=== PATIENT | female | born 1975 | race Two or more races ===

== ENCOUNTER 2024-12-04 19:08 | Emergency (ER) | payer MEDICARE, OTHER ==
[~2024-12-04] VITALS: Ht 165.1 cm; Wt 73.0 kg
[2024-12-04 19:30] VITALS: BP 140/93; PULSE 89; RESP 18; O2SAT 95
== END 2024-12-04 22:42 | disposition left against medical advice (07) ==
LOC: ER 19:08
DX: S51.852A Open bite of left forearm, initial encounter (principal); Z53.21 Procedure and treatment not carried out due to patient leaving prior to being seen by health care provider; Y08.89XA Assault by other specified means, initial encounter; Y93.89 Activity, other specified; Y92.89 Other specified places as the place of occurrence of the external cause; Y99.8 Other external cause status

== ENCOUNTER 2025-05-31 10:57 | Inpatient (IN) | payer MEDICARE, OTHER ==
[~2025-05-31] VITALS: Ht 162.6 cm; Wt 71.3 kg
[2025-05-31] VITALS (34 sets, daily range): BP systolic 81–118; BP diastolic 42–72; PULSE 105–140; RESP 18–32; TEMP 95.7–100; O2SAT 97–100
--- NOTE | 2025-05-31 11:14 | ED.PDOC ---
Altered Mental Status HPI Comments 50 year old female with a Hx of Asthma and DM was BIBA for the c/c of Hyperglycemia. Per EMS Pt was found Altered by roommates this am. Per EMS pts HR was 110, noted her Blood sugar was "high". No other associated symptoms, modifiers, recent injuries or sick contacts present at this time. Chief Complaint: Hyperglycemia Time Seen by MD: 11:11 Reviewed Notes: Nurses Notes, Desizing Machine Offbearer Notes, Medications, Allergies Allergies: Coded Allergies: Penicillins (Verified Allergy, Unknown, 12/04/24) Home Meds Reported Medications Lamotrigine (Lamotrigine) 25 Mg Tab, 2 TAB PO DAILY 05/31/25 Olanzapine (OLANZAPINE ODT) 10 Mg Tab, 1 TAB PO 05/31/25 Duloxetine HCl (Duloxetine HCl) 60 Mg Cap, 1 CAP PO DAILY 05/31/25 Omeprazole (Omeprazole Dr) 20 Mg Cap, 1 CAP PO DAILY 05/31/25 Hydrochlorothiazide (Hydrochlorothiazide) 12.5 Mg Tab, 1 TAB PO DAILY 05/31/25 Losartan Potassium (Losartan Potassium) 25 Mg Tab, 1 TAB PO DAILY 05/31/25 Glimepiride (Glimepiride) 2 Mg Tab, 1 TAB PO DAILY 05/31/25 Information Source: Emergency Med Personnel Mode of Arrival: EMS Severity: Unresponsive Timing: Hours Duration: Since onset, Hours Prehospital treatment: Treatment Quality: Decreased Alertness, Confusion Recent: None History of: Diabetes, Hypoglycemia, On Insulin Associated Signs and Symptoms: None Past Medical History PAST MEDICAL HISTORY: Asthma, DM Family History Family History: Unknown Social History Smoker: Non-Smoker Alcohol: Denies ETOH Use Drugs: Denies Drug Use Lives In: Home Constitutional: denies: chills, diaphoresis, fatigue, fever, malaise, sweats, weakness, others EENTM: denies: blurred vision, double vision, ear bleeding, ear discharge, ear drainage, ear pain, ear ringing, eye pain, eye redness, hearing loss, mouth pain, mouth swelling, nasal discharge, nose bleeding, nose congestion, nose pain, photophobia, tearing, throat pain, throat swelling, voice changes, others Respiratory: denies: cough, hemoptysis, orthopnea, SOB at rest, shortness of breath, SOB with excertion, stridor, wheezing, others Cardiovascular: denies: chest pain, dizzy spells, diaphoresis, Dyspnea on exertion, edema, irregular heart beat, left arm pain, lightheadedness, palpi tations, PND, syncope, others Gastrointestinal: denies: abdomen distended, abdominal pain, blood streaked bowels, constipated, diarrhea, dysphagia, difficulty swallowing, hematemesis, melena, nausea, poor appetite, poor fluid intake, rectal bleeding, rectal pain, vomiting, others Genitourinary: denies: abnormal vagina bleeding, burning, dyspareunia, dysuria, flank pain, frequency, hematuria, incontinence, pain, , vagina discharge, urgency, others Neurological: denies: dizziness, fainting, headache, left sided numbness, left sided weakness, numbness, paresthesia, pre-existing deficit, right sided numbness, right sided weakness, seizure, speech problems, tingling, tremors, weakness, others Musculoskeletal: denies: back pain, gout, joint pain, joint swelling, muscle pain, muscle stiffness, neck pain, others Integumetry: denies: bruises, change in color, change in hair/nails, dryness, laceration, lesions, lumps, rash, wounds, others Allergic/Immunocompromised: denies: Difficulty Healing, Frequent Infections, Hives, Itching, others Hematologic/Lymphatic: denies: anemia, blood clots, easy bleeding, easy bru ising, swollen glands, others Endocrine: denies: excessive hunger, excessive sweating, excessive thirst, e xcessive urination, flushing, intolerance to cold, intolerance to heat, unexplained weight gain, unexplained weight loss, others Psychiatric: denies: anxiety, bipolar disorder, depression, hopeless, panic disorder, schizophrenia, sleepless, suicidal, others Unable to Obtain due to: Altered Mental Status All Other Systems: Reviewed and Negative Physical Exam General Appearance: Moderate Distress, Normal HEENT: Normal ENT Inspection, Pharynx Normal, TMs Normal Neck: Full Range of Motion, Non-Tender, Normal, Normal Inspection Respiratory: Chest Non-Tender, Lungs Clear, No Accessory Muscle Use, No R espiratory Distress, Normal Breath Sounds Cardiovascular: No Edema, No JVD, No Murmur, No Gallop, Normal Peripheral Pulses, Tachycardia Breast Exam: Deferred Gastrointestinal: No Organomegaly, Non Tender, No Pulsatile Mass, Normal Bowel Sounds, Soft Genitalia: Deferred Pelvic: Deferred Rectal: Deferred Extremities: No calf tenderness, Normal capillary refill, Non-tender, No pedal edema Musculoskeletal : Apperance: Normal Neurologic: Disoriented, No Motor Deficits, Normal Affect, Normal Mood, No Sensory Deficits Cerebellar Function: Normal Reflexes: Normal, NOT DONE Skin: Dry, Normal Color, Warm Peripheral Pulses: 3+ Radial (R), 3+ Radial (L) Lymphatic: No Adenopathy Was a procedure done? Was a procedure done?: Yes Sedation Sedation?: No Central Line Recorder of insertion practice: Observer Occupation of account support rep: Attending Physician Indication: Inability to obtain IV Room prepared for procedure: Yes Linotype Worker performed hand hygien: Yes Maximal sterile barrier precau: Mask/Eye shield, Sterile gown, Cap, Sterlie gloves, Large sterlie drape Skin Preparation: Chlorhexidine gluconate Skin preparation completely dr: Yes Insertion site: Right, Internal jugular Central line catheter type: Dwy-[id number]-[id number] dialysis Number of lumens: 2 Central line exchanged over a: Yes Antiseptic ointment applied to: Yes Post Assessment: Chest X-Ray, No Pneumothorax Informed consent obtained: Yes Risks/benefits/alt described: Yes Intubation Indication: Altered Mental Status Prep: Preoxygenation Pretreated with: Lidocaine Medicated with: Nothing Intubation Approach: Orotracheal Intubation size: cm (8) Informed consent obtained: No Risks/benefits/alt described: No Differential Diagnosis (ALOC) Differential Diagnosis: Dehydration, Hypoglycemia, DKA, Meningitis, Sepsis, Seizure, Closed Head Injury, CVA, Mass Lesion, Drug Overdose, ETOH Intoxication X-Ray, Labs, Meds, VS Vital Signs Date Time Temp Pulse Resp B/P (MAP) Pulse Ox O2 Delivery O2 Flow Rate FiO2 05/31/25 14:15 103 16 87/41 (56) 98 05/31/25 14:01 105 16 82/38 (53) 97 30 05/31/25 14:00 82/38 05/31/25 14:00 105 16 82/38 (53) 97 05/31/25 13:45 98 16 88/50 (63) 97 05/31/25 13:30 101 16 85/46 (59) 96 05/31/25 13:25 82/48 05/31/25 13:25 102 15 82/48 (59) 96 05/31/25 12:22 109/62 7/4/25 12:21 109/62 05/31/25 12:15 105 16 109/62 (78) 100 30 05/31/25 12:08 108 109/62 (78) 05/31/25 11:24 111 32 98 Room Air* 0 21 05/31/25 11:23 97.9 111 32 108/60 (76) 98 97.9 05/31/25 11:07 96.7 112 24 109/56 (73) 100 96.7 Lab Test 05/31/25 13:45 05/31/25 13:30 05/31/25 12:55 05/31/25 11:50 Range/Units White Blood Count 40.5 *H 4.4-10.8 10^3/uL Red Blood Count 4.78 4.0-5.20 10^6/uL Hemoglobin 13.7 12.2-16.2 g/dL Hematocrit 44.6 36.0-46.0 % Mean Corpuscular Volume 93.3 80.0-100.0 fL Mean Corpuscular Hemoglobin 28.7 28.0-32.0 pg Mean Corpuscular Hemoglobin Concent 30.7 L 32.0-36.0 g/dL Red Cell Distribution Width 15.4 H 11.8-14.3 % Platelet Count 308 140-450 10^3/uL Mean Platelet Volume 9.0 6.9-10.8 fL Neutrophils (%) (Auto) 37.0-80.0 % Lymphocytes (%) (Auto) 10.0-50.0 % Monocytes (%) (Auto) 0.0-12.0 % Basophils (%) (Auto) 0.0-2.0 % Neutrophils # (Auto) 1.6-8.6 10 ^3/uL Lymphocytes # (Auto) 0.4-5.4 10 ^3/uL Monocytes # (Auto) 0-1.3 10 ^3/uL Differential Total Cells Counted 100.0 100 Neutrophils % (Manual) 67 37.0-80.0 Band Neutrophils % (Manual) 5 Lymphocytes % (Manual) 20 10.0-50.0 Monocytes % (Manual) 8 0-12 Eosinophils % (Manual) 0 0-7 Basophils % (Manual) 0 0.0-2.0 Metamyelocytes % (manual) 0 Myelocytes % (Manual) 0 Promyelocytes % (Manual) 0 Blast Cells % (Manual) 0 Reactive Lymphocytes 0 Platelet Estimate [place] Large Platelets Few Polychromasia Slight Anisocytosis (manual) Slight Microcytosis Slight Macrocytosis Slight Serum Osmolality 383 H 278-298 mOsm/kg Plasma/Serum Blood Alcohol < 3.0 <10 mg/dL Blood Gas Specimen Type Arterial Arterial Blood Gas Sample Site Right radial Right radial Blood Gas Patient Temperature 37.0 37.0 Arterial Blood Date Drawn [id number] Arterial Blood pH 6.777 *L 6.943 *L 7.350-7.450 Arterial Blood Partial Pressure CO2 35.9 < 14.1 *L 32.0-45.0 mmHg Arterial Blood Partial Pressure O2 123.5 H 103.2 83.0-108.0 mmHg Arterial Blood HCO3 5.2 L 21.0-28.0 mmol/L Arterial Blood Oxygen Saturation 96.5 95.7 94.0-98.0 % Arterial Blood Base Excess -29.9 L -2.0-3.0 mmol/L Arterial Blood Oxyhemoglobin 94.9 94.1 94.0-98.0 % Arterial Blood Carboxyhemoglobin 1.0 1.0 0.5-1.5 % Arterial Blood Methemoglobin 0.7 0.7 0.0-1.5 % Kadeem Test Modified Yes Blood Gas Total Hemoglobin 15.30 14.70 12.0-16.0 g/dL Blood Gas Set Respiration Rate 16.0 Blood Gas Modality Vent - ac Room air FiO2 % 30.0 21.0 Blood Gas Tidal Volume 450.0 Blood Gas PEEP or CPAP 5.0 Blood Gas Critical Value Read Back Yes Yes Blood Gas Notified Whom shannan Shepherd md, p md Blood Gas Notified Time [id number] Blood Gas Notified By Jacquard Twine Polisher Operator navin calderon Jacquard Twine Polisher Operator navin calderon Urine Color Colorless Yellow Urine Clarity Clear Clear Urine pH 5.0 5.0-9.0 Urine Specific Thompson 1.018 1.001-1.035 Urine Protein Trace H Negative Urine Ketones 4+ H Negative Urine Blood 1+ H Negative /uL Urine Nitrite Negative Negative Urine Bilirubin Negative Negative Urine Urobilinogen Normal Negative mg/dL Urine Leukocyte Esterase Negative Negative /uL Urine RBC 10 0 - 4 /hpf Urine Microscopic WBC 1 0-5 /HPF Urine Squamous Epithelial Cells Few <5 /hpf Urine Bacteria Few H None Seen /hpf Urine Mucus Few None Seen Urine Glucose 4+ H Normal mg/dL Urine Opiates Screen Neg NEGATIVE Urine Fentanyl Screen Neg NEGATIVE Urine Barbiturates Screen Neg NEGATIVE Urine Phencyclidine Screen Neg NEGATIVE Urine Amphetamines Screen Neg NEGATIVE Urine Benzodiazepines Screen Neg NEGATIVE Urine Cocaine Screen Neg NEGATIVE Urine Cannabinoids Screen Neg NEGATIVE Test 05/31/25 11:32 Range/Units Sodium Level 131 L 136-145 mmol/L Potassium Level 5.0 3.5-5.1 mmol/L Chloride Level 88 L 98-107 mmol/L Carbon Dioxide Level < 10 *L 20-31 mmol/L Anion Gap 33.83098 H 5-15 Blood Urea Nitrogen 35 H 9-23 mg/dL Creatinine 2.50 H 0.550-1.02 mg/dL Glomerular Filtration Rate Calc 23 >90 mL/min BUN/Creatinine Ratio 14.0 10.0-20.0 Serum Glucose 978 *H 74-106 mg/dL Calcium Level 9.0 8.7-10.4 mg/dL Phosphorus Level 12.7 H 2.4-5.1 mg/dL Magnesium Level 2.8 H 1.6-2.6 mg/dL Beta-Hydroxybutyric Acid > 4.500 H < 0.4 mmol/L Current Medications Medications (Trade) Dose Ordered Sig/Laura Route Start Time Stop Time Status Last Admin Sodium Chloride 1,000 ml @ 500 mls/hr Q2H IV 05/31/25 11:15 05/31/25 15:14 DC 05/31/25 14:04 Insulin Human (Reg)/Sodium Chloride 100 ml @ 0.5 mls/hr Q24H IV 05/31/25 11:15 05/31/25 11:36 Diagnostic Test (Pha) (Accu-Chek Comfort Curve T) 1 strip Q90MIN 05/31/25 12:00 05/31/25 16:52 Insulin Glargine (Lantus) 15 units ONCE ONCE SC 05/31/25 11:15 05/31/25 11:16 DC 05/31/25 11:20 Sodium Bicarbonate 100 ml ONCE ONCE IV 05/31/25 12:00 05/31/25 12:01 DC 05/31/25 13:39 Etomidate 20 mg ONCE ONCE IV 05/31/25 12:15 05/31/25 12:16 DC 05/31/25 12:21 Rocuronium [place] 100 mg ONCE ONCE IV 05/31/25 12:15 05/31/25 12:16 DC 05/31/25 12:22 Midazolam HCl 50 ml @ 1 mls/hr Q24H IV 05/31/25 12:15 05/31/25 12:21 Sodium Bicarbonate 100 ml ONCE ONCE IV 05/31/25 13:45 05/31/25 13:46 DC 05/31/25 14:20 Patient disoriented. Heart rate increased. Saturation pristine. Blood sugar high. Possible DKA. Establish intravenous access. Was given fluids. She is moving her extremities. Using accessory muscles. Explained to the patient. Continue monitoring. PATIENT: RICHARD NEWMAN ACCT: [id number] UNIT: [id number] : 1975 LOC: ER ROOM / BED: / AGE / SEX: 50 / F ADM STATUS: REG ER SERVICE 1214 ORDERING PHYSICIAN: JEREMY SHEPHERD MD PROCEDURE(s): CXR1 - CHEST XRAY 1 VIEW REASON: s/p intubation ORDER NUMBER(s): [id number], ACCESSION NUMBER(s): [id number] EXAM: XY CHEST XRAY 1 VIEW HISTORY: s/p intubation COMPARISON: None TECHNIQUE: Portable AP view of the chest was performed. FINDINGS: Endotracheal tube is identified with its tip about 4.5 cm above the roxann. OG tube is identified with its tip at least 9 cm distal to the GE junction. Right IJ central line is identified with its tip in the mid to lower SVC. There is mild retrocardiac left lower lobe infiltrate. No other infiltrates, pneumothorax, or pulmonary edema. There is mild central peribronchial thicke jluis. The heart is not enlarged. IMPRESSION: 1. Mechanical ventilation with tubes and lines as above. 2. Mild Reactive airways disease. 3. Mild left lower lobe retrocardiac infiltrate may be due to scarring, atelectasis, or mild pneumonia. Time of 1ST Reevaluation: 11:41 Reevaluation 1ST: Unchanged Patient Education/Counseling: Diagnosis, Treatment, Need For Follow Up Family Education/Counseling: No Family Present SEPSIS Sepsis Screen Physician Orders Insulin Drip Protocol (7/4/25 ) Sodium Chloride 0.9% (05/31/25 17:15) Insulin Drip 100 Unit/100ml (Myxredlin 1 (05/31/25 11:15) Dextrose 50% Syringe (05/31/25 11:15) Glucose Blood (Accu-Chek Comfort Curve T (05/31/25 12:00) Abg W/ Co-Ox (05/31/25 11:10) Basic Metabolic Panel (05/31/25 23:10) Basic Metabolic Panel (06/01/25 05:10) Neurological Assessment (05/31/25 11:10) Vs/Hemodynamics .PER UNIT PROTOCOL (05/31/25 11:10) Insulin Lantus (Glargine) (Lantus) (06/01/25 10:00) Midazolam Drip 50 Mg/50ml (Versed Drip 5 (05/31/25 12:15) Rass Sedation Scale Q1HR (05/31/25 12:01) Chest Xray 1 View (05/31/25 12:14) Vent Ip Init (05/31/25 12:19) Respiratory Culture W/ Gs (05/31/25 12:19) Abg W/ Co-Ox (05/31/25 13:15) D5w 5% (Dextrose 5%) W/Sodium Bicarb 50m (05/31/25 14:30) Vital Signs Date Time Temp Pulse Resp B/P (MAP) Pulse Ox O2 Delivery O2 Flow Rate FiO2 05/31/25 14:15 103 16 87/41 (56) 98 05/31/25 14:01 105 16 82/38 (53) 97 30 05/31/25 14:00 82/38 05/31/25 14:00 105 16 82/38 (53) 97 05/31/25 13:45 98 16 88/50 (63) 97 05/31/25 13:30 101 16 85/46 (59) 96 05/31/25 13:25 82/48 05/31/25 13:25 102 15 82/48 (59) 96 05/31/25 12:22 109/62 05/31/25 12:21 109/62 05/31/25 12:15 105 16 109/62 (78) 100 30 05/31/25 12:08 108 109/62 (78) 05/31/25 11:24 111 32 98 Room Air* 0 21 05/31/25 11:23 97.9 111 32 108/60 (76) 98 97.9 05/31/25 11:07 96.7 112 24 109/56 (73) 100 96.7 Laboratory Tests Test 05/31/25 13:45 White Blood Count 40.5 10^3/uL (4.4-10.8) *H Medications Medications Dose Ordered Sig/Laura Route Start Time Stop Time Status Last Admin Dose Admin Diagnostic Test (Pha) 1 strip Q90MIN 05/31/25 12:00 05/31/25 16:52 Etomidate 20 mg ONCE ONCE IV 05/31/25 12:15 05/31/25 12:16 DC 05/31/25 12:21 Insulin Glargine 15 units ONCE ONCE SC 05/31/25 11:15 05/31/25 11:16 DC 05/31/25 11:20 Insulin Human (Reg)/Sodium Chloride 100 ml @ 0.5 mls/hr Q24H IV 05/31/25 11:15 05/31/25 11:36 Midazolam HCl 50 ml @ 1 mls/hr Q24H IV 05/31/25 12:15 05/31/25 12:21 Rocuronium [place] 100 mg ONCE ONCE IV 05/31/25 12:15 05/31/25 12:16 DC 05/31/25 12:22 Sodium Bicarbonate 100 ml ONCE ONCE IV 05/31/25 12:00 05/31/25 12:01 DC 05/31/25 13:39 Sodium Bicarbonate 100 ml ONCE ONCE IV 05/31/25 13:45 05/31/25 13:46 DC 05/31/25 14:20 Sodium Chloride 1,000 ml @ 500 mls/hr Q2H IV 05/31/25 11:15 05/31/25 15:14 DC 05/31/25 14:04 Departure 1 Departure Time of Disposition: 11:39 Impression: Primary Impression: DKA (diabetic ketoacidosis) Qualified Codes: E13.10 - Other specified diabetes mellitus with ketoacidosis without coma Disposition: ADMITTED INPATIENT Admit to: Med Surg Condition: Guarded Critical Care Note Critical Care Time?: Yes (90 min-critical care time only) Critical care comment: Continue monitoring Stability Stability form required: No Heart Score Heart Score: Heart Score Response (Comments) Value History Slightly Suspicious 0 EKG Normal 0 Age 45-64 1 Risk Factors >3 or Hx ASHD 2 Troponin Normal limit 0 Total 3 I personally scribed for JEREMY SHEPHERD MD ([email or web address]) on 05/31/25 at 11:14. Electronically submitted by Rubio Camargo ([email or web address]). I personally scribed for JEREMY SHEPHERD MD ([email or web address]) on 05/31/25 at 13:20. Electronically submitted by Rubio Camargo ([email or web address]). I personally scribed for JEREMY SHEPHERD MD ([email or web address]) on 05/31/25 at 13:22. Electronically submitted by Rubio Camargo ([email or web address]). JEREMY SHEPHERD MD May 31, 2025 11:14
[2025-05-31] MEDS ORDERED: DEXTROSE (50%) 50ML SYRG IV PRN (11:15)
[2025-05-31] MEDS: INSULIN LANTUS (GLARGINE) 1 /0.01ml (100units/ml) SC ONE (11:20)
[2025-05-31] MEDS: SODIUM CHLORIDE 0.9% 1,000 ML IV SCH ×2 (11:31→15:15)
[2025-05-31] MEDS: INSULIN DRIP 100 UNIT/100ML 100 ML IV SCH ×3 (11:36→21:30)
[2025-05-31 11:57] LABS: Potassium 5.0 mmol/L (3.5-5.1)
[2025-05-31 11:58] LABS: Anion Gap 33.00001 (5-15); Calcium 9.0 mg/dL (8.7-10.4)
[2025-05-31] MEDS: ACCU-CHEK COMFORT CURVE STRIP VI SCH (12:02)
[2025-05-31] MEDS: ROCURONIUM 10MG/ML 10ML VIAL IV ONE ×2 (12:05→12:22)
[2025-05-31 12:11] LABS: Blood Urea Nitrogen 35 mg/dL (9-23); Magnesium 2.8 mg/dL (1.6-2.6)
[2025-05-31 12:15] LABS: BUN/Creatinine Ratio 14.0 (10.0-20.0); Carbon Dioxide < 10 mmol/L (20-31); Chloride 88 mmol/L (98-107); Glucose 978 mg/dL (74-106); Sodium 131 mmol/L (136-145)
[2025-05-31] MEDS: ETOMIDATE (2MG/ML) 20ML VIAL IV ONE ×2 (12:21→14:02)
[2025-05-31] MEDS: MIDAZOLAM DRIP 50 mg/50mL 50 ML IV SCH (12:21)
--- NOTE | 2025-05-31 13:10 | DVH ---
EXAM: XY CHEST XRAY 1 VIEW HISTORY: s/p intubation COMPARISON: None TECHNIQUE: Portable AP view of the chest was performed. FINDINGS: Endotracheal tube is identified with its tip about 4.5 cm above the roxann. OG tube is identified wit h its tip at least 9 cm distal to the GE junction. Right IJ central line is identified with its tip in the mid to lower SVC. There is mild retrocardiac left lower lobe infiltrate. No other infiltrates , pneumothorax, or pulmonary edema. There is mild central peribronchial thickening. The heart is not enlarged. IMPRESSION: 1. Mechanical ventilation with tubes and lines as above. 2. Mild Reactive airways disease. 3. Mild left lower lobe retrocardiac infiltrate may be due to scarring, atelectasis, or mild pneumoni a.
[2025-05-31 13:27] LABS: Urine Protein, UAD TRACE (Negative)
[2025-05-31] MEDS: SODIUM CHLORIDE 0.9% 3,000 ML IV ONE (13:30)
[2025-05-31] MEDS: SODIUM BICARB 8.4% 50Meq/50ml SYR Vial IV ONE ×3 (13:39→18:22)
[2025-05-31 13:48] LABS: Base Excess -29.9 mmol/L (-2.0-3.0)
[2025-05-31 14:05] LABS: Hemoglobin 13.7 g/dL (12.2-16.2)
[2025-05-31 14:06] LABS: Hematocrit 44.6 % (36.0-46.0); Mean Corpuscular Hemoglobin 28.7 pg (28.0-32.0); Mean Corpuscular Volume 93.3 fL (80.0-100.0)
[2025-05-31] MEDS ORDERED: DULO1CAP6 PO (14:26)
[2025-05-31] MEDS ORDERED: LAMO25TA27 PO (14:26)
[2025-05-31] MEDS ORDERED: GLIM2TAB94 PO (14:26)
[2025-05-31] MEDS ORDERED: LOS25T PO (14:26)
[2025-05-31] MEDS ORDERED: OLAN10TA40 PO (14:26)
[2025-05-31] MEDS ORDERED: OMEP1CAP70 PO (14:26)
[2025-05-31] MEDS ORDERED: HYDR12.55 PO (14:26)
[2025-05-31] MEDS ORDERED: NITROGLYCERIN 0.4 MG SL TAB SL PRN (14:30)
[2025-05-31] MEDS ORDERED: MORPHINE SULFATE INJ 2 MG/ml SYRG IV PRN (14:30)
[2025-05-31] MEDS ORDERED: ONDANSETRON HCL 4 MG/2 ML VIAL IV PRN (14:30)
[2025-05-31] MEDS: SODIUM CHLORIDE 0.9% 1,000 ML IV ONE (14:50)
[2025-05-31] MEDS: NOREPINEPHRINE 8 MG/250ML KIT 250 ML IV SCH (14:50)
[2025-05-31] MEDS: VANCOMYCIN 1.25GM/250ML 250 ML IV ONE (14:57)
--- NOTE | 2025-05-31 14:58 | DVHHP2 ---
History of Present Illness Reason for Visit: Hyperglycemia History of Present Illness Chanell Riddle is a 50-year-old female with past medical history of diabetes, who came to the hospital for hyperglycemia. The patient was brought in by EMS, there is no family or friends bedside and the patient is intubated and sedated. Obtained history form chart. According to EMS, they were called by roommates who found the patient altered in her room this morning. When EMS did an Accu check it read as "hi" twice. When the patient arrived to the ER she could barely say her name and she was intubated shortly after arrival. She was found to be in DKA and in metabolic acidosis. Unable to obtain any other medical history at this time Endocrine: Diabetes Review of Systems Review of Systems Unable to obtain Allergies: Coded Allergies: Penicillins (Verified Allergy, Unknown, 12/04/24) Medications Current Medications Medications Dose Ordered Sig/Laura Route Start Time Stop Time Status Last Admin Dose Admin Sodium Chloride 1,000 ml @ 500 mls/hr Q2H IV 05/31/25 11:15 05/31/25 15:14 05/31/25 14:04 500 MLS/HR Sodium Chloride 1,000 ml @ 250 mls/hr Q4H IV 05/31/25 15:15 05/31/25 17:14 Sodium Chloride 1,000 ml @ 150 mls/hr Q6H40M IV 05/31/25 17:15 Insulin Human (Reg)/Sodium Chloride 100 ml @ 0.5 mls/hr Q24H IV 05/31/25 11:15 05/31/25 11:36 0.5 MLS/HR Dextrose 50 ml UD PRN IV 05/31/25 11:15 Diagnostic Test (Pha) 1 strip Q90MIN 05/31/25 12:00 05/31/25 13:57 1 STRIP Insulin Glargine 15 units DAILY SC 06/01/25 10:00 Midazolam HCl 50 ml @ 1 mls/hr Q24H IV 05/31/25 12:15 05/31/25 12:21 1 MLS/HR Sodium Bicarbonate 150 ml/Dextrose 1,150 ml @ 100 mls/hr [id number] IV 05/31/25 14:30 Ondansetron HCl 4 mg Q4HP PRN IV 05/31/25 14:30 Enoxaparin Sodium 40 mg DAILY SC 06/01/25 10:00 UNV Acetaminophen 650 mg Q6HP PRN PO 05/31/25 14:30 Nitroglycerin 0.4 mg Q5MINP PRN SL 05/31/25 14:30 Morphine Sulfate 2 mg Q30M PRN IV 05/31/25 14:30 Ceftriaxone Sodium 50 ml @ 100 mls/hr DAILY@09 IV 06/01/25 09:00 UNV Exam Vital Signs Vital Signs Date Time Temp Pulse Resp B/P (MAP) Pulse Ox O2 Delivery O2 Flow Rate FiO2 05/31/25 12:22 109/62 05/31/25 12:15 105 16 100 30 05/31/25 11:24 Room Air* 0 05/31/25 11:23 97.9 97.9 General Appearance: Other (sedated) HEENT: Atraumatic, PERRLA, Other (Mucous membr dry) Respiratory: Clear to auscultation, Normal air movement, Other (intubated) Cardiovascular: Normal S1, Normal S2, Other (ST) Abdominal: Normal bowel sounds, Soft, No tenderness Extremities: No clubbing, No cyanosis, No edema, Normal pulses Skin: No rashes, No breakdown, No significant lesion Neuro: Other (sedated) Labs/Xrays Labs Test 05/31/25 13:45 05/31/25 13:30 05/31/25 12:55 05/31/25 11:32 Range/Units White Blood Count 40.5 *H 4.4-10.8 10^3/uL Red Blood Count 4.78 4.0-5.20 10^6/uL Hemoglobin 13.7 12.2-16.2 g/dL Hematocrit 44.6 36.0-46.0 % Mean Corpuscular Volume 93.3 80.0-100.0 fL Mean Corpuscular Hemoglobin 28.7 28.0-32.0 pg Mean Corpuscular Hemoglobin Concent 30.7 L 32.0-36.0 g/dL Red Cell Distribution Width 15.4 H 11.8-14.3 % Platelet Count 308 140-450 10^3/uL Mean Platelet Volume 9.0 6.9-10.8 fL Neutrophils (%) (Auto) 37.0-80.0 % Lymphocytes (%) (Auto) 10.0-50.0 % Monocytes (%) (Auto) 0.0-12.0 % Basophils (%) (Auto) 0.0-2.0 % Neutrophils # (Auto) 1.6-8.6 10 ^3/uL Lymphocytes # (Auto) 0.4-5.4 10 ^3/uL Monocytes # (Auto) 0-1.3 10 ^3/uL Serum Osmolality 383 H 278-298 mOsm/kg Blood Gas Specimen Type Arterial Blood Gas Sample Site Right radial Blood Gas Patient Temperature 37.0 Arterial Blood Date Drawn [id number] Arterial Blood pH 6.777 *L 7.350-7.450 Arterial Blood Partial Pressure CO2 35.9 32.0-45.0 mmHg Arterial Blood Partial Pressure O2 123.5 H 83.0-108.0 mmHg Arterial Blood HCO3 5.2 L 21.0-28.0 mmol/L Arterial Blood Oxygen Saturation 96.5 94.0-98.0 % Arterial Blood Base Excess -29.9 L -2.0-3.0 mmol/L Arterial Blood Oxyhemoglobin 94.9 94.0-98.0 % Arterial Blood Carboxyhemoglobin 1.0 0.5-1.5 % Arterial Blood Methemoglobin 0.7 0.0-1.5 % Kadeem Test Modified Blood Gas Total Hemoglobin 15.30 12.0-16.0 g/dL Blood Gas Set Respiration Rate 16.0 Blood Gas Modality Vent - ac FiO2 % 30.0 Blood Gas Tidal Volume 450.0 Blood Gas PEEP or CPAP 5.0 Blood Gas Critical Value Read Back Yes Blood Gas Notified Whom shannan Soria md Blood Gas Notified Time [id number] Blood Gas Notified By Research Epidemiologist navin calderon Urine Color Colorless Yellow Urine Clarity Clear Clear Urine pH 5.0 5.0-9.0 Urine Specific [place] 1.018 1.001-1.035 Urine Protein Trace H Negative Urine Ketones 4+ H Negative Urine Blood 1+ H Negative /uL Urine Nitrite Negative Negative Urine Bilirubin Negative Negative Urine Urobilinogen Normal Negative mg/dL Urine Leukocyte Esterase Negative Negative /uL Urine RBC 10 0 - 4 /hpf Urine Microscopic WBC 1 0-5 /HPF Urine Squamous Epithelial Cells Few <5 /hpf Urine Bacteria Few H None Seen /hpf Urine Mucus Few None Seen Urine Glucose 4+ H Normal mg/dL Sodium Level 131 L 136-145 mmol/L Potassium Level 5.0 3.5-5.1 mmol/L Chloride Level 88 L 98-107 mmol/L Carbon Dioxide Level < 10 *L 20-31 mmol/L Anion Gap 33.42195 H 5-15 Blood Urea Nitrogen 35 H 9-23 mg/dL Creatinine 2.50 H 0.550-1.02 mg/dL Glomerular Filtration Rate Calc 23 >90 mL/min BUN/Creatinine Ratio 14.0 10.0-20.0 Serum Glucose 978 *H 74-106 mg/dL Calcium Level 9.0 8.7-10.4 mg/dL Phosphorus Level 12.7 H 2.4-5.1 mg/dL Magnesium Level 2.8 H 1.6-2.6 mg/dL Beta-Hydroxybutyric Acid > 4.500 H < 0.4 mmol/L EXAM: XY CHEST X-RAY 1 VIEW FINDINGS: Endotracheal tube is identified with its tip about 4.5 cm above the roxann. OG tube is identified with its tip at least 9 cm distal to the GE junction. Right IJ central line is identified with its tip in the mid to lower SVC. There is mild retrocardiac left lower lobe infiltrate. No other infiltrates, pneumothorax, or pulmonary edema. There is mild central peribronchial thickening. The heart is not enlarged. IMPRESSION: 1. Mechanical ventilation with tubes and lines as above. 2. Mild Reactive airways disease. 3. Mild left lower lobe retrocardiac infiltrate may be due to scarring, atelectasis, or mild pneumonia. Assessment/Plan Assessment/Plan Assessment: DKA (diabetic ketoacidosis), Uncontrolled diabetes, Severe metabolic acidosis, UTI, Plan: Admit to ICU, IV antibiotics, IV hydration, IV indulin drip, IV vasopressors as needed, BMP Q 6 hours, Manage/Monitor electrolytes closely, Blood culture, Urine culture, Plan discussed with: Patient My Orders Orders - SHARMAINE NAVARRETE [employer] Procedure Category Date Status Time D5w 5% (Dextrose 5%) PHA 05/31/25 In Process W/Sodium Bicarb 50m 14:30 Admit ADMIT 05/31/25 Transmitted 14:22 Code Status CODE 05/31/25 Transmitted 14:22 Ondansetron Hcl PHA 05/31/25 In Process (Zofran) 14:30 Enoxaparin Sodium PHA 06/01/25 Logged (Lovenox) 10:00 Complete Blood Count LAB 7/5/25 Verified 04:00 Comprehensive LAB 06/01/25 Verified Metabolic Panel 04:00 Npo (Nothing By DIET 05/31/25 Transmitted Mouth) Diet Dinner Condition: Unstable [facility] 05/31/25 In Process 14:22 Acetaminophen Tablet [facility] 05/31/25 In Process (Tylenol Tablet) 14:30 Nitroglycerin PHA 05/31/25 In Process Sublingual (Ntrostat 14:30 Morphine Sulfate PHA 05/31/25 In Process Injection 14:30 Stat Ekg For Chest [facility] 05/31/25 In Process Pain 14:22 Notify Md Of Changes [facility] 05/31/25 In Process From Base 14:22 Gill Box Tender For [facility] 05/31/25 In Process 24 Hours 14:22 Emergency Dysrhythmia [facility] 05/31/25 In Process Protocol 14:22 Rhythm Strips Once [facility] 05/31/25 In Process Every Shift 14:22 Oxygen By Nasal RT 05/31/25 Transmitted Cannula 14:22 Ceftriaxone 1gm/50ml PHA 06/01/25 Logged D5w (Rocephin) 09:00 Ceftriaxone 1gm/50ml PHA 05/31/25 Logged D5w (Rocephin) 14:30 Vancomycin PHA 05/31/25 In Process 1.25gm/250ml 14:30 Basic Metabolic Panel LAB 05/31/25 Logged 16:00 Date of Service: May 31, 2025 Billing Provider: SHARMAINE NAVARRETE Common Visit Codes: [id number] INP/OBS CARE (HIGH) SHARMAINE NAVARRETE May 31, 2025 14:58
[2025-05-31] MEDS: cefTRIAXone 1GM/50ML D5W 50 ML IV ONE (15:32)
[2025-05-31 15:41] LABS: Amphetamine Screen, Urine Neg (NEGATIVE); Barbiturate Scree,Urine Neg (NEGATIVE); Benzodiazephine Screen, Urine Neg (NEGATIVE); Cannabinoid Screen, Urine Neg (NEGATIVE); Cocaine Screen, Urine Neg (NEGATIVE); Opiate Scree,Urine Neg (NEGATIVE); Phencyclidine Screen, Urine Neg (NEGATIVE)
[2025-05-31 15:53] LABS: Base Excess -21.5 mmol/L (-2.0-3.0)
[2025-05-31] MEDS: SODIUM BICARB 50mEq/50ml Vial 150 ML in D5W 5% 1,000 ML IV SCH (16:02)
[2025-05-31 16:27] LABS: Total Cells Counted 100.0 (100)
[2025-05-31 16:28] LABS: Anisocytosis Slight; Macrocytosis Slight; Polychromasia Slight
[2025-05-31 16:44] LABS: Chloride 102 mmol/L (98-107); Sodium 145 mmol/L (136-145)
[2025-05-31 16:46] LABS: Anion Gap 33.00001 (5-15)
[2025-05-31 16:47] LABS: Calcium 7.7 mg/dL (8.7-10.4); Potassium 3.2 mmol/L (3.5-5.1)
[2025-05-31 16:50] LABS: Carbon Dioxide < 10 mmol/L (20-31)
[2025-05-31 16:51] LABS: BUN/Creatinine Ratio 26.3 (10.0-20.0)
[2025-05-31 16:52] LABS: Blood Urea Nitrogen 50 mg/dL (9-23)
[2025-05-31 16:54] LABS: Glucose 668 mg/dL (74-106)
[2025-05-31] MEDS ORDERED: SODIUM CHLORIDE 0.9% 1,000 ML IV SCH (17:15)
[2025-05-31] MEDS: POTASSIUM CHL 20MEQ/100ML 100 ML IV SCH (18:22)
[2025-05-31] MEDS: fentaNYL Drip 2500mCg/250mlNS 250 ML IV SCH (21:27)
[2025-05-31] MEDS: PANTOPRAZOLE 40 MG/10 ML VIAL INJ IV SCH (21:27)
[2025-05-31 23:27] LABS: Anion Gap 22 (5-15); Carbon Dioxide 21 mmol/L (20-31)
[2025-05-31 23:28] LABS: Calcium 8.3 mg/dL (8.7-10.4); Chloride 110 mmol/L (98-107); Potassium 2.8 mmol/L (3.5-5.1); Sodium 153 mmol/L (136-145)
[2025-05-31 23:33] LABS: BUN/Creatinine Ratio 22.8 (10.0-20.0)
[2025-05-31 23:39] LABS: Blood Urea Nitrogen 36 mg/dL (9-23); Glucose 386 mg/dL (74-106)
[2025-06-01] VITALS (106 sets, daily range): BP systolic 97–150; BP diastolic 65–94; PULSE 118–144; RESP 15–22; TEMP 98.6–100.8; O2SAT 97–100
[2025-06-01] MEDS: ACETAMINOPHEN 325 MG TAB PO PRN (01:13)
[2025-06-01] MEDS: POTASSIUM CHL 20MEQ/100ML 100 ML IV SCH ×2 (01:21→13:59)
[2025-06-01] MEDS: INSULIN DRIP 100 UNIT/100ML 100 ML IV SCH ×3 (01:25→15:30)
[2025-06-01] MEDS: SODIUM BICARB 8.4% 50Meq/50ml SYR INJ ONE (02:24)
[2025-06-01 04:22] LABS: Alanine Aminotransferase 15 U/L (7-40); Albumin 3.7 g/dL (3.2-4.8); Alkaline Phosphatase 81 U/L (46-116); Anion Gap 15 (5-15); BUN/Creatinine Ratio 21.5 (10.0-20.0); Carbon Dioxide 26 mmol/L (20-31)
[2025-06-01 04:32] LABS: Bilirubin, Total 0.2 mg/dL (0.2-1.0); Blood Urea Nitrogen 29 mg/dL (9-23); Calcium 7.9 mg/dL (8.7-10.4); Chloride 112 mmol/L (98-107); Glucose 273 mg/dL (74-106); Potassium 3.0 mmol/L (3.5-5.1); Sodium 153 mmol/L (136-145); Total Protein 5.6 g/dL (5.7-8.2)
[2025-06-01 05:10] LABS: Hematocrit 44.9 % (36.0-46.0); Hemoglobin 15.2 g/dL (12.2-16.2); Mean Corpuscular Hemoglobin 28.6 pg (28.0-32.0); Mean Corpuscular Volume 84.4 fL (80.0-100.0)
[2025-06-01 05:47] LABS: Base Excess 5.2 mmol/L (-2.0-3.0)
[2025-06-01 06:41] LABS: Smudge Cells 2 /100 WBC; Total Cells Counted 100.0 (100)
[2025-06-01] MEDS: cefTRIAXone 1GM/50ML D5W 50 ML IV SCH (09:01)
[2025-06-01] MEDS: ENOXAPARIN SOD 30 MG/0.3 ML SYRINGE SC SCH (09:03)
[2025-06-01] MEDS: INSULIN LANTUS (GLARGINE) 1 /0.01ml (100units/ml) SC SCH (09:47)
--- NOTE | 2025-06-01 11:37 | DVHPN2 ---
Assessment/Plan Assessment/Plan ICU note 79 M with DM HTN admitted for COPD and HF exacerbation, intubated and placed on mechanical vent, started on pressors, empiric abx and diuretics. now off pressors and extubated. seen today, gap closed x1. tachy, will add iv hydration. vent adjusted. gas in 2 hours. physical exam intubated, sedated on mechanical vent PERRLA dry mucous membranes no JVD mechanical breath sounds s1 s2 tachy abdomen soft no le edema labs ekg imaging reviewed assessment and plan acute metabolic encephalopathy acute hypoxic RF req mechanical vent DKA severe HAGMA MABLE likely hemodynamic mediated IDDM possible aspiration PNA gp vs gn c/w mech vent, decrease TV to 400 follow culture transition to subq insulin now that gap is closed basal and ISS iv hydration bolus SAT SBT tomorrow tube feeds tomorrow follow cr diet NPO dvt ppx lovenox gi ppx lovenox full code condition critical prognosis poor 60 minutes critical care time rendered Plan discussed with: Other My Orders Orders - KATY ELKINS MD Procedure Category Date Status Time Pantoprazole PHA 06/02/25 Logged (Protonix) 10:00 Strict I & O LONNIE 06/01/25 In Process 11:27 Cpap/Sed Vacation Med ORDERS 06/01/25 Transmitted Weaning 11:27 Basic Metabolic Panel LAB 06/01/25 Logged 11:27 Complete Blood Count LAB 06/02/25 Verified 04:00 Comprehensive LAB 06/02/25 Verified Metabolic Panel 04:00 Magnesium LAB 06/02/25 Verified 04:00 Phosphorus LAB 06/02/25 Verified 04:00 Sodium Chloride 0.9% PHA 06/01/25 Logged 11:45 Abg W/ Co-Ox RT 06/01/25 Transmitted 13:00 Ventilator Orders RT 06/01/25 Transmitted 11:36 Date of Service: Jun 01, 2025 Billing Provider: KATY ELKINS MD Common Visit Codes: [id number] CARE 30-74 MIN KATY ELKINS MD Jun 01, 2025 11:37
[2025-06-01] MEDS ORDERED: INSULIN DRIP 100 UNIT/100ML 100 ML IV SCH (12:15)
[2025-06-01 12:46] LABS: Alanine Aminotransferase 14 U/L (7-40); Albumin 3.8 g/dL (3.2-4.8); Alkaline Phosphatase 79 U/L (46-116); Anion Gap 11 (5-15); BUN/Creatinine Ratio 21.6 (10.0-20.0); Calcium 8.9 mg/dL (8.7-10.4); Carbon Dioxide 31 mmol/L (20-31)
[2025-06-01 12:55] LABS: Bilirubin, Total 0.3 mg/dL (0.2-1.0); Blood Urea Nitrogen 25 mg/dL (9-23); Chloride 115 mmol/L (98-107); Glucose 112 mg/dL (74-106); Potassium 3.3 mmol/L (3.5-5.1); Sodium 157 mmol/L (136-145); Total Protein 5.5 g/dL (5.7-8.2)
[2025-06-01] MEDS: SODIUM CHLORIDE 0.9% 1,000 ML IV ONE (13:17)
[2025-06-01 13:23] LABS: Base Excess 4.6 mmol/L (-2.0-3.0)
[2025-06-01] MEDS: INSULIN LANTUS (GLARGINE) 1 /0.01ml (100units/ml) SC ONE (13:42)
[2025-06-01 20:28] LABS: Alanine Aminotransferase 12 U/L (7-40); Albumin 3.5 g/dL (3.2-4.8); Alkaline Phosphatase 73 U/L (46-116); Anion Gap 9 (5-15); BUN/Creatinine Ratio 19.1 (10.0-20.0); Blood Urea Nitrogen 21 mg/dL (9-23); Calcium 8.3 mg/dL (8.7-10.4); Carbon Dioxide 29 mmol/L (20-31); Chloride 119 mmol/L (98-107); Glucose 158 mg/dL (74-106); Potassium 3.9 mmol/L (3.5-5.1); Sodium 157 mmol/L (136-145); Total Protein 5.2 g/dL (5.7-8.2)
[2025-06-01 20:29] LABS: Bilirubin, Total 0.3 mg/dL (0.2-1.0)
--- NOTE | 2025-06-01 22:41 | DVHPN2 ---
Progress Note - Dictate Date Seen: Jun 01, 2025 Medical Necessity Reason Pt with a Central, PICC or Fol: Yes The following are medically ne: Sotelo Catheter Reason for sotelo catheter: Strict I&O Subjective Patient seen and examined at bedside. Sedated, intubated on mechanical ventilator. Overnight events reviewed. vital signs Vital Sign Date Time Temp Pulse Resp B/P (MAP) Pulse Ox O2 Delivery O2 Flow Rate FiO2 06/01/25 22:21 132 16 118/77 (91) 99 30 06/01/25 18:45 99.3 210.7 06/01/25 18:00 Mechanical Ventilator+ 05/31/25 11:24 0 Total Intake and Output 05/31/25 05/31/25 06/01/25 15:00 23:00 07:00 Intake Total 1500 ml 3040.50 ml 1366.25 ml Output Total 1400 ml 1800 ml Balance 1500 ml 1640.50 ml -433.75 ml medications Current Medications Medications Dose Ordered Sig/Laura Route Start Time Stop Time Status Last Admin Dose Admin Dextrose 50 ml UD PRN IV 05/31/25 11:15 Diagnostic Test (Pha) 1 strip Q90MIN 05/31/25 12:00 06/01/25 22:26 1 STRIP Insulin Glargine 15 units DAILY SC 06/01/25 10:00 Hold 06/01/25 09:47 15 UNITS Midazolam HCl 50 ml @ 1 mls/hr Q24H IV 05/31/25 12:15 06/01/25 20:15 7 MLS/HR Acetaminophen 650 mg Q6HP PRN PO 05/31/25 14:30 06/01/25 01:13 650 MG Ceftriaxone Sodium 50 ml @ 100 mls/hr DAILY@09 IV 06/01/25 09:00 06/01/25 09:01 100 MLS/HR Norepinephrine Bitartrate 250 ml @ 3.75 mls/hr Q24H IV 05/31/25 14:30 05/31/25 14:50 3.75 MLS/HR Fentanyl Citrate 250 ml @ 2.5 mls/hr Q24H IV 05/31/25 21:15 06/01/25 15:32 12.5 MLS/HR Pantoprazole Sodium 40 mg DAILY IV 06/02/25 10:00 Insulin Human (Reg)/Sodium Chloride 100 ml @ 0.5 mls/hr Q24H IV 06/01/25 15:15 06/01/25 15:30 0.5 MLS/HR Enoxaparin Sodium 40 mg DAILY SC 06/02/25 10:00 objective Gen.: Patient lying in bed in medical ICU. Sedated, intubated on mechanical ventilator. Head: Normocephalic, atraumatic. Eyes: PERRLA. Ears: Normal external anatomy. Throat: Endotracheal tube and orogastric tube in place. Neck: Supple, trachea midline. Chest: Transmitted breath sounds bilaterally. Decreased air entry bilaterally. No wheezing. Bibasilar crackles. Cardiovascular: Positive S1, positive S2. Regular rate and rhythm. Abdomen: Positive bowel sounds in all 4 quadrants. Soft, nontender, nondistended. : Sotelo in place. Normal external genitalia. Rectal: Deferred. Skin: Warm, dry. Intact. Extremities: 2+ radial pulses bilaterally. No lower extremity edema. Neuro: Sedated. laboratory and microbiology Laboratory Tests 06/01/25 19:56 06/01/25 02:42 Test 06/01/25 19:56 Range/Units Serum Glucose 158 H 74-106 mg/dL Assessment/Plan Impression: Acute hypoxic respiratory failure On mechanical ventilator Diabetic ketoacidosis Metabolic acidosis Acute metabolic encephalopathy Plan: s/p intubation on mechanical ventilator. ABG reviewed, notable for alkalemia. On AC mode; RR 16, VT 400, PEEP 5, FiO2 30% Titrate FIO2 to keep O2 saturation above 90%. VAP bundle. Daily ABG and CXR while intubated Sedate for ventilator synchrony - on Versed Fentanyl drip for analgesia. Continue antibiotics. Insulin drip, glycemic monitoring. Pressors as necessary for hemodynamic support. Titrate to keep MAP greater than 65 mmHg. Currently off Levophed since 5 AM. Monitor renal function Monitor electrolytes. Supplement as necessary. Monitor ins and outs. Potassium supplementation GI prophylaxis. DVT prophylaxis. Prognosis: Poor given patient's multiple co-morbidities. Condition: Critical Rest of plan per hospitalist and other consultants. A total of 35 minutes of critical care time was spent reviewing the patient record, examining the patient, making a diagnostic and therapeutic plan, discussing this plan with the medical personnel, following up on diagnostic studies and following the patient for clinical stability excluding any and all procedures. At least 50% of this time was spent in direct, [id number] contact. Thank you Dr. Hurt for allowing me to participate in this patient's care. Further recommendations will depend on the patient's clinical course. Please do not hesitate to contact me if you have any questions or concerns. This medical document was created using an electronic medical record system with [employer] system. Although these documentations are being carefully reviewed, there may still be some phonetic and typographical changes. The errors are purely typographical, due to imperfection on the software program, and do not reflect any compromise in the patient's medical care Dietary Evaluation Review Comments: 1) TF Vital AF 1.2Cal @ 60ml/hr. start @ 20ml/hr, increase 10ml/hr Q4H until goal is reached. TF at goal volume provides 100% energy & protein needs - 1728 kcal, 108 gm protein, 1168 ml free water 2. Water flush 140ml Q6H if allowed 3. TPN if NPO> 7 days Expected Outcomes/Goals: To meet >75% estimated needs Fu 3-5 days Plan discussed with: Other (ROSEMARY Fairchild) Critical Care Time(min): 35 NURA PIPER MD Jun 01, 2025 22:41
[2025-06-02] VITALS (108 sets, daily range): BP systolic 84–161; BP diastolic 53–95; PULSE 100–142; RESP 14–49; TEMP 99.3–100; O2SAT 92–100
[2025-06-02 03:36] LABS: Hematocrit 40.6 % (36.0-46.0); Hemoglobin 14.0 g/dL (12.2-16.2); Mean Corpuscular Hemoglobin 28.6 pg (28.0-32.0); Mean Corpuscular Volume 83.4 fL (80.0-100.0); Nucleated Red Blood Cells % 0.1 %
[2025-06-02 03:41] LABS: Alanine Aminotransferase 15 U/L (7-40); Alkaline Phosphatase 74 U/L (46-116); Anion Gap 9 (5-15); BUN/Creatinine Ratio 22.0 (10.0-20.0); Blood Urea Nitrogen 18 mg/dL (9-23); Carbon Dioxide 30 mmol/L (20-31); Magnesium 2.3 mg/dL (1.6-2.6)
[2025-06-02 03:42] LABS: Albumin 3.4 g/dL (3.2-4.8)
[2025-06-02 03:43] LABS: Bilirubin, Total 0.3 mg/dL (0.2-1.0)
[2025-06-02 03:46] LABS: Calcium 7.9 mg/dL (8.7-10.4); Chloride 118 mmol/L (98-107); Glucose 123 mg/dL (74-106); Potassium 3.5 mmol/L (3.5-5.1); Sodium 157 mmol/L (136-145); Total Protein 5.3 g/dL (5.7-8.2)
[2025-06-02] MEDS: INSULIN DRIP 100 UNIT/100ML 100 ML IV SCH ×2 (05:00→11:01)
[2025-06-02 06:04] LABS: Base Excess 3.7 mmol/L (-2.0-3.0)
[2025-06-02] MEDS: DEXMEDETOMIDINE HCL IN D5W 100 ML IV SCH (08:49)
[2025-06-02] MEDS ORDERED: ACCU-CHEK COMFORT CURVE STRIP VI SCH (10:00)
[2025-06-02] MEDS ORDERED: DEXTROSE (50%) 50ML SYRG IV PRN (10:00)
--- NOTE | 2025-06-02 10:05 | DVHPN2 ---
Assessment/Plan Assessment/Plan ICU note 50 F with IDDM admitted for DKA, found to be in respiratory failure and was intubated and palced on mechanical ventilation. seen today, gap closed x2. hypovolemic hypernatremia, starting d5w, switch insulin drip from DKA to regular protocol. physical exam intubated, sedated on mechanical vent PERRLA dry mucous membranes no JVD mechanical breath sounds s1 s2 tachy abdomen soft no le edema labs ekg imaging reviewed assessment and plan acute metabolic encephalopathy acute hypoxic RF req mechanical vent DKA severe HAGMA MABLE likely hemodynamic mediated IDDM possible aspiration PNA gp vs gn c/w mech vent, decrease TV to 400 follow culture transition to subq insulin now that gap is closed basal and ISS iv hydration bolus SAT SBT tomorrow tube feeds tomorrow follow cr start glucerna tf, FWF diet TF dvt ppx lovenox gi ppx lovenox full code condition critical prognosis poor 60 minutes critical care time rendered Plan discussed with: Other My Orders Orders - KATY ELKINS MD Procedure Category Date Status Time Pantoprazole PHA 06/02/25 In Process (Protonix) 10:00 Strict I & O LONNIE 06/01/25 In Process 11:27 Cpap/Sed Vacation Med ORDERS 06/01/25 Transmitted Weaning 11:27 Abg W/ Co-Ox RT 06/01/25 Logged 13:00 Ventilator Orders RT 06/01/25 Transmitted 11:36 Apply Z-Guard LONNIE 06/01/25 In Process 14:05 Abg W/ Co-Ox RT 06/02/25 Logged 06:00 Dexmedetomidine Hcl PHA 06/02/25 In Process In D5w (Precedex) 08:15 Ventilator Orders RT 06/02/25 Transmitted 10:00 Potassium Phosphate PHA 06/02/25 Verified 10:00 D5 W Potassium 40meq PHA 06/02/25 Verified 10:00 Insulin Algorithm # 1 PHA 06/02/25 Verified 10:00 Glucose Blood PHA 06/02/25 Verified (Accu-Chek Comfort 10:00 Date of Service: Jun 02, 2025 Billing Provider: KATY ELKINS MD Common Visit Codes: [id number] CARE 30-74 MIN KATY ELKINS MD Jun 02, 2025 10:05
[2025-06-02] MEDS: ENOXAPARIN SOD 40 MG/0.4 ML SYRINGE SC SCH (10:37)
[2025-06-02] MEDS: PANTOPRAZOLE 40 MG/10 ML VIAL INJ IV SCH (10:37)
[2025-06-02] MEDS: ACCU-CHEK COMFORT CURVE STRIP VI SCH ×2 (10:48→14:26)
--- NOTE | 2025-06-02 10:51 | DVH ---
XY CHEST PORTABLE, HISTORY: DAILY COMPARISON: XY CHEST XRAY 1 VIEW on DOS: 05/31/25 XY CHEST XRAY 1 VIEW on DOS: 05/31/25 TECHNICAL DATA: 1 view of the chest was obtained. FINDINGS: Lines and tubes: Stable lines and tubes. Cardiomediastinal silhouette: normal Pulmonary vasculature: normal Lung expansion: low Lung airspace: normal Lung interstitium: normal Pleura: normal Pneumothorax: no Bones: Unremarkable Other: no IMPRESSION: Similar lung aeration with stables lines and tubes.
[2025-06-02 12:13] LABS: Hematocrit 39.3 % (36.0-46.0); Hemoglobin 13.5 g/dL (12.2-16.2); Mean Corpuscular Hemoglobin 29.1 pg (28.0-32.0); Mean Corpuscular Volume 84.6 fL (80.0-100.0); Nucleated Red Blood Cells % 0.0 %
[2025-06-02 12:19] LABS: Base Excess 3.0 mmol/L (-2.0-3.0)
[2025-06-02 12:23] LABS: Anion Gap 10 (5-15); Carbon Dioxide 30 mmol/L (20-31)
[2025-06-02 12:24] LABS: Calcium 8.8 mg/dL (8.7-10.4)
[2025-06-02 12:29] LABS: BUN/Creatinine Ratio 16.9 (10.0-20.0); Blood Urea Nitrogen 15 mg/dL (9-23)
[2025-06-02 13:04] LABS: Chloride 119 mmol/L (98-107); Glucose 131 mg/dL (74-106); Potassium 3.4 mmol/L (3.5-5.1); Sodium 159 mmol/L (136-145)
[2025-06-02] MEDS: POTASSIUM PHOSPHATE 44 MEQ in D5W 5% 250 ML IV ONE (13:06)
[2025-06-02] MEDS: POTASSIUM CHLORIDE 40 MEQ in D5W 5% 1,000 ML IV SCH (13:07)
[2025-06-02] MEDS: INSULIN LANTUS (GLARGINE) 1 /0.01ml (100units/ml) SC ONE (14:52)
[2025-06-02] MEDS: INSULIN LISPRO (HUMAN) 100 UNITS/ML ML SC SCH (14:53)
--- NOTE | 2025-06-02 15:00 | MEDREC ---
[facility] ASP Intervention Section I [facility] ASP Intervention: Review courses of therapy (MRSA SCREEN POSITIVE CONSIDER ADDING MUPIROCIN 2% OINTMENT 1 APPLICATION IN EACH NOSTRIL BID FOR 5 DAYS ) MARTA NEGRETE PHARMACIST Jun 02, 2025 15:00
[2025-06-02] MEDS: MUPIROCIN 2% OINT 15gm or 22gm FOR MRSA NARES EACHNOSTRI SCH (21:39)
[2025-06-02] MEDS: POTASSIUM CHL 20MEQ/100ML 100 ML IV ONE (23:55)
--- NOTE | 2025-06-02 23:58 | DVHPN2 ---
Progress Note - Dictate Date Seen: Jun 02, 2025 Medical Necessity Reason Pt with a Central, PICC or Fol: Yes The following are medically ne: Sotelo Catheter Reason for sotelo catheter: Strict I&O Subjective Patient seen and examined at bedside. Sedated, intubated on mechanical ventilator. Overnight events reviewed. vital signs Vital Sign Date Time Temp Pulse Resp B/P (MAP) Pulse Ox O2 Delivery O2 Flow Rate FiO2 06/02/25 23:15 99.7 117 19 124/81 (95) 99 211.5 06/02/25 22:44 30 06/02/25 22:00 Mechanical Ventilator+ 05/31/25 11:24 0 Total Intake and Output 06/01/25 06/01/25 06/02/25 15:00 23:00 07:00 Intake Total 1316.0 ml 324.0 ml 86.5 ml Output Total 425 ml 425 ml Balance 1316.0 ml -101.0 ml -338.5 ml medications Current Medications Medications Dose Ordered Sig/Laura Route Start Time Stop Time Status Last Admin Dose Admin Dextrose 50 ml UD PRN IV 05/31/25 11:15 Cancel Midazolam HCl 50 ml @ 1 mls/hr Q24H IV 05/31/25 12:15 06/02/25 19:50 4 MLS/HR Acetaminophen 650 mg Q6HP PRN PO 05/31/25 14:30 06/01/25 01:13 650 MG Ceftriaxone Sodium 50 ml @ 100 mls/hr DAILY@09 IV 06/01/25 09:00 06/02/25 10:36 100 MLS/HR Norepinephrine Bitartrate 250 ml @ 3.75 mls/hr Q24H IV 05/31/25 14:30 05/31/25 14:50 3.75 MLS/HR Fentanyl Citrate 250 ml @ 2.5 mls/hr Q24H IV 05/31/25 21:15 06/02/25 19:49 20 MLS/HR Pantoprazole Sodium 40 mg DAILY IV 06/02/25 10:00 06/02/25 10:37 40 MG Enoxaparin Sodium 40 mg DAILY SC 06/02/25 10:00 06/02/25 10:37 40 MG Potassium Chloride 40 meq/ Dextrose 1,020 ml @ 100 mls/hr [id number] IV 06/02/25 10:00 06/02/25 13:07 100 MLS/HR Dextrose 50 ml PRN PRN IV 06/02/25 10:00 Diagnostic Test (Pha) 1 strip Q4HR 06/02/25 14:00 06/02/25 21:40 1 STRIP Insulin Human Lispro Q4HR SC 06/02/25 14:00 06/02/25 21:40 3 UNITS Insulin Glargine 15 units DAILY@1000 SC 06/03/25 10:00 Mupirocin 1 applic BID EACHNOSTRI 06/02/25 22:00 06/07/25 21:59 06/02/25 21:39 1 APPLIC objective Gen.: Patient lying in bed in medical ICU. Sedated, intubated on mechanical ventilator. Head: Normocephalic, atraumatic. Eyes: PERRLA. Ears: Normal external anatomy. Throat: Endotracheal tube and orogastric tube in place. Neck: Supple, trachea midline. Chest: Transmitted breath sounds bilaterally. Decreased air entry bilaterally. No wheezing. Bibasilar crackles. Cardiovascular: Positive S1, positive S2. Regular rate and rhythm. Abdomen: Positive bowel sounds in all 4 quadrants. Soft, nontender, nondistended. : Sotelo in place. Normal external genitalia. Rectal: Deferred. Skin: Warm, dry. Intact. Extremities: 2+ radial pulses bilaterally. No lower extremity edema. Neuro: Sedated. laboratory and microbiology Laboratory Tests 06/02/25 12:00 Test 06/02/25 12:00 Range/Units Serum Glucose 131 H 74-106 mg/dL Assessment/Plan Impression: Acute hypoxic respiratory failure On mechanical ventilator Diabetic ketoacidosis Metabolic acidosis Acute metabolic encephalopathy Events: Remains on vent support On AC mode; RR 18, VT 400, PEEP 5, FiO2 30% ABG reviewed, notable for alkalemia. CXR shows no acute abnormalities. Sedated on Versed Fentanyl drip for analgesia On Precedex drip. Remains off Levophed since yesterday (06/01/25). Monitor hemodynamics. Continue antibiotics. IV fluids at 100 ml/hr. Off insulin drip. Monitor renal function Monitor electrolytes. Supplement as necessary. Monitor ins and outs. Potassium supplementation Protonix for GI ppx Labs and imaging reviewed. Rest of plan as noted below. Plan: s/p intubation on mechanical ventilator. On AC mode; RR 18, VT 400, PEEP 5, FiO2 30% Titrate FIO2 to keep O2 saturation above 90%. VAP bundle. Daily ABG and CXR while intubated Sedate for ventilator synchrony Continue antibiotics. Glycemic monitoring. Pressors as necessary for hemodynamic support. Titrate to keep MAP greater than 65 mmHg. Monitor renal function Monitor electrolytes. Supplement as necessary. Monitor ins and outs. Potassium supplementation GI prophylaxis. DVT prophylaxis. Prognosis: Poor given patient's multiple co-morbidities. Condition: Critical Rest of plan per hospitalist and other consultants. A total of 35 minutes of critical care time was spent reviewing the patient record, examining the patient, making a diagnostic and therapeutic plan, discussing this plan with the medical personnel, following up on diagnostic studies and following the patient for clinical stability excluding any and all procedures. At least 50% of this time was spent in direct, [id number] contact. Thank you Dr. Hurt for allowing me to participate in this patient's care. Further recommendations will depend on the patient's clinical course. Please do not hesitate to contact me if you have any questions or concerns. This medical document was created using an electronic medical record system with [employer] dictation system. Although these documentations are being carefully reviewed, there may still be some phonetic and typographical changes. The errors are purely typographical, due to imperfection on the software program, and do not reflect any compromise in the patient's medical care Dietary Evaluation Review Comments: 1) TF Vital AF 1.2Cal @ 60ml/hr. start @ 20ml/hr, increase 10ml/hr Q4H until goal is reached. TF at goal volume provides 100% energy & protein needs - 1728 kcal, 108 gm protein, 1168 ml free water 2. Water flush 140ml Q6H if allowed 3. TPN if NPO> 7 days Expected Outcomes/Goals: To meet >75% estimated needs Fu 3-5 days Plan discussed with: Other (ROSEMARY Fairchild) Critical Care Time(min): 35 NURA PIPER MD Jun 02, 2025 23:58
[2025-06-03] VITALS (107 sets, daily range): BP systolic 86–160; BP diastolic 55–115; PULSE 81–128; RESP 11–41; TEMP 97.7–100.6; O2SAT 96–100
[2025-06-03 04:12] LABS: Hematocrit 35.0 % (36.0-46.0); Hemoglobin 11.7 g/dL (12.2-16.2); Mean Corpuscular Hemoglobin 28.6 pg (28.0-32.0); Mean Corpuscular Volume 85.2 fL (80.0-100.0); Nucleated Red Blood Cells % 0.0 %
--- NOTE | 2025-06-03 04:59 | DVH ---
CHEST RADIOGRAPH Indication: intubated Technique: Single frontal view of the chest was obtained COMPARISON: XY CHEST PORTABLE on DOS: 06/02/25, XY CHEST XRAY 1 VIEW on DOS: 05/31/25 FINDINGS: Lines and Tubes: Endotracheal tube, enteric catheter and right central venous catheter in satisfactor y position Lungs: Congestion Pleura: Small bilateral pleural effusion No pneumothorax. Cardiomediastinal contours: Unremarkable Bones: Unremarkable IMPRESSION: Lines and tubes in satisfactory position. No significant interval change.
[2025-06-03 05:10] LABS: Alanine Aminotransferase 15 U/L (7-40); Alkaline Phosphatase 72 U/L (46-116); Anion Gap 8 (5-15); BUN/Creatinine Ratio 15.9 (10.0-20.0); Bilirubin, Total 0.4 mg/dL (0.2-1.0); Blood Urea Nitrogen 11 mg/dL (9-23); Carbon Dioxide 30 mmol/L (20-31); Magnesium 2.3 mg/dL (1.6-2.6); Potassium 3.7 mmol/L (3.5-5.1)
[2025-06-03 05:18] LABS: Albumin 3.2 g/dL (3.2-4.8); Calcium 8.4 mg/dL (8.7-10.4); Chloride 116 mmol/L (98-107); Glucose 193 mg/dL (74-106); Sodium 154 mmol/L (136-145); Total Protein 4.9 g/dL (5.7-8.2)
[2025-06-03 06:39] LABS: Base Excess 2.8 mmol/L (-2.0-3.0)
[2025-06-03] MEDS: INSULIN LANTUS (GLARGINE) 1 /0.01ml (100units/ml) SC SCH (10:02)
--- NOTE | 2025-06-03 16:01 | DVHPN2 ---
Assessment/Plan Assessment/Plan ICU note 50 F with IDDM admitted for DKA, found to be in respiratory failure and was intubated and palced on mechanical ventilation. seen today, on cPap gets aggitated. will c/w daily sedation vacation and plan for extubation tomorrow physical exam intubated, sedated on mechanical vent PERRLA dry mucous membranes no JVD mechanical breath sounds s1 s2 tachy abdomen soft no le edema labs ekg imaging reviewed assessment and plan acute metabolic encephalopathy acute hypoxic RF req mechanical vent DKA severe HAGMA MABLE likely hemodynamic mediated IDDM possible aspiration PNA gp vs gn c/w mech vent, decrease TV to 400 follow culture transition to subq insulin now that gap is closed basal and ISS iv hydration bolus SAT SBT tomorrow tube feeds tomorrow follow cr start glucerna tf, FWF diet TF dvt ppx lovenox gi ppx lovenox full code condition critical prognosis poor 40 minutes critical care time rendered Plan discussed with: Other My Orders Orders - KATY ELKINS MD Procedure Category Date Status Time Cpap Trial For Am ORDERS 06/03/25 Transmitted 07:10 Cpap/Sed Vacation Med ORDERS 06/03/25 Transmitted Weaning 07:10 Date of Service: Jun 03, 2025 Billing Provider: KATY ELKINS MD Common Visit Codes: [id number] CARE 30-74 MIN KATY ELKINS MD Jun 03, 2025 16:01
--- NOTE | 2025-06-03 23:38 | DVHPN2 ---
Progress Note - Dictate Date Seen: Jun 03, 2025 Medical Necessity Reason Pt with a Central, PICC or Fol: Yes The following are medically ne: Sotelo Catheter Reason for sotelo catheter: Strict I&O Subjective Patient seen and examined at bedside. Intubated on mechanical ventilator. Overnight events reviewed. vital signs Vital Sign Date Time Temp Pulse Resp B/P (MAP) Pulse Ox O2 Delivery O2 Flow Rate FiO2 06/03/25 22:30 97.9 84 18 92/61 (71) 99 208.2 06/03/25 22:20 30 06/03/25 22:00 Mechanical Ventilator+ Total Intake and Output 06/02/25 06/02/25 06/03/25 15:00 23:00 07:00 Intake Total 457.1 ml 1113.2 ml 174.825 ml Output Total 525 ml 700 ml Balance 457.1 ml 588.2 ml -525.175 ml medications Current Medications Medications Dose Ordered Sig/Laura Route Start Time Stop Time Status Last Admin Dose Admin Dextrose 50 ml UD PRN IV 05/31/25 11:15 Cancel Midazolam HCl 50 ml @ 1 mls/hr Q24H IV 05/31/25 12:15 06/02/25 19:50 4 MLS/HR Acetaminophen 650 mg Q6HP PRN PO 05/31/25 14:30 06/01/25 01:13 650 MG Ceftriaxone Sodium 50 ml @ 100 mls/hr DAILY@09 IV 06/01/25 09:00 06/03/25 09:03 100 MLS/HR Norepinephrine Bitartrate 250 ml @ 3.75 mls/hr Q24H IV 05/31/25 14:30 05/31/25 14:50 3.75 MLS/HR Fentanyl Citrate 250 ml @ 2.5 mls/hr Q24H IV 05/31/25 21:15 06/03/25 22:14 7.5 MLS/HR Pantoprazole Sodium 40 mg DAILY IV 06/02/25 10:00 06/03/25 10:01 40 MG Enoxaparin Sodium 40 mg DAILY SC 06/02/25 10:00 06/03/25 10:01 40 MG Potassium Chloride 40 meq/ Dextrose 1,020 ml @ 100 mls/hr [id number] IV 06/02/25 10:00 06/03/25 17:47 100 MLS/HR Dextrose 50 ml PRN PRN IV 06/02/25 10:00 Diagnostic Test (Pha) 1 strip Q4HR 06/02/25 14:00 06/03/25 22:09 1 STRIP Insulin Human Lispro Q4HR SC 06/02/25 14:00 06/03/25 22:13 3 UNITS Insulin Glargine 15 units DAILY@1000 SC 06/03/25 10:00 06/03/25 10:02 15 UNITS Mupirocin 1 applic BID EACHNOSTRI 06/02/25 22:00 06/07/25 21:59 06/03/25 22:09 1 APPLIC objective Gen.: Patient lying in bed in medical ICU. Intubated on mechanical ventilator. Head: Normocephalic, atraumatic. Eyes: PERRLA. Ears: Normal external anatomy. Throat: Endotracheal tube and orogastric tube in place. Neck: Supple, trachea midline. Chest: Transmitted breath sounds bilaterally. Decreased air entry bilaterally. No wheezing. Bibasilar crackles. Cardiovascular: Positive S1, positive S2. Regular rate and rhythm. Abdomen: Positive bowel sounds in all 4 quadrants. Soft, nontender, nondistended. : Sotelo in place. Normal external genitalia. Rectal: Deferred. Skin: Warm, dry. Intact. Extremities: 2+ radial pulses bilaterally. No lower extremity edema. Neuro: Off sedation laboratory and microbiology Laboratory Tests 06/03/25 03:50 Test 06/03/25 03:50 Range/Units Serum Glucose 193 H 74-106 mg/dL Assessment/Plan Impression: Acute hypoxic respiratory failure On mechanical ventilator Diabetic ketoacidosis Metabolic acidosis Acute metabolic encephalopathy Events: Remains on vent support On AC mode; RR 18, VT 400, PEEP 5, FiO2 30% ABG reviewed, compensated CXR shows small bilateral pleural effusions. Off sedation Fentanyl drip for analgesia On Precedex drip. Remains off Levophed since 06/01/25. Hemodynamically stable. Continue antibiotics. IV fluids at 100 ml/hr. Accu-Cheks, ISS Monitor renal function Monitor electrolytes. Supplement as necessary. Monitor ins and outs. Potassium supplementation Protonix for GI ppx Patient tolerated CPAP trial. Awaiting for mentation to improve for extubation. Labs and imaging reviewed. Rest of plan as noted below. Plan: s/p intubation on mechanical ventilator. On AC mode; RR 18, VT 400, PEEP 5, FiO2 30% Titrate FIO2 to keep O2 saturation above 90%. VAP bundle. Daily ABG and CXR while intubated Off sedation Continue antibiotics. Accu-Cheks, ISS Pressors as necessary for hemodynamic support. Titrate to keep MAP greater than 65 mmHg. Monitor renal function Monitor electrolytes. Supplement as necessary. Monitor ins and outs. Potassium supplementation GI prophylaxis. DVT prophylaxis. Prognosis: Poor given patient's multiple co-morbidities. Condition: Critical Rest of plan per hospitalist and other consultants. A total of 35 minutes of critical care time was spent reviewing the patient record, examining the patient, making a diagnostic and therapeutic plan, discussing this plan with the medical personnel, following up on diagnostic studies and following the patient for clinical stability excluding any and all procedures. At least 50% of this time was spent in direct, [id number] contact. Thank you Dr. Hurt for allowing me to participate in this patient's care. Further recommendations will depend on the patient's clinical course. Please do not hesitate to contact me if you have any questions or concerns. This medical document was created using an electronic medical record system with [email or web address] dictation system. Although these documentations are being carefully reviewed, there may still be some phonetic and typographical changes. The errors are purely typographical, due to imperfection on the software program, and do not reflect any compromise in the patient's medical care Dietary Evaluation Review Comments: 1) TF Vital AF 1.2Cal @ 60ml/hr. start @ 20ml/hr, increase 10ml/hr Q4H until goal is reached. TF at goal volume provides 100% energy & protein needs - 1728 kcal, 108 gm protein, 1168 ml free water 2. Water flush 140ml Q6H if allowed 3. TPN if NPO> 7 days Expected Outcomes/Goals: To meet >75% estimated needs Fu 3-5 days Plan discussed with: Other (ROSEMARY Lockwood) Critical Care Time(min): 35 NURA PIPER MD Jun 03, 2025 23:38
[2025-06-04] VITALS (102 sets, daily range): BP systolic 83–178; BP diastolic 52–106; PULSE 80–139; RESP 11–30; TEMP 97.2–100.5; O2SAT 93–100
[2025-06-04 03:32] LABS: Hematocrit 35.8 % (36.0-46.0); Hemoglobin 11.6 g/dL (12.2-16.2); Mean Corpuscular Hemoglobin 28.4 pg (28.0-32.0); Mean Corpuscular Volume 87.5 fL (80.0-100.0); Nucleated Red Blood Cells % 0.0 %
[2025-06-04 03:46] LABS: Potassium 3.7 mmol/L (3.5-5.1)
[2025-06-04 03:47] LABS: Anion Gap 11 (5-15); Carbon Dioxide 25 mmol/L (20-31)
[2025-06-04 03:52] LABS: BUN/Creatinine Ratio 11.7 (10.0-20.0)
[2025-06-04 04:15] LABS: Blood Urea Nitrogen 7 mg/dL (9-23); Calcium 8.6 mg/dL (8.7-10.4); Chloride 111 mmol/L (98-107); Glucose 289 mg/dL (74-106); Sodium 147 mmol/L (136-145)
[2025-06-04 07:25] LABS: Base Excess 0.8 mmol/L (-2.0-3.0)
[2025-06-04] MEDS: clonazePAM 0.5 MG TAB PO ONE (12:08)
--- NOTE | 2025-06-04 15:56 | DVHPN2 ---
Assessment/Plan Assessment/Plan ICU note 50 F with IDDM admitted for DKA, found to be in respiratory failure and was intubated and palced on mechanical ventilation. seen today, extubate today. physical exam intubated, sedated on mechanical vent PERRLA dry mucous membranes no JVD mechanical breath sounds s1 s2 tachy abdomen soft no le edema labs ekg imaging reviewed assessment and plan acute metabolic encephalopathy acute hypoxic RF req mechanical vent DKA severe HAGMA MABLE likely hemodynamic mediated IDDM possible aspiration PNA gp vs gn c/w mech vent, decrease TV to 400 follow culture transition to subq insulin now that gap is closed basal and ISS iv hydration bolus SAT SBT tomorrow tube feeds tomorrow follow cr start glucerna tf, FWF diet TF dvt ppx lovenox gi ppx lovenox full code condition critical prognosis poor 55 minutes critical care time rendered Plan discussed with: Patient My Orders Orders - KATY ELKINS MD Procedure Category Date Status Time Extubate [facility] 06/04/25 In Process 14:56 Date of Service: Jun 04, 2025 Billing Provider: KATY ELKINS MD Common Visit Codes: [id number] CARE 30-74 MIN KATY ELKINS MD Jun 04, 2025 15:56
[2025-06-04] MEDS: BUDESONIDE (INHALATION) 0.5 MG/2 ML NEB NEB SCH (20:00)
[2025-06-04] MEDS: BUDESONIDE (INHALATION) 0.5 MG/2 ML NEB ONE (20:16)
--- NOTE | 2025-06-04 23:23 | DVHPN2 ---
Progress Note - Dictate Date Seen: Jun 04, 2025 Medical Necessity Reason Pt with a Central, PICC or Fol: Yes The following are medically ne: Sotelo Catheter Reason for sotelo catheter: Strict I&O Subjective Patient seen and examined at bedside. S/p extubation, on supplemental oxygen Overnight events reviewed vital signs Vital Sign Date Time Temp Pulse Resp B/P (MAP) Pulse Ox O2 Delivery O2 Flow Rate FiO2 06/04/25 23:00 105 20 99/55 (70) 97 06/04/25 22:00 Room Air* 0 21 Cool Aerosol 21 06/04/25 20:00 98.8 98.8 Total Intake and Output 06/03/25 06/03/25 06/04/25 15:00 23:00 07:00 Intake Total 533.13 ml 926.875 ml 932.955 ml Output Total 800 ml 750 ml Balance 533.13 ml 126.875 ml 182.955 ml medications Current Medications Medications Dose Ordered Sig/Laura Route Start Time Stop Time Status Last Admin Dose Admin Dextrose 50 ml UD PRN IV 05/31/25 11:15 Cancel Acetaminophen 650 mg Q6HP PRN PO 05/31/25 14:30 06/04/25 12:08 650 MG Ceftriaxone Sodium 50 ml @ 100 mls/hr DAILY@09 IV 06/01/25 09:00 06/04/25 09:36 100 MLS/HR Pantoprazole Sodium 40 mg DAILY IV 06/02/25 10:00 06/04/25 09:35 40 MG Enoxaparin Sodium 40 mg DAILY SC 06/02/25 10:00 06/03/25 10:01 40 MG Potassium Chloride 40 meq/ Dextrose 1,020 ml @ 100 mls/hr [id number] IV 06/02/25 10:00 06/04/25 13:39 100 MLS/HR Dextrose 50 ml PRN PRN IV 06/02/25 10:00 Diagnostic Test (Pha) 1 strip Q4HR 06/02/25 14:00 06/04/25 22:00 1 STRIP Insulin Human Lispro Q4HR SC 06/02/25 14:00 06/04/25 22:33 3 UNITS Insulin Glargine 15 units DAILY@1000 SC 06/03/25 10:00 06/04/25 09:52 15 UNITS Mupirocin 1 applic BID EACHNOSTRI 06/02/25 22:00 06/07/25 21:59 06/04/25 22:32 1 APPLIC Budesonide 0.5 mg BID [facility] 06/04/25 20:00 Albuterol 2.5 mg Q6HWA [facility] 06/05/25 06:00 Ipratropium [place] 0.5 mg Q6HWA [facility] 06/05/25 06:00 objective Gen.: Patient lying in bed in no apparent distress. On supplemental oxygen. Head: Normocephalic, atraumatic. Eyes: EOMI/PERRLA. Ears: Normal hearing. Normal anatomy. Neck/trachea: Trachea midline, supple. Nose: Normal external anatomy. Mouth: Moist mucous membranes. Chest: Decreased air entry bilaterally. Bilateral wheezing. No rhonchi. Cardiovascular: Positive S1, positive S2. Regular rate and rhythm. Abdomen: Positive bowel sounds in all 4 quadrants. Soft, non-tender, non- distended. : Deferred. Rectal: Deferred. Skin: Warm, dry. Intact. Extremities: 2+ radial pulses bilaterally. No lower extremity edema. Neuro: Awake, alert, oriented x3. No gross motor or sensory deficits. Cranial nerves II through XII intact. Gait not assessed. laboratory and microbiology Laboratory Tests 06/04/25 03:09 Test 06/04/25 03:09 Range/Units Serum Glucose 289 H 74-106 mg/dL Assessment/Plan Impression: Acute hypoxic respiratory failure On mechanical ventilator, s/p extubation. Diabetic ketoacidosis Metabolic acidosis Acute metabolic encephalopathy Events: Patient tolerated CPAP today and was extubated uneventfully Placed on aerosol Coolmist On Precedex 0.2 mcg. Taper off as tolerated. Bilateral wheezing noted this evening Start DuoNeb q.6 hours PRN SOB/wheezing. Start Pulmicort 0.5 mg nebulized q.12 hours Continue antibiotics. Incentive spirometry Remains off Levophed since 06/01/25. Hemodynamically stable. Accu-Cheks, ISS Monitor renal function Monitor electrolytes. Supplement as necessary. Monitor ins and outs. Potassium supplementation Protonix for GI ppx CXR on 06/03/25 showed small bilateral pleural effusions. No pneumothorax. Labs and imaging reviewed. Rest of plan as noted below. Plan: S/p extubation On supplemental oxygen Titrate to keep O2 sats above 90%. Remains on Precedex drip 0.2 mcg. Taper off as tolerated. Continue antibiotics. Accu-Cheks, ISS Pressors as necessary for hemodynamic support. Titrate to keep MAP greater than 65 mmHg. Monitor renal function Monitor electrolytes. Supplement as necessary. Monitor ins and outs. Potassium supplementation GI prophylaxis. DVT prophylaxis. Prognosis: Poor given patient's multiple co-morbidities. Condition: Critical Rest of plan per hospitalist and other consultants. A total of 35 minutes of critical care time was spent reviewing the patient record, examining the patient, making a diagnostic and therapeutic plan, discussing this plan with the medical personnel, following up on diagnostic studies and following the patient for clinical stability excluding any and all procedures. At least 50% of this time was spent in direct, [id number] contact. Thank you Dr. Hurt for allowing me to participate in this patient's care. Further recommendations will depend on the patient's clinical course. Please do not hesitate to contact me if you have any questions or concerns. This medical document was created using an electronic medical record system with [employer] dictation system. Although these documentations are being carefully reviewed, there may still be some phonetic and typographical changes. The errors are purely typographical, due to imperfection on the software program, and do not reflect any compromise in the patient's medical care Dietary Evaluation Review Comments: 1) TF Vital AF 1.2Cal @ 60ml/hr. start @ 20ml/hr, increase 10ml/hr Q4H until goal is reached. TF at goal volume provides 100% energy & protein needs - 1728 kcal, 108 gm protein, 1168 ml free water 2. Water flush 140ml Q6H if allowed 3. TPN if NPO> 7 days Expected Outcomes/Goals: To meet >75% estimated needs Fu 3-5 days Plan discussed with: Other (ROSEMARY Merritt) Critical Care Time(min): 35 NURA IPPER MD Jun 04, 2025 23:23
[2025-06-05] VITALS (101 sets, daily range): BP systolic 96–150; BP diastolic 49–92; PULSE 94–127; RESP 13–34; TEMP 98–99.2; O2SAT 94–100
[2025-06-05] MEDS: ALBUTEROL SULF 2.5 MG/0.5ML(0.5%) NEB SOLN NEB SCH (06:19)
[2025-06-05] MEDS: IPRATROPIUM BROM 0.5 MG/2.5ML INH SOL NEB SCH (06:19)
[2025-06-05 07:01] LABS: Hematocrit 37.3 % (36.0-46.0); Hemoglobin 12.2 g/dL (12.2-16.2); Mean Corpuscular Hemoglobin 28.5 pg (28.0-32.0); Mean Corpuscular Volume 87.2 fL (80.0-100.0); Nucleated Red Blood Cells % 0.2 %
[2025-06-05 07:10] LABS: Chloride 105 mmol/L (98-107); Potassium 3.9 mmol/L (3.5-5.1); Sodium 142 mmol/L (136-145)
[2025-06-05 07:11] LABS: Anion Gap 17 (5-15)
[2025-06-05 07:12] LABS: Calcium 9.5 mg/dL (8.7-10.4)
[2025-06-05 07:18] LABS: BUN/Creatinine Ratio 8.3 (10.0-20.0); Blood Urea Nitrogen < 5 mg/dL (9-23); Carbon Dioxide 20 mmol/L (20-31); Glucose 261 mg/dL (74-106)
--- NOTE | 2025-06-05 09:05 | DVHPN2 ---
Assessment/Plan Assessment/Plan ICU note 50 F with IDDM admitted for DKA, found to be in respiratory failure and was intubated and palced on mechanical ventilation. seen today, gap slighly open likely starvation ketosis as pt NPO, weak cough, pending swallow eval. physical exam aox3 PERRLA dry mucous membranes no JVD clear breath sounds s1 s2 tachy abdomen soft no le edema labs ekg imaging reviewed assessment and plan acute metabolic encephalopathy acute hypoxic RF req mechanical vent DKA severe HAGMA MABLE likely hemodynamic mediated IDDM possible aspiration PNA gp vs gn c/w mech vent, decrease TV to 400 follow culture on basal insulin and q4 ISS iv hydration bolus npo until pass swallow d5ns diet TF dvt ppx lovenox gi ppx lovenox full code condition critical prognosis poor 35 minutes critical care time rendered Plan discussed with: Patient My Orders Orders - KATY ELKINS MD Procedure Category Date Status Time Extubate [facility] 06/04/25 In Process 14:56 * Swallow Request ST 06/04/25 Transmitted 19:57 Swallow Eval Follow Up LONNIE 06/04/25 In Process 19:57 Insulin Lantus PHA 06/05/25 Logged (Glargine) (Lantus) 10:00 Basic Metabolic Panel LAB 06/06/25 Verified 04:00 Complete Blood Count LAB 06/06/25 Verified 04:00 Transfer Orders XFER 06/05/25 Transmitted 08:56 Electrocardigram EKG 06/05/25 Logged 08:56 Basic Metabolic Panel LAB 06/05/25 Logged 12:00 Lactic Acid W/ Reflex LAB 06/05/25 Logged Order 12:00 Abg W/ Co-Ox RT 06/05/25 Verified 09:01 Date of Service: Jun 05, 2025 Billing Provider: KATY ELKINS MD Common Visit Codes: [id number] CARE 30-74 MIN KATY ELKINS MD Jun 05, 2025 09:05
[2025-06-05 10:03] LABS: Base Excess -7.1 mmol/L (-2.0-3.0)
[2025-06-05] MEDS: INSULIN LANTUS (GLARGINE) 1 /0.01ml (100units/ml) SC SCH (10:10)
[2025-06-05 13:52] LABS: Chloride 106 mmol/L (98-107); Potassium 3.7 mmol/L (3.5-5.1); Sodium 143 mmol/L (136-145)
[2025-06-05 13:53] LABS: Anion Gap 20 (5-15); Calcium 9.0 mg/dL (8.7-10.4)
[2025-06-05 13:54] LABS: Carbon Dioxide 17 mmol/L (20-31)
[2025-06-05 13:59] LABS: BUN/Creatinine Ratio 7.2 (10.0-20.0); Blood Urea Nitrogen < 5 mg/dL (9-23); Glucose 291 mg/dL (74-106)
[2025-06-05] MEDS: ACCU-CHEK COMFORT CURVE STRIP VI SCH (20:00)
[2025-06-05] MEDS: INSULIN LISPRO (HUMAN) 100 UNITS/ML ML SC SCH (20:00)
--- NOTE | 2025-06-05 21:01 | DVHPN2 ---
Progress Note - Dictate Date Seen: Jun 05, 2025 Medical Necessity Reason Pt with a Central, PICC or Fol: Yes The following are medically ne: Sotelo Catheter Reason for sotelo catheter: Strict I&O Subjective Patient seen and examined at bedside. Currently breathing on room air. Overnight events reviewed vital signs Vital Sign Date Time Temp Pulse Resp B/P (MAP) Pulse Ox O2 Delivery O2 Flow Rate FiO2 06/05/25 20:45 115 26 129/71 (90) 96 06/05/25 20:00 98.4 98.4 06/05/25 19:11 Room Air* 0 21 Total Intake and Output 06/04/25 06/04/25 06/05/25 15:00 23:00 07:00 Intake Total 946.66 ml 622.765 ml 805.265 ml Output Total 1550 ml 2625 ml Balance 946.66 ml -927.235 ml -1819.735 ml medications Current Medications Medications Dose Ordered Sig/Laura Route Start Time Stop Time Status Last Admin Dose Admin Dextrose 50 ml UD PRN IV 05/31/25 11:15 Cancel Acetaminophen 650 mg Q6HP PRN PO 05/31/25 14:30 06/04/25 12:08 650 MG Ceftriaxone Sodium 50 ml @ 100 mls/hr DAILY@09 IV 06/01/25 09:00 06/05/25 09:59 100 MLS/HR Pantoprazole Sodium 40 mg DAILY IV 06/02/25 10:00 06/05/25 10:01 40 MG Enoxaparin Sodium 40 mg DAILY SC 06/02/25 10:00 06/05/25 10:03 40 MG Potassium Chloride 40 meq/ Dextrose 1,020 ml @ 100 mls/hr [id number] IV 06/02/25 10:00 06/05/25 17:57 100 MLS/HR Dextrose 50 ml PRN PRN IV 06/02/25 10:00 Mupirocin 1 applic BID EACHNOSTRI 06/02/25 22:00 06/07/25 21:59 06/05/25 10:01 1 APPLIC Budesonide 0.5 mg BID NEB 06/04/25 20:00 06/05/25 19:11 0.5 MG Albuterol 2.5 mg Q6HWA NEB 06/05/25 06:00 06/05/25 19:10 2.5 MG Ipratropium [place] 0.5 mg Q6HWA NEB 06/05/25 06:00 06/05/25 19:10 0.5 MG Insulin Glargine 20 units DAILY@1000 SC 06/05/25 10:00 06/05/25 10:10 20 UNITS Insulin Human Lispro IQ4HR SC 06/05/25 20:00 Diagnostic Test (Pha) 1 strip IQ4HR 06/05/25 20:00 objective Gen.: Patient lying in bed in no apparent distress. On room air. Head: Normocephalic, atraumatic. Eyes: EOMI/PERRLA. Ears: Normal hearing. Normal anatomy. Neck/trachea: Trachea midline, supple. Nose: Normal external anatomy. Mouth: Moist mucous membranes. Chest: Decreased air entry bilaterally. Bilateral wheezing. No rhonchi. Cardiovascular: Positive S1, positive S2. Regular rate and rhythm. Abdomen: Positive bowel sounds in all 4 quadrants. Soft, non-tender, non- distended. : Deferred. Rectal: Deferred. Skin: Warm, dry. Intact. Extremities: 2+ radial pulses bilaterally. No lower extremity edema. Neuro: Awake, alert, oriented x3. No gross motor or sensory deficits. Cranial nerves II through XII intact. Gait not assessed. laboratory and microbiology Laboratory Tests 06/05/25 13:20 06/05/25 05:50 Test 06/05/25 13:20 Range/Units Serum Glucose 291 H 74-106 mg/dL Assessment/Plan Impression: Acute hypoxic respiratory failure Diabetic ketoacidosis Metabolic acidosis Acute metabolic encephalopathy Events: Currently breathing on room air. No distress Supplemental oxygen PRN. Off Precedex. Wheezing, improving DuoNeb q.6 hours PRN SOB/wheezing. Pulmicort 0.5 mg nebulized q.12 hours Continue antibiotics. Incentive spirometry Remains off Levophed since 06/01/25. Hemodynamically stable. Accu-Cheks, ISS Lantus dose was increased for better blood sugar control Pt passed swallow eval. On puree diet. IV fluids at 100 ml/hr. Monitor renal function Monitor electrolytes. Supplement as necessary. Monitor ins and outs. Potassium supplementation Anion gap persists. Protonix for GI ppx CXR on 06/03/25 showed small bilateral pleural effusions. No pneumothorax. Labs and imaging reviewed. Rest of plan as noted below. Plan: S/p extubation on 06/04/25 Supplemental oxygen PRN Titrate to keep O2 sats above 92%. Continue antibiotics. Accu-Cheks, ISS Monitor renal function Monitor electrolytes. Supplement as necessary. Monitor ins and outs. Potassium supplementation GI prophylaxis. DVT prophylaxis. Prognosis: Poor given patient's multiple co-morbidities. Rest of plan per hospitalist and other consultants. Thank you Dr. Hurt for allowing me to participate in this patient's care. Further recommendations will depend on the patient's clinical course. Please do not hesitate to contact me if you have any questions or concerns. This medical document was created using an electronic medical record system with [employer] dictation system. Although these documentations are being carefully reviewed, there may still be some phonetic and typographical changes. The errors are purely typographical, due to imperfection on the software program, and do not reflect any compromise in the patient's medical care Dietary Evaluation Review Comments: 1) TF Vital AF 1.2Cal @ 60ml/hr. start @ 20ml/hr, increase 10ml/hr Q4H until goal is reached. TF at goal volume provides 100% energy & protein needs - 1728 kcal, 108 gm protein, 1168 ml free water 2. Water flush 140ml Q6H if allowed 3. TPN if NPO> 7 days Expected Outcomes/Goals: To meet >75% estimated needs Fu 3-5 days Plan discussed with: Patient, Other (ROSEMARY Mcknight) NURA PIPER MD Jun 05, 2025 21:01
[2025-06-06] VITALS (104 sets, daily range): BP systolic 102–171; BP diastolic 59–99; PULSE 91–127; RESP 11–31; TEMP 98–98.8; O2SAT 95–100
[2025-06-06 04:15] LABS: Anion Gap 20 (5-15); Chloride 107 mmol/L (98-107); Potassium 4.1 mmol/L (3.5-5.1); Sodium 139 mmol/L (136-145)
[2025-06-06 04:16] LABS: Carbon Dioxide 12 mmol/L (20-31)
[2025-06-06 04:30] LABS: BUN/Creatinine Ratio 6.3 (10.0-20.0); Blood Urea Nitrogen < 5 mg/dL (9-23); Calcium 10.5 mg/dL (8.7-10.4); Glucose 204 mg/dL (74-106)
[2025-06-06 08:33] LABS: Hematocrit 40.1 % (36.0-46.0); Hemoglobin 13.1 g/dL (12.2-16.2); Mean Corpuscular Hemoglobin 28.3 pg (28.0-32.0); Mean Corpuscular Volume 86.3 fL (80.0-100.0)
[2025-06-06 11:04] LABS: Anisocytosis Slight; Total Cells Counted 100.0 (100)
[2025-06-06] MEDS ORDERED: DEXTROSE (50%) 50ML SYRG IV PRN (11:15)
--- NOTE | 2025-06-06 11:36 | DVHPN2 ---
Subjective Patient reports being cold. Denies any fevers, body aches. Reviewed: Care Plan, H&P, Labs, Medications Changes from previous H/P or p: No Changes General: Per HPI Objective Vitals Vital Signs Date Time Temp Pulse Resp B/P (MAP) Pulse Ox O2 Delivery O2 Flow Rate FiO2 06/06/25 06:54 109 16 100 06/06/25 06:45 137/83 (101) 06/06/25 06:44 Room Air* 0 21 06/06/25 04:00 98.6 98.6 Intake/Output Intake and Output 06/06/25 06:59 Intake Total 3070 ml Output Total 3850 ml Balance -780 ml Intake Oral 620 ml IV Total 2450 ml Output Urine Total 3850 ml Stool Total 0 ml General Appearance: Alert, Oriented X3, Cooperative, No acute distress HEENT: Atraumatic, PERRLA Cardiovascular: Normal S1, Normal S2 Musculoskeletal: Normal sensory function, Normal motor function Skin: Dry, Intact Psych/Mental Status: Mental status NL, Mood NL Medications Current Medications Medications Dose Ordered Sig/Laura Route Start Time Stop Time Status Last Admin Dose Admin Dextrose 50 ml UD PRN IV 05/31/25 11:15 Cancel Acetaminophen 650 mg Q6HP PRN PO 05/31/25 14:30 06/04/25 12:08 650 MG Ceftriaxone Sodium 50 ml @ 100 mls/hr DAILY@09 IV 06/01/25 09:00 06/06/25 09:43 100 MLS/HR Pantoprazole Sodium 40 mg DAILY IV 06/02/25 10:00 06/06/25 09:43 40 MG Enoxaparin Sodium 40 mg DAILY SC 06/02/25 10:00 06/06/25 09:47 40 MG Potassium Chloride 40 meq/ Dextrose 1,020 ml @ 100 mls/hr [id number] IV 06/02/25 10:00 06/06/25 04:51 100 MLS/HR Dextrose 50 ml PRN PRN IV 06/02/25 10:00 Cancel Mupirocin 1 applic BID EACHNOSTRI 06/02/25 22:00 06/07/25 21:59 06/06/25 09:46 1 APPLIC Budesonide 0.5 mg BID NEB 06/04/25 20:00 06/06/25 06:44 0.5 MG Albuterol 2.5 mg Q6HWA [facility] 06/05/25 06:00 06/06/25 06:43 2.5 MG Ipratropium [place] 0.5 mg Q6HWA [facility] 06/05/25 06:00 06/06/25 06:44 0.5 MG Insulin Glargine 20 units DAILY@1000 SC 06/05/25 10:00 06/06/25 09:57 20 UNITS Insulin Human (Reg)/Sodium Chloride 100 ml @ 0.5 mls/hr Q24H IV 06/06/25 11:15 Dextrose 50 ml UD PRN IV 06/06/25 11:15 Diagnostic Test (Pha) 1 strip Q90MIN 06/06/25 12:00 Laboratory Results Laboratory Tests 06/06/25 02:45 06/06/25 07:59 Chemistry Test 06/05/25 13:20 06/06/25 02:45 Calcium Level 9.0 mg/dL (8.7-10.4) 10.5 mg/dL (8.7-10.4) H Urinalysis Test 05/31/25 12:55 Urine Color Colorless (Yellow) Urine Clarity Clear (Clear) Urine pH 5.0 (5.0-9.0) Urine Specific [place] 1.018 (1.001-1.035) Urine Protein Trace (Negative) H Urine Ketones 4+ (Negative) H Urine Blood 1+ /uL (Negative) H Urine Nitrite Negative (Negative) Urine Bilirubin Negative (Negative) Urine Urobilinogen Normal mg/dL (Negative) Urine Leukocyte Esterase Negative /uL (Negative) Urine RBC 10 /hpf (0 - 4) Urine Microscopic WBC 1 /HPF (0-5) Urine Squamous Epithelial Cells Few /hpf (<5) Urine Bacteria Few /hpf (None Seen) H Urine Mucus Few (None Seen) Urine Glucose 4+ mg/dL (Normal) H Microbiology Microbiology Date/Time Source Procedure Growth Status 05/31/25 17:00 Nose MRSA Screen - Final Methicillin Resistant S.aureus Complete 05/31/25 14:57 Blood Blood Culture - Final NO GROWTH AFTER 5 DAYS OF INCUBATION. Complete 05/31/25 12:55 Voided Urine Urine Culture - Final Complete 05/31/25 12:15 Sputum Gram Stain - Final Complete 05/31/25 12:15 Sputum Respiratory Culture - Final Complete Labs and/or images reviewed: Labs reviewed by me, Image(s) reviewed by me Assessment/Plan Assessment/Plan Impression: -acute hypoxic respiratory failure with mechanical ventilation, now extubated -diabetic ketoacidosis -underlying diabetes mellitus -metabolic encephalopathy -acute kidney injury, vasomotor nephropathy -community-acquired pneumonia with beta-hemolytic strep Plan: -patient continues to be tachycardic. Blood sugars continue to be uncontrolled, greater than 200. Anion gap now 20. Plans to repeat serum ketones, serum osmolality. -restart insulin drip -continue Lantus, stop sliding scale -O2 supplementation to keep saturation greater than 92% -continue IV Rocephin -Continue IV fluids with potassium replacement -serial BMP -eight of bed as tolerated -repeat labs in a.m. Critical care time spent with patient discussing and formulating plan of care: 40 minutes. This does not include time spent performing procedures. This medical document was created using an electronic medical record system with [employer] dictation system. Although this document has been carefully reviewed, there may still be some phonetic and typographical errors. These areas are purely typographical due to imperfections of the software programs, and do not reflect any compromise in the patient's medical care. Plan discussed with: Patient, Other (RN) My Orders Orders - SHAKEEL STONER NP Procedure Category Date Status Time Acetone LAB 06/06/25 Logged 11:14 Basic Metabolic Panel LAB 06/07/25 Verified 04:00 Complete Blood Count LAB 06/07/25 Verified 04:00 Insulin Drip Protocol LONNIE 06/06/25 In Process Insulin Drip 100 PHA 06/06/25 In Process Unit/100ml (Myxredlin 11:15 Dextrose 50% Syringe PHA 06/06/25 In Process 11:15 Glucose Blood PHA 06/06/25 In Process (Accu-Chek Comfort 12:00 Osmolality, Serum LAB 06/06/25 Logged 11:14 Basic Metabolic Panel LAB 06/06/25 Logged 11:14 Basic Metabolic Panel LAB 06/06/25 Logged 17:14 Basic Metabolic Panel LAB 06/06/25 Logged 23:14 Basic Metabolic Panel LAB 06/07/25 Verified 05:14 Date of Service: Jun 06, 2025 Billing Provider: SHAKEEL STONER NP Common Visit Codes: [id number] CARE 30-74 MIN SHAKEEL STONER NP Jun 06, 2025 11:35
[2025-06-06] MEDS: ACCU-CHEK COMFORT CURVE STRIP VI SCH (12:00)
[2025-06-06] MEDS: INSULIN DRIP 100 UNIT/100ML 100 ML IV SCH (12:19)
[2025-06-06 12:22] LABS: Chloride 106 mmol/L (98-107); Potassium 3.7 mmol/L (3.5-5.1); Sodium 139 mmol/L (136-145)
[2025-06-06 12:23] LABS: Anion Gap 16 (5-15); Calcium 9.7 mg/dL (8.7-10.4)
[2025-06-06 12:29] LABS: BUN/Creatinine Ratio 6.5 (10.0-20.0); Blood Urea Nitrogen < 5 mg/dL (9-23); Carbon Dioxide 17 mmol/L (20-31); Glucose 278 mg/dL (74-106)
[2025-06-06 19:12] LABS: Potassium 3.8 mmol/L (3.5-5.1); Sodium 140 mmol/L (136-145)
[2025-06-06 19:13] LABS: Anion Gap 14 (5-15)
[2025-06-06 19:14] LABS: Calcium 9.2 mg/dL (8.7-10.4)
[2025-06-06 19:32] LABS: BUN/Creatinine Ratio 8.1 (10.0-20.0); Blood Urea Nitrogen < 5 mg/dL (9-23); Carbon Dioxide 18 mmol/L (20-31); Chloride 108 mmol/L (98-107); Glucose 211 mg/dL (74-106)
--- NOTE | 2025-06-06 23:19 | DVHPN2 ---
Progress Note - Dictate Date Seen: Jun 06, 2025 Medical Necessity Reason Pt with a Central, PICC or Fol: Yes The following are medically ne: Sotelo Catheter Reason for sotelo catheter: Strict I&O Subjective Patient seen and examined at bedside. Breathing on room air. Overnight events reviewed vital signs Vital Sign Date Time Temp Pulse Resp B/P (MAP) Pulse Ox O2 Delivery O2 Flow Rate FiO2 06/06/25 21:49 Room Air* 0 21 21 06/06/25 21:15 106 19 115/68 (84) 96 06/06/25 20:00 98.0 98.0 Total Intake and Output 06/05/25 06/05/25 06/06/25 15:00 23:00 07:00 Intake Total 850 ml 1140 ml 1080 ml Output Total 2050 ml 1800 ml Balance 850 ml -910 ml -720 ml medications Current Medications Medications Dose Ordered Sig/Laura Route Start Time Stop Time Status Last Admin Dose Admin Dextrose 50 ml UD PRN IV 05/31/25 11:15 Cancel Acetaminophen 650 mg Q6HP PRN PO 05/31/25 14:30 06/04/25 12:08 650 MG Ceftriaxone Sodium 50 ml @ 100 mls/hr DAILY@09 IV 06/01/25 09:00 06/06/25 09:43 100 MLS/HR Pantoprazole Sodium 40 mg DAILY IV 06/02/25 10:00 06/06/25 09:43 40 MG Enoxaparin Sodium 40 mg DAILY SC 06/02/25 10:00 06/06/25 09:47 40 MG Potassium Chloride 40 meq/ Dextrose 1,020 ml @ 100 mls/hr [id number] IV 06/02/25 10:00 06/06/25 20:43 100 MLS/HR Dextrose 50 ml PRN PRN IV 06/02/25 10:00 Cancel Mupirocin 1 applic BID EACHNOSTRI 06/02/25 22:00 06/07/25 21:59 06/06/25 22:23 1 APPLIC Budesonide 0.5 mg BID NEB 06/04/25 20:00 06/06/25 17:38 0.5 MG Albuterol 2.5 mg Q6HWA NE[facility] 06/05/25 06:00 06/06/25 17:38 2.5 MG Ipratropium [place] 0.5 mg Q6HWA NEB 06/05/25 06:00 06/06/25 17:38 0.5 MG Insulin Glargine 20 units DAILY@1000 SC 06/05/25 10:00 06/06/25 09:57 20 UNITS Insulin Human (Reg)/Sodium Chloride 100 ml @ 0.5 mls/hr Q24H IV 06/06/25 11:15 06/06/25 20:42 0.5 MLS/HR Dextrose 50 ml UD PRN IV 06/06/25 11:15 Diagnostic Test (Pha) 1 strip Q90MIN 06/06/25 12:00 06/06/25 22:23 1 STRIP objective Gen.: Patient lying in bed in no apparent distress. On room air. Head: Normocephalic, atraumatic. Eyes: EOMI/PERRLA. Ears: Normal hearing. Normal anatomy. Neck/trachea: Trachea midline, supple. Nose: Normal external anatomy. Mouth: Moist mucous membranes. Chest: Decreased air entry bilaterally. Bilateral wheezing. No rhonchi. Cardiovascular: Positive S1, positive S2. Regular rate and rhythm. Abdomen: Positive bowel sounds in all 4 quadrants. Soft, non-tender, non- distended. : Deferred. Rectal: Deferred. Skin: Warm, dry. Intact. Extremities: 2+ radial pulses bilaterally. No lower extremity edema. Neuro: Awake, alert, oriented x3. No gross motor or sensory deficits. Cranial nerves II through XII intact. Gait not assessed. laboratory and microbiology Laboratory Tests 06/06/25 18:47 06/06/25 07:59 Test 06/06/25 18:47 Range/Units Serum Glucose 211 H 74-106 mg/dL Assessment/Plan Impression: Acute hypoxic respiratory failure Diabetic ketoacidosis Metabolic acidosis Acute metabolic encephalopathy Events: Remains on room air. No distress Supplemental oxygen PRN. Accu-Cheks, ISS Restarted insulin drip. Central line removed. Plan for midline catheter placement. Monitor bicarb, anion gap. Recommend to continue insulin drip until anion gap closes and bicarb 20 or greater x2. Wheezing, improving DuoNeb q.6 hours PRN SOB/wheezing. Pulmicort 0.5 mg nebulized q.12 hours Continue antibiotics. Incentive spirometry Remains off pressors since 06/01/25. Hemodynamically stable. Head of bed elevation Aspiration precautions. On puree diet. Monitor renal function Monitor electrolytes. Supplement as necessary. Monitor ins and outs. Potassium supplementation Protonix for GI ppx CXR on 06/03/25 showed small bilateral pleural effusions. No pneumothorax. Labs and imaging reviewed. Rest of plan as noted below. Plan: S/p extubation on 06/04/25 Supplemental oxygen PRN Titrate to keep O2 sats above 92%. Continue antibiotics. Accu-Cheks, ISS Monitor renal function Monitor electrolytes. Supplement as necessary. Monitor ins and outs. Potassium supplementation GI prophylaxis. DVT prophylaxis. Prognosis: Poor given patient's multiple co-morbidities. Condition: Critical Rest of plan per hospitalist and other consultants. A total of 35 minutes of critical care time was spent reviewing the patient record, examining the patient, making a diagnostic and therapeutic plan, discussing this plan with the medical personnel, following up on diagnostic studies and following the patient for clinical stability excluding any and all procedures. At least 50% of this time was spent in direct, henn-ib-nhna contact. Thank you Dr. Hurt for allowing me to participate in this patient's care. Further recommendations will depend on the patient's clinical course. Please do not hesitate to contact me if you have any questions or concerns. This medical document was created using an electronic medical record system with [employer] computerized dictation system. Although these documentations are being carefully reviewed, there may still be some phonetic and typographical changes. The errors are purely typographical, due to imperfection on the software program, and do not reflect any compromise in the patient's medical care Dietary Evaluation Review Comments: 1) TF Vital AF 1.2Cal @ 60ml/hr. start @ 20ml/hr, increase 10ml/hr Q4H until goal is reached. TF at goal volume provides 100% energy & protein needs - 1728 kcal, 108 gm protein, 1168 ml free water 2. Water flush 140ml Q6H if allowed 3. TPN if NPO> 7 days Expected Outcomes/Goals: To meet >75% estimated needs Fu 3-5 days Plan discussed with: Patient, Other (RN February) Critical Care Time(min): 35 NURA PIPER MD Jun 06, 2025 23:19
[2025-06-07] VITALS (73 sets, daily range): BP systolic 114–163; BP diastolic 53–104; PULSE 99–130; RESP 11–26; TEMP 97.7–99.8; O2SAT 95–100
[2025-06-07 00:37] LABS: Chloride 107 mmol/L (98-107); Potassium 3.9 mmol/L (3.5-5.1); Sodium 142 mmol/L (136-145)
[2025-06-07 00:38] LABS: Anion Gap 13 (5-15); Calcium 9.2 mg/dL (8.7-10.4); Carbon Dioxide 22 mmol/L (20-31)
[2025-06-07 00:51] LABS: BUN/Creatinine Ratio 7.4 (10.0-20.0); Blood Urea Nitrogen < 5 mg/dL (9-23); Glucose 273 mg/dL (74-106)
--- NOTE | 2025-06-07 05:54 | DVH ---
CHEST RADIOGRAPH Indication: INTERVAL CHANGES Technique: Single frontal view of the chest was obtained COMPARISON: XY CHEST XRAY 1 VIEW on DOS: 06/03/25, XY CHEST PORTABLE on DOS: 06/02/25, XY CHEST XRAY 1 EW on DOS: 05/31/25 FINDINGS: Lines and Tubes: None Lungs: Clear Pleura: No effusion. No pneumothorax. Cardiomediastinal contours: Unremarkable Bones: Unremarkable IMPRESSION: Improving aeration of the lungs.
[2025-06-07] MEDS ORDERED: DEXTROSE (50%) 50ML SYRG IV PRN (07:45)
[2025-06-07] MEDS: SODIUM CHLORIDE 0.9% 1,000 ML IV SCH (07:45)
[2025-06-07] MEDS: ACCU-CHEK COMFORT CURVE STRIP VI SCH (08:00)
[2025-06-07] MEDS: InsuLIN REG 1unit/0.01ml Soln (100units/ml) SC SCH (08:00)
[2025-06-07] MEDS ORDERED: HYDROcodone-ACET 5/325MG TAB PO PRN (08:15)
[2025-06-07] MEDS ORDERED: THROAT LOZENGES(CEPASTAT) MT PRN (08:15)
--- NOTE | 2025-06-07 08:48 | DVHPN2 ---
Subjective Patient denies any symptoms at this time. Reviewed: Care Plan, H&P, Labs, Medications Changes from previous H/P or p: No Changes General: Per HPI Objective Vitals Vital Signs Date Time Temp Pulse Resp B/P (MAP) Pulse Ox O2 Delivery O2 Flow Rate FiO2 06/07/25 06:38 96 Room Air* 0 21 06/07/25 06:32 107 20 06/07/25 06:30 132/88 (103) 06/07/25 01:30 98.4 98.4 Intake/Output Intake and Output 06/07/25 07:00 Intake Total 2544 ml Output Total 3930 ml Balance -1386 ml Intake Oral 660 ml IV Total 1884 ml Output Urine Total 3930 ml Urine/Stool Mix 0 ml # Bowel Movements 1 General Appearance: Alert, Oriented X3, Cooperative, No acute distress HEENT: Atraumatic, PERRLA Cardiovascular: Normal S1, Normal S2 Musculoskeletal: Normal sensory function, Normal motor function Skin: Dry, Intact Psych/Mental Status: Mental status NL, Mood NL Medications Current Medications Medications Dose Ordered Sig/Laura Route Start Time Stop Time Status Last Admin Dose Admin Dextrose 50 ml UD PRN IV 05/31/25 11:15 Cancel Acetaminophen 650 mg Q6HP PRN PO 05/31/25 14:30 06/04/25 12:08 650 MG Ceftriaxone Sodium 50 ml @ 100 mls/hr DAILY@09 IV 06/01/25 09:00 06/06/25 09:43 100 MLS/HR Pantoprazole Sodium 40 mg DAILY IV 06/02/25 10:00 06/06/25 09:43 40 MG Enoxaparin Sodium 40 mg DAILY SC 06/02/25 10:00 06/06/25 09:47 40 MG Dextrose 50 ml PRN PRN IV 06/02/25 10:00 Cancel Mupirocin 1 applic BID EACHNOSTRI 06/02/25 22:00 06/07/25 21:59 06/06/25 22:23 1 APPLIC Budesonide 0.5 mg BID NEB 06/04/25 20:00 06/07/25 06:32 0.5 MG Albuterol 2.5 mg Q6HWA NEB 06/05/25 06:00 06/07/25 06:32 2.5 MG Ipratropium [place] 0.5 mg Q6HWA NEB 06/05/25 06:00 06/07/25 06:32 0.5 MG Insulin Glargine 20 units DAILY@1000 SC 06/05/25 10:00 06/06/25 09:57 20 UNITS Dextrose 50 ml UD PRN IV 06/06/25 11:15 Cancel Sodium Chloride 1,000 ml @ 100 mls/hr Q10H IV 06/07/25 07:45 UNV Diagnostic Test (Pha) 1 strip IQ4HR 06/07/25 08:00 UNV Insulin Human Regular IQ4HR SC 06/07/25 08:00 UNV Dextrose 50 ml UD PRN IV 06/07/25 07:45 UNV Acetaminophen/ Hydrocodone Bitart 1 tab Q6HPRN PRN PO 06/07/25 08:15 UNV Throat Lozenges 1 zeus Q2HP PRN MT 06/07/25 08:15 UNV Laboratory Results Laboratory Tests 06/06/25 07:59 06/07/25 00:16 Chemistry Test 06/06/25 11:45 06/06/25 18:47 06/07/25 00:16 Calcium Level 9.7 mg/dL (8.7-10.4) 9.2 mg/dL (8.7-10.4) 9.2 mg/dL (8.7-10.4) Urinalysis Test 05/31/25 12:55 Urine Color Colorless (Yellow) Urine Clarity Clear (Clear) Urine pH 5.0 (5.0-9.0) Urine Specific [place] 1.018 (1.001-1.035) Urine Protein Trace (Negative) H Urine Ketones 4+ (Negative) H Urine Blood 1+ /uL (Negative) H Urine Nitrite Negative (Negative) Urine Bilirubin Negative (Negative) Urine Urobilinogen Normal mg/dL (Negative) Urine Leukocyte Esterase Negative /uL (Negative) Urine RBC 10 /hpf (0 - 4) Urine Microscopic WBC 1 /HPF (0-5) Urine Squamous Epithelial Cells Few /hpf (<5) Urine Bacteria Few /hpf (None Seen) H Urine Mucus Few (None Seen) Urine Glucose 4+ mg/dL (Normal) H Microbiology Microbiology Date/Time Source Procedure Growth Status 05/31/25 17:00 Nose MRSA Screen - Final Methicillin Resistant S.aureus Complete 05/31/25 14:57 Blood Blood Culture - Final NO GROWTH AFTER 5 DAYS OF INCUBATION. Complete 05/31/25 12:55 Voided Urine Urine Culture - Final Complete 05/31/25 12:15 Sputum Gram Stain - Final Complete 05/31/25 12:15 Sputum Respiratory Culture - Final Complete Labs and/or images reviewed: Labs reviewed by me, Image(s) reviewed by me Assessment/Plan Assessment/Plan Impression: -acute hypoxic respiratory failure with mechanical ventilation, now extubated -diabetic ketoacidosis -underlying diabetes mellitus -metabolic encephalopathy -acute kidney injury, vasomotor nephropathy -community-acquired pneumonia with beta-hemolytic strep Plan: -events: Anion gap closed. Blood sugars are not controlled. Change IV fluids to normal saline. Stop insulin drip, q.4 regular insulin coverage. Continue Lantus 20 units daily. -out of bed as tolerated -continue Lantus, stop sliding scale -O2 supplementation to keep saturation greater than 92% -continue IV Rocephin -NS at 100 mL/hour -repeat labs in a.m. Critical care time spent with patient discussing and formulating plan of care: 40 minutes. This does not include time spent performing procedures. This medical document was created using an electronic medical record system with [employer] dictation system. Although this document has been carefully reviewed, there may still be some phonetic and typographical errors. These areas are purely typographical due to imperfections of the software programs, and do not reflect any compromise in the patient's medical care. Plan discussed with: Patient, Other (RN) My Orders Orders - SHAKEEL STONER NP Procedure Category Date Status Time Insert Midline ORDERS 06/06/25 Transmitted 13:58 Sodium Chloride 0.9% PHA 06/07/25 Logged 07:45 Glucose Blood PHA 06/07/25 Logged (Accu-Chek Comfort 08:00 Insulin R (Human) PHA 06/07/25 Logged (Insulin R) 08:00 Dextrose 50% Syringe PHA 06/07/25 Logged 07:45 Hydrocodone-Acet PHA 06/07/25 Logged 5/325mg Tab ([place] 08:15 Consistent DIET 06/07/25 Transmitted Carb(Ccho)Diabetes Breakfast Throat Lozenges PHA 06/07/25 Logged (Cepastat Lozenges) 08:15 Date of Service: Jun 07, 2025 Billing Provider: SHAKEEL STONER NP Common Visit Codes: [id number] CARE 30-74 MIN SHAKEEL STONER NP Jun 07, 2025 08:48
[2025-06-07 10:37] LABS: Chloride 103 mmol/L (98-107); Potassium 4.0 mmol/L (3.5-5.1); Sodium 138 mmol/L (136-145)
[2025-06-07 10:38] LABS: Anion Gap 13 (5-15); Calcium 9.2 mg/dL (8.7-10.4); Carbon Dioxide 22 mmol/L (20-31)
[2025-06-07 10:44] LABS: BUN/Creatinine Ratio 8.6 (10.0-20.0); Blood Urea Nitrogen < 5 mg/dL (9-23); Glucose 344 mg/dL (74-106)
[2025-06-07 10:46] LABS: Hematocrit 39.1 % (36.0-46.0); Hemoglobin 13.0 g/dL (12.2-16.2); Mean Corpuscular Hemoglobin 28.2 pg (28.0-32.0); Mean Corpuscular Volume 85.1 fL (80.0-100.0)
[2025-06-07 10:59] LABS: Anisocytosis Slight; Total Cells Counted 100.0 (100)
[2025-06-07 12:14] LABS: Chloride 104 mmol/L (98-107); Potassium 3.9 mmol/L (3.5-5.1); Sodium 137 mmol/L (136-145)
[2025-06-07 12:15] LABS: Anion Gap 9 (5-15); Calcium 9.2 mg/dL (8.7-10.4); Carbon Dioxide 24 mmol/L (20-31)
[2025-06-07 12:21] LABS: BUN/Creatinine Ratio 8.5 (10.0-20.0); Blood Urea Nitrogen < 5 mg/dL (9-23); Glucose 352 mg/dL (74-106)
--- NOTE | 2025-06-07 12:23 | DVHPN2 ---
Progress Note - Dictate Date Seen: Jun 07, 2025 Medical Necessity Reason Pt with a Central, PICC or Fol: Yes The following are medically ne: Sotelo Catheter Reason for sotelo catheter: Strict I&O vital signs Vital Sign Date Time Temp Pulse Resp B/P (MAP) Pulse Ox O2 Delivery O2 Flow Rate FiO2 06/07/25 11:46 108 18 100 06/07/25 11:39 Room Air* 0 21 06/07/25 11:00 140/86 (104) 06/07/25 08:00 98.6 98.6 Total Intake and Output 06/06/25 06/06/25 06/07/25 15:00 23:00 07:00 Intake Total 257 ml 1319 ml 968 ml Output Total 1725 ml 2205 ml Balance 257 ml -406 ml -1237 ml medications Current Medications Medications Dose Ordered Sig/Laura Route Start Time Stop Time Status Last Admin Dose Admin Dextrose 50 ml UD PRN IV 05/31/25 11:15 Cancel Acetaminophen 650 mg Q6HP PRN PO 05/31/25 14:30 06/04/25 12:08 650 MG Ceftriaxone Sodium 50 ml @ 100 mls/hr DAILY@09 IV 06/01/25 09:00 06/07/25 09:44 100 MLS/HR Pantoprazole Sodium 40 mg DAILY IV 06/02/25 10:00 06/07/25 09:44 40 MG Enoxaparin Sodium 40 mg DAILY SC 06/02/25 10:00 06/07/25 09:48 40 MG Dextrose 50 ml PRN PRN IV 06/02/25 10:00 Cancel Mupirocin 1 applic BID EACHNOSTRI 06/02/25 22:00 06/07/25 21:59 06/07/25 09:44 1 APPLIC Budesonide 0.5 mg BID NEB 06/04/25 20:00 06/07/25 06:32 0.5 MG Albuterol 2.5 mg Q6HWA [facility] 06/05/25 06:00 06/07/25 11:36 2.5 MG Ipratropium [place] 0.5 mg Q6HWA [facility] 06/05/25 06:00 06/07/25 11:36 0.5 MG Insulin Glargine 20 units DAILY@1000 SC 06/05/25 10:00 06/07/25 09:47 20 UNITS Dextrose 50 ml UD PRN IV 06/06/25 11:15 Cancel Sodium Chloride 1,000 ml @ 100 mls/hr Q10H IV 06/07/25 07:45 06/07/25 07:45 100 MLS/HR Diagnostic Test (Pha) 1 strip IQ4HR 06/07/25 08:00 06/07/25 11:41 1 STRIP Insulin Human Regular IQ4HR SC 06/07/25 08:00 06/07/25 11:43 12 UNITS Dextrose 50 ml UD PRN IV 06/07/25 07:45 Acetaminophen/ Hydrocodone Bitart 1 tab Q6HPRN PRN PO 06/07/25 08:15 Throat Lozenges 1 zeus Q2HP PRN [place] 06/07/25 08:15 laboratory and microbiology Laboratory Tests 06/07/25 10:00 Test 06/07/25 11:50 Range/Units Serum Glucose Pending Assessment/Plan Impression: Acute hypoxic respiratory failure Diabetic ketoacidosis Metabolic acidosis Acute metabolic encephalopathy Events: s/p extubation No distress Accu-Cheks, ISS transitioned to sc insulin Central line removed. Wheezing, improving DuoNeb q.6 hours PRN SOB/wheezing. Pulmicort 0.5 mg nebulized q.12 hours Continue antibiotics. Incentive spirometry Hemodynamically stable. Head of bed elevation Aspiration precautions. On ADA diet. Monitor renal function Monitor electrolytes. Supplement as necessary. Monitor ins and outs. Potassium supplementation Protonix for GI ppx CXR on 06/03/25 showed small bilateral pleural effusions. No pneumothorax. Labs and imaging reviewed. PT remove hannaey ok to d/grade crit care time 35 min Dietary Evaluation Review Comments: 1) TF Vital AF 1.2Cal @ 60ml/hr. start @ 20ml/hr, increase 10ml/hr Q4H until goal is reached. TF at goal volume provides 100% energy & protein needs - 1728 kcal, 108 gm protein, 1168 ml free water 2. Water flush 140ml Q6H if allowed 3. TPN if NPO> 7 days Expected Outcomes/Goals: To meet >75% estimated needs Fu 3-5 days Plan discussed with: Patient DINH ANDRADE MD Jun 07, 2025 12:23
[2025-06-07 18:51] LABS: Anion Gap 12 (5-15); Carbon Dioxide 22 mmol/L (20-31); Chloride 105 mmol/L (98-107); Potassium 3.8 mmol/L (3.5-5.1); Sodium 139 mmol/L (136-145)
[2025-06-07 18:52] LABS: Calcium 8.9 mg/dL (8.7-10.4)
[2025-06-07 18:57] LABS: BUN/Creatinine Ratio 9.4 (10.0-20.0); Blood Urea Nitrogen < 5 mg/dL (9-23); Glucose 238 mg/dL (74-106)
[2025-06-08] VITALS (14 sets, daily range): BP systolic 111–139; BP diastolic 78–93; PULSE 56–119; RESP 17–19; TEMP 97.7–99.1; O2SAT 94–100
[2025-06-08 00:54] LABS: Chloride 104 mmol/L (98-107); Sodium 140 mmol/L (136-145)
[2025-06-08 00:55] LABS: Anion Gap 8 (5-15); Calcium 8.7 mg/dL (8.7-10.4); Carbon Dioxide 28 mmol/L (20-31)
[2025-06-08 00:56] LABS: Potassium 3.4 mmol/L (3.5-5.1)
[2025-06-08 01:03] LABS: BUN/Creatinine Ratio 10.0 (10.0-20.0); Blood Urea Nitrogen < 5 mg/dL (9-23); Glucose 202 mg/dL (74-106)
[2025-06-08 06:14] LABS: Chloride 101 mmol/L (98-107); Sodium 139 mmol/L (136-145)
[2025-06-08 06:15] LABS: Anion Gap 11 (5-15); Calcium 9.1 mg/dL (8.7-10.4); Carbon Dioxide 27 mmol/L (20-31); Potassium 3.3 mmol/L (3.5-5.1)
[2025-06-08 06:20] LABS: BUN/Creatinine Ratio 8.8 (10.0-20.0); Blood Urea Nitrogen < 5 mg/dL (9-23); Glucose 266 mg/dL (74-106)
[2025-06-08] MEDS: OLANZapine 5 MG TAB PO SCH (11:47)
[2025-06-08] MEDS: POTASSIUM EFFERVESENT TAB 25 MEQ PO ONE (11:48)
[2025-06-08 12:33] LABS: Chloride 101 mmol/L (98-107); Potassium 3.6 mmol/L (3.5-5.1); Sodium 138 mmol/L (136-145)
[2025-06-08 12:34] LABS: Anion Gap 8 (5-15); Calcium 9.1 mg/dL (8.7-10.4); Carbon Dioxide 29 mmol/L (20-31)
[2025-06-08 12:42] LABS: BUN/Creatinine Ratio 7.9 (10.0-20.0); Blood Urea Nitrogen < 5 mg/dL (9-23); Glucose 258 mg/dL (74-106)
--- NOTE | 2025-06-08 12:47 | DVHPN2 ---
Subjective Patient denies any symptoms at this time. Reviewed: Care Plan, H&P, Labs, Medications Changes from previous H/P or p: No Changes General: Per HPI Objective Vitals Vital Signs Date Time Temp Pulse Resp B/P (MAP) Pulse Ox O2 Delivery O2 Flow Rate FiO2 06/08/25 11:27 110 18 100 06/08/25 11:21 Room Air* 0 21 21 06/08/25 08:19 99.1 120/86 (97) 99.1 Intake/Output Intake and Output 06/08/25 07:00 Intake Total 1590 ml Output Total 1300 ml Balance 290 ml Intake Oral 740 ml IV Total 850 ml Output Urine Total 1300 ml General Appearance: Alert, Oriented X3, Cooperative, No acute distress HEENT: Atraumatic, PERRLA Cardiovascular: Normal S1, Normal S2 Musculoskeletal: Normal sensory function, Normal motor function Skin: Dry, Intact Psych/Mental Status: Mental status NL, Mood NL Medications Current Medications Medications Dose Ordered Sig/Laura Route Start Time Stop Time Status Last Admin Dose Admin Dextrose 50 ml UD PRN IV 05/31/25 11:15 Cancel Acetaminophen 650 mg Q6HP PRN PO 05/31/25 14:30 06/04/25 12:08 650 MG Ceftriaxone Sodium 50 ml @ 100 mls/hr DAILY@09 IV 06/01/25 09:00 06/08/25 10:02 100 MLS/HR Pantoprazole Sodium 40 mg DAILY IV 06/02/25 10:00 06/08/25 10:06 40 MG Enoxaparin Sodium 40 mg DAILY SC 06/02/25 10:00 06/08/25 10:10 40 MG Dextrose 50 ml PRN PRN IV 06/02/25 10:00 Cancel Budesonide 0.5 mg BID NEB 06/04/25 20:00 06/08/25 06:04 0.5 MG Albuterol 2.5 mg Q6HWA NEB 06/05/25 06:00 06/08/25 11:21 2.5 MG Ipratropium [place] 0.5 mg Q6HWA NEB 06/05/25 06:00 06/08/25 11:21 0.5 MG Dextrose 50 ml UD PRN IV 06/06/25 11:15 Cancel Sodium Chloride 1,000 ml @ 100 mls/hr Q10H IV 06/07/25 07:45 06/07/25 07:45 100 MLS/HR Diagnostic Test (Pha) 1 strip IQ4HR 06/07/25 08:00 06/08/25 08:19 1 STRIP Insulin Human Regular IQ4HR SC 06/07/25 08:00 06/08/25 08:22 9 UNITS Dextrose 50 ml UD PRN IV 06/07/25 07:45 Acetaminophen/ Hydrocodone Bitart 1 tab Q6HPRN PRN PO 06/07/25 08:15 Throat Lozenges 1 zeus Q2HP PRN MT 06/07/25 08:15 Olanzapine 10 mg DAILY PO 06/08/25 11:15 Insulin Glargine 15 units BID@0700,2200 SC 06/08/25 22:00 Laboratory Results Laboratory Tests 06/07/25 10:00 06/08/25 05:12 Chemistry Test 06/07/25 18:10 06/08/25 00:36 06/08/25 05:12 Calcium Level 8.9 mg/dL (8.7-10.4) 8.7 mg/dL (8.7-10.4) 9.1 mg/dL (8.7-10.4) Urinalysis Test 05/31/25 12:55 Urine Color Colorless (Yellow) Urine Clarity Clear (Clear) Urine pH 5.0 (5.0-9.0) Urine Specific [place] 1.018 (1.001-1.035) Urine Protein Trace (Negative) H Urine Ketones 4+ (Negative) H Urine Blood 1+ /uL (Negative) H Urine Nitrite Negative (Negative) Urine Bilirubin Negative (Negative) Urine Urobilinogen Normal mg/dL (Negative) Urine Leukocyte Esterase Negative /uL (Negative) Urine RBC 10 /hpf (0 - 4) Urine Microscopic WBC 1 /HPF (0-5) Urine Squamous Epithelial Cells Few /hpf (<5) Urine Bacteria Few /hpf (None Seen) H Urine Mucus Few (None Seen) Urine Glucose 4+ mg/dL (Normal) H Microbiology Microbiology Date/Time Source Procedure Growth Status 05/31/25 17:00 Nose MRSA Screen - Final Methicillin Resistant S.aureus Complete 05/31/25 14:57 Blood Blood Culture - Final NO GROWTH AFTER 5 DAYS OF INCUBATION. Complete 05/31/25 12:55 Voided Urine Urine Culture - Final Complete 05/31/25 12:15 Sputum Gram Stain - Final Complete 05/31/25 12:15 Sputum Respiratory Culture - Final Complete Labs and/or images reviewed: Labs reviewed by me, Image(s) reviewed by me Assessment/Plan Assessment/Plan Impression: -acute hypoxic respiratory failure with mechanical ventilation, now extubated -diabetic ketoacidosis -underlying diabetes mellitus -metabolic encephalopathy -acute kidney injury, vasomotor nephropathy -community-acquired pneumonia with beta-hemolytic strep -bipolar disorder Plan: -events: Continues to be tachycardic. Possibly secondary to acute cessation of psychiatric medications. Restart olanzapine. Blood sugars continue to be uncontrolled -out of bed as tolerated -change Lantus to 15 units b.i.d.. Continue sliding scale -O2 supplementation to keep saturation greater than 92% -continue IV Rocephin -NS at 100 mL/hour -repeat labs in a.m. Total time spent with patient discussing and formulating plan of care: 35 minutes. This medical document was created using an electronic medical record system with [employer] dictation system. Although this document has been carefully reviewed, there may still be some phonetic and typographical errors. These areas are purely typographical due to imperfections of the software programs, and do not reflect any compromise in the patient's medical care. Plan discussed with: Patient, Other (rn) My Orders Orders - SHAKEEL STONER NP Procedure Category Date Status Time Olanzapine Tablet PHA 06/08/25 In Process (Zyprexa Tablet) 11:15 Insulin Lantus PHA 06/08/25 In Process (Glargine) (Lantus) 22:00 Date of Service: Jun 08, 2025 Billing Provider: SHAKEEL STONER NP Common Visit Codes: [id number] INP/OBS CARE(HIGH) SHAKEEL STONER NP Jun 08, 2025 12:47
--- NOTE | 2025-06-08 13:14 | DVHPN2 ---
Progress Note - Dictate Date Seen: Jun 08, 2025 Medical Necessity Reason Pt with a Central, PICC or Fol: Yes The following are medically ne: Sotelo Catheter Reason for sotelo catheter: Strict I&O vital signs Vital Sign Date Time Temp Pulse Resp B/P (MAP) Pulse Ox O2 Delivery O2 Flow Rate FiO2 06/08/25 11:27 110 18 100 06/08/25 11:21 Room Air* 0 21 21 06/08/25 08:19 99.1 120/86 (97) 99.1 Total Intake and Output 06/07/25 06/07/25 06/08/25 15:00 23:00 07:00 Intake Total 1570 ml 20 ml Output Total 1300 ml Balance 270 ml 20 ml medications Current Medications Medications Dose Ordered Sig/Laura Route Start Time Stop Time Status Last Admin Dose Admin Dextrose 50 ml UD PRN IV 05/31/25 11:15 Cancel Acetaminophen 650 mg Q6HP PRN PO 05/31/25 14:30 06/04/25 12:08 650 MG Ceftriaxone Sodium 50 ml @ 100 mls/hr DAILY@09 IV 06/01/25 09:00 06/08/25 10:02 100 MLS/HR Pantoprazole Sodium 40 mg DAILY IV 06/02/25 10:00 06/08/25 10:06 40 MG Enoxaparin Sodium 40 mg DAILY SC 06/02/25 10:00 06/08/25 10:10 40 MG Dextrose 50 ml PRN PRN IV 06/02/25 10:00 Cancel Budesonide 0.5 mg BID NEB 06/04/25 20:00 06/08/25 06:04 0.5 MG Albuterol 2.5 mg Q6HWA NEB 06/05/25 06:00 06/08/25 11:21 2.5 MG Ipratropium [place] 0.5 mg Q6HWA NEB 06/05/25 06:00 06/08/25 11:21 0.5 MG Dextrose 50 ml UD PRN IV 06/06/25 11:15 Cancel Sodium Chloride 1,000 ml @ 100 mls/hr Q10H IV 06/07/25 07:45 06/07/25 07:45 100 MLS/HR Diagnostic Test (Pha) 1 strip IQ4HR 06/07/25 08:00 06/08/25 12:43 1 STRIP Insulin Human Regular IQ4HR SC 06/07/25 08:00 06/08/25 12:45 6 UNITS Dextrose 50 ml UD PRN IV 06/07/25 07:45 Acetaminophen/ Hydrocodone Bitart 1 tab Q6HPRN PRN PO 06/07/25 08:15 Throat Lozenges 1 zeus Q2HP PRN MT 06/07/25 08:15 Olanzapine 10 mg DAILY PO 06/08/25 11:15 06/08/25 11:47 10 MG Insulin Glargine 15 units BID@0700,2200 SC 06/08/25 22:00 Metformin HCl 500 mg BIDWM PO 06/08/25 18:00 laboratory and microbiology Laboratory Tests 06/08/25 11:40 06/07/25 10:00 Test 06/08/25 11:40 Range/Units Serum Glucose 258 H 74-106 mg/dL Assessment/Plan Impression: Acute hypoxic respiratory failure Diabetic ketoacidosis Metabolic acidosis Acute metabolic encephalopathy Events: s/p extubation low oxygen requirements on room air no distress labs and imaging reviewed Management Wheezing, improving DuoNeb q.6 hours PRN SOB/wheezing. Pulmicort 0.5 mg nebulized q.12 hours Continue antibiotics. Incentive spirometry Hemodynamically stable. Head of bed elevation Aspiration precautions. On ADA diet. Monitor renal function Monitor electrolytes. Supplement as necessary. Monitor ins and outs. Potassium supplementation Okay to discharge from pulmonary standpoint DVT prophylaxis Dietary Evaluation Review Comments: 1) TF Vital AF 1.2Cal @ 60ml/hr. start @ 20ml/hr, increase 10ml/hr Q4H until goal is reached. TF at goal volume provides 100% energy & protein needs - 1728 kcal, 108 gm protein, 1168 ml free water 2. Water flush 140ml Q6H if allowed 3. TPN if NPO> 7 days Expected Outcomes/Goals: To meet >75% estimated needs Fu 3-5 days Plan discussed with: Patient DINH ANDRADE MD Jun 08, 2025 13:14
[2025-06-08 18:46] LABS: Anion Gap 8 (5-15); Carbon Dioxide 29 mmol/L (20-31); Chloride 104 mmol/L (98-107); Potassium 3.5 mmol/L (3.5-5.1); Sodium 141 mmol/L (136-145)
[2025-06-08 18:47] LABS: Calcium 8.9 mg/dL (8.7-10.4)
[2025-06-08 19:01] LABS: BUN/Creatinine Ratio 8.8 (10.0-20.0); Blood Urea Nitrogen < 5 mg/dL (9-23); Glucose 176 mg/dL (74-106)
[2025-06-08] MEDS: INSULIN LANTUS (GLARGINE) 1 /0.01ml (100units/ml) SC SCH (21:59)
[2025-06-09] VITALS (14 sets, daily range): BP systolic 122–132; BP diastolic 80–87; PULSE 80–121; RESP 16–98; TEMP 98.3–99.7; O2SAT 16–96
--- NOTE | 2025-06-09 09:57 | MEDREC ---
[facility] ASP Intervention Section I [facility] ASP Intervention: Deescalate AB based on CS (10 DAYS ON CEFTRIAXONE FOR POSSIBLE PNA ENTERAL EATING PLEASE CONSIDER D/C OR DE-ESCALATION WITH IV TO PO CONVERSION IF CLINICALLY RELEVANT ), IV to PO conversion, Review courses of therapy MARTA NEGRETE PHARMACIST Jun 09, 2025 09:57
[2025-06-09] MEDS ORDERED: INSU1INJ19 SC (12:24)
[2025-06-09] MEDS ORDERED: ALBUAER3 IN (12:24)
--- NOTE | 2025-06-09 12:31 | DVHDS2 ---
Discharge Summary Date of Admission May 31, 2025 at 14:22 Date of Discharge: Jun 09, 2025 Admitting Diagnosis Diabetic Ketoacidosis Labs/Diagnostic Data: Laboratory Results Test 06/09/25 11:30 06/08/25 18:10 06/07/25 10:00 06/06/25 11:45 POC Glucose 260 mg/dl (70-106) Sodium Level 141 mmol/L (136-145) Potassium Level 3.5 mmol/L (3.5-5.1) Chloride Level 104 mmol/L (98-107) Carbon Dioxide Level 29 mmol/L (20-31) Anion Gap 8 (5-15) Blood Urea Nitrogen < 5 mg/dL (9-23) Creatinine 0.57 mg/dL (0.550-1.02) Glomerular Filtration Rate Calc 111 mL/min (>90) BUN/Creatinine Ratio 8.8 (10.0-20.0) Serum Glucose 176 mg/dL (74-106) Calcium Level 8.9 mg/dL (8.7-10.4) White Blood Count 8.1 10^3/uL (4.4-10.8) Red Blood Count 4.60 10^6/uL (4.0-5.20) Hemoglobin 13.0 g/dL (12.2-16.2) Hematocrit 39.1 % (36.0-46.0) Mean Corpuscular Volume 85.1 fL (80.0-100.0) Mean Corpuscular Hemoglobin 28.2 pg (28.0-32.0) Mean Corpuscular Hemoglobin Concent 33.1 g/dL (32.0-36.0) Red Cell Distribution Width 14.7 % (11.8-14.3) Platelet Count 364 10^3/uL (140-450) Mean Platelet Volume 7.1 fL (6.9-10.8) Neutrophils (%) (Auto) % (37.0-80.0) Lymphocytes (%) (Auto) % (10.0-50.0) Monocytes (%) (Auto) % (0.0-12.0) Basophils (%) (Auto) % (0.0-2.0) Neutrophils # (Auto) 10 ^3/uL (1.6-8.6) Lymphocytes # (Auto) 10 ^3/uL (0.4-5.4) Monocytes # (Auto) 10 ^3/uL (0-1.3) Differential Total Cells Counted 100.0 (100) Neutrophils % (Manual) 55 (37.0-80.0) Band Neutrophils % (Manual) 10 Lymphocytes % (Manual) 14 (10.0-50.0) Monocytes % (Manual) 20 (0-12) Eosinophils % (Manual) 1 (0-7) Basophils % (Manual) 0 (0.0-2.0) Metamyelocytes % (manual) 0 Myelocytes % (Manual) 0 Promyelocytes % (Manual) 0 Blast Cells % (Manual) 0 Reactive Lymphocytes 0 Platelet Estimate Adequate Anisocytosis (manual) Slight Hemoglobin A1c > 14.0 % A1C (<5.7) Serum Osmolality 305 mOsm/kg (278-298) Beta-Hydroxybutyric Acid 3.707 mmol/L (< 0.4) Test 06/06/25 07:59 06/05/25 13:20 06/05/25 09:27 06/05/25 05:50 Clumped Platelets Few Lactic Acid Level 0.8 mmol/L (0.4-2.0) Blood Gas Specimen Type Arterial Blood Gas Sample Site Right radial Blood Gas Patient Temperature 37.0 Arterial Blood Date Drawn [id number] Arterial Blood pH 7.418 (7.350-7.450) Arterial Blood Partial Pressure CO2 24.8 mmHg (32.0-45.0) Arterial Blood Partial Pressure O2 68.1 mmHg (83.0-108.0) Arterial Blood HCO3 15.7 mmol/L (21.0-28.0) Arterial Blood Oxygen Saturation 93.0 % (94.0-98.0) Arterial Blood Base Excess -7.1 mmol/L (-2.0-3.0) Arterial Blood Oxyhemoglobin 92.4 % (94.0-98.0) Arterial Blood Carboxyhemoglobin 0.3 % (0.5-1.5) Arterial Blood Methemoglobin 0.3 % (0.0-1.5) Kadeem Test Yes Blood Gas Total Hemoglobin 13.00 g/dL (12.0-16.0) Blood Gas Liter Flow 0.00 Blood Gas Modality Room air FiO2 % 21.0 Eosinophils (%) (Auto) 0.7 % (0.0-7.0) Eosinophils # (Auto) 0.1 10 ^3/uL (0-0.8) Basophils # (Auto) 0 10 ^3/uL (0-0.2) Nucleated Red Blood Cells 0.2 % Test 06/04/25 07:21 06/03/25 03:50 06/01/25 02:42 05/31/25 15:47 Blood Gas Set Respiration Rate 18.0 Blood Gas Tidal Volume 400.0 Blood Gas PEEP or CPAP 5.0 Phosphorus Level 2.8 mg/dL (2.4-5.1) Magnesium Level 2.3 mg/dL (1.6-2.6) Total Bilirubin 0.4 mg/dL (0.2-1.0) Aspartate Amino Transferase (AST) 20 U/L (13-40) Alanine Aminotransferase (ALT) 15 U/L (7-40) Alkaline Phosphatase 72 U/L (46-116) Total Protein 4.9 g/dL (5.7-8.2) Albumin 3.2 g/dL (3.2-4.8) Smudge Cells 2 /100 WBC Blood Gas Critical Value Read Back Yes Blood Gas Notified Whom K scwhing card grinder helper Blood Gas Notified Time [id number] Blood Gas Notified By [employer] t jose Test 05/31/25 13:45 05/31/25 12:55 Large Platelets Few Polychromasia Slight Microcytosis Slight Macrocytosis Slight Plasma/Serum Blood Alcohol < 3.0 mg/dL (<10) Urine Color Colorless (Yellow) Urine Clarity Clear (Clear) Urine pH 5.0 (5.0-9.0) Urine Specific [place] 1.018 (1.001-1.035) Urine Protein Trace (Negative) Urine Ketones 4+ (Negative) Urine Blood 1+ /uL (Negative) Urine Nitrite Negative (Negative) Urine Bilirubin Negative (Negative) Urine Urobilinogen Normal mg/dL (Negative) Urine Leukocyte Esterase Negative /uL (Negative) Urine RBC 10 /hpf (0 - 4) Urine Microscopic WBC 1 /HPF (0-5) Urine Squamous Epithelial Cells Few /hpf (<5) Urine Bacteria Few /hpf (None Seen) Urine Mucus Few (None Seen) Urine Glucose 4+ mg/dL (Normal) Urine Opiates Screen Neg (NEGATIVE) Urine Fentanyl Screen Neg (NEGATIVE) Urine Barbiturates Screen Neg (NEGATIVE) Urine Phencyclidine Screen Neg (NEGATIVE) Urine Amphetamines Screen Neg (NEGATIVE) Urine Benzodiazepines Screen Neg (NEGATIVE) Urine Cocaine Screen Neg (NEGATIVE) Urine Cannabinoids Screen Neg (NEGATIVE) Other Laboratory Tests 06/08/25 18:10 06/07/25 10:00 Brief Hx & Hospital Course: History of Present Illness Chanell Riddle is a 50-year-old female with past medical history of diabetes, who came to the hospital for hyperglycemia. The patient was brought in by EMS, there is no family or friends bedside and the patient is intubated and sedated. Obtained history form chart. According to EMS, they were called by roommates who found the patient altered in her room this morning. When EMS did an Accu check it read as "hi" twice. When the patient arrived to the ER she could barely say her name and she was intubated shortly after arrival. She was found to be in DKA and in metabolic acidosis. Unable to obtain any other medical history at this time. Course of hospitalization: Patient was treated with insulin drip protocol. Patient's blood sugars improved. Patient was found to have positive sputum culture with strep B. antibiotics were continue with cefepime. Patient was subsequently extubated. Long discussion was made with the patient regarding her home diabetic medications as well as other home medications. Apparently, she has a history of bipolar disorder and is on Cymbalta and olanzapine. Patient was restarted on olanzapine while in the hospital. Apparently she was on Ozempic and Lantus in the past, had a change in her health care provider, in his now on glimepiride and metformin. Patient will be placed back on Lantus 18 units b.i.d., in addition to continuing with metformin. Patient will follow up with the discharge Clinic in one week. Patient will also be prescribed albuterol MDI for any wheezing and shortness of breaths. She is instructed to stop taking glimepiride, continue metformin as well as her other home medications. Patient was also instructed to stop smoking. Lifestyle modification education: 10 minutes she is agreeable with discharge plan. All questions answered. Physical examination General: Alert and Oriented x3. No acute distress. Well-nourished. Eyes: EOMI. Anicteric. HENT: Moist mucous membranes. Lungs: Clear to auscultation bilaterally. No accessory muscle use. Cardiovascular: Regular rate and rhythm. No murmur. No JVD. Abdomen: Soft, non-tender and non-distended. No palpable masses. Extremities: No edema. Non-tender. Skin: No rashes or lesions. Warm. Neurologic: No focal neurological deficits. CN II-XII grossly intact, but not individually tested. Psychiatric: Cooperative. Appropriate mood and affect. Total time spent with patient discussing and formulating plan of care: 35 minutes. This medical document was created using an electronic medical record system with [employer] dictation system. Although this document has been carefully reviewed, there may still be some phonetic and typographical errors. These areas are purely typographical due to imperfections of the software programs, and do not reflect any compromise in the patient's medical care. Condition at Discharge: Guarded Final Diagnosis/Problems List Diabetic ketoacidosis Secondary diagnosis: -acute hypoxic respiratory failure with mechanical ventilation, now extubated -underlying diabetes mellitus -metabolic encephalopathy -acute kidney injury, vasomotor nephropathy -community-acquired pneumonia with beta-hemolytic strep -bipolar disorder Discharge Disposition: Home with Health Services Discharge Instruct/Medications Diet: Consistent carbohydrate Activity: No Restrictions, As Tolerated Follow Up/Referral: Follow up with discharge Clinic in one week Medications: Basaglar 18 units subQ b.i.d. Metformin 500 mg p.o. b.i.d. Ventolin 90 mcg, one puff q.4 hours as needed for shortness of breaths Stop glimepiride Continue all previous home medications Scheduled Duloxetine HCl (Duloxetine HCl), 1 CAP PO DAILY, (Reported) Glimepiride (Glimepiride), 1 TAB PO DAILY, (Reported) Hydrochlorothiazide (Hydrochlorothiazide), 1 TAB PO DAILY, (Reported) Insulin Glargine (Basaglar Kwikpen), 18 UNIT SC BID Lamotrigine (Lamotrigine), 2 TAB PO DAILY, (Reported) Losartan Potassium (Losartan Potassium), 1 TAB PO DAILY, (Reported) Omeprazole (Omeprazole Dr), 1 CAP PO DAILY, (Reported) Scheduled PRN Albuterol Sulfate (Ventolin Mdi), 90 MCG IN Q4HP PRN Miscellaneous Medications Olanzapine (Olanzapine Odt), 1 TAB PO, (Reported) 36 Discharge Statement: "Patient was advised to return to the ER or call 911 if any headaches, dizziness, shortness of breath, chest pain, abdominal pain, bleeding, fevers, or worsening of medical condition. Patient was counseled about treatment plan, medications, possible side effects, patientverbalized understanding. All questions were answered to the best of my ability. This discharge took greater then 30 minutes in planning, reviewing documentation, counseling the patient, and discussing with other team members." ASSESSMENT ASSESSMENT Assessment Diabetic ketoacidosis Date of Service: Jun 09, 2025 Billing Provider: SHAKEEL STONER NP Common Visit Codes: [id number] DISCH DAY >30min SHAKEEL STONER NP Jun 09, 2025 12:31
--- NOTE | 2025-06-09 12:49 | DVHPN2 ---
Progress Note - Dictate Date Seen: Jun 09, 2025 Medical Necessity Reason Pt with a Central, PICC or Fol: Yes The following are medically ne: Sotelo Catheter Reason for sotelo catheter: Strict I&O vital signs Vital Sign Date Time Temp Pulse Resp B/P (MAP) Pulse Ox O2 Delivery O2 Flow Rate FiO2 06/09/25 11:28 112 98 16 06/09/25 11:22 Room Air* 0 21 06/09/25 09:00 99.7 132/87 (102) 99.7 Total Intake and Output 06/08/25 06/08/25 06/09/25 15:00 23:00 07:00 Intake Total 50 ml 530 ml 900 ml Output Total 2120 ml 920 ml Balance 50 ml -1590 ml -20 ml medications Current Medications Medications Dose Ordered Sig/Laura Route Start Time Stop Time Status Last Admin Dose Admin Dextrose 50 ml UD PRN IV 05/31/25 11:15 Cancel Acetaminophen 650 mg Q6HP PRN PO 05/31/25 14:30 06/04/25 12:08 650 MG Ceftriaxone Sodium 50 ml @ 100 mls/hr DAILY@09 IV 06/01/25 09:00 06/09/25 08:20 100 MLS/HR Pantoprazole Sodium 40 mg DAILY IV 06/02/25 10:00 06/09/25 09:28 40 MG Enoxaparin Sodium 40 mg DAILY SC 06/02/25 10:00 06/09/25 09:29 40 MG Dextrose 50 ml PRN PRN IV 06/02/25 10:00 Cancel Albuterol 2.5 mg Q6HWA [facility] 06/05/25 06:00 06/09/25 11:22 2.5 MG Ipratropium [place] 0.5 mg Q6HWA NEB 06/05/25 06:00 06/09/25 11:22 0.5 MG Dextrose 50 ml UD PRN IV 06/06/25 11:15 Cancel Sodium Chloride 1,000 ml @ 100 mls/hr Q10H IV 06/07/25 07:45 06/09/25 09:30 100 MLS/HR Diagnostic Test (Pha) 1 strip IQ4HR 06/07/25 08:00 06/09/25 11:48 1 STRIP Insulin Human Regular IQ4HR SC 06/07/25 08:00 06/09/25 11:55 9 UNITS Dextrose 50 ml UD PRN IV 06/07/25 07:45 Acetaminophen/ Hydrocodone Bitart 1 tab Q6HPRN PRN PO 06/07/25 08:15 Throat Lozenges 1 zeus Q2HP PRN MT 06/07/25 08:15 Olanzapine 10 mg DAILY PO 06/08/25 11:15 06/09/25 09:29 10 MG Insulin Glargine 15 units BID@0700,2200 SC 06/08/25 22:00 06/09/25 06:42 15 UNITS Metformin HCl 500 mg BIDWM PO 06/08/25 18:00 06/09/25 08:02 500 MG laboratory and microbiology Laboratory Tests 06/08/25 18:10 06/07/25 10:00 Test 06/08/25 18:10 Range/Units Serum Glucose 176 H 74-106 mg/dL Assessment/Plan Impression: Acute hypoxic respiratory failure Diabetic ketoacidosis Metabolic acidosis Acute metabolic encephalopathy Events: s/p extubation low oxygen requirements on room air no acute events labs and imaging reviewed Management Supplemental oxygen Titrate to maintain sats 90% or above Incentive spirometry DuoNeb q.6 hours PRN SOB/wheezing. Pulmicort 0.5 mg nebulized q.12 hours Continue antibiotics. Incentive spirometry Aspiration precautions. Monitor renal function Monitor electrolytes. Supplement as necessary. Monitor ins and outs. Potassium supplementation Okay to discharge from pulmonary standpoint DVT prophylaxis Dietary Evaluation Review Comments: 1) TF Vital AF 1.2Cal @ 60ml/hr. start @ 20ml/hr, increase 10ml/hr Q4H until goal is reached. TF at goal volume provides 100% energy & protein needs - 1728 kcal, 108 gm protein, 1168 ml free water 2. Water flush 140ml Q6H if allowed 3. TPN if NPO> 7 days Expected Outcomes/Goals: To meet >75% estimated needs Fu 3-5 days Plan discussed with: Patient DINH ANDRADE MD Jun 09, 2025 12:49
== END 2025-06-09 19:56 | disposition home or self-care (01) | DRG 637 ==
LOC: ER 10:57 → EDBD 10:57 → OVERFLOW 14:22 → ICU WEST 16:11 → TELE-CENTR 06-07 15:22
PROVIDERS: ADMIT Nurse Practitioner Acute Care; ATTEND Nurse Practitioner Acute Care
PROC: 5A1955Z Respiratory Ventilation, Greater than 96 Consecutive Hours (ICD-10-PCS; principal; 2025-05-31)
PROC: 02HV33Z Insertion of Infusion Device into Superior Vena Cava, Percutaneous Approach (ICD-10-PCS; 2025-05-31)
PROC: 0BH17EZ Insertion of Endotracheal Airway into Trachea, Via Natural or Artificial Opening (ICD-10-PCS; 2025-05-31)
PROC: 05HC33Z Insertion of Infusion Device into Left Basilic Vein, Percutaneous Approach (ICD-10-PCS; 2025-06-06)
PROC: B54NZZA Ultrasonography of Left Upper Extremity Veins, Guidance (ICD-10-PCS; 2025-06-06)
DX: E11.10 Type 2 diabetes mellitus with ketoacidosis without coma (principal); G93.41 Metabolic encephalopathy; J96.01 Acute respiratory failure with hypoxia; N17.0 Acute kidney failure with tubular necrosis; J15.4 Pneumonia due to other streptococci; R65.11 Systemic inflammatory response syndrome (SIRS) of non-infectious origin with acute organ dysfunction; E87.3 Alkalosis; J44.0 Chronic obstructive pulmonary disease with (acute) lower respiratory infection; F31.9 Bipolar disorder, unspecified; I10 Essential (primary) hypertension; F17.200 Nicotine dependence, unspecified, uncomplicated; Z88.0 Allergy status to penicillin; Z79.899 Other long term (current) drug therapy; Z71.6 Tobacco abuse counseling
CPT/HCPCS: 31500; 36415; 36556; 36600; 71045; 80048; 80053; 80307; 80320; 81001; 82010; 82805; 82962; 83036; 83605; 83735; 83930; 84100; 85007; 85025; 85027; 87040; 87070; 87081; 87086; 87205; 92610; 94002; 94003; 94640; 96372; 99291; G0378; J1815; J2470; J3480; J7060

== ENCOUNTER 2025-06-14 06:57 | Inpatient (IN) | payer MEDICARE, OTHER ==
[2025-06-14] VITALS (46 sets, daily range): BP systolic 81–119; BP diastolic 48–78; PULSE 89–141; RESP 22–35; TEMP 95.5–99.5; O2SAT 98–100
[~2025-06-14] VITALS: Ht 167.6 cm; Wt 71.4 kg
[~2025-06-14 06:57] MED LIST: ALBUAER3 IN; DULO1CAP6 PO; HYDR12.55 PO; INSU1INJ19 SC; LAMO25TA27 PO; LOS25T PO; OLAN10TA40 PO; OMEP1CAP70 PO
--- NOTE | 2025-06-14 07:05 | ED.PDOC ---
History of Present Illness HPI Comments 50-year-old female with PMHx DM brought in by EMS presents with a chief complaint of possible DKA. Patient blood sugar is reading "HIGH" on EMS monitor. Patient had a whole bottle of insulin at home, but no needles according to EMS. Patient was also hypotensive at 81/54 and was given fluids by EMS with impro vement. Patient also had Bismol respirations and was placed on 2L via NC. Time Seen by MD: 07:00 Primary Care Provider: UNKNOWN Reviewed Notes: Medications, Allergies Allergies: Coded Allergies: Penicillins (Verified Allergy, Unknown, 12/04/24) Home Meds Active Scripts Albuterol Sulfate (VENTOLIN MDI) 90 Mcg Ih, 90 MCG IN Q4HP PRN for 30 Days, #1 INH Prov:SHAKEEL STONER PAYING TELLER 06/09/25 Insulin Glargine (Basaglar Kwikpen) 100 Unit/Ml Inj, 18 UNIT SC BID for 30 Days, #14 INJ Prov:SHAKEEL STONER PAYING TELLER 06/09/25 Reported Medications Lamotrigine (Lamotrigine) 25 Mg Tab, 2 TAB PO DAILY 05/31/25 Olanzapine (OLANZAPINE ODT) 10 Mg Tab, 1 TAB PO 05/31/25 Duloxetine HCl (Duloxetine HCl) 60 Mg Cap, 1 CAP PO DAILY 05/31/25 Omeprazole (Omeprazole Dr) 20 Mg Cap, 1 CAP PO DAILY 05/31/25 Hydrochlorothiazide (Hydrochlorothiazide) 12.5 Mg Tab, 1 TAB PO DAILY 05/31/25 Losartan Potassium (Losartan Potassium) 25 Mg Tab, 1 TAB PO DAILY 05/31/25 Discontinued Reported Medications Glimepiride (Glimepiride) 2 Mg Tab, 1 TAB PO DAILY 05/31/25 Information Source: Emergency Med Personnel Mode of Arrival: EMS Severity: Moderate Timing: Hours Duration: Since onset Prehospital treatment: Bill Board Poster, IVF, Oxygen Past Medical History PAST MEDICAL HISTORY: Asthma, DM Family History Family History: Unknown Social History Smoker: Non-Smoker Alcohol: Denies ETOH Use Drugs: Denies Drug Use Lives In: Home Constitutional: denies: chills, diaphoresis, fatigue, fever, malaise, sweats, weakness, others EENTM: denies: blurred vision, double vision, ear bleeding, ear discharge, ear drainage, ear pain, ear ringing, eye pain, eye redness, hearing loss, mouth pain, mouth swelling, nasal discharge, nose bleeding, nose congestion, nose pain, photophobia, tearing, throat pain, throat swelling, voice changes, others Respiratory: reports: shortness of breath; denies: cough, hemoptysis, orthopnea, SOB at rest, SOB with excertion, stridor, wheezing, others Cardiovascular: reports: others (HYPOTENSIVE); denies: chest pain, dizzy spells, diaphoresis, Dyspnea on exertion, edema, irregular heart beat, left arm pain, lightheadedness, palpitations, PND, syncope Gastrointestinal: denies: abdomen distended, abdominal pain, blood streaked bowels, constipated, diarrhea, dysphagia, difficulty swallowing, hematemesis, melena, nausea, poor appetite, poor fluid intake, rectal bleeding, rectal pain, vomiting, others Genitourinary: denies: abnormal vagina bleeding, burning, dyspareunia, dysuria, flank pain, frequency, hematuria, incontinence, pain, , vagina discharge, urgency, others Neurological: denies: dizziness, fainting, headache, left sided numbness, left sided weakness, numbness, paresthesia, pre-existing deficit, right sided numbness, right sided weakness, seizure, speech problems, tingling, tremors, weakness, others Musculoskeletal: denies: back pain, gout, joint pain, joint swelling, muscle pain, muscle stiffness, neck pain, others Integumetry: denies: bruises, change in color, change in hair/nails, dryness, laceration, lesions, lumps, rash, wounds, others Allergic/Immunocompromised: denies: Difficulty Healing, Frequent Infections, Hives, Itching, others Hematologic/Lymphatic: denies: anemia, blood clots, easy bleeding, easy bruising, swollen glands, others Endocrine: denies: excessive hunger, excessive sweating, excessive thirst, excessive urination, flushing, intolerance to cold, intolerance to heat, unexplained weight gain, unexplained weight loss, others Psychiatric: denies: anxiety, bipolar disorder, depression, hopeless, panic disorder, schizophrenia, sleepless, suicidal, others All Other Systems: Reviewed and Negative ( PER HPI) Physical Exam General Appearance: Moderate Distress, Normal HEENT: Normal ENT Inspection, Pharynx Normal, TMs Normal Neck: Full Range of Motion, Non-Tender, Normal, Normal Inspection Respiratory: Chest Non-Tender, Other (BISMOL RESPIRATIONS, TACHYPNEIC) Cardiovascular: Tachycardia Breast Exam: Deferred Gastrointestinal: No Organomegaly, Non Tender, No Pulsatile Mass, Normal Bowel Sounds, Soft Genitalia: Deferred Pelvic: Deferred Rectal: Deferred Extremities: No calf tenderness, Normal capillary refill, Normal inspection, Normal range of motion, Non-tender, No pedal edema Neurologic: Alert, buffet runner II-XII nml as Tested, No Motor Deficits, Normal Affect, Normal Mood, No Sensory Deficits Cerebellar Function: Normal Reflexes: Normal Skin: Dry, Normal Color, Warm Lymphatic: No Adenopathy Was a procedure done? Was a procedure done?: No Differential Dx Considerations may include: DKA, electrolyte abnormality, infectious etiology, dehydration, X-Ray, Labs, Meds, VS Vital Signs Date Time Temp Pulse Resp B/P (MAP) Pulse Ox O2 Delivery O2 Flow Rate FiO2 06/14/25 09:31 88 29 92/56 (68) 100 06/14/25 07:46 89 30 100 Room Air* 0 21 06/14/25 07:30 97.9 90 29 101/59 (73) 100 97.9 06/14/25 06:57 98.3 90 30 90/56 (67) 100 98.3 Lab Test 06/14/25 08:44 06/14/25 08:14 06/14/25 08:01 06/14/25 07:26 Range/Units Beta-Hydroxybutyric Acid Pending White Blood Count 35.3 #*H 4.4-10.8 10^3/uL Red Blood Count 4.47 4.0-5.20 10^6/uL Hemoglobin 12.4 12.2-16.2 g/dL Hematocrit 41.5 36.0-46.0 % Mean Corpuscular Volume 92.8 # 80.0-100.0 fL Mean Corpuscular Hemoglobin 27.8 L 28.0-32.0 pg Mean Corpuscular Hemoglobin Concent 29.9 L 32.0-36.0 g/dL Red Cell Distribution Width 15.5 H 11.8-14.3 % Platelet Count 449 140-450 10^3/uL Mean Platelet Volume 7.7 6.9-10.8 fL Neutrophils (%) (Auto) 37.0-80.0 % Lymphocytes (%) (Auto) 10.0-50.0 % Monocytes (%) (Auto) 0.0-12.0 % Basophils (%) (Auto) 0.0-2.0 % Neutrophils # (Auto) 1.6-8.6 10 ^3/uL Lymphocytes # (Auto) 0.4-5.4 10 ^3/uL Monocytes # (Auto) 0-1.3 10 ^3/uL Differential Total Cells Counted 100.0 100 Neutrophils % (Manual) 81 H 37.0-80.0 Band Neutrophils % (Manual) 1 Lymphocytes % (Manual) 16 10.0-50.0 Monocytes % (Manual) 2 0-12 Eosinophils % (Manual) 0 0-7 Basophils % (Manual) 0 0.0-2.0 Metamyelocytes % (manual) 0 Myelocytes % (Manual) 0 Promyelocytes % (Manual) 0 Blast Cells % (Manual) 0 Reactive Lymphocytes 0 Platelet Estimate Adequate Sodium Level 127 #L 136-145 mmol/L Potassium Level 5.4 H 3.5-5.1 mmol/L Chloride Level 90 #L 98-107 mmol/L Carbon Dioxide Level < 10 *L 20-31 mmol/L Anion Gap 27.49393 H 5-15 Blood Urea Nitrogen 49 H 9-23 mg/dL Creatinine 1.71 #H 0.550-1.02 mg/dL Glomerular Filtration Rate Calc 36 >90 mL/min BUN/Creatinine Ratio 28.7 H 10.0-20.0 Serum Glucose 745 *H 74-106 mg/dL Lactic Acid Level 1.8 0.4-2.0 mmol/L Calcium Level 8.5 L 8.7-10.4 mg/dL Phosphorus Level 8.9 H 2.4-5.1 mg/dL Magnesium Level 2.3 1.6-2.6 mg/dL Blood Gas Specimen Type Arterial Blood Gas Sample Site Right radial Blood Gas Patient Temperature 37.0 Arterial Blood Date Drawn [id number] Arterial Blood pH 7.087 *L 7.350-7.450 Arterial Blood Partial Pressure CO2 < 14.1 *L 32.0-45.0 mmHg Arterial Blood Partial Pressure O2 111.1 H 83.0-108.0 mmHg Arterial Blood Oxygen Saturation 96.8 94.0-98.0 % Arterial Blood Oxyhemoglobin 95.7 94.0-98.0 % Arterial Blood Carboxyhemoglobin 0.7 0.5-1.5 % Arterial Blood Methemoglobin 0.4 0.0-1.5 % Kadeem Test Yes Blood Gas Total Hemoglobin 12.10 12.0-16.0 g/dL Blood Gas Modality Room air FiO2 % 21.0 Specimen Drawn By edi analyst darya chadwick Blood Gas Critical Value Read Back yes Blood Gas Notified Whom estee brown md Blood Gas Notified Time [id number] Blood Gas Notified By edi analyst ronit santiago POC Glucose > 600 *H 70-106 mg/dl Test 06/14/25 07:25 06/14/25 07:00 Range/Units POC Glucose > 600 *H 70-106 mg/dl Urine Color Light-yellow Yellow Urine Clarity Clear Clear Urine pH 5.0 5.0-9.0 Urine Specific [place] 1.021 1.001-1.035 Urine Protein Negative Negative Urine Ketones 4+ H Negative Urine Blood Negative Negative /uL Urine Nitrite Negative Negative Urine Bilirubin Negative Negative Urine Urobilinogen Normal Negative mg/dL Urine Leukocyte Esterase Negative Negative /uL Urine RBC 1 0 - 4 /hpf Urine Microscopic WBC 2 0-5 /HPF Urine Squamous Epithelial Cells Few <5 /hpf Urine Bacteria None seen None Seen /hpf Urine Mucus Few None Seen Urine Glucose 4+ H Normal mg/dL Urine Test Negative Negative Urine Opiates Screen Neg NEGATIVE Urine Fentanyl Screen Neg NEGATIVE Urine Barbiturates Screen Neg NEGATIVE Urine Phencyclidine Screen Neg NEGATIVE Urine Amphetamines Screen Neg NEGATIVE Urine Benzodiazepines Screen Neg NEGATIVE Urine Cocaine Screen Neg NEGATIVE Urine Cannabinoids Screen Neg NEGATIVE Current Medications Medications (Trade) Dose Ordered Sig/Laura Route Start Time Stop Time Status Last Admin Sodium Chloride 1,000 ml @ 1,000 mls/hr Q1H ONCE IV 06/14/25 07:00 06/14/25 07:59 DC 06/14/25 07:22 Vancomycin HCl 200 ml @ 200 mls/hr ONCE ONCE IV 06/14/25 09:15 06/14/25 10:14 DC 06/14/25 09:46 Sodium Chloride 1,000 ml @ 1,000 mls/hr Q1H ONCE IV 06/14/25 09:15 06/14/25 10:14 DC 06/14/25 09:35 Insulin Human (Reg)/Sodium Chloride 100 ml @ 0.5 mls/hr Q24H IV 06/14/25 09:15 06/14/25 09:40 Insulin Glargine (Lantus) 15 units ONCE ONCE SC 06/14/25 09:15 06/14/25 09:35 DC 06/14/25 09:39 Time of 1ST Reevaluation: 07:30 Reevaluation 1ST: Unchanged Patient Education/Counseling: Diagnosis, Treatment Family Education/Counseling: No Family Present SEPSIS Sepsis Screen Physician Orders Beta-Hydroxybutyrate (06/14/25 07:00) Blood Culture (06/14/25 07:00) Urine Bacterial Culture (06/14/25 07:00) Abg W/ Co-Ox (06/14/25 07:00) Cefepime 2gm/50ml Ns (Maxipime 2gm/50ml) (06/14/25 09:15) Insulin Drip Protocol (06/14/25 ) Sodium Chloride 0.9% (06/14/25 09:15) Sodium Chloride 0.9% (06/14/25 13:15) Sodium Chloride 0.9% (06/14/25 15:15) Insulin Drip 100 Unit/100ml (Myxredlin 1 (06/14/25 09:15) Dextrose 50% Syringe (06/14/25 09:15) Glucose Blood (Accu-Chek Comfort Curve T (06/14/25 10:30) Basic Metabolic Panel (06/14/25 15:09) Basic Metabolic Panel (06/14/25 21:09) Basic Metabolic Panel (06/15/25 03:09) Neurological Assessment (06/14/25 09:09) Vs/Hemodynamics .PER UNIT PROTOCOL (06/14/25 09:09) Insulin Lantus (Glargine) (Lantus) (06/15/25 10:00) Chest Portable (06/14/25 09:11) Vital Signs Date Time Temp Pulse Resp B/P (MAP) Pulse Ox O2 Delivery O2 Flow Rate FiO2 06/14/25 09:31 88 29 92/56 (68) 100 06/14/25 07:46 89 30 100 Room Air* 0 21 06/14/25 07:30 97.9 90 29 101/59 (73) 100 97.9 06/14/25 06:57 98.3 90 30 90/56 (67) 100 98.3 Laboratory Tests Test 06/14/25 08:14 Lactic Acid Level 1.8 mmol/L (0.4-2.0) White Blood Count 35.3 10^3/uL (4.4-10.8) #*H Medications Medications Dose Ordered Sig/Laura Route Start Time Stop Time Status Last Admin Dose Admin Insulin Glargine 15 units ONCE ONCE SC 06/14/25 09:15 06/14/25 09:35 DC 06/14/25 09:39 Insulin Human (Reg)/Sodium Chloride 100 ml @ 0.5 mls/hr Q24H IV 06/14/25 09:15 06/14/25 09:40 Sodium Chloride 1,000 ml @ 1,000 mls/hr Q1H ONCE IV 06/14/25 07:00 06/14/25 07:59 DC 06/14/25 07:22 Sodium Chloride 1,000 ml @ 1,000 mls/hr Q1H ONCE IV 06/14/25 09:15 06/14/25 10:14 DC 06/14/25 09:35 Vancomycin HCl 200 ml @ 200 mls/hr ONCE ONCE IV 06/14/25 09:15 06/14/25 10:14 DC 06/14/25 09:46 Departure 1 Departure Time of Disposition: 10:34 (In my judgment patient is in DKA and possible septic. Patient empirically covered antibiotics given fluids started an insulin drip and we will admit patient to ICU) Impression: Primary Impression: DKA (diabetic ketoacidosis) Qualified Codes: E11.10 - Type 2 diabetes mellitus with ketoacidosis without coma Additional Impressions: Sepsis Qualified Codes: A41.9 - Sepsis, unspecified organism; R65.20 - Severe sepsis without septic shock; G93.41 - Metabolic encephalopathy Acute metabolic encephalopathy Disposition: ADMITTED INPATIENT Admit to: ICU Condition: Critical Critical Care Note Critical Care Time?: Yes Critical care comment: DKA and sepsis Authorized and Performed by: Yas Brown MD Total critical care time: Approximately 138 minutes Due to a high probability of clinically significant, life threatening deterioration, the patient required my highest level of preparedness to intervene emergently and I personally spent this critical care time directly and personally managing the patient. This critical care time included obtaining a history; examining the patient; pulse oximetry; ordering and review of studies; arranging urgent treatment with development of a management plan; evaluation of patient's response to treatment; frequent reassessment; and, discussions with other providers. This critical care time was performed to assess and manage the high probability of imminent, life-threatening deterioration that could result in multi-organ failure. It was exclusive of separately billable procedures and treating other patients and teaching time. Please see my other sections and the rest of the note for further information on patient assessment and treatment. Stability Stability form required: No Heart Score Heart Score: Heart Score Response (Comments) Value History N/A 0 EKG N/A 0 Age N/A 0 Risk Factors N/A 0 Troponin N/A 0 Total 0 I personally scribed for YAS BROWN MD ([email or web address]) on 06/14/25 at 07:04. Electronically submitted by Sandip Torrez ([email or web address]). YAS BROWN MD Jun 14, 2025 07:04
[2025-06-14] MEDS: SODIUM CHLORIDE 0.9% 1,000 ML IV ONE ×3 (07:22→14:36)
[2025-06-14 08:23] LABS: Urine Protein, UAD Negative (Negative)
[2025-06-14 08:29] LABS: Hematocrit 41.5 % (36.0-46.0); Hemoglobin 12.4 g/dL (12.2-16.2); Mean Corpuscular Hemoglobin 27.8 pg (28.0-32.0); Mean Corpuscular Volume 92.8 fL (80.0-100.0)
[2025-06-14 08:41] LABS: Anion Gap 27.00001 (5-15)
[2025-06-14 08:47] LABS: BUN/Creatinine Ratio 28.7 (10.0-20.0); Magnesium 2.3 mg/dL (1.6-2.6)
[2025-06-14 08:49] LABS: Amphetamine Screen, Urine Neg (NEGATIVE); Barbiturate Scree,Urine Neg (NEGATIVE); Benzodiazephine Screen, Urine Neg (NEGATIVE); Cannabinoid Screen, Urine Neg (NEGATIVE); Cocaine Screen, Urine Neg (NEGATIVE); Opiate Scree,Urine Neg (NEGATIVE); Phencyclidine Screen, Urine Neg (NEGATIVE)
[2025-06-14 08:55] LABS: Chloride 90 mmol/L (98-107); Potassium 5.4 mmol/L (3.5-5.1); Sodium 127 mmol/L (136-145)
[2025-06-14 08:56] LABS: Blood Urea Nitrogen 49 mg/dL (9-23); Calcium 8.5 mg/dL (8.7-10.4)
[2025-06-14 08:57] LABS: Carbon Dioxide < 10 mmol/L (20-31)
[2025-06-14 09:00] LABS: Glucose 745 mg/dL (74-106)
[2025-06-14 09:14] LABS: Total Cells Counted 100.0 (100)
[2025-06-14] MEDS ORDERED: DEXTROSE (50%) 50ML SYRG IV PRN ×2 (09:15→10:45)
[2025-06-14] MEDS: INSULIN LANTUS (GLARGINE) 1 /0.01ml (100units/ml) SC ONE ×2 (09:39→11:12)
[2025-06-14] MEDS: INSULIN DRIP 100 UNIT/100ML 100 ML IV SCH ×3 (09:40→23:17)
--- NOTE | 2025-06-14 09:40 | DVH ---
XY CHEST PORTABLE, HISTORY: weakness COMPARISON: XY CHEST XRAY 1 VIEW on DOS: 06/07/25, XY CHEST XRAY 1 VIEW on DOS: 06/03/25, XY CHEST MARCO BLE on DOS: 06/02/25 XY CHEST XRAY 1 VIEW on DOS: 06/07/25, XY CHEST XRAY 1 VIEW on DOS: 06/03/25, XY CHEST PORTABLE on DOS: 06/02/25 TECHNICAL DATA: 1 view of the chest was obtained. FINDINGS: Lines and tubes: None Cardiomediastinal silhouette: normal Pulmonary vasculature: normal Lung expansion: low Lung airspace: normal Lung interstitium: normal Pleura: normal Pneumothorax: no Bones: Unremarkable Other: no IMPRESSION: No acute intrathoracic abnormality.
[2025-06-14] MEDS: VANCOMYCIN 1GM/200ML PM 200 ML IV ONE (09:46)
[2025-06-14] MEDS: SODIUM CHLORIDE 0.9% 1,000 ML IV SCH ×4 (10:30→16:45)
[2025-06-14] MEDS: ACCU-CHEK COMFORT CURVE STRIP VI SCH ×2 (10:40→12:00)
--- NOTE | 2025-06-14 10:42 | DVHHP2 ---
History of Present Illness Reason for Visit: High blood sugar History of Present Illness Chanell Riddle is a 50-year-old female with past medical history of asthma, diabetes, and DKA who presents to the ED by EMS with elevated blood sugar and low blood pressure today. Upon examination patient states that she does not have insulin at home but did see her PCP 1 week ago. Patient reports that she lives at home with her roommates. She states that she had a recent UTI. She denies any recent trauma or injury, recent sick contacts, recent travels, recent ingestion of spoiled food, shortness of breath, chest pain, abdominal pain, nausea, vomiting, diarrhea, lightheadedness, weakness, fever, chills, or coughing up any phlegm. Cardiovascular: HTN Pulmonary: Asthma Past Medical History DKA Past Surgical History: None Family History: DM, Other (Mom and dad with diabetes) Smoke: No ALCOHOL: none Drugs: None Lives: Roommate Domestic Violence: Neg Review of Systems Constitutional: Yes: Other (High blood sugar) Allergies: Coded Allergies: Penicillins (Verified Allergy, Unknown, 12/04/24) Medications Current Medications Medications Dose Ordered Sig/Laura Route Start Time Stop Time Status Last Admin Dose Admin Sodium Chloride 1,000 ml @ 500 mls/hr Q2H IV 06/14/25 09:15 06/14/25 13:14 06/14/25 10:30 500 MLS/HR Sodium Chloride 1,000 ml @ 250 mls/hr Q4H IV 06/14/25 13:15 06/14/25 15:14 Sodium Chloride 1,000 ml @ 150 mls/hr Q6H40M IV 06/14/25 15:15 Insulin Human (Reg)/Sodium Chloride 100 ml @ 0.5 mls/hr Q24H IV 06/14/25 09:15 06/14/25 09:40 6 MLS/HR Dextrose 50 ml UD PRN IV 06/14/25 09:15 Diagnostic Test (Pha) 1 strip Q90MIN 06/14/25 10:30 06/14/25 10:40 1 STRIP Insulin Glargine 15 units DAILY SC 06/15/25 10:00 Ondansetron HCl 4 mg Q4HP PRN IV 06/14/25 10:45 UNV Exam Vital Signs Vital Signs Date Time Temp Pulse Resp B/P (MAP) Pulse Ox O2 Delivery O2 Flow Rate FiO2 06/14/25 09:31 88 29 92/56 (68) 100 06/14/25 07:46 Room Air* 0 21 06/14/25 07:30 97.9 97.9 General Appearance: Alert, Oriented X3, Cooperative, No acute distress HEENT: Atraumatic, PERRLA, EOMI, Mucous membr. moist/pink Respiratory: Normal air movement Cardiovascular: Regular rate, Normal S1, Normal S2 Abdominal: Normal bowel sounds, Soft Extremities: Normal pulses Skin: No significant lesion Neuro: Normal speech, Strength at 5/5 X4 ext, Normal tone, Sensation intact Psych/Mental Status: Mental status NL, Mood NL Labs/Xrays Labs Test 06/14/25 08:44 06/14/25 08:14 06/14/25 08:01 06/14/25 07:26 Range/Units White Blood Count 35.3 #*H 4.4-10.8 10^3/uL Red Blood Count 4.47 4.0-5.20 10^6/uL Hemoglobin 12.4 12.2-16.2 g/dL Hematocrit 41.5 36.0-46.0 % Mean Corpuscular Volume 92.8 # 80.0-100.0 fL Mean Corpuscular Hemoglobin 27.8 L 28.0-32.0 pg Mean Corpuscular Hemoglobin Concent 29.9 L 32.0-36.0 g/dL Red Cell Distribution Width 15.5 H 11.8-14.3 % Platelet Count 449 140-450 10^3/uL Mean Platelet Volume 7.7 6.9-10.8 fL Neutrophils (%) (Auto) 37.0-80.0 % Lymphocytes (%) (Auto) 10.0-50.0 % Monocytes (%) (Auto) 0.0-12.0 % Basophils (%) (Auto) 0.0-2.0 % Neutrophils # (Auto) 1.6-8.6 10 ^3/uL Lymphocytes # (Auto) 0.4-5.4 10 ^3/uL Monocytes # (Auto) 0-1.3 10 ^3/uL Differential Total Cells Counted 100.0 100 Neutrophils % (Manual) 81 H 37.0-80.0 Band Neutrophils % (Manual) 1 Lymphocytes % (Manual) 16 10.0-50.0 Monocytes % (Manual) 2 0-12 Eosinophils % (Manual) 0 0-7 Basophils % (Manual) 0 0.0-2.0 Metamyelocytes % (manual) 0 Myelocytes % (Manual) 0 Promyelocytes % (Manual) 0 Blast Cells % (Manual) 0 Reactive Lymphocytes 0 Platelet Estimate Adequate Sodium Level 127 #L 136-145 mmol/L Potassium Level 5.4 H 3.5-5.1 mmol/L Chloride Level 90 #L 98-107 mmol/L Carbon Dioxide Level < 10 *L 20-31 mmol/L Anion Gap 27.37525 H 5-15 Blood Urea Nitrogen 49 H 9-23 mg/dL Creatinine 1.71 #H 0.550-1.02 mg/dL Glomerular Filtration Rate Calc 36 >90 mL/min BUN/Creatinine Ratio 28.7 H 10.0-20.0 Serum Glucose 745 *H 74-106 mg/dL Lactic Acid Level 1.8 0.4-2.0 mmol/L Calcium Level 8.5 L 8.7-10.4 mg/dL Phosphorus Level 8.9 H 2.4-5.1 mg/dL Magnesium Level 2.3 1.6-2.6 mg/dL Blood Gas Specimen Type Arterial Blood Gas Sample Site Right radial Blood Gas Patient Temperature 37.0 Arterial Blood Date Drawn [id number] Arterial Blood pH 7.087 *L 7.350-7.450 Arterial Blood Partial Pressure CO2 < 14.1 *L 32.0-45.0 mmHg Arterial Blood Partial Pressure O2 111.1 H 83.0-108.0 mmHg Arterial Blood Oxygen Saturation 96.8 94.0-98.0 % Arterial Blood Oxyhemoglobin 95.7 94.0-98.0 % Arterial Blood Carboxyhemoglobin 0.7 0.5-1.5 % Arterial Blood Methemoglobin 0.4 0.0-1.5 % Kadeem Test Yes Blood Gas Total Hemoglobin 12.10 12.0-16.0 g/dL Blood Gas Modality Room air FiO2 % 21.0 Specimen Drawn By darya wells Blood Gas Critical Value Read Back yes Blood Gas Notified Whom estee brown md Blood Gas Notified Time [id number] Blood Gas Notified By gym instructor ronit santiago POC Glucose > 600 *H 70-106 mg/dl Test 06/14/25 07:00 Range/Units Urine Color Light-yellow Yellow Urine Clarity Clear Clear Urine pH 5.0 5.0-9.0 Urine Specific [place] 1.021 1.001-1.035 Urine Protein Negative Negative Urine Ketones 4+ H Negative Urine Blood Negative Negative /uL Urine Nitrite Negative Negative Urine Bilirubin Negative Negative Urine Urobilinogen Normal Negative mg/dL Urine Leukocyte Esterase Negative Negative /uL Urine RBC 1 0 - 4 /hpf Urine Microscopic WBC 2 0-5 /HPF Urine Squamous Epithelial Cells Few <5 /hpf Urine Bacteria None seen None Seen /hpf Urine Mucus Few None Seen Urine Glucose 4+ H Normal mg/dL Urine Test Negative Negative Urine Opiates Screen Neg NEGATIVE Urine Fentanyl Screen Neg NEGATIVE Urine Barbiturates Screen Neg NEGATIVE Urine Phencyclidine Screen Neg NEGATIVE Urine Amphetamines Screen Neg NEGATIVE Urine Benzodiazepines Screen Neg NEGATIVE Urine Cocaine Screen Neg NEGATIVE Urine Cannabinoids Screen Neg NEGATIVE XY CHEST PORTABLE, HISTORY: weakness COMPARISON: XY CHEST XRAY 1 VIEW on DOS: 06/07/25, XY CHEST XRAY 1 VIEW on DOS: 06/03/25, XY CHEST PORTABLE on DOS: 06/02/25 XY CHEST XRAY 1 VIEW on DOS: 06/07/25, XY CHEST XRAY 1 VIEW on DOS: 06/03/25, XY CHEST PORTABLE on DOS: 06/02/25 TECHNICAL DATA: 1 view of the chest was obtained. FINDINGS: Lines and tubes: None Cardiomediastinal silhouette: normal Pulmonary vasculature: normal Lung expansion: low Lung airspace: normal Lung interstitium: normal Pleura: normal Pneumothorax: no Bones: Unremarkable Other: no IMPRESSION: No acute intrathoracic abnormality. SEPSIS Sepsis Screen Date sepsis recognized/suspect: Jun 14, 2025 Time Sepsis recognized/suspect: 0657 Recent Procedure: No On Antibiotic Therapy: No Respiratory Rate >20: No Heart Rate >90: No Temp<36 C (96.8 F) or >38.3 C: No SBP <90 or MAP <65 mmHG: No New Acute Mental Status Change: No Is the patient on CPAP, BIPAP,: No Physician Orders Beta-Hydroxybutyrate (06/14/25 07:00) Blood Culture (06/14/25 07:00) Urine Bacterial Culture (06/14/25 07:00) Abg W/ Co-Ox (06/14/25 07:00) Cefepime 2gm/50ml Ns (Maxipime 2gm/50ml) (06/14/25 09:15) Insulin Drip Protocol (06/14/25 ) Sodium Chloride 0.9% (06/14/25 09:15) Sodium Chloride 0.9% (06/14/25 13:15) Sodium Chloride 0.9% (06/14/25 15:15) Insulin Drip 100 Unit/100ml (Myxredlin 1 (06/14/25 09:15) Dextrose 50% Syringe (06/14/25 09:15) Glucose Blood (Accu-Chek Comfort Curve T (06/14/25 10:30) Basic Metabolic Panel (06/14/25 15:09) Basic Metabolic Panel (06/14/25 21:09) Basic Metabolic Panel (06/15/25 03:09) Neurological Assessment (06/14/25 09:09) Vs/Hemodynamics .PER UNIT PROTOCOL (06/14/25 09:09) Insulin Lantus (Glargine) (Lantus) (06/15/25 10:00) Chest Portable (06/14/25 09:11) Admit (06/14/25 10:39) Allergies (06/14/25 10:39) Code Status (06/14/25 10:39) Ondansetron Hcl (Zofran) (06/14/25 10:45) Complete Blood Count (06/15/25 04:00) Comprehensive Metabolic Panel (06/15/25 04:00) Acetaminophen Tablet (Tylenol Tablet) (06/14/25 10:45) Sequential Compression Device (06/14/25 ) Sodium Chloride 0.9% (06/14/25 10:45) Sodium Chloride 0.9% (06/14/25 14:45) Sodium Chloride 0.9% (06/14/25 16:45) Insulin Algorithm # 1 (06/14/25 10:45) Dextrose 50% Syringe (06/14/25 10:45) Glucose Blood (Accu-Chek Comfort Curve T (06/14/25 12:00) Complete Blood Count (06/14/25 10:39) Basic Metabolic Panel (06/14/25 10:39) Phosphorus (06/14/25 10:39) Magnesium (06/14/25 10:39) Osmolality, Serum (06/14/25 10:39) Abg W/ Co-Ox (06/14/25 10:39) Basic Metabolic Panel (06/14/25 10:39) Basic Metabolic Panel (06/14/25 16:39) Basic Metabolic Panel (06/14/25 22:39) Basic Metabolic Panel (06/15/25 04:39) Urinalysis (06/14/25 10:39) Acetone (06/14/25 10:39) Long Acting Insulin (06/14/25 10:45) Long Acting Insulin (06/15/25 10:00) Vital Signs Date Time Temp Pulse Resp B/P (MAP) Pulse Ox O2 Delivery O2 Flow Rate FiO2 06/14/25 09:31 88 29 92/56 (68) 100 06/14/25 07:46 89 30 100 Room Air* 0 21 06/14/25 07:30 97.9 90 29 101/59 (73) 100 97.9 06/14/25 06:57 98.3 90 30 90/56 (67) 100 98.3 Laboratory Tests Test 06/14/25 08:14 Lactic Acid Level 1.8 mmol/L (0.4-2.0) White Blood Count 35.3 10^3/uL (4.4-10.8) #*H Medications Medications Dose Ordered Sig/Laura Route Start Time Stop Time Status Last Admin Dose Admin Diagnostic Test (Pha) 1 strip Q90MIN 06/14/25 10:30 06/14/25 10:40 1 STRIP Insulin Glargine 15 units ONCE ONCE SC 06/14/25 09:15 06/14/25 09:35 DC 06/14/25 09:39 15 UNITS Insulin Human (Reg)/Sodium Chloride 100 ml @ 0.5 mls/hr Q24H IV 06/14/25 09:15 06/14/25 09:40 6 MLS/HR Sodium Chloride 1,000 ml @ 500 mls/hr Q2H IV 06/14/25 09:15 06/14/25 13:14 06/14/25 10:30 500 MLS/HR Sodium Chloride 1,000 ml @ 1,000 mls/hr Q1H ONCE IV 06/14/25 07:00 06/14/25 07:59 DC 06/14/25 07:22 1,000 MLS/HR Sodium Chloride 1,000 ml @ 1,000 mls/hr Q1H ONCE IV 06/14/25 09:15 06/14/25 10:14 DC 06/14/25 09:35 1,000 MLS/HR Vancomycin HCl 200 ml @ 200 mls/hr ONCE ONCE IV 06/14/25 09:15 06/14/25 10:14 DC 06/14/25 09:46 200 MLS/HR Assessment/Plan Assessment/Plan Assessment DKA Acute hypoxic respiratory failure Leukocytosis unclear etiology History of asthma History of diabetes Plan Admit to ICU Insulin drip Supportive oxygen IV antibiotics-vancomycin + cefepime NS 5 L given in ED Chest x-ray noted BNP Neuro checks Manual differential Urine bacterial culture HCG noted UDS noted Lactic noted Beta hydroxy noted Phos Mag Duo nebs ABG noted NPO for now Home medications reconciled DVT prophylaxis-not indicated patient ambulating PUD prophylaxis-not indicated history of GERD or GI bleed Discussed plan of care with patient and nurse [id number] Preventive counseling healthy eating habits, physical activity, and regular checkups Plan discussed with: Patient My Orders Orders - SVEN BUENO ANIMAL CARE GIVER Procedure Category Date Status Time Admit ADMIT 06/14/25 Transmitted 10:39 Allergies LONNIE 06/14/25 Transmitted 10:39 Code Status CODE 06/14/25 Transmitted 10:39 Ondansetron Hcl PHA 06/14/25 Transmitted (Zofran) 10:45 Complete Blood Count LAB 06/15/25 Verified 04:00 Comprehensive LAB 06/15/25 Verified Metabolic Panel 04:00 Acetaminophen Tablet PHA 06/14/25 Transmitted (Tylenol Tablet) 10:45 Sequential LONNIE 06/14/25 Transmitted Compression Device Sodium Chloride 0.9% PHA 06/14/25 Transmitted 10:45 Sodium Chloride 0.9% PHA 06/14/25 Transmitted 14:45 Sodium Chloride 0.9% PHA 06/14/25 Transmitted 16:45 Insulin Algorithm # 1 PHA 06/14/25 Transmitted 10:45 Dextrose 50% Syringe PHA 06/14/25 Transmitted 10:45 Glucose Blood PHA 06/14/25 Transmitted (Accu-Chek Comfort 12:00 Complete Blood Count LAB 06/14/25 Transmitted 10:39 Basic Metabolic Panel LAB 06/14/25 Transmitted 10:39 Phosphorus LAB 06/14/25 Transmitted 10:39 Magnesium LAB 06/14/25 Transmitted 10:39 Osmolality, Serum LAB 06/14/25 Transmitted 10:39 Abg W/ Co-Ox RT 06/14/25 Transmitted 10:39 Basic Metabolic Panel LAB 06/14/25 Transmitted 10:39 Basic Metabolic Panel LAB 06/14/25 Transmitted 16:39 Basic Metabolic Panel LAB 06/14/25 Transmitted 22:39 Basic Metabolic Panel LAB 06/15/25 Verified 04:39 Urinalysis LAB 06/14/25 Transmitted 10:39 Acetone LAB 06/14/25 Transmitted 10:39 Long Acting Insulin PHA 06/14/25 Transmitted 10:45 Long Acting Insulin PHA 06/15/25 Transmitted 10:00 Date of Service: Jun 14, 2025 Billing Provider: SVEN BUENO Common Visit Codes: 89390-[id number] INP/OBS CARE (HIGH) Secondary Visit Codes: [id number] COUNSELING IND SVEN BUENO Jun 14, 2025 10:42
[2025-06-14] MEDS: CEFEPIME 2GM/50ML NS 50 ML IV ONE (10:44)
[2025-06-14] MEDS ORDERED: VANCOMYCIN PER PHARMACY 0 MG IV SCH (10:45)
[2025-06-14] MEDS: NOREPINEPHRINE 8 MG/250ML KIT 250 ML IV ONE (13:12)
[2025-06-14] MEDS ORDERED: SODIUM CHLORIDE 0.9% 1,000 ML IV SCH ×2 (13:15→15:15)
[2025-06-14] MEDS: NOREPINEPHRINE 8 MG/250ML KIT 250 ML IV SCH (13:30)
[2025-06-14] MEDS: ETOMIDATE (2MG/ML) 20ML VIAL IV ONE ×2 (13:45→14:34)
[2025-06-14] MEDS: ROCURONIUM 10MG/ML 10ML VIAL IV ONE ×2 (13:46→14:33)
[2025-06-14] MEDS: SODIUM BICARB 8.4% 50Meq/50ml SYR Vial IV ONE ×3 (13:49→22:08)
[2025-06-14] MEDS: SODIUM BICARB 8.4% 50Meq/50ml SYR INJ ONE (13:50)
[2025-06-14] MEDS: ALBUTEROL SULF 2.5 MG/0.5ML(0.5%) NEB SOLN NEB SCH (13:57)
[2025-06-14] MEDS: IPRATROPIUM BROM 0.5 MG/2.5ML INH SOL NEB SCH (13:57)
[2025-06-14] MEDS: fentaNYL Drip 2500mCg/250mlNS 250 ML IV SCH (14:00)
[2025-06-14] MEDS: PROPOFOL 100 ML IV ONE (14:06)
[2025-06-14] MEDS: MIDAZOLAM DRIP 50 mg/50mL 50 ML IV ONE (14:06)
--- NOTE | 2025-06-14 14:16 | ED.PDOC ---
Was a procedure done? Was a procedure done?: Yes Sedation Sedation?: No Central Line Recorder of insertion practice: Branch Associate Occupation of mail inserter: Attending Physician, Name of mail inserter (aYs Reyes MD) Indication: Hypotension, Volume resuscitation Room prepared for procedure: Yes Branch Associate performed hand hygien: Yes Maximal sterile barrier precau: Mask/Eye shield, Sterile gown, Sterlie gloves, Large sterlie drape Skin Preparation: Chlorhexidine gluconate Skin preparation completely dr: Yes Insertion site: Right, Femoral Central line catheter type: [id number] dialysis Number of lumens: 3 Central line exchanged over a: Yes Antiseptic ointment applied to: Yes Post Assessment: Proper placement Informed consent obtained: No Risks/benefits/alt described: No Intubation Indication: Altered Mental Status, Airway Protection Prep: Preoxygenation Pretreated with: Other (etomidate) Medicated with: Other (Rocuronium) Intubation Approach: Orotracheal Intubation size: cm (8) Informed consent obtained: No Risks/benefits/alt described: No Notes Patient's mental status continued to decline. Patient became unresponsive. Patient was emergently intubated by me and central line pace. Patient was started on Levophed given bicarb and fluids YAS REYES MD Jun 14, 2025 14:16
[2025-06-14 14:21] LABS: Potassium 3.7 mmol/L (3.5-5.1); Sodium 145 mmol/L (136-145)
[2025-06-14 14:22] LABS: Anion Gap 26 (5-15)
[2025-06-14 14:27] LABS: BUN/Creatinine Ratio 43.6 (10.0-20.0)
[2025-06-14] MEDS: MIDAZOLAM DRIP 50 mg/50mL 50 ML IV SCH (14:37)
[2025-06-14] MEDS: PROPOFOL 100 ML IV SCH (14:37)
[2025-06-14 14:41] LABS: Blood Urea Nitrogen 51 mg/dL (9-23); Calcium 7.6 mg/dL (8.7-10.4); Carbon Dioxide 11 mmol/L (20-31); Chloride 108 mmol/L (98-107)
[2025-06-14 14:43] LABS: Glucose 414 mg/dL (74-106)
[2025-06-14 16:10] LABS: Base Excess -21.9 mmol/L (-2.0-3.0)
--- NOTE | 2025-06-14 17:50 | DVH ---
CHEST RADIOGRAPH REASON FOR EXAM: INTUBATION COMPARISON: XY CHEST PORTABLE on DOS: 06/14/25, XY CHEST XRAY 1 VIEW on DOS: 06/07/25, XY CHEST XRAY 1 VIEW on DOS: 06/03/25, XY CHEST PORTABLE on DOS: 06/02/25, XY CHEST XRAY 1 VIEW on DOS: 05/31/25 TECHNIQUE: One view of the chest is provided FINDINGS: The cardiomediastinal silhouette is within normal limits for size. There is no focal airspa ce disease. There is no significant pleural effusion. There is an endotracheal tube terminating at t he roxann. There is an enteric tube projecting over the stomach and the tip courses out of the field of view. No acute osseous abnormality is identified. IMPRESSION: Endotracheal tube terminates at the roxann. Consider retraction a short distance. Enteric tube projects over the stomach in the tip courses out of the field of view.
[2025-06-14 18:38] LABS: Anion Gap 25.00001 (5-15); Potassium 3.7 mmol/L (3.5-5.1)
[2025-06-14 18:43] LABS: Chloride 112 mmol/L (98-107); Sodium 147 mmol/L (136-145)
[2025-06-14 18:44] LABS: BUN/Creatinine Ratio 41.1 (10.0-20.0); Blood Urea Nitrogen 51 mg/dL (9-23); Glucose 351 mg/dL (74-106)
[2025-06-14 18:51] LABS: Calcium 8.3 mg/dL (8.7-10.4)
[2025-06-14 18:52] LABS: Carbon Dioxide < 10 mmol/L (20-31)
[2025-06-14] MEDS: SODIUM BICARB 50mEq/50ml Vial 50 ML in SOD CHL 0.45% 1,000 ML IV SCH (18:59)
[2025-06-14 20:53] LABS: Base Excess -14.9 mmol/L (-2.0-3.0)
[2025-06-14] MEDS: VANCOMYCIN 750mg/150ml 150 ML IV SCH (21:24)
[2025-06-14] MEDS: CEFEPIME 1GM/ 50ML 50 ML IV SCH (22:07)
[2025-06-14 23:18] LABS: Anion Gap 21 (5-15)
[2025-06-14 23:21] LABS: Calcium 7.5 mg/dL (8.7-10.4); Carbon Dioxide 18 mmol/L (20-31); Chloride 115 mmol/L (98-107); Potassium 2.8 mmol/L (3.5-5.1); Sodium 154 mmol/L (136-145)
[2025-06-14 23:23] LABS: BUN/Creatinine Ratio 37.7 (10.0-20.0)
[2025-06-14 23:24] LABS: Blood Urea Nitrogen 46 mg/dL (9-23); Glucose 240 mg/dL (74-106)
[2025-06-15] VITALS (93 sets, daily range): BP systolic 88–112; BP diastolic 48–70; PULSE 114–141; RESP 17–46; TEMP 98.8–100; O2SAT 98–100
[2025-06-15] MEDS: POTASSIUM CHL 20MEQ/100ML 100 ML IV SCH ×2 (00:28→07:40)
[2025-06-15] MEDS: INSULIN DRIP 100 UNIT/100ML 100 ML IV SCH ×2 (00:45→01:41)
--- NOTE | 2025-06-15 06:29 | DVH ---
CHEST RADIOGRAPH Indication: ventilated Technique: Single frontal view of the chest was obtained COMPARISON: XY CHEST XRAY 1 VIEW on DOS: 06/14/25, XY CHEST PORTABLE on DOS: 06/14/25, XY CHEST XRAY 1 VIEW on DOS: 06/07/25, XY CHEST XRAY 1 VIEW on DOS: 06/03/25, XY CHEST PORTABLE on DOS: 06/02/25 FINDINGS: Lines and Tubes: Endotracheal tube tip at the level of the roxann. Enteric catheter in satisfactory position. Lungs: Mild congestion Pleura: No effusion. No pneumothorax. Cardiomediastinal contours: Unremarkable Bones: Unremarkable IMPRESSION: Recommend retraction of endotracheal tube by 2 cm.
[2025-06-15 06:47] LABS: Alanine Aminotransferase 14 U/L (7-40); Alkaline Phosphatase 63 U/L (46-116); Anion Gap 13 (5-15); BUN/Creatinine Ratio 34.2 (10.0-20.0); Carbon Dioxide 22 mmol/L (20-31)
[2025-06-15 06:53] LABS: Albumin 3.0 g/dL (3.2-4.8); Bilirubin, Total < 0.2 mg/dL (0.2-1.0); Blood Urea Nitrogen 38 mg/dL (9-23); Calcium 7.3 mg/dL (8.7-10.4); Chloride 121 mmol/L (98-107); Glucose 136 mg/dL (74-106); Potassium 2.9 mmol/L (3.5-5.1); Sodium 156 mmol/L (136-145); Total Protein 4.8 g/dL (5.7-8.2)
[2025-06-15 07:16] LABS: Hematocrit 24.7 % (36.0-46.0); Hemoglobin 8.5 g/dL (12.2-16.2); Mean Corpuscular Hemoglobin 28.9 pg (28.0-32.0); Mean Corpuscular Volume 84.4 fL (80.0-100.0); Nucleated Red Blood Cells % 0.1 %
[2025-06-15 07:32] LABS: Base Excess -4.0 mmol/L (-2.0-3.0)
[2025-06-15] MEDS: MAGNESIUM SULFATE 1GM/100ML 100 ML IV ONE (08:08)
[2025-06-15] MEDS: PANTOPRAZOLE 40 MG TAB PO SCH (10:00)
[2025-06-15] MEDS ORDERED: PATIENTS OWN MEDICATION (Omeprazole (Omeprazole Dr) 1 CAP) PO SCH (10:00)
[2025-06-15] MEDS: INSULIN LANTUS (GLARGINE) 1 /0.01ml (100units/ml) SC SCH ×2 (10:00)
[2025-06-15] MEDS ORDERED: PATIENTS OWN MEDICATION (Duloxetine HCl 1 CAP) PO SCH (10:00)
[2025-06-15] MEDS: lamoTRIgine 25 MG TAB PO SCH (10:00)
[2025-06-15] MEDS: OLANZapine 5 MG TAB PO SCH (10:00)
[2025-06-15] MEDS ORDERED: LAMOTRIGINE PO SCH (10:00)
[2025-06-15] MEDS ORDERED: DEXTROSE (50%) 50ML SYRG IV PRN (11:15)
--- NOTE | 2025-06-15 11:20 | DVH ---
CT HEAD WITHOUT CONTRAST INDICATION: [facility] EXAM DATE: 06/15/2025 10:29 AM COMPARISON: None RADIATION DOSE: CTDIvol: 52.29 mGy, DLP: 965.3 mGy*cm PROCEDURE: CT scans of the head were obtained from the vertex to the skull base. Sagittal and coronal reconstructions were provided. All CT scans at this medical facility are performed using dose modulation techniques as appropriate t o a performed exam including the following: Automated exposure control was utilized; adjustment of th e MA and/or KV according to patient size; and use of iterative reconstruction technique. FINDINGS: There is sulcal and ventricular prominence. The brainshows normal morphology and gould-whi te matter differentiation, without intracranial hemorrhage, extra-axial fluid collection, mass effect or acute large vessel infarct. The ventricles are normal in size. The basal cisterns are patent. The skull and visible facial bones are intact. The paranasal sinuses, mastoid air cells and middle ear c avities are well-aerated. The soft tissues of the scalp are unremarkable. IMPRESSION: No acute intracranial abnormality.
[2025-06-15 11:21] LABS: Potassium 4.2 mmol/L (3.5-5.1)
[2025-06-15 11:22] LABS: Anion Gap 15 (5-15)
[2025-06-15 11:28] LABS: BUN/Creatinine Ratio 31.7 (10.0-20.0)
[2025-06-15 11:32] LABS: Blood Urea Nitrogen 33 mg/dL (9-23); Calcium 7.6 mg/dL (8.7-10.4); Carbon Dioxide 17 mmol/L (20-31); Chloride 121 mmol/L (98-107); Glucose 215 mg/dL (74-106); Sodium 153 mmol/L (136-145)
--- NOTE | 2025-06-15 12:02 | DVHINCON2 ---
Date of service: Jun 15, 2025 Referring Physician Nayely Bach Np Reason for Consultation Acute respiratory failure History of Present Illness History Source: Patient, RN Notes, MD Notes Exam Limitations: Clinical condition HPI Patient is a 50-year old lady with a history of poorly controlled diabetes with poor compliance and recent admission for DKA who presented back with altered mental status. Was seen in the emergency room where she was found to have an increased work of breathing and was intubated by the ER provider. Initial white blood count elevated at 35.3 suggestive of sepsis vs stress response. Chest x-r ay shows hardware placed correctly, pulmonology was consulted to assist in management. Home Meds Active Scripts Albuterol Sulfate (VENTOLIN MDI) 90 Mcg Ih, 90 MCG IN Q4HP PRN for 30 Days, #1 INH Prov:SHAKEEL STONER EYEDOTTER 06/09/25 Insulin Glargine (Basaglar Kwikpen) 100 Unit/Ml Inj, 18 UNIT SC BID for 30 Days, #14 INJ Prov:SHAKEEL STONER EYEDOTTER 06/09/25 Reported Medications Lamotrigine (Lamotrigine) 25 Mg Tab, 2 TAB PO DAILY 05/31/25 Olanzapine (OLANZAPINE ODT) 10 Mg Tab, 1 TAB PO 05/31/25 Duloxetine HCl (Duloxetine HCl) 60 Mg Cap, 1 CAP PO DAILY 05/31/25 Omeprazole (Omeprazole Dr) 20 Mg Cap, 1 CAP PO DAILY 05/31/25 Hydrochlorothiazide (Hydrochlorothiazide) 12.5 Mg Tab, 1 TAB PO DAILY 05/31/25 Losartan Potassium (Losartan Potassium) 25 Mg Tab, 1 TAB PO DAILY 05/31/25 Discontinued Reported Medications Glimepiride (Glimepiride) 2 Mg Tab, 1 TAB PO DAILY 05/31/25 Past Medical History Cardiac: No pertinent Hx Pulmonary: No pertinent Hx Central Nervous System: No pertinent Hx GI: No pertinent Hx Hemotology/Oncology: No pertinent Hx Hepatobiliary: No pertinent Hx Psychiatric: No pertinent Hx Musculoskeletal: No pertinent Hx Rheumotologic: No pertinent Hx Infectious Disease: No peritnent Hx ENT: No pertinent Hx Renal/: No pertinent Hx Endocrine: IDDM Dermatology: No pertinent Hx Past Surgical History: No pertinent Hx Smoker: No Hx (Negative) Alocohol: None Drugs: None Lives with: With family Domestic Violence: Neg Review of Systems Comments unable to perform- patient intubated and sedated H&P Exam Vital Signs Vital Signs Date Time Temp Pulse Resp B/P (MAP) Pulse Ox O2 Delivery O2 Flow Rate FiO2 06/15/25 11:00 96/56 06/15/25 11:00 99.0 134 26 100 99.0 06/15/25 09:02 35 06/15/25 08:52 Mechanical Ventilator+ 0 General Appeara: Well developed, Well nourished, Normal Appearance Head Exam: Normal inspection Neck Exam: Normal inspection, Non-tender, Normal alignment Eye Exam: bilateral eye Normal inspection, bilateral eye PERRL, bilateral eye EOMI Ear Exam: bilateral ear Auricle normal, bilateral ear Canal normal, bilateral ear TM normal Nasal Exam: Normal inspection Mouth: Normal Inspection Pulmonary/Respiratory: Decreased breath sounds Peripheral Pulses: 4+ Radial (R), 4+ Radial (L), 4+ Brachial (R), 4+ Brachial (L) Abdominal Exam: Normal bowel sounds Labs/Xrays Labs Test 06/15/25 11:01 06/15/25 09:09 06/15/25 07:24 06/15/25 06:54 Range/Units POC Glucose 159 H 70-106 mg/dl Magnesium Level 2.0 1.6-2.6 mg/dL Blood Gas Specimen Type Arterial Blood Gas Sample Site Left radial Blood Gas Patient Temperature 37.0 Arterial Blood Date Drawn [id number] Arterial Blood pH 7.412 7.350-7.450 Arterial Blood Partial Pressure CO2 32.1 32.0-45.0 mmHg Arterial Blood Partial Pressure O2 141.8 H 83.0-108.0 mmHg Arterial Blood HCO3 20.0 L 21.0-28.0 mmol/L Arterial Blood Oxygen Saturation 98.4 H 94.0-98.0 % Arterial Blood Base Excess -4.0 L -2.0-3.0 mmol/L Arterial Blood Oxyhemoglobin 97.4 94.0-98.0 % Arterial Blood Carboxyhemoglobin 0.3 L 0.5-1.5 % Arterial Blood Methemoglobin 0.7 0.0-1.5 % Kadeem Test Modified Blood Gas Total Hemoglobin 9.30 L 12.0-16.0 g/dL Blood Gas Set Respiration Rate 22.0 Blood Gas Modality Vent - ac FiO2 % 35.0 Blood Gas Tidal Volume 400.0 Blood Gas PEEP or CPAP 5.0 Test 06/15/25 06:10 06/14/25 20:46 06/14/25 16:06 06/14/25 13:38 Range/Units White Blood Count 23.7 #H 4.4-10.8 10^3/uL Red Blood Count 2.93 L 4.0-5.20 10^6/uL Hemoglobin 8.5 #L 12.2-16.2 g/dL Hematocrit 24.7 #L 36.0-46.0 % Mean Corpuscular Volume 84.4 # 80.0-100.0 fL Mean Corpuscular Hemoglobin 28.9 28.0-32.0 pg Mean Corpuscular Hemoglobin Concent 34.2 32.0-36.0 g/dL Red Cell Distribution Width 14.7 H 11.8-14.3 % Platelet Count 388 140-450 10^3/uL Mean Platelet Volume 7.1 6.9-10.8 fL Neutrophils (%) (Auto) 80.6 H 37.0-80.0 % Lymphocytes (%) (Auto) 7.1 L 10.0-50.0 % Monocytes (%) (Auto) 11.9 0.0-12.0 % Eosinophils (%) (Auto) 0.0 0.0-7.0 % Basophils (%) (Auto) 0.4 0.0-2.0 % Neutrophils # (Auto) 19.1 H 1.6-8.6 10 ^3/uL Lymphocytes # (Auto) 1.7 0.4-5.4 10 ^3/uL Monocytes # (Auto) 2.8 H 0-1.3 10 ^3/uL Eosinophils # (Auto) 0 0-0.8 10 ^3/uL Basophils # (Auto) 0.1 0-0.2 10 ^3/uL Nucleated Red Blood Cells 0.1 % Total Bilirubin < 0.2 L 0.2-1.0 mg/dL Aspartate Amino Transferase (AST) 13 13-40 U/L Alanine Aminotransferase (ALT) 14 7-40 U/L Alkaline Phosphatase 63 46-116 U/L Total Protein 4.8 L 5.7-8.2 g/dL Albumin 3.0 L 3.2-4.8 g/dL Specimen Drawn By Soaking Pit Operator marlee figueroa Blood Gas Critical Value Read Back Yes Blood Gas Notified Whom estee Reyes md Blood Gas Notified Time [id number] Blood Gas Notified By Soaking Pit Operator ronit santiago Blood Gas Liter Flow 2.00 Blood Gas Spontaneous Rate 20 Test 06/14/25 08:44 06/14/25 08:14 06/14/25 07:00 Range/Units Serum Osmolality 357 H 278-298 mOsm/kg Beta-Hydroxybutyric Acid > 4.500 H < 0.4 mmol/L Differential Total Cells Counted 100.0 100 Neutrophils % (Manual) 81 H 37.0-80.0 Band Neutrophils % (Manual) 1 Lymphocytes % (Manual) 16 10.0-50.0 Monocytes % (Manual) 2 0-12 Eosinophils % (Manual) 0 0-7 Basophils % (Manual) 0 0.0-2.0 Metamyelocytes % (manual) 0 Myelocytes % (Manual) 0 Promyelocytes % (Manual) 0 Blast Cells % (Manual) 0 Reactive Lymphocytes 0 Platelet Estimate Adequate Lactic Acid Level 1.8 0.4-2.0 mmol/L Phosphorus Level 8.9 H 2.4-5.1 mg/dL Urine Color Light-yellow Yellow Urine Clarity Clear Clear Urine pH 5.0 5.0-9.0 Urine Specific [place] 1.021 1.001-1.035 Urine Protein Negative Negative Urine Ketones 4+ H Negative Urine Blood Negative Negative /uL Urine Nitrite Negative Negative Urine Bilirubin Negative Negative Urine Urobilinogen Normal Negative mg/dL Urine Leukocyte Esterase Negative Negative /uL Urine RBC 1 0 - 4 /hpf Urine Microscopic WBC 2 0-5 /HPF Urine Squamous Epithelial Cells Few <5 /hpf Urine Bacteria None seen None Seen /hpf Urine Mucus Few None Seen Urine Glucose 4+ H Normal mg/dL Urine Test Negative Negative Urine Opiates Screen Neg NEGATIVE Urine Fentanyl Screen Neg NEGATIVE Urine Barbiturates Screen Neg NEGATIVE Urine Phencyclidine Screen Neg NEGATIVE Urine Amphetamines Screen Neg NEGATIVE Urine Benzodiazepines Screen Neg NEGATIVE Urine Cocaine Screen Neg NEGATIVE Urine Cannabinoids Screen Neg NEGATIVE Microbiology Date/Time Source Procedure Growth Status 06/14/25 14:00 Sputum Gram Stain Pending Resulted 06/14/25 14:00 Sputum Respiratory Culture - Preliminary Resulted 06/14/25 08:44 Blood Blood Culture - Preliminary NO GROWTH AFTER 24 HOURS OF INCUBATION. Resulted 06/14/25 07:00 Voided Urine Urine Culture - Preliminary Resulted Assessment/Plan Plan Impression Acute hypoxemic respiratory failure Leukocytosis Atelectasis Sepsis Patient seen and examined in the ER Events On mechanical ventilation S/p intubation PEEP 5, FiO2 50% Labs and imaging reviewed Chest x-ray shows hardware placed correctly Initial white count 35, suggestive of sepsis vs stress response BUN/Creatinine mildly elevated ABG reviewed Prior to intubation pH 7.012, pCO2 < 14.1, pO2 126 Management Vent support Titrate to maintain sats 90% or above Sedation for vent synchrony Antibiotics Obtain cultures Bronchodilators Monitor renal function Monitor electrolytes Supplement as needed Pressors as needed for hemodynamic support To maintain a mean arterial pressure of 65 mmHg Glycemic control IV fluids DVT prophylaxis Critical care time 35 minutes Plan discussed with: Other (Rn) DINH ANDRADE MD Jun 15, 2025 12:02
[2025-06-15] MEDS: ACCU-CHEK COMFORT CURVE STRIP VI SCH (12:33)
[2025-06-15] MEDS: InsuLIN REG 1unit/0.01ml Soln (100units/ml) SC SCH (12:38)
[2025-06-15] MEDS: METOPROLOL TARTRATE 1MG/1ML-5ML VIAL IV ONE (12:45)
--- NOTE | 2025-06-15 13:14 | DVH ---
. CHEST RADIOGRAPH Indication: ET TUBE PLACEMENT Technique: Single frontal view of the chest was obtained Comparison: XY CHEST PORTABLE on DOS: 06/15/25, XY CHEST XRAY 1 VIEW on DOS: 06/14/25, XY CHEST PORTABL E on DOS: 06/14/25 FINDINGS: Lines and Tubes: Endotracheal tube 4.8 cm above the roxann. Enteric tube below the left diaphragm in the stomach Lungs: No focal consolidation. Pleura: No effusion. No pneumothorax. Cardiomediastinal contours: Unremarkable Bones: No acute osseous abnormality. IMPRESSION: 1. Endotracheal tube below the clavicles approximately 4.8 cm above the roxann. 2. Enteric tube in the stomach below the left diaphragm 3. Cardiopulmonary findings stable HS:Y
--- NOTE | 2025-06-15 15:45 | DVHPN2 ---
Subjective intubated and sedated Reviewed: H&P, Labs Changes from previous H/P or p: No Changes Objective Vitals Vital Signs Date Time Temp Pulse Resp B/P (MAP) Pulse Ox O2 Delivery O2 Flow Rate FiO2 06/15/25 15:01 89/51 06/15/25 15:00 100.0 129 25 100 100.0 06/15/25 14:00 35 06/15/25 14:00 Mechanical Ventilator+ 06/15/25 08:52 0 Intake/Output Intake and Output 06/15/25 07:00 Intake Total 7612.04 ml Output Total 3850 ml Balance 3762.04 ml Intake Oral 0 ml IV Total 7612.04 ml Output Urine Total 3050 ml Gastric Drainage Total 800 ml General Appearance: Other (intubated and sedated) HEENT: Atraumatic Lungs: Clear to auscultation Cardiovascular: Regular rate, Normal S1, Normal S2 Abdomen: Normal bowel sounds Medications Current Medications Medications Dose Ordered Sig/Laura Route Start Time Stop Time Status Last Admin Dose Admin Ondansetron HCl 4 mg Q4HP PRN IV 06/14/25 10:45 Acetaminophen 650 mg Q6HP PRN PO 06/14/25 10:45 Sodium Chloride 1,000 ml @ 150 mls/hr Q6H40M IV 06/14/25 16:45 06/15/25 01:21 150 MLS/HR Insulin Glargine 15 units DAILY SC 06/15/25 10:00 06/15/25 10:00 15 UNITS Vancomycin HCl 0 ml @ 0 mls/hr UD IV 06/14/25 10:45 Cefepime HCl 50 ml @ 12.5 mls/hr Q12HR IV 06/14/25 22:00 06/15/25 10:16 12.5 MLS/HR Patient Own Medication 1 cap DAILY PO 06/15/25 10:00 UNV Patient Own Medication 2 tab DAILY PO 06/15/25 10:00 UNV Patient Own Medication 1 cap DAILY PO 06/15/25 10:00 UNV Olanzapine 10 mg DAILY PO 06/15/25 10:00 Albuterol 2.5 mg Q4HWA NEB 06/14/25 14:00 06/15/25 14:00 2.5 MG Ipratropium [place] 0.5 mg Q4HWA NEB 06/14/25 14:00 06/15/25 14:00 0.5 MG Duloxetine HCl 60 mg DAILY PO 06/15/25 10:00 Lamotrigine 50 mg DAILY PO 06/15/25 10:00 Pantoprazole Sodium 40 mg DAILY PO 06/15/25 10:00 Norepinephrine Bitartrate 250 ml @ 3.75 mls/hr Q24H IV 06/14/25 13:30 06/15/25 01:47 18.75 MLS/HR Propofol 100 ml @ 2.04 mls/hr Q24H IV 06/14/25 14:00 06/15/25 08:16 14.28 MLS/HR Midazolam HCl 50 ml @ 1 mls/hr Q24H IV 06/14/25 14:00 06/15/25 15:01 9 MLS/HR Fentanyl Citrate 250 ml @ 2.5 mls/hr Q24H IV 06/14/25 14:00 06/15/25 11:34 15 MLS/HR Sodium Bicarbonate 50 ml/ Sodium Chloride 1,050 ml @ 50 mls/hr Q21H IV 06/14/25 17:30 06/15/25 14:13 50 MLS/HR Vancomycin HCl 150 ml @ 150 mls/hr Q12H IV 06/14/25 21:00 06/15/25 09:12 150 MLS/HR Diagnostic Test (Pha) 1 strip Q6HR 06/15/25 12:00 06/15/25 12:33 1 STRIP Insulin Human Regular Q6HR SC 06/15/25 12:00 06/15/25 12:38 3 UNITS Dextrose 50 ml UD PRN IV 06/15/25 11:15 Laboratory Results Laboratory Tests 06/15/25 06:10 06/15/25 11:01 Chemistry Test 06/14/25 17:55 06/14/25 22:59 06/15/25 06:10 06/15/25 07:24 Calcium Level 8.3 mg/dL (8.7-10.4) L 7.5 mg/dL (8.7-10.4) L 7.3 mg/dL (8.7-10.4) L Albumin 3.0 g/dL (3.2-4.8) L Total Protein 4.8 g/dL (5.7-8.2) L Magnesium Level 2.0 mg/dL (1.6-2.6) Test 06/15/25 11:01 Calcium Level 7.6 mg/dL (8.7-10.4) L LFT Test 06/15/25 06:10 Alanine Aminotransferase (ALT) 14 U/L (7-40) Alkaline Phosphatase 63 U/L (46-116) Aspartate Amino Transferase (AST) 13 U/L (13-40) Total Bilirubin < 0.2 mg/dL (0.2-1.0) L Urinalysis Test 06/14/25 07:00 Urine Color Light-yellow (Yellow) Urine Clarity Clear (Clear) Urine pH 5.0 (5.0-9.0) Urine Specific [place] 1.021 (1.001-1.035) Urine Protein Negative (Negative) Urine Ketones 4+ (Negative) H Urine Blood Negative /uL (Negative) Urine Nitrite Negative (Negative) Urine Bilirubin Negative (Negative) Urine Urobilinogen Normal mg/dL (Negative) Urine Leukocyte Esterase Negative /uL (Negative) Urine RBC 1 /hpf (0 - 4) Urine Microscopic WBC 2 /HPF (0-5) Urine Squamous Epithelial Cells Few /hpf (<5) Urine Bacteria None seen /hpf (None Seen) Urine Mucus Few (None Seen) Urine Glucose 4+ mg/dL (Normal) H Urine Test Negative (Negative) Blood Gas Results Test 06/14/25 16:06 06/14/25 20:46 06/15/25 06:54 Arterial Blood pH 7.045 (7.350-7.450) 7.270 (7.350-7.450) 7.412 (7.350-7.450) FiO2 % 50.0 35.0 35.0 Microbiology Microbiology Date/Time Source Procedure Growth Status 06/14/25 16:30 Nose MRSA Screen - Final Methicillin Resistant S.aureus Complete 06/14/25 14:00 Sputum Gram Stain - Final Resulted 06/14/25 14:00 Sputum Respiratory Culture - Preliminary Resulted 06/14/25 08:44 Blood Blood Culture - Preliminary NO GROWTH AFTER 24 HOURS OF INCUBATION. Resulted 06/14/25 07:00 Voided Urine Urine Culture - Preliminary Resulted Assessment/Plan Assessment/Plan DKA Acute hypoxic respiratory failure Leukocytosis unclear etiology History of asthma History of diabetes On long acting insulin vent per pulmonary wean off IV abx wean off levophed to keep MAP > 65 Critical care time 55 minutes Plan discussed with: Other (nurse) Date of Service: Jun 15, 2025 Billing Provider: DENIZ BAZAN MD Common Visit Codes: [id number] CARE 30-74 MIN DENIZ BAZAN MD Jun 15, 2025 15:45
[2025-06-16] VITALS (109 sets, daily range): BP systolic 91–134; BP diastolic 45–81; PULSE 107–124; RESP 18–29; TEMP 97.9–99; O2SAT 100
[2025-06-16 05:21] LABS: Anion Gap 18 (5-15); Hematocrit 20.1 % (36.0-46.0); Mean Corpuscular Hemoglobin 28.7 pg (28.0-32.0); Mean Corpuscular Volume 87.6 fL (80.0-100.0); Nucleated Red Blood Cells % 0.1 %
[2025-06-16 05:22] LABS: Hemoglobin 6.6 g/dL (12.2-16.2)
[2025-06-16 05:26] LABS: BUN/Creatinine Ratio 21.7 (10.0-20.0); Blood Urea Nitrogen 18 mg/dL (9-23)
[2025-06-16 05:29] LABS: Calcium 7.6 mg/dL (8.7-10.4); Carbon Dioxide 16 mmol/L (20-31); Chloride 126 mmol/L (98-107); Glucose 149 mg/dL (74-106); Potassium 3.3 mmol/L (3.5-5.1); Sodium 160 mmol/L (136-145)
--- NOTE | 2025-06-16 06:07 | DVH ---
EXAM: XY CHEST XRAY 1 VIEW HISTORY: ET Tube Placement Confirmation COMPARISON: XY CHEST XRAY 1 VIEW on DOS: 06/15/25, XY CHEST PORTABLE on DOS: 06/15/25, XY CHEST XRAY 1 VIEW on DOS: 06/14/25, XY CHEST PORTABLE on DOS: 06/14/25, XY CHEST XRAY 1 VIEW on DOS: 06/07/25 TECHNIQUE: Portable AP view of the chest was performed. FINDINGS: Endotracheal tube is re-identified with its tip 3 cm above the roxann. OG tube is re-identified with its tip distal to the GE junction. There is diffuse hazy opacity throughout the right hemithorax. No pneumothorax,. The heart is not enlarged. IMPRESSION: 1. Mechanical ventilation with tubes and lines as above. 2. Hazy opacity throughout the right hemithorax may be due to pneumonia or layering pleural effusion versus something outside of the patient. 3. The left lung is clear.
[2025-06-16 06:26] LABS: Base Excess -10.8 mmol/L (-2.0-3.0)
[2025-06-16] MEDS: D5W 5% 1,000 ML IV SCH (12:09)
--- NOTE | 2025-06-16 13:11 | DVHPN2 ---
Progress Note - Dictate Date Seen: Jun 16, 2025 Medical Necessity Reason Pt with a Central, PICC or Fol: Yes The following are medically ne: Central Line vital signs Vital Sign Date Time Temp Pulse Resp B/P (MAP) Pulse Ox O2 Delivery O2 Flow Rate FiO2 06/16/25 12:45 98.4 119 22 115/66 (82) 100 209.1 06/16/25 12:23 30 06/16/25 08:00 Mechanical Ventilator+ 06/15/25 19:20 0 Total Intake and Output 06/15/25 06/15/25 06/16/25 15:00 23:00 07:00 Intake Total 2327.42 ml 1296.0 ml 2045.9 ml Output Total 1400 ml 1450 ml Balance 2327.42 ml -104.0 ml 595.9 ml medications Current Medications Medications Dose Ordered Sig/Laura Route Start Time Stop Time Status Last Admin Dose Admin Ondansetron HCl 4 mg Q4HP PRN IV 06/14/25 10:45 Acetaminophen 650 mg Q6HP PRN PO 06/14/25 10:45 Insulin Glargine 15 units DAILY SC 06/15/25 10:00 06/16/25 09:25 15 UNITS Vancomycin HCl 0 ml @ 0 mls/hr UD IV 06/14/25 10:45 Cefepime HCl 50 ml @ 12.5 mls/hr Q12HR IV 06/14/25 22:00 06/16/25 09:24 12.5 MLS/HR Patient Own Medication 1 cap DAILY PO 06/15/25 10:00 UNV Patient Own Medication 2 tab DAILY PO 06/15/25 10:00 UNV Patient Own Medication 1 cap DAILY PO 06/15/25 10:00 UNV Olanzapine 10 mg DAILY PO 06/15/25 10:00 06/16/25 09:24 10 MG Albuterol 2.5 mg Q4HWA NEB 06/14/25 14:00 06/16/25 10:46 2.5 MG Ipratropium [place] 0.5 mg Q4HWA NEB 06/14/25 14:00 06/16/25 10:46 0.5 MG Duloxetine HCl 60 mg DAILY PO 06/15/25 10:00 06/16/25 09:24 60 MG Lamotrigine 50 mg DAILY PO 06/15/25 10:00 Norepinephrine Bitartrate 250 ml @ 3.75 mls/hr Q24H IV 06/14/25 13:30 06/16/25 05:58 22.5 MLS/HR Propofol 100 ml @ 2.04 mls/hr Q24H IV 06/14/25 14:00 06/16/25 12:51 10.2 MLS/HR Midazolam HCl 50 ml @ 1 mls/hr Q24H IV 06/14/25 14:00 06/16/25 12:51 9 MLS/HR Fentanyl Citrate 250 ml @ 2.5 mls/hr Q24H IV 06/14/25 14:00 06/16/25 07:24 12.5 MLS/HR Diagnostic Test (Pha) 1 strip Q6HR 06/15/25 12:00 06/16/25 12:09 1 STRIP Insulin Human Regular Q6HR SC 06/15/25 12:00 06/16/25 05:29 2 UNITS Dextrose 50 ml UD PRN IV 06/15/25 11:15 Vancomycin HCl 200 ml @ 200 mls/hr Q12H IV 06/16/25 21:00 Dextrose 1,000 ml @ 75 mls/hr [id number] IV 06/16/25 12:00 06/16/25 12:09 75 MLS/HR Pantoprazole Sodium 40 mg BID IV 06/16/25 22:00 Purified Water 250 ml Q4HR GT 06/16/25 14:00 laboratory and microbiology Laboratory Tests 06/16/25 02:42 Test 06/16/25 02:42 Range/Units Serum Glucose 149 H 74-106 mg/dL Assessment/Plan Impression Acute hypoxemic respiratory failure Leukocytosis Atelectasis Sepsis Patient seen and examined in ICU Events On mechanical ventilation S/p intubation PEEP 5, FiO2 30% Labs and imaging reviewed Hemoglobin dropped to 6.6, significance unclear Serum sodium trending up, 160 mmol/L ABG reviewed Chest x-ray stable Management Vent support Titrate to maintain sats 90% or above Sedation holiday daily If patient follows commands, proceed to weaning trial Pressure support 06/01, extubate when ready Continue antibiotics F/u cultures Bronchodilators Monitor renal function Monitor electrolytes Supplement as needed Pressors as needed for hemodynamic support To maintain a mean arterial pressure of 65 mmHg Monitor hemoglobin Transfuse blood products as needed Obtain serum sodium every 6 hours Glycemic control DVT prophylaxis Critical care time 35 minutes Plan discussed with: Other (Rn) DINH ANDRADE MD Jun 16, 2025 13:11
[2025-06-16] MEDS: FREE WATER GT SCH (14:00)
--- NOTE | 2025-06-16 15:31 | DVHPN2 ---
Subjective intubated and sedated Reviewed: H&P, Labs Changes from previous H/P or p: No Changes Objective Vitals Vital Signs Date Time Temp Pulse Resp B/P (MAP) Pulse Ox O2 Delivery O2 Flow Rate FiO2 06/16/25 15:21 98.4 119 22 117/72 98.4 06/16/25 14:30 100 06/16/25 14:07 30 06/16/25 14:00 Mechanical Ventilator+ 06/15/25 19:20 0 Intake/Output Intake and Output 06/16/25 07:00 Intake Total 5669.32 ml Output Total 2850 ml Balance 2819.32 ml IV Total 5669.32 ml Output Urine Total 2800 ml Gastric Drainage Total 50 ml General Appearance: Other (intubated and sedated) HEENT: Atraumatic Lungs: Clear to auscultation Cardiovascular: Regular rate, Normal S1, Normal S2 Abdomen: Normal bowel sounds Medications Current Medications Medications Dose Ordered Sig/Laura Route Start Time Stop Time Status Last Admin Dose Admin Ondansetron HCl 4 mg Q4HP PRN IV 06/14/25 10:45 Acetaminophen 650 mg Q6HP PRN PO 06/14/25 10:45 Insulin Glargine 15 units DAILY SC 06/15/25 10:00 06/16/25 09:25 15 UNITS Vancomycin HCl 0 ml @ 0 mls/hr UD IV 06/14/25 10:45 Cefepime HCl 50 ml @ 12.5 mls/hr Q12HR IV 06/14/25 22:00 06/16/25 09:24 12.5 MLS/HR Patient Own Medication 1 cap DAILY PO 06/15/25 10:00 UNV Patient Own Medication 2 tab DAILY PO 06/15/25 10:00 UNV Patient Own Medication 1 cap DAILY PO 06/15/25 10:00 UNV Olanzapine 10 mg DAILY PO 06/15/25 10:00 06/16/25 09:24 10 MG Albuterol 2.5 mg Q4HWA NEB 06/14/25 14:00 06/16/25 14:05 2.5 MG Ipratropium [place] 0.5 mg Q4HWA NEB 06/14/25 14:00 06/16/25 14:05 0.5 MG Duloxetine HCl 60 mg DAILY PO 06/15/25 10:00 06/16/25 09:24 60 MG Lamotrigine 50 mg DAILY PO 06/15/25 10:00 Norepinephrine Bitartrate 250 ml @ 3.75 mls/hr Q24H IV 06/14/25 13:30 06/16/25 05:58 22.5 MLS/HR Propofol 100 ml @ 2.04 mls/hr Q24H IV 06/14/25 14:00 06/16/25 12:51 10.2 MLS/HR Midazolam HCl 50 ml @ 1 mls/hr Q24H IV 06/14/25 14:00 06/16/25 12:51 9 MLS/HR Fentanyl Citrate 250 ml @ 2.5 mls/hr Q24H IV 06/14/25 14:00 06/16/25 07:24 12.5 MLS/HR Diagnostic Test (Pha) 1 strip Q6HR 06/15/25 12:00 06/16/25 12:09 1 STRIP Insulin Human Regular Q6HR SC 06/15/25 12:00 06/16/25 05:29 2 UNITS Dextrose 50 ml UD PRN IV 06/15/25 11:15 Vancomycin HCl 200 ml @ 200 mls/hr Q12H IV 06/16/25 21:00 Dextrose 1,000 ml @ 75 mls/hr [id number] IV 06/16/25 12:00 06/16/25 12:09 75 MLS/HR Pantoprazole Sodium 40 mg BID IV 06/16/25 22:00 Purified Water 250 ml Q4HR GT 06/16/25 14:00 06/16/25 14:00 250 ML Laboratory Results Laboratory Tests 06/16/25 02:42 Chemistry Test 06/16/25 02:42 Calcium Level 7.6 mg/dL (8.7-10.4) L Urinalysis Test 06/14/25 07:00 Urine Color Light-yellow (Yellow) Urine Clarity Clear (Clear) Urine pH 5.0 (5.0-9.0) Urine Specific [place] 1.021 (1.001-1.035) Urine Protein Negative (Negative) Urine Ketones 4+ (Negative) H Urine Blood Negative /uL (Negative) Urine Nitrite Negative (Negative) Urine Bilirubin Negative (Negative) Urine Urobilinogen Normal mg/dL (Negative) Urine Leukocyte Esterase Negative /uL (Negative) Urine RBC 1 /hpf (0 - 4) Urine Microscopic WBC 2 /HPF (0-5) Urine Squamous Epithelial Cells Few /hpf (<5) Urine Bacteria None seen /hpf (None Seen) Urine Mucus Few (None Seen) Urine Glucose 4+ mg/dL (Normal) H Urine Test Negative (Negative) Blood Gas Results Test 06/16/25 06:16 Arterial Blood pH 7.399 (7.350-7.450) FiO2 % 30.0 Microbiology Microbiology Date/Time Source Procedure Growth Status 06/14/25 16:30 Nose MRSA Screen - Final Methicillin Resistant S.aureus Complete 06/14/25 14:00 Sputum Gram Stain - Final Complete 06/14/25 14:00 Respiratory Culture - Final Methicillin Resistant S.aureus Complete 06/14/25 08:44 Blood Blood Culture - Preliminary NO GROWTH AFTER 48 HOURS OF INCUBATION. Resulted 06/14/25 07:00 Voided Urine Urine Culture - Final Complete Assessment/Plan Assessment/Plan DKA Acute hypoxic respiratory failure Leukocytosis unclear etiology History of asthma History of diabetes On long acting insulin vent per pulmonary wean off IV abx wean off levophed to keep MAP > 65 Stop bicarb drip Critical care time 55 minutes Plan discussed with: Patient My Orders Orders - DENIZ BAZAN MD Procedure Category Date Status Time D5w 5% (Dextrose 5%) PHA 06/16/25 In Process 12:00 * [employer] CONS 06/16/25 Transmitted 11:15 Pantoprazole PHA 06/16/25 In Process (Protonix) 22:00 Date of Service: Jun 16, 2025 Billing Provider: DENIZ BAZAN MD Common Visit Codes: [id number] CARE 30-74 MIN DENIZ BAZAN MD Jun 16, 2025 15:31
[2025-06-16 16:25] LABS: Anion Gap 18 (5-15)
[2025-06-16 16:28] LABS: Calcium 8.6 mg/dL (8.7-10.4); Carbon Dioxide 17 mmol/L (20-31); Chloride 123 mmol/L (98-107); Potassium 3.1 mmol/L (3.5-5.1); Sodium 158 mmol/L (136-145)
[2025-06-16 16:30] LABS: BUN/Creatinine Ratio 13.6 (10.0-20.0); Blood Urea Nitrogen 11 mg/dL (9-23); Glucose 203 mg/dL (74-106)
--- NOTE | 2025-06-16 17:25 | DVHINCON2 ---
Date of service: Jun 16, 2025 Referring Physician Aretha Reason for Consultation Coffee-ground emesis History of Present Illness Patient is a 50-year-old female with history of hypertension, asthma, history of uncontrolled diabetes admitted yesterday with leukocytosis, hypotension and uncontrolled blood sugars. Patient was thought to be in sepsis. She was admitted to the ICU with respiratory failure. Patient has an NG tube to low intermittent suction. Patient was noted to have coffee-ground in the NG tube with a decrease in hemoglobin today. GI consultation was obtained for possible GI bleeding. Patient is currently on Protonix and is not on anticoagulation. Past Medical History As above Past Surgical History Not known Family History: FH: diabetes mellitus G8 MOTHER G8 FATHER Family History No known gastrointestinal diseases or malignancies Social History No tobacco alcohol or recreational drug use Allergies: Coded Allergies: Penicillins (Verified Allergy, Unknown, 12/04/24) Home Meds Active Scripts Albuterol Sulfate (VENTOLIN MDI) 90 Mcg Ih, 90 MCG IN Q4HP PRN for 30 Days, #1 INH Prov:SHAKEEL STONER ALMOND PASTE MOLDER 06/09/25 Insulin Glargine (Basaglar Kwikpen) 100 Unit/Ml Inj, 18 UNIT SC BID for 30 Days, #14 INJ Prov:SHAKEEL STONER ALMOND PASTE MOLDER 06/09/25 Reported Medications Lamotrigine (Lamotrigine) 25 Mg Tab, 2 TAB PO DAILY 05/31/25 Olanzapine (OLANZAPINE ODT) 10 Mg Tab, 1 TAB PO 05/31/25 Duloxetine HCl (Duloxetine HCl) 60 Mg Cap, 1 CAP PO DAILY 05/31/25 Omeprazole (Omeprazole Dr) 20 Mg Cap, 1 CAP PO DAILY 05/31/25 Hydrochlorothiazide (Hydrochlorothiazide) 12.5 Mg Tab, 1 TAB PO DAILY 05/31/25 Losartan Potassium (Losartan Potassium) 25 Mg Tab, 1 TAB PO DAILY 05/31/25 Discontinued Reported Medications Glimepiride (Glimepiride) 2 Mg Tab, 1 TAB PO DAILY 05/31/25 Current Medications Current Medications Medications (Trade) Dose Ordered Sig/Laura Route PRN Reason Start Time Stop Time Status Last Admin Vancomycin HCl 200 ml @ 200 mls/hr Q12H IV 06/16/25 21:00 Dextrose 1,000 ml @ 75 mls/hr [id number] IV 06/16/25 12:00 06/16/25 12:09 Pantoprazole Sodium (Protonix) 40 mg BID IV 06/16/25 22:00 Purified Water 250 ml Q4HR GT 06/16/25 14:00 06/16/25 14:00 Review of Systems As per HPI Uncontrolled diabetes Asthma Hypertension Respiratory failure Sepsis Anemia GI bleed Vital Signs Vital Signs Date Time Temp Pulse Resp B/P (MAP) Pulse Ox O2 Delivery O2 Flow Rate FiO2 06/16/25 16:28 117 22 100/56 (71) 100 30 06/16/25 15:45 98.4 98.4 06/16/25 14:00 Mechanical Ventilator+ 06/15/25 19:20 0 Physical Exam General: Intubated and sedated HEENT: NC/AT EOMI PERRLA ETT in place NG tube Regular rate and rhythm Soft nontender nondistended abdomen No clubbing cyanosis or edema Neuro patient is sedated Labs/Diagnostic Data Labs Test 06/16/25 16:00 06/16/25 12:07 06/16/25 06:16 06/16/25 02:42 Range/Units Sodium Level 158 H 136-145 mmol/L Potassium Level 3.1 L 3.5-5.1 mmol/L Chloride Level 123 H 98-107 mmol/L Carbon Dioxide Level 17 L 20-31 mmol/L Anion Gap 18 H 5-15 Blood Urea Nitrogen 11 9-23 mg/dL Creatinine 0.81 0.550-1.02 mg/dL Glomerular Filtration Rate Calc 89 >90 mL/min BUN/Creatinine Ratio 13.6 10.0-20.0 Serum Glucose 203 H 74-106 mg/dL Calcium Level 8.6 L 8.7-10.4 mg/dL POC Glucose 122 H 70-106 mg/dl Blood Gas Specimen Type Arterial Blood Gas Sample Site Right radial Blood Gas Patient Temperature 37.0 Arterial Blood Date Drawn [id number] Arterial Blood pH 7.399 7.350-7.450 Arterial Blood Partial Pressure CO2 21.5 L 32.0-45.0 mmHg Arterial Blood Partial Pressure O2 127.9 H 83.0-108.0 mmHg Arterial Blood HCO3 13.0 L 21.0-28.0 mmol/L Arterial Blood Oxygen Saturation 97.8 94.0-98.0 % Arterial Blood Base Excess -10.8 L -2.0-3.0 mmol/L Arterial Blood Oxyhemoglobin 96.7 94.0-98.0 % Arterial Blood Carboxyhemoglobin 0.2 L 0.5-1.5 % Arterial Blood Methemoglobin 0.9 0.0-1.5 % Kadeem Test Modified Blood Gas Total Hemoglobin 6.30 *L 12.0-16.0 g/dL Blood Gas Set Respiration Rate 22.0 Blood Gas Modality Vent - ac Blood Gas Spontaneous Rate 22 FiO2 % 30.0 Blood Gas Tidal Volume 400.0 Blood Gas PEEP or CPAP 5.0 Blood Gas Critical Value Read Back Yes Blood Gas Notified Whom linda Schwartz dnp Blood Gas Notified Time [id number] Blood Gas Notified By White Blood Count 11.6 #H 4.4-10.8 10^3/uL Red Blood Count 2.30 L 4.0-5.20 10^6/uL Hemoglobin 6.6 #*L 12.2-16.2 g/dL Hematocrit 20.1 #L 36.0-46.0 % Mean Corpuscular Volume 87.6 80.0-100.0 fL Mean Corpuscular Hemoglobin 28.7 28.0-32.0 pg Mean Corpuscular Hemoglobin Concent 32.7 32.0-36.0 g/dL Red Cell Distribution Width 16.1 H 11.8-14.3 % Platelet Count 295 140-450 10^3/uL Mean Platelet Volume 7.3 6.9-10.8 fL Neutrophils (%) (Auto) 66.3 37.0-80.0 % Lymphocytes (%) (Auto) 19.8 10.0-50.0 % Monocytes (%) (Auto) 13.3 H 0.0-12.0 % Eosinophils (%) (Auto) 0.1 0.0-7.0 % Basophils (%) (Auto) 0.5 0.0-2.0 % Neutrophils # (Auto) 7.7 1.6-8.6 10 ^3/uL Lymphocytes # (Auto) 2.3 0.4-5.4 10 ^3/uL Monocytes # (Auto) 1.5 H 0-1.3 10 ^3/uL Eosinophils # (Auto) 0 0-0.8 10 ^3/uL Basophils # (Auto) 0.1 0-0.2 10 ^3/uL Nucleated Red Blood Cells 0.1 % Test 06/15/25 19:56 06/15/25 07:24 06/15/25 06:10 06/14/25 20:46 Range/Units Vancomycin Level Trough 12.9 H 5-10 ug/mL Magnesium Level 2.0 1.6-2.6 mg/dL Total Bilirubin < 0.2 L 0.2-1.0 mg/dL Aspartate Amino Transferase (AST) 13 13-40 U/L Alanine Aminotransferase (ALT) 14 7-40 U/L Alkaline Phosphatase 63 46-116 U/L Total Protein 4.8 L 5.7-8.2 g/dL Albumin 3.0 L 3.2-4.8 g/dL Specimen Drawn By Sales/Marketing marlee [email or web address] Test 06/14/25 13:38 06/14/25 08:44 06/14/25 08:14 06/14/25 07:00 Range/Units Blood Gas Liter Flow 2.00 Serum Osmolality 357 H 278-298 mOsm/kg Beta-Hydroxybutyric Acid > 4.500 H < 0.4 mmol/L Differential Total Cells Counted 100.0 100 Neutrophils % (Manual) 81 H 37.0-80.0 Band Neutrophils % (Manual) 1 Lymphocytes % (Manual) 16 10.0-50.0 Monocytes % (Manual) 2 0-12 Eosinophils % (Manual) 0 0-7 Basophils % (Manual) 0 0.0-2.0 Metamyelocytes % (manual) 0 Myelocytes % (Manual) 0 Promyelocytes % (Manual) 0 Blast Cells % (Manual) 0 Reactive Lymphocytes 0 Platelet Estimate Adequate Lactic Acid Level 1.8 0.4-2.0 mmol/L Phosphorus Level 8.9 H 2.4-5.1 mg/dL Urine Color Light-yellow Yellow Urine Clarity Clear Clear Urine pH 5.0 5.0-9.0 Urine Specific [place] 1.021 1.001-1.035 Urine Protein Negative Negative Urine Ketones 4+ H Negative Urine Blood Negative Negative /uL Urine Nitrite Negative Negative Urine Bilirubin Negative Negative Urine Urobilinogen Normal Negative mg/dL Urine Leukocyte Esterase Negative Negative /uL Urine RBC 1 0 - 4 /hpf Urine Microscopic WBC 2 0-5 /HPF Urine Squamous Epithelial Cells Few <5 /hpf Urine Bacteria None seen None Seen /hpf Urine Mucus Few None Seen Urine Glucose 4+ H Normal mg/dL Urine Test Negative Negative Urine Opiates Screen Neg NEGATIVE Urine Fentanyl Screen Neg NEGATIVE Urine Barbiturates Screen Neg NEGATIVE Urine Phencyclidine Screen Neg NEGATIVE Urine Amphetamines Screen Neg NEGATIVE Urine Benzodiazepines Screen Neg NEGATIVE Urine Cocaine Screen Neg NEGATIVE Urine Cannabinoids Screen Neg NEGATIVE Microbiology Date/Time Source Procedure Growth Status 06/14/25 16:30 Nose MRSA Screen - Final Methicillin Resistant S.aureus Complete 06/14/25 14:00 Sputum Gram Stain - Final Complete 06/14/25 14:00 Respiratory Culture - Final Methicillin Resistant S.aureus Complete 06/14/25 08:44 Blood Blood Culture - Preliminary NO GROWTH AFTER 48 HOURS OF INCUBATION. Resulted 06/14/25 07:00 Voided Urine Urine Culture - Final Complete Assessment 1. Uncontrolled diabetes 2. Respiratory failure 3. Treated leukocytosis 4. Sepsis 5. history of asthma and hypotension 6. GI bleeding with anemia Problems(with codes): (1) Asthma (2) Sepsis (3) Acute metabolic encephalopathy (4) DKA (diabetic ketoacidosis) Plan/Recommendation 1. Patient will need endoscopy once stable and possible colonoscopy 2. Continue Protonix 3. Three follow H&H and transfuse as needed 4. Avoid anticoagulants 5. I will be signing off to Dr. Arellano 6. Diabetes control . 7. Consider non GI sources if any Plan discussed with: Other MASSIMO LOVE MD Jun 16, 2025 17:25
[2025-06-16] MEDS: POTASSIUM CHL 20MEQ/100ML 100 ML IV SCH (20:47)
[2025-06-16] MEDS: PANTOPRAZOLE 40 MG/10 ML VIAL INJ IV SCH (20:47)
[2025-06-17] VITALS (107 sets, daily range): BP systolic 83–147; BP diastolic 49–91; PULSE 107–134; RESP 17–25; TEMP 82–99.7; O2SAT 96–100
[2025-06-17 05:37] LABS: Anion Gap 13 (5-15); Carbon Dioxide 21 mmol/L (20-31)
[2025-06-17 05:42] LABS: BUN/Creatinine Ratio 11.5 (10.0-20.0)
[2025-06-17 05:49] LABS: Blood Urea Nitrogen 9 mg/dL (9-23); Calcium 8.1 mg/dL (8.7-10.4); Chloride 122 mmol/L (98-107); Glucose 179 mg/dL (74-106); Potassium 3.5 mmol/L (3.5-5.1); Sodium 156 mmol/L (136-145)
[2025-06-17 07:31] LABS: Hematocrit 25.1 % (36.0-46.0); Hemoglobin 8.8 g/dL (12.2-16.2); Mean Corpuscular Hemoglobin 30.7 pg (28.0-32.0); Mean Corpuscular Volume 88.0 fL (80.0-100.0); Nucleated Red Blood Cells % 0.1 %
[2025-06-17 07:31] LABS: Base Excess -3.6 mmol/L (-2.0-3.0)
[2025-06-17 09:28] LABS: Anion Gap 11 (5-15); Carbon Dioxide 24 mmol/L (20-31)
[2025-06-17 09:33] LABS: BUN/Creatinine Ratio 12.0 (10.0-20.0)
[2025-06-17 09:39] LABS: Blood Urea Nitrogen 9 mg/dL (9-23); Calcium 8.6 mg/dL (8.7-10.4); Chloride 118 mmol/L (98-107); Glucose 216 mg/dL (74-106); Potassium 3.2 mmol/L (3.5-5.1); Sodium 153 mmol/L (136-145)
[2025-06-17] MEDS: POTASSIUM CHL 20MEQ/100ML 100 ML IV SCH (13:29)
[2025-06-17 14:01] LABS: Anion Gap 10 (5-15); Carbon Dioxide 24 mmol/L (20-31)
[2025-06-17 14:06] LABS: BUN/Creatinine Ratio 10.7 (10.0-20.0)
[2025-06-17 14:07] LABS: Blood Urea Nitrogen 8 mg/dL (9-23); Calcium 8.4 mg/dL (8.7-10.4); Chloride 113 mmol/L (98-107); Glucose 318 mg/dL (74-106); Potassium 3.2 mmol/L (3.5-5.1); Sodium 147 mmol/L (136-145)
--- NOTE | 2025-06-17 14:35 | DVH ---
INDICATION: pna TECHNIQUE: Frontal view of the chest. COMPARISON: XY CHEST XRAY 1 VIEW on DOS: 06/16/25, XY CHEST XRAY 1 VIEW on DOS: 06/15/25, XY CHEST PORT ABLE on DOS: 06/15/25, XY CHEST XRAY 1 VIEW on DOS: 06/14/25, XY CHEST PORTABLE on DOS: 06/14/25 FINDINGS: Endotracheal tube 4 cm from the roxann. Nasogastric tube tip in the stomach.. The heart and mediasti nal contours are grossly unremarkable. There is no evidence of pleural disease. The lungs are clear. The bony structures of the chest are intact without fracture. IMPRESSION: 1. No evidence of acute disease.
--- NOTE | 2025-06-17 17:41 | DVHPN2 ---
Progress Note - Dictate Date Seen: Jun 17, 2025 Medical Necessity Reason Pt with a Central, PICC or Fol: Yes The following are medically ne: Central Line Subjective Patient has not had any further coffee-ground via NG tube when lavaged S/P 2 units PRBC yesterday with a hemoglobin above 8 today vital signs Vital Sign Date Time Temp Pulse Resp B/P (MAP) Pulse Ox O2 Delivery O2 Flow Rate FiO2 06/17/25 17:00 99.3 127 22 121/71 (88) 98 210.7 06/17/25 16:02 30 06/17/25 16:00 Mechanical Ventilator+ 06/15/25 19:20 0 Total Intake and Output 06/16/25 06/16/25 06/17/25 15:00 23:00 07:00 Intake Total 1888.60 ml 1094.85 ml 853.6 ml Output Total 1775 ml 1000 ml Balance 1888.60 ml -680.15 ml -146.4 ml medications Current Medications Medications Dose Ordered Sig/Laura Route Start Time Stop Time Status Last Admin Dose Admin Ondansetron HCl 4 mg Q4HP PRN IV 06/14/25 10:45 Acetaminophen 650 mg Q6HP PRN PO 06/14/25 10:45 Insulin Glargine 15 units DAILY SC 06/15/25 10:00 06/17/25 10:30 15 UNITS Vancomycin HCl 0 ml @ 0 mls/hr UD IV 06/14/25 10:45 Cefepime HCl 50 ml @ 12.5 mls/hr Q12HR IV 06/14/25 22:00 06/17/25 10:28 12.5 MLS/HR Patient Own Medication 1 cap DAILY PO 06/15/25 10:00 UNV Patient Own Medication 2 tab DAILY PO 06/15/25 10:00 UNV Patient Own Medication 1 cap DAILY PO 06/15/25 10:00 UNV Albuterol 2.5 mg Q4HWA NEB 06/14/25 14:00 06/17/25 13:15 2.5 MG Ipratropium [place] 0.5 mg Q4HWA NEB 06/14/25 14:00 06/17/25 13:15 0.5 MG Lamotrigine 50 mg DAILY PO 06/15/25 10:00 06/17/25 10:28 50 MG Norepinephrine Bitartrate 250 ml @ 3.75 mls/hr Q24H IV 06/14/25 13:30 06/16/25 05:58 22.5 MLS/HR Propofol 100 ml @ 2.04 mls/hr Q24H IV 06/14/25 14:00 06/17/25 16:59 6.12 MLS/HR Midazolam HCl 50 ml @ 1 mls/hr Q24H IV 06/14/25 14:00 06/17/25 16:59 7 MLS/HR Fentanyl Citrate 250 ml @ 2.5 mls/hr Q24H IV 06/14/25 14:00 06/17/25 02:44 12.5 MLS/HR Diagnostic Test (Pha) 1 strip Q6HR 06/15/25 12:00 06/17/25 11:47 1 STRIP Insulin Human Regular Q6HR SC 06/15/25 12:00 06/17/25 11:48 2 UNITS Dextrose 50 ml UD PRN IV 06/15/25 11:15 Vancomycin HCl 200 ml @ 200 mls/hr Q12H IV 06/16/25 21:00 06/17/25 09:07 200 MLS/HR Dextrose 1,000 ml @ 75 mls/hr [id number] IV 06/16/25 12:00 06/17/25 14:43 75 MLS/HR Pantoprazole Sodium 40 mg BID IV 06/16/25 22:00 06/17/25 10:28 40 MG Purified Water 250 ml Q4HR GT 06/16/25 14:00 06/17/25 14:00 250 ML objective General: Intubated and sedated HEENT: NC/AT EOMI PERRLA ETT in place NG tube Regular rate and rhythm Soft nontender nondistended abdomen No clubbing cyanosis or edema Neuro patient is sedated laboratory and microbiology Laboratory Tests 06/17/25 13:02 06/17/25 06:29 Test 06/17/25 13:02 Range/Units Serum Glucose 318 H 74-106 mg/dL Problems(with codes): (1) Asthma (2) DKA (diabetic ketoacidosis) (3) Acute metabolic encephalopathy (4) Sepsis (5) Coffee ground emesis Prognosis Plan Observe upper GI output and connect NG tube to low intermittent suction tonight Protonix 40 mg IV q.12 hours Continue supportive care Patient will likely need outpatient elective panendoscopy once medically stabilized I will be standing by for an EGD if the patient continues to show signs of upper GI bleed Dietary Evaluation Review Comments: 1) TF Vital AF 1.2Cal @ 55ml/hr (goal) Start @ 20ml/hr, increase 10ml/hr Q4H until goal is reached. TF @ goal volume along with Propofol provides 1746 kcal (100% energy needs), 99 gm protein (100% protein needs), 1104 ml free water. 2) Water flush 160ml Q6H if allowed, adjust PRN 3) TPN if NPO > 7 days 4) Monitor NPO status, lab values, wt trend, I/O Expected Outcomes/Goals: To meet >75% estimated needs Lab values to improve Fu 2-3 days Plan discussed with: Other (ICU Nurse) DARIUS LLAMAS MD Jun 17, 2025 17:41
[2025-06-17] MEDS ORDERED: DEXTROSE (50%) 50ML SYRG IV PRN (18:00)
--- NOTE | 2025-06-17 19:55 | DVHPNRES ---
Progress Note Date Seen: Jun 17, 2025 Resident Creating Document: CECELIA BROWN RESIDENT Medical Necessity Reason Pt with a Central, PICC or Fol: Yes The following are medically ne: Central Line Subjective Review of Systems Patient is a 50-year-old female with past medical history of asthma, type 2 diabetes, recurrent episodes of DKA, medical noncompliance, who came in due to hyperglycemia. According to the records, patient noted she did not have insulin at home, however, noted she did see her PCP 1 week ago. Patient lives with roommates and attempts at contacting family have been unsuccessful. Detailed history and review of systems could not be completed due to patient being intubated, sedated and mechanically ventilated. Of note, patient was discharged from the [facility] on 06/09/2025 after being treated for DKA. Objective vital signs Vital Sign Date Time Temp Pulse Resp B/P (MAP) Pulse Ox O2 Delivery O2 Flow Rate FiO2 06/17/25 18:45 99.3 129 22 126/73 (90) 98 210.7 06/17/25 18:14 30 06/17/25 18:00 Mechanical Ventilator+ 06/15/25 19:20 0 Total Intake and Output 06/16/25 06/16/25 06/17/25 15:00 23:00 07:00 Intake Total 1888.60 ml 1094.85 ml 853.6 ml Output Total 1775 ml 1000 ml Balance 1888.60 ml -680.15 ml -146.4 ml medications Current Medications Medications Dose Ordered Sig/Laura Route Start Time Stop Time Status Last Admin Dose Admin Ondansetron HCl 4 mg Q4HP PRN IV 06/14/25 10:45 Acetaminophen 650 mg Q6HP PRN PO 06/14/25 10:45 Insulin Glargine 15 units DAILY SC 06/15/25 10:00 06/17/25 10:30 15 UNITS Vancomycin HCl 0 ml @ 0 mls/hr UD IV 06/14/25 10:45 Cefepime HCl 50 ml @ 12.5 mls/hr Q12HR IV 06/14/25 22:00 06/17/25 10:28 12.5 MLS/HR Patient Own Medication 1 cap DAILY PO 06/15/25 10:00 UNV Patient Own Medication 2 tab DAILY PO 06/15/25 10:00 UNV Patient Own Medication 1 cap DAILY PO 06/15/25 10:00 UNV Albuterol 2.5 mg Q4HWA NEB 06/14/25 14:00 06/17/25 18:13 2.5 MG Ipratropium [place] 0.5 mg Q4HWA NEB 06/14/25 14:00 06/17/25 18:13 0.5 MG Lamotrigine 50 mg DAILY PO 06/15/25 10:00 06/17/25 10:28 50 MG Norepinephrine Bitartrate 250 ml @ 3.75 mls/hr Q24H IV 06/14/25 13:30 06/16/25 05:58 22.5 MLS/HR Propofol 100 ml @ 2.04 mls/hr Q24H IV 06/14/25 14:00 06/17/25 16:59 6.12 MLS/HR Midazolam HCl 50 ml @ 1 mls/hr Q24H IV 06/14/25 14:00 06/17/25 16:59 6 MLS/HR Fentanyl Citrate 250 ml @ 2.5 mls/hr Q24H IV 06/14/25 14:00 06/17/25 02:44 12.5 MLS/HR Vancomycin HCl 200 ml @ 200 mls/hr Q12H IV 06/16/25 21:00 06/17/25 09:07 200 MLS/HR Dextrose 1,000 ml @ 75 mls/hr [id number] IV 06/16/25 12:00 06/17/25 14:43 75 MLS/HR Pantoprazole Sodium 40 mg BID IV 06/16/25 22:00 06/17/25 10:28 40 MG Purified Water 250 ml Q4HR GT 06/16/25 14:00 06/17/25 18:08 250 ML Diagnostic Test (Pha) 1 strip IQ4HR 06/17/25 20:00 Insulin Human Regular IQ4HR SC 06/17/25 20:00 Dextrose 50 ml UD PRN IV 06/17/25 18:00 Enteral Nutritional Formula 1,000 ml 30ML/HR GT 06/17/25 18:00 Examination General Appearance: Intubated, sedated, mechanically ventilated Head Exam: Constricted pupils. Neck Exam: Normal inspection. Non-tender. Normal alignment Pulmonary/Respiratory: Coarse bilateral breath sounds Cardiovascular/Chest: Regular rate and rhythm. No murmurs. No JVD. Abdominal Exam: Decreased bowel sounds. Soft. normal abdomen, no visible veins, Nontender. No hepatospenomegaly. No masses Ankle Exam: Negative ankle edema Lower extremities: Negative lower extremity edema Skin Exam: Normal inspection. Normal color. Warm. Dry laboratory and microbiology Laboratory Tests 06/17/25 13:02 06/17/25 06:29 Test 06/17/25 13:02 Range/Units Serum Glucose 318 H 74-106 mg/dL Microbiology Date/Time Source Procedure Growth Status 06/14/25 16:30 Nose MRSA Screen - Final Methicillin Resistant S.aureus Complete 06/14/25 14:00 Sputum Gram Stain - Final Complete 06/14/25 14:00 Respiratory Culture - Final Methicillin Resistant S.aureus Complete 06/14/25 08:44 Blood Blood Culture - Preliminary NO GROWTH AFTER 72 HOURS OF INCUBATION. Resulted 06/14/25 07:00 Voided Urine Urine Culture - Final Complete Labs and/or images reviewed: Labs reviewed by me, Image(s) reviewed by me Problem List/Assessment/Plan Problem List/Assessment/Plan Neurology # acute metabolic encephalopathy # Sedated - intubated on 06/16/25 - fentanyl at 125 - propofol 15 -Versed 8 - Head CT: No acute intracranial abnormality. Respiratory # Ventilator RR 22, TV 400, FiO2 30%, peep 5 # Acute hypoxic respiratory failure # questionable pneumonia # history of asthma - ipratropium and albuterol med nebs - IV vancomycin - IV cefepime - CXR 06/16/25: Hazy opacity throughout the right hemithorax may be due to pneumonia or layering pleural effusion versus something outside of the patient. - CXR 06/17/2025: No evidence of acute disease GI # probable upper versus lower GI bleed - s/p 2 PRBCs - GI on board - pen endoscopy once medically stable # Peptic ulcer prophylaxis -Pantoprazole 40 mg IV b.i.d. Endo # T2DM, uncontrolled, insulin dependent # DKA, resolved - insulin Lantus 15 units daily - moderate sliding scale insulin # Mayfield catheter Nephrology # MABLE, likely hemodynamically mediated/VMN # hyperphosphatemia due to above # hyperkalemia due to above # hypernatremia - IV D5W at 75 cc/hour - free water 250 mL q.4 hours Infectious disease # questionable pneumonia, cultures growing MRSA # blood cultures preliminary growing Gram-negative rods # sepsis due to above - IV vancomycin, IV cefepime - repeat blood cultures Hem/onc # anemia, s/p 2 PRBC - monitor Psychiatry # bipolar disorder # medication nonadherence - resumed home medication lamotrigine DVT prophylaxis - Holding due to possible GI bleed Nutrition - tube feedings Glucerna Lines Right triple-lumen femoral CVC placed on 06/14/2025 Right midline placed on 06/14/2025 Right 20 gauge placed on 06/16/2025 Drips during mech ventilation Fentanyl 125 Propofol 15 Versed 8 Critical care time 83 minutes excluding procedure. Code status discussed greater than 20 minutes: Full CODE STATUS. Attempted to reach patient's family, unsuccessful. Plan discussed with Dr. Pacheco Plan discussed with: Other (RN) My Orders My Orders Orders - CECELIA BROWN RESIDENT Procedure Category Date Status Time Chest Portable XY 06/17/25 Resulted 13:09 Ct Ab Pel Wo Con-No CT 06/18/25 Logged Oral Or Iv 04:00 Blood Culture KAT 06/17/25 Logged 17:50 Stool Occult Blood LAB 06/17/25 Logged 17:50 Glucose Blood PHA 06/17/25 In Process (Accu-Chek Comfort 20:00 Insulin R (Human) PHA 06/17/25 In Process (Insulin R) 20:00 Dextrose 50% Syringe PHA 06/17/25 In Process 18:00 Nutritional PHA 06/17/25 In Process Supplements (Glucerna 18:00 Complete Blood Count LAB 06/18/25 Verified 04:00 Comprehensive LAB 06/18/25 Verified Metabolic Panel 04:00 Chest Portable XY 06/18/25 Logged 04:00 Abg W/ Co-Ox RT 06/18/25 Logged 04:00 Dietary Evaluation Review Comments: 1) TF Vital AF 1.2Cal @ 55ml/hr (goal) Start @ 20ml/hr, increase 10ml/hr Q4H until goal is reached. TF @ goal volume along with Propofol provides 1746 kcal (100% energy needs), 99 gm protein (100% protein needs), 1104 ml free water. 2) Water flush 160ml Q6H if allowed, adjust PRN 3) TPN if NPO > 7 days 4) Monitor NPO status, lab values, wt trend, I/O Expected Outcomes/Goals: To meet >75% estimated needs Lab values to improve Fu 2-3 days Date of Service: Jun 17, 2025 Billing Provider: JOSETTE PACHECO MD Common Visit Codes: 57130-[id number] CARE 30-74 MIN, 42918-EITCATZE CARE-EACH +30MIN CECELIA BROWN RESIDENT Jun 17, 2025 19:55 JOSETTE PACHECO MD Jun 18, 2025 15:16
[2025-06-17] MEDS: ACCU-CHEK COMFORT CURVE STRIP VI SCH (20:38)
[2025-06-17] MEDS: InsuLIN REG 1unit/0.01ml Soln (100units/ml) SC SCH (20:40)
[2025-06-17 21:39] LABS: Anion Gap 11 (5-15); Carbon Dioxide 22 mmol/L (20-31); Potassium 4.0 mmol/L (3.5-5.1)
[2025-06-17 21:40] LABS: Calcium 9.0 mg/dL (8.7-10.4)
[2025-06-17 21:45] LABS: BUN/Creatinine Ratio 10.3 (10.0-20.0); Magnesium 2.2 mg/dL (1.6-2.6)
[2025-06-17 21:55] LABS: Blood Urea Nitrogen 7 mg/dL (9-23); Chloride 115 mmol/L (98-107); Glucose 199 mg/dL (74-106); Sodium 148 mmol/L (136-145)
[2025-06-18] VITALS (106 sets, daily range): BP systolic 90–128; BP diastolic 54–82; PULSE 111–131; RESP 11–33; TEMP 74.1–99.5; O2SAT 97–100
[2025-06-18 00:37] LABS: Potassium 3.7 mmol/L (3.5-5.1)
[2025-06-18 00:38] LABS: Anion Gap 10 (5-15); Carbon Dioxide 24 mmol/L (20-31)
[2025-06-18 00:43] LABS: BUN/Creatinine Ratio 11.5 (10.0-20.0)
[2025-06-18 00:44] LABS: Blood Urea Nitrogen 7 mg/dL (9-23); Calcium 8.2 mg/dL (8.7-10.4); Chloride 114 mmol/L (98-107); Glucose 174 mg/dL (74-106); Sodium 148 mmol/L (136-145)
[2025-06-18 03:36] LABS: Hematocrit 28.0 % (36.0-46.0); Hemoglobin 9.7 g/dL (12.2-16.2); Mean Corpuscular Hemoglobin 30.7 pg (28.0-32.0); Mean Corpuscular Volume 88.2 fL (80.0-100.0); Nucleated Red Blood Cells % 0.2 %
[2025-06-18 03:47] LABS: Alanine Aminotransferase 12 U/L (7-40); Alkaline Phosphatase 72 U/L (46-116); Anion Gap 10 (5-15); BUN/Creatinine Ratio 12.7 (10.0-20.0); Carbon Dioxide 25 mmol/L (20-31); Potassium 3.6 mmol/L (3.5-5.1)
[2025-06-18 03:54] LABS: Albumin 2.9 g/dL (3.2-4.8); Bilirubin, Total 0.2 mg/dL (0.2-1.0); Blood Urea Nitrogen 7 mg/dL (9-23); Calcium 8.2 mg/dL (8.7-10.4); Chloride 113 mmol/L (98-107); Glucose 143 mg/dL (74-106); Sodium 148 mmol/L (136-145); Total Protein 4.8 g/dL (5.7-8.2)
--- NOTE | 2025-06-18 04:29 | DVH ---
CHEST RADIOGRAPH Indication: pna Technique: Single frontal view of the chest was obtained COMPARISON: XY CHEST PORTABLE on DOS: 06/17/25, XY CHEST XRAY 1 VIEW on DOS: 06/16/25, XY CHEST XRAY 1 VIEW on DOS: 06/15/25, XY CHEST PORTABLE on DOS: 06/15/25, XY CHEST XRAY 1 VIEW on DOS: 06/14/25 FINDINGS: Lines and Tubes: Unchanged. Lungs: Clear Pleura: No effusion. No pneumothorax. Cardiomediastinal contours: Unremarkable Bones: Unremarkable IMPRESSION: 1. No acute disease. 2. Lines and tubes unchanged.
[2025-06-18 06:37] LABS: Base Excess -4.3 mmol/L (-2.0-3.0)
[2025-06-18] MEDS: POTASSIUM EFFERVESENT TAB 25 MEQ GT ONE (09:54)
--- NOTE | 2025-06-18 11:38 | DVH ---
Indication: dropping Hb Technique: CT axial images of the abdomen and pelvis are obtained without contrast. Coronal and sagit alexa reformats were obtained. Radiation Dose Information: CTDI volume is 0.07 mGy. Dose-length product is 669.52 mGy*cm Comparison: None FINDINGS: There is limited interpretation of the abdomen and pelvis without administration of intravenous contr ast. Lung bases demonstrate atelectasis. Small bilateral pleural effusions. Adrenal glands, spleen, pancreas unremarkable in shape. Cholelithiasis. Pericholecystic edema. Live r unremarkable in shape. Kidneys demonstrate no hydronephrosis / nephrolithiasis. Nasogastric tube projects towards the distal stomach. Small bowel loops are normal in caliber. Rectal catheter that is looped upon itself. Rectal wall thickening with surrounding stranding and pre sacral edema. Moderate volume stool in the colon. Appendix not well characterized. Atherosclerotic disease. Bladder partially decompressed by Mayfield catheter. Small amount of free pelvic fluid. Soft tissue edema / anasarca. Right common femoral vein central venous catheter terminating in the right external iliac vein. [id number] bilateral sacroiliac degenerative joint disease. Small bilateral fat containing inguinal hernias. IMPRESSION: Limited evaluation without contrast. Rectal wall thickening with surrounding stranding. Correlate for proctocolitis and rectal catheter l ooped upon itself within the rectum. Right common femoral vein central venous catheter terminating in the right external iliac vein. Small amount of ascites /pelvic fluid. Soft tissue edema/ anasarca. Cholelithiasis and pericholecystic edema. Recommend HIDA scan to exclude cholecystitis. Small bilateral pleural effusions. Other findings as described.
--- NOTE | 2025-06-18 15:11 | DVH ---
Left lower extremity venous duplex Clinical History: erythema, warmth and swelling around L ankle Comparison: None Findings: Duplex Doppler evaluation of the deep venous system of the left lower extremity from the common femor al vein to the popliteal vein including color Doppler and spectral/pulsed waveform analysis was perfo rmed. The common femoral vein demonstrates appropriate compressibility and waveform variability. There is compressibility/patency of the great saphenous vein at the proximal thigh. The femoral vein demonstrates appropriate compressibility and waveform variability. The deep femoral vein demonstrates appropriate compressibility and waveform variability. The popliteal vein demonstrates appropriate compressibility and waveform variability. There is normal compressibility at the tibioperoneal trunk. Left 2 cm Wynn's cyst Impression: No left femoropopliteal venous thrombosis. If clinical concern/symptoms persist or worsen, short-interval follow-up study is suggested.
[2025-06-18 16:12] LABS: INR 0.97 (0.9-1.15); Partial Thromboplastin Time 28.5 SEC (24.5-34.5); Prothrombin Time 10.3 sec (9.3-11.8)
--- NOTE | 2025-06-18 18:00 | DVHPNRES ---
Progress Note Date Seen: Jun 18, 2025 Resident Creating Document: CECELIA BROWN RESIDENT Medical Necessity Reason Pt with a Central, PICC or Fol: Yes The following are medically ne: Central Line Subjective Review of Systems Patient is a 50-year-old female with past medical history of asthma, type 2 diabetes, recurrent episodes of DKA, medical noncompliance, who came in due to hyperglycemia. According to the records, patient noted she did not have insulin at home, however, noted she did see her PCP 1 week ago. Patient lives with roommates and attempts at contacting family have been unsuccessful. Detailed history and review of systems could not be completed due to patient being intubated, sedated and mechanically ventilated. Of note, patient was discharged from the [facility] on 06/09/2025 after being treated for DKA. 06/18/25: low grade fevers, continued tachycardia. CT abdomen pelvis shows cholelithiasis with pericholecystic fluid, consulted IR, added metronidazole to vanc and cefepime. Objective vital signs Vital Sign Date Time Temp Pulse Resp B/P (MAP) Pulse Ox O2 Delivery O2 Flow Rate FiO2 06/18/25 17:15 99.0 119 19 106/68 (81) 99 210.2 06/18/25 16:00 Mechanical Ventilator+ 30 30 Total Intake and Output 06/17/25 06/17/25 06/18/25 15:00 23:00 07:00 Intake Total 912.00 ml 1656.96 ml 1586.84 ml Output Total 950 ml 1175 ml Balance 912.00 ml 706.96 ml 411.84 ml medications Current Medications Medications Dose Ordered Sig/Laura Route Start Time Stop Time Status Last Admin Dose Admin Ondansetron HCl 4 mg Q4HP PRN IV 06/14/25 10:45 Acetaminophen 650 mg Q6HP PRN PO 06/14/25 10:45 Insulin Glargine 15 units DAILY SC 06/15/25 10:00 06/18/25 09:58 15 UNITS Vancomycin HCl 0 ml @ 0 mls/hr UD IV 06/14/25 10:45 Cefepime HCl 50 ml @ 12.5 mls/hr Q12HR IV 06/14/25 22:00 06/18/25 09:53 12.5 MLS/HR Patient Own Medication 1 cap DAILY PO 06/15/25 10:00 UNV Patient Own Medication 2 tab DAILY PO 06/15/25 10:00 UNV Patient Own Medication 1 cap DAILY PO 06/15/25 10:00 UNV Albuterol 2.5 mg Q4HWA [facility] 06/14/25 14:00 06/18/25 13:17 2.5 MG Ipratropium [place] 0.5 mg Q4HWA NEB 06/14/25 14:00 06/18/25 13:17 0.5 MG Lamotrigine 50 mg DAILY PO 06/15/25 10:00 06/18/25 09:54 50 MG Norepinephrine Bitartrate 250 ml @ 3.75 mls/hr Q24H IV 06/14/25 13:30 06/16/25 05:58 22.5 MLS/HR Propofol 100 ml @ 2.04 mls/hr Q24H IV 06/14/25 14:00 06/18/25 16:24 8.16 MLS/HR Midazolam HCl 50 ml @ 1 mls/hr Q24H IV 06/14/25 14:00 06/18/25 16:24 5 MLS/HR Fentanyl Citrate 250 ml @ 2.5 mls/hr Q24H IV 06/14/25 14:00 06/18/25 16:32 12.5 MLS/HR Pantoprazole Sodium 40 mg BID IV 06/16/25 22:00 06/18/25 09:53 40 MG Purified Water 250 ml Q4HR GT 06/16/25 14:00 06/18/25 14:00 250 ML Diagnostic Test (Pha) 1 strip IQ4HR 06/17/25 20:00 06/18/25 16:24 1 STRIP Insulin Human Regular IQ4HR SC 06/17/25 20:00 06/18/25 16:31 2 UNITS Dextrose 50 ml UD PRN IV 06/17/25 18:00 Enteral Nutritional Formula 1,000 ml 30ML/HR GT 06/17/25 18:00 Vancomycin HCl 200 ml @ 200 mls/hr Q12H IV 06/18/25 21:00 Metronidazole 100 ml @ 100 mls/hr Q8HR IV 06/18/25 22:00 Examination General Appearance: Intubated, sedated, mechanically ventilated Head Exam: Constricted pupils. Neck Exam: Normal inspection. Non-tender. Normal alignment Pulmonary/Respiratory: Coarse bilateral breath sounds Cardiovascular/Chest: Regular rate and rhythm. No murmurs. No JVD. Abdominal Exam: Decreased bowel sounds. Soft. normal abdomen, no visible veins, Nontender. No hepatospenomegaly. No masses Ankle Exam: Negative ankle edema Lower extremities: Negative lower extremity edema. L lower extremity warmth Skin Exam: Normal inspection. Normal color. Warm. Dry laboratory and microbiology Laboratory Tests 06/18/25 02:58 Test 06/18/25 02:58 Range/Units Serum Glucose 143 H 74-106 mg/dL Microbiology Date/Time Source Procedure Growth Status 06/14/25 16:30 Nose MRSA Screen - Final Methicillin Resistant S.aureus Complete 06/14/25 14:00 Sputum Gram Stain - Final Complete 06/14/25 14:00 Respiratory Culture - Final Methicillin Resistant S.aureus Complete 06/14/25 08:44 Blood Blood Culture - Preliminary NO GROWTH AFTER 72 HOURS OF INCUBATION. Resulted 06/14/25 07:00 Voided Urine Urine Culture - Final Complete Problem List/Assessment/Plan Problem List/Assessment/Plan Neurology # acute metabolic encephalopathy # Sedated - intubated on 06/16/25 - fentanyl at 125 - propofol 15 -Versed 8 - Head CT: No acute intracranial abnormality. Respiratory # Ventilator RR 22, TV 400, FiO2 30%, peep 5 # Acute hypoxic respiratory failure # questionable pneumonia # history of asthma - ipratropium and albuterol med nebs - IV vancomycin - IV cefepime - CXR 06/16/25: Hazy opacity throughout the right hemithorax may be due to pneumonia or layering pleural effusion versus something outside of the patient. - CXR 06/17/2025: No evidence of acute disease GI # probable upper versus lower GI bleed # possible acute cholecystitis - s/p 2 PRBCs - GI on board - pen endoscopy once medically stable - CT abdomen pelvis: Limited evaluation without contrast. Rectal wall thickening with surrounding stranding. Correlate for proctocolitis and rectal catheter looped upon itself within the rectum. Right common femoral vein central venous catheter terminating in the right external iliac vein. Small amount of ascites /pelvic fluid. Soft tissue edema/ anasarca.Cholelithiasis and pericholecystic edema. Recommend HIDA scan to exclude cholecystitis.Small bilateral pleural effusions. - added metronidazole 06/18/25 - repeat blood cultures - IR consult for cholecystostomy # Peptic ulcer prophylaxis -Pantoprazole 40 mg IV b.i.d. Endo # T2DM, uncontrolled, insulin dependent # DKA, resolved # possible acute cholecystitis - insulin Lantus 15 units daily - moderate sliding scale insulin # [place] catheter Nephrology # MABLE, likely hemodynamically mediated/VMN # hyperphosphatemia due to above # hyperkalemia due to above # hypernatremia - IV D5W at 75 cc/hour - free water 250 mL q.4 hours Infectious disease # questionable pneumonia, cultures growing MRSA # blood cultures preliminary growing Gram-negative rods # possible acute cholecystitis # sepsis due to above - IV vancomycin, IV cefepime - CT abdomen pelvis: Limited evaluation without contrast. Rectal wall thickening with surrounding stranding. Correlate for proctocolitis and rectal catheter looped upon itself within the rectum. Right common femoral vein central venous catheter terminating in the right external iliac vein. Small amount of ascites /pelvic fluid. Soft tissue edema/ anasarca.Cholelithiasis and pericholecystic edema. Recommend HIDA scan to exclude cholecystitis.Small bilateral pleural effusions. - added metronidazole 06/18/25 - repeat blood cultures - IR consult for cholecystostomy Hem/onc # anemia, s/p 2 PRBC - monitor Psychiatry # bipolar disorder # medication nonadherence - resumed home medication lamotrigine DVT prophylaxis - Holding due to possible GI bleed Nutrition - tube feedings Glucerna Lines Right triple-lumen femoral CVC placed on 06/14/2025 Right midline placed on 06/14/2025 Right 20 gauge placed on 06/16/2025 Drips during mech ventilation Fentanyl 125 Propofol 20 Versed 5 Critical care time 83 minutes excluding procedure. Code status discussed greater than 20 minutes: Full CODE STATUS. Attempted to reach patient's family, unsuccessful. Plan discussed with Dr. Pacheco Plan discussed with: Other (RN) My Orders My Orders Orders - CECELIA BROWN RESIDENT Procedure Category Date Status Time Electrocardigram EKG 06/18/25 Logged 13:40 Lt Lower Dvt US 06/18/25 Resulted 13:43 Dietary Evaluation Review Comments: 1) TF Vital AF 1.2Cal @ 55ml/hr (goal) Start @ 20ml/hr, increase 10ml/hr Q4H until goal is reached. TF @ goal volume along with Propofol provides 1746 kcal (100% energy needs), 99 gm protein (100% protein needs), 1104 ml free water. 2) Water flush 160ml Q6H if allowed, adjust PRN 3) TPN if NPO > 7 days 4) Monitor NPO status, lab values, wt trend, I/O Expected Outcomes/Goals: To meet >75% estimated needs Lab values to improve Fu 2-3 days Date of Service: Jun 18, 2025 Billing Provider: JOSETTE PACHECO MD Common Visit Codes: 92535-[id number] CARE 30-74 MIN, [id number] CARE-EACH +30MIN CECELIA BROWN Jun 18, 2025 18:00 JOSETTE PACHECO MD Jun 19, 2025 10:37
[2025-06-18] MEDS: SOD CHL 0.45% 1,000 ML IV ONE (18:14)
--- NOTE | 2025-06-18 20:27 | DVHPN2 ---
Progress Note - Dictate Date Seen: Jun 18, 2025 Medical Necessity Reason Pt with a Central, PICC or Fol: Yes The following are medically ne: Central Line Subjective Patient has not had any further coffee-ground ;NGT Output bilious Pt has been started on tube feedings Hemoglobin up to 9.7 vital signs Vital Sign Date Time Temp Pulse Resp B/P (MAP) Pulse Ox O2 Delivery O2 Flow Rate FiO2 06/18/25 18:24 100 Mechanical Ventilator+ 30 30 06/18/25 18:24 120 23 116/79 (91) 06/18/25 18:15 99.0 210.2 Total Intake and Output 06/17/25 06/17/25 06/18/25 15:00 23:00 07:00 Intake Total 912.00 ml 1656.96 ml 1586.84 ml Output Total 950 ml 1175 ml Balance 912.00 ml 706.96 ml 411.84 ml medications Current Medications Medications Dose Ordered Sig/Laura Route Start Time Stop Time Status Last Admin Dose Admin Ondansetron HCl 4 mg Q4HP PRN IV 06/14/25 10:45 Acetaminophen 650 mg Q6HP PRN PO 06/14/25 10:45 Insulin Glargine 15 units DAILY SC 06/15/25 10:00 06/18/25 09:58 15 UNITS Vancomycin HCl 0 ml @ 0 mls/hr UD IV 06/14/25 10:45 Cefepime HCl 50 ml @ 12.5 mls/hr Q12HR IV 06/14/25 22:00 06/18/25 09:53 12.5 MLS/HR Patient Own Medication 1 cap DAILY PO 06/15/25 10:00 UNV Patient Own Medication 2 tab DAILY PO 06/15/25 10:00 UNV Patient Own Medication 1 cap DAILY PO 06/15/25 10:00 UNV Albuterol 2.5 mg Q4HWA NEB 06/14/25 14:00 06/18/25 18:23 2.5 MG Ipratropium [place] 0.5 mg Q4HWA NEB 06/14/25 14:00 06/18/25 18:23 0.5 MG Lamotrigine 50 mg DAILY PO 06/15/25 10:00 06/18/25 09:54 50 MG Norepinephrine Bitartrate 250 ml @ 3.75 mls/hr Q24H IV 06/14/25 13:30 06/16/25 05:58 22.5 MLS/HR Propofol 100 ml @ 2.04 mls/hr Q24H IV 06/14/25 14:00 06/18/25 16:24 8.16 MLS/HR Midazolam HCl 50 ml @ 1 mls/hr Q24H IV 06/14/25 14:00 06/18/25 16:24 5 MLS/HR Fentanyl Citrate 250 ml @ 2.5 mls/hr Q24H IV 06/14/25 14:00 06/18/25 16:32 12.5 MLS/HR Pantoprazole Sodium 40 mg BID IV 06/16/25 22:00 06/18/25 09:53 40 MG Purified Water 250 ml Q4HR GT 06/16/25 14:00 06/18/25 18:13 250 ML Diagnostic Test (Pha) 1 strip IQ4HR 06/17/25 20:00 06/18/25 20:10 1 STRIP Insulin Human Regular IQ4HR SC 06/17/25 20:00 06/18/25 16:31 2 UNITS Dextrose 50 ml UD PRN IV 06/17/25 18:00 Enteral Nutritional Formula 1,000 ml 30ML/HR GT 06/17/25 18:00 Vancomycin HCl 200 ml @ 200 mls/hr Q12H IV 06/18/25 21:00 Metronidazole 100 ml @ 100 mls/hr Q8HR IV 06/18/25 22:00 objective General: Intubated and sedated HEENT: NC/AT EOMI PERRLA ETT in place NG tube Regular rate and rhythm Soft nontender nondistended abdomen No clubbing cyanosis or edema Neuro patient is sedated laboratory and microbiology Laboratory Tests 06/18/25 02:58 Test 06/18/25 02:58 Range/Units Serum Glucose 143 H 74-106 mg/dL Problems(with codes): (1) Coffee ground emesis (2) Asthma (3) DKA (diabetic ketoacidosis) (4) Acute metabolic encephalopathy (5) Sepsis Prognosis Plan Continue conservative observation Protonix 40 mg IV q.12 hours Advance tube feedings as tolerated Monitor labs I will follow up Dietary Evaluation Review Comments: 1) TF Vital AF 1.2Cal @ 55ml/hr (goal) Start @ 20ml/hr, increase 10ml/hr Q4H until goal is reached. TF @ goal volume along with Propofol provides 1746 kcal (100% energy needs), 99 gm protein (100% protein needs), 1104 ml free water. 2) Water flush 160ml Q6H if allowed, adjust PRN 3) TPN if NPO > 7 days 4) Monitor NPO status, lab values, wt trend, I/O Expected Outcomes/Goals: To meet >75% estimated needs Lab values to improve Fu 2-3 days Plan discussed with: Other (ICU Nurse) DARIUS LLAMAS MD Jun 18, 2025 20:27
[2025-06-18] MEDS: VANCOMYCIN 1GM/200ML PM 200 ML IV SCH (20:30)
[2025-06-19] VITALS (106 sets, daily range): BP systolic 85–146; BP diastolic 45–93; PULSE 102–129; RESP 10–30; TEMP 96.8–99.1; O2SAT 98–100
[2025-06-19 03:34] LABS: Hematocrit 29.3 % (36.0-46.0); Hemoglobin 10.1 g/dL (12.2-16.2); Mean Corpuscular Hemoglobin 30.6 pg (28.0-32.0); Mean Corpuscular Volume 88.6 fL (80.0-100.0); Nucleated Red Blood Cells % 0.1 %
[2025-06-19 03:51] LABS: Alanine Aminotransferase 10 U/L (7-40); Alkaline Phosphatase 86 U/L (46-116); Anion Gap 14 (5-15); BUN/Creatinine Ratio 15.4 (10.0-20.0); Carbon Dioxide 24 mmol/L (20-31); Chloride 106 mmol/L (98-107); Potassium 3.5 mmol/L (3.5-5.1); Sodium 144 mmol/L (136-145)
[2025-06-19 03:53] LABS: Albumin 2.9 g/dL (3.2-4.8); Bilirubin, Total 0.3 mg/dL (0.2-1.0); Blood Urea Nitrogen 6 mg/dL (9-23); Calcium 8.4 mg/dL (8.7-10.4); Glucose 122 mg/dL (74-106); Total Protein 4.8 g/dL (5.7-8.2)
--- NOTE | 2025-06-19 04:44 | DVH ---
CHEST RADIOGRAPH Indication: pna Technique: Single frontal view of the chest was obtained COMPARISON: XY CHEST PORTABLE on DOS: 06/18/25, XY CHEST PORTABLE on DOS: 06/17/25, XY CHEST XRAY 1 VIE W on DOS: 06/16/25, XY CHEST XRAY 1 VIEW on DOS: 06/15/25, XY CHEST PORTABLE on DOS: 06/15/25 FINDINGS: Lines and Tubes: Unchanged. Lungs: Mild left basilar pulmonary airspace disease and small left pleural effusion. No pneumothorax. Cardiomediastinal contours: Unremarkable Bones: Unremarkable IMPRESSION: 1. Mild left basilar pulmonary airspace disease and small left pleural effusion. 2. Lines and tubes unchanged
--- NOTE | 2025-06-19 07:26 | ECG ---
[facility] Test Date: 2025-06-18 Test Time: 17:00:22 Pat Name: RICHARD NEWMAN Department: ICU Room: [address] [place] [address] A Gender: F Platform Stapler: ROHAN : 1975 Requested By: CECELIA BROWN Order Number: [id number] Reading MD: Gerard Vidales Measurements Intervals [place] Rate: 120 P: 49 TN: 125 QRS: 38 QRSD: 80 T: 42 QT: 307 QTc: 434 Interpretive Statements Sinus tachycardia Low voltage, extremity leads Electronically Signed On 06-19-2025 15:25:39 PDT by Gerard Vidales Please click the below link to view image of tracing.
[2025-06-19 07:59] LABS: Base Excess -1.4 mmol/L (-2.0-3.0)
--- NOTE | 2025-06-19 08:00 | DVH ---
CLINICAL INFORMATION: EVALUATE FOR POSSIBLE CHOLECYSTOSTOMY TUBE PLACEMENT. TECHNIQUE: Grayscale sonographic imaging of the abdomen was performed, assisted by color Doppler silke hnique. Examination was performed to evaluate the gallbladder 4 cholecystostomy tube placement. COMPARISON: None FINDINGS: The gallbladder wall measures 7.7mm in thickness, abnormally thickened. There are gallst ones in the gallbladder. Gallbladder measures up to 9.7 x 4.6 x 4.1 cm, corresponding to a volume of 94 mL. IMPRESSION: 1. Cholelithiasis and gallbladder wall thickening, may be seen with acute cholecystitis in the [facility] clinical setting. 2. Gallbladder volume measures 94 mL.
--- NOTE | 2025-06-19 10:26 | DVHINCON2 ---
Date of service: Jun 19, 2025 Family History: FH: diabetes mellitus G8 MOTHER G8 FATHER Allergies: Coded Allergies: Penicillins (Verified Allergy, Unknown, 12/04/24) Home Meds Active Scripts Albuterol Sulfate (VENTOLIN MDI) 90 Mcg Ih, 90 MCG IN Q4HP PRN for 30 Days, #1 INH Prov:SHAKEEL STONER DENTAL OFFICE MANAGER 06/09/25 Insulin Glargine (Basaglar Kwikpen) 100 Unit/Ml Inj, 18 UNIT SC BID for 30 Days, #14 INJ Prov:SHAKEEL STONER DENTAL OFFICE MANAGER 06/09/25 Reported Medications Lamotrigine (Lamotrigine) 25 Mg Tab, 2 TAB PO DAILY 05/31/25 Olanzapine (OLANZAPINE ODT) 10 Mg Tab, 1 TAB PO 05/31/25 Duloxetine HCl (Duloxetine HCl) 60 Mg Cap, 1 CAP PO DAILY 05/31/25 Omeprazole (Omeprazole Dr) 20 Mg Cap, 1 CAP PO DAILY 05/31/25 Hydrochlorothiazide (Hydrochlorothiazide) 12.5 Mg Tab, 1 TAB PO DAILY 05/31/25 Losartan Potassium (Losartan Potassium) 25 Mg Tab, 1 TAB PO DAILY 05/31/25 Current Medications Current Medications Medications (Trade) Dose Ordered Sig/Laura Route PRN Reason Start Time Stop Time Status Last Admin Vancomycin HCl 200 ml @ 200 mls/hr Q12H IV 06/18/25 21:00 06/19/25 09:09 Metronidazole 100 ml @ 100 mls/hr Q8HR IV 06/18/25 22:00 06/19/25 05:31 Vital Signs Vital Signs Date Time Temp Pulse Resp B/P (MAP) Pulse Ox O2 Delivery O2 Flow Rate FiO2 06/19/25 07:00 99.1 121 22 100 210.4 06/19/25 06:00 30 06/19/25 06:00 Mechanical Ventilator+ Labs/Diagnostic Data Labs Test 06/19/25 08:05 06/19/25 05:52 06/19/25 02:30 06/18/25 15:43 Range/Units POC Glucose 122 H 70-106 mg/dl Blood Gas Specimen Type Arterial Blood Gas Sample Site Right radial Blood Gas Patient Temperature 37.0 Arterial Blood Date Drawn [id number] Arterial Blood pH 7.410 7.350-7.450 Arterial Blood Partial Pressure CO2 37.0 32.0-45.0 mmHg Arterial Blood Partial Pressure O2 108.7 H 83.0-108.0 mmHg Arterial Blood HCO3 22.9 21.0-28.0 mmol/L Arterial Blood Oxygen Saturation 97.4 94.0-98.0 % Arterial Blood Base Excess -1.4 -2.0-3.0 mmol/L Arterial Blood Oxyhemoglobin 97.2 94.0-98.0 % Arterial Blood Carboxyhemoglobin 0.1 L 0.5-1.5 % Arterial Blood Methemoglobin 0.1 0.0-1.5 % Kadeem Test Modified Blood Gas Total Hemoglobin 10.50 L 12.0-16.0 g/dL Blood Gas Set Respiration Rate 22.0 Blood Gas Modality Vent - ac FiO2 % 30.0 Blood Gas Tidal Volume 400.0 Blood Gas PEEP or CPAP 5.0 White Blood Count 9.4 4.4-10.8 10^3/uL Red Blood Count 3.31 L 4.0-5.20 10^6/uL Hemoglobin 10.1 L 12.2-16.2 g/dL Hematocrit 29.3 L 36.0-46.0 % Mean Corpuscular Volume 88.6 80.0-100.0 fL Mean Corpuscular Hemoglobin 30.6 28.0-32.0 pg Mean Corpuscular Hemoglobin Concent 34.5 32.0-36.0 g/dL Red Cell Distribution Width 17.2 H 11.8-14.3 % Platelet Count 275 140-450 10^3/uL Mean Platelet Volume 7.7 6.9-10.8 fL Neutrophils (%) (Auto) 75.6 37.0-80.0 % Lymphocytes (%) (Auto) 11.9 10.0-50.0 % Monocytes (%) (Auto) 11.0 0.0-12.0 % Eosinophils (%) (Auto) 0.8 0.0-7.0 % Basophils (%) (Auto) 0.7 0.0-2.0 % Neutrophils # (Auto) 7.1 1.6-8.6 10 ^3/uL Lymphocytes # (Auto) 1.1 0.4-5.4 10 ^3/uL Monocytes # (Auto) 1.0 0-1.3 10 ^3/uL Eosinophils # (Auto) 0.1 0-0.8 10 ^3/uL Basophils # (Auto) 0.1 0-0.2 10 ^3/uL Nucleated Red Blood Cells 0.1 % Sodium Level 144 136-145 mmol/L Potassium Level 3.5 3.5-5.1 mmol/L Chloride Level 106 98-107 mmol/L Carbon Dioxide Level 24 20-31 mmol/L Anion Gap 14 5-15 Blood Urea Nitrogen 6 L 9-23 mg/dL Creatinine 0.39 L 0.550-1.02 mg/dL Glomerular Filtration Rate Calc 122 >90 mL/min BUN/Creatinine Ratio 15.4 10.0-20.0 Serum Glucose 122 H 74-106 mg/dL Calcium Level 8.4 L 8.7-10.4 mg/dL Total Bilirubin 0.3 0.2-1.0 mg/dL Aspartate Amino Transferase (AST) 15 13-40 U/L Alanine Aminotransferase (ALT) 10 7-40 U/L Alkaline Phosphatase 86 46-116 U/L Total Protein 4.8 L 5.7-8.2 g/dL Albumin 2.9 L 3.2-4.8 g/dL Prothrombin Time 10.3 9.3-11.8 sec Prothrombin Time INR 0.97 0.9-1.15 Activated Partial Thromboplast Time 28.5 24.5-34.5 SEC Test 06/18/25 02:58 06/17/25 21:04 06/17/25 13:09 06/16/25 06:16 Range/Units Vancomycin Level Trough 16.6 H 5-10 ug/mL Magnesium Level 2.2 1.6-2.6 mg/dL Beta HCG, Quantitative 0.8 L 1.5-4.2 mIU/mL Blood Gas Spontaneous Rate 22 Blood Gas Critical Value Read Back Yes Blood Gas Notified Whom linda Schwartz dnp Blood Gas Notified Time [id number] Blood Gas Notified By Test 06/14/25 20:46 06/14/25 13:38 06/14/25 08:44 06/14/25 08:14 Range/Units Specimen Drawn By Sewer Builder marlee figueroa Blood Gas Liter Flow 2.00 Serum Osmolality 357 H 278-298 mOsm/kg Beta-Hydroxybutyric Acid > 4.500 H < 0.4 mmol/L Differential Total Cells Counted 100.0 100 Neutrophils % (Manual) 81 H 37.0-80.0 Band Neutrophils % (Manual) 1 Lymphocytes % (Manual) 16 10.0-50.0 Monocytes % (Manual) 2 0-12 Eosinophils % (Manual) 0 0-7 Basophils % (Manual) 0 0.0-2.0 Metamyelocytes % (manual) 0 Myelocytes % (Manual) 0 Promyelocytes % (Manual) 0 Blast Cells % (Manual) 0 Reactive Lymphocytes 0 Platelet Estimate Adequate Lactic Acid Level 1.8 0.4-2.0 mmol/L Phosphorus Level 8.9 H 2.4-5.1 mg/dL Test 06/14/25 07:00 Range/Units Urine Color Light-yellow Yellow Urine Clarity Clear Clear Urine pH 5.0 5.0-9.0 Urine Specific [place] 1.021 1.001-1.035 Urine Protein Negative Negative Urine Ketones 4+ H Negative Urine Blood Negative Negative /uL Urine Nitrite Negative Negative Urine Bilirubin Negative Negative Urine Urobilinogen Normal Negative mg/dL Urine Leukocyte Esterase Negative Negative /uL Urine RBC 1 0 - 4 /hpf Urine Microscopic WBC 2 0-5 /HPF Urine Squamous Epithelial Cells Few <5 /hpf Urine Bacteria None seen None Seen /hpf Urine Mucus Few None Seen Urine Glucose 4+ H Normal mg/dL Urine Test Negative Negative Urine Opiates Screen Neg NEGATIVE Urine Fentanyl Screen Neg NEGATIVE Urine Barbiturates Screen Neg NEGATIVE Urine Phencyclidine Screen Neg NEGATIVE Urine Amphetamines Screen Neg NEGATIVE Urine Benzodiazepines Screen Neg NEGATIVE Urine Cocaine Screen Neg NEGATIVE Urine Cannabinoids Screen Neg NEGATIVE Microbiology Date/Time Source Procedure Growth Status 06/17/25 21:04 Blood Blood Culture - Preliminary NO GROWTH AFTER 24 HOURS OF INCUBATION. Resulted 06/14/25 16:30 Nose MRSA Screen - Final Methicillin Resistant S.aureus Complete 06/14/25 14:00 Sputum Gram Stain - Final Complete 06/14/25 14:00 Respiratory Culture - Final Methicillin Resistant S.aureus Complete 06/14/25 07:00 Voided Urine Urine Culture - Final Complete Assessment 50 year old female intubated, on ventilator, heart rate 120, BP ok, abdomen soft and non distended, discussed with Dr Machado , I suggested a temporizing cholecystostomy to be placed by interventional radiologist and proceed with cholecystectomy when patient is improved ov erall condition. Plan discussed with: Other JAXSON ZACARIAS MD Jun 19, 2025 10:26
[2025-06-19] MEDS: IODIXANOL 320MG/ML 100ML BTL IV ONE (10:37)
[2025-06-19] MEDS: LIDOCAINE 2%HCL (LOCAL ANESTH.) INJ 20ML MDV ONE (10:55)
--- NOTE | 2025-06-19 12:04 | DVH ---
XY PERCUTANEOUS CHOLANGIO HISTORY: CHOLECYSTOSTOMY DRAIN placement for acute cholecystitis in a septic patient intubated in the ICU. PROCEDURE: Informed consent was obtained. The patient was placed in supine position, and initial limi addis ultrasound evaluation of the RUQ abdomen was obtained. The skin overlying the gallbladder was pre pped with chlorhexidine which was allowed to dry and draped in the usual sterile fashion. Time out wa s performed. IV sedation and 1% lidocaine local anesthetic were administered. Using US needle biopsy guide, a 21 g Accu Stick needle was advanced into the gallbladder via a intercostal, transhepatic sarath seaman. Following aspiration of bile, a small amount of contrast was injected to delineate the viscous . The needle was then exchanged over mandrill wire to a non-vascular access set, through which a yoly dewire was advanced into the gallbladder. Following serial dilation, an 8.5 [place] catheter was placed within the gallbladder. Approximately 5 cc of fluid was withdrawn and sent to the laboratory for analysis. The drain was secured in place and attached to gravity drainage. A steri le dressing was applied. No immediate complication was identified. DAP 104 FLUOROSCOPY TIME: 1.5 minutes. CONTRAST USED: 15 mL. SEDATION: Dr. Sanna Bustillos was personally responsible for the administration of moderate sedation during the procedure performed, including the use of an independent trained observer who had no other duties during the procedure. The drugs utilized were IV fentanyl and versed (see nursing log for details). The total time of supervision by the attending physician was approximately 30 minutes. FINDINGS: Limited US scan of the right upper abdomen demonstrates a distended gallbladder. Aspirated bile is thick. Completion image demonstrates good positioning of the drainage catheter. The cystic du ct is obstructed. IMPRESSION: Obstructed cystic duct consistent with acute cholecystitis. US/fluoro-guided percutaneous 8.5 vietnamese cholecystostomy tube placement. 5 mL bile aspirated for fluid analysis. PLAN: This tube will need to remain in place for at least 6-8 weeks before removal, so as to prevent bile leakage. If cholecystectomy is not planned, please have patient follow-up with IR at discharge t o schedule cholangiogram in 6-8 weeks. If cystic duct patency and tract maturation is established, we will consider clamp trial prior to removal of the tube in 1-2 weeks.
--- NOTE | 2025-06-19 13:22 | DVHPN2 ---
Progress Note - Dictate Date Seen: Jun 19, 2025 Medical Necessity Reason Pt with a Central, PICC or Fol: Yes The following are medically ne: Central Line Subjective Patient has not had any further coffee-ground ;NGT Output bilious Pt has been started on tube feedings Hemoglobin up to 10.1 Patient had a cholecystostomy tube placement this morning vital signs Vital Sign Date Time Temp Pulse Resp B/P (MAP) Pulse Ox O2 Delivery O2 Flow Rate FiO2 06/19/25 11:35 103 22 104/65 (78) 99 30 06/19/25 10:30 97.9 208.2 06/19/25 10:00 Mechanical Ventilator+ Total Intake and Output 06/18/25 06/18/25 06/19/25 15:00 23:00 07:00 Intake Total 572.12 ml 1305.28 ml 1105.28 ml Output Total 1400 ml 850 ml Balance 572.12 ml -94.72 ml 255.28 ml medications Current Medications Medications Dose Ordered Sig/Laura Route Start Time Stop Time Status Last Admin Dose Admin Ondansetron HCl 4 mg Q4HP PRN IV 06/14/25 10:45 Acetaminophen 650 mg Q6HP PRN PO 06/14/25 10:45 Insulin Glargine 15 units DAILY SC 06/15/25 10:00 06/19/25 10:00 15 UNITS Vancomycin HCl 0 ml @ 0 mls/hr UD IV 06/14/25 10:45 Cefepime HCl 50 ml @ 12.5 mls/hr Q12HR IV 06/14/25 22:00 06/19/25 12:34 12.5 MLS/HR Patient Own Medication 1 cap DAILY PO 06/15/25 10:00 UNV Patient Own Medication 2 tab DAILY PO 06/15/25 10:00 UNV Patient Own Medication 1 cap DAILY PO 06/15/25 10:00 UNV Albuterol 2.5 mg Q4HWA NEB 06/14/25 14:00 06/19/25 11:45 2.5 MG Ipratropium [place] 0.5 mg Q4HWA NEB 06/14/25 14:00 06/19/25 11:45 0.5 MG Lamotrigine 50 mg DAILY PO 06/15/25 10:00 06/19/25 12:36 50 MG Norepinephrine Bitartrate 250 ml @ 3.75 mls/hr Q24H IV 06/14/25 13:30 06/16/25 05:58 22.5 MLS/HR Propofol 100 ml @ 2.04 mls/hr Q24H IV 06/14/25 14:00 06/19/25 04:01 8.16 MLS/HR Midazolam HCl 50 ml @ 1 mls/hr Q24H IV 06/14/25 14:00 06/19/25 04:02 5 MLS/HR Fentanyl Citrate 250 ml @ 2.5 mls/hr Q24H IV 06/14/25 14:00 06/18/25 16:32 12.5 MLS/HR Pantoprazole Sodium 40 mg BID IV 06/16/25 22:00 06/19/25 12:34 40 MG Purified Water 250 ml Q4HR GT 06/16/25 14:00 06/19/25 10:00 250 ML Diagnostic Test (Pha) 1 strip IQ4HR 06/17/25 20:00 06/19/25 12:35 1 STRIP Insulin Human Regular IQ4HR SC 06/17/25 20:00 06/19/25 12:00 2 UNITS Dextrose 50 ml UD PRN IV 06/17/25 18:00 Enteral Nutritional Formula 1,000 ml 30ML/HR GT 06/17/25 18:00 Vancomycin HCl 200 ml @ 200 mls/hr Q12H IV 06/18/25 21:00 06/19/25 09:09 200 MLS/HR Metronidazole 100 ml @ 100 mls/hr Q8HR IV 06/18/25 22:00 06/19/25 05:31 100 MLS/HR objective General: Intubated and sedated HEENT: NC/AT EOMI PERRLA ETT in place NG tube Regular rate and rhythm Soft nontender nondistended abdomen No clubbing cyanosis or edema Neuro patient is sedated laboratory and microbiology Laboratory Tests 06/19/25 02:30 Test 06/19/25 02:30 Range/Units Serum Glucose 122 H 74-106 mg/dL Gallbladder ultrasound IMPRESSION: 1. Cholelithiasis and gallbladder wall thickening, may be seen with acute cholecystitis in the appropriate clinical setting. 2. Gallbladder volume measures 94 mL. Problems(with codes): (1) Coffee ground emesis (2) Asthma (3) DKA (diabetic ketoacidosis) (4) Acute metabolic encephalopathy (5) Sepsis Prognosis Plan Continue to monitor labs Resumed enteral tube feedings Protonix 40 mg IV q.12 hours IV antibiotics Dietary Evaluation Review Comments: 1) TF Vital AF 1.2Cal @ 55ml/hr (goal) Start @ 20ml/hr, increase 10ml/hr Q4H until goal is reached. TF @ goal volume along with Propofol provides 1746 kcal (100% energy needs), 99 gm protein (100% protein needs), 1104 ml free water. 2) Water flush 160ml Q6H if allowed, adjust PRN 3) TPN if NPO > 7 days 4) Monitor NPO status, lab values, wt trend, I/O Expected Outcomes/Goals: To meet >75% estimated needs Lab values to improve Fu 2-3 days Plan discussed with: Other (ICU Nurse) DARIUS LLAMAS MD Jun 19, 2025 13:22
--- NOTE | 2025-06-19 15:16 | DVHPNRES ---
Progress Note Date Seen: Jun 19, 2025 Resident Creating Document: CECELIA BROWN RESIDENT Medical Necessity Reason Pt with a Central, PICC or Fol: Yes The following are medically ne: Central Line Subjective Review of Systems Patient is a 50-year-old female with past medical history of asthma, type 2 diabetes, recurrent episodes of DKA, medical noncompliance, who came in due to hyperglycemia. According to the records, patient noted she did not have insulin at home, however, noted she did see her PCP 1 week ago. Patient lives with roommates and attempts at contacting family have been unsuccessful. Detailed history and review of systems could not be completed due to patient being intubated, sedated and mechanically ventilated. Of note, patient was discharged from the [facility] on 06/09/2025 after being treated for DKA. 06/18/25: low grade fevers, continued tachycardia. CT abdomen pelvis shows cholelithiasis with pericholecystic fluid, consulted IR, added metronidazole to vanc and cefepime. 06/19/2025: T-max 99.1, continues to have tachycardia as high as 121. Underwent cholecystostomy placement, blood cultures now showing Gram-positive cocci. Detailed discussions held about plan of care with patient's brother Mr. Riddle also via telephone, all questions were answered and concerns were addressed. Objective vital signs Vital Sign Date Time Temp Pulse Resp B/P (MAP) Pulse Ox O2 Delivery O2 Flow Rate FiO2 06/19/25 14:15 111 23 101/65 (77) 100 30 06/19/25 14:00 Mechanical Ventilator+ 06/19/25 14:00 97.2 207.0 Total Intake and Output 06/18/25 06/18/25 06/19/25 15:00 23:00 07:00 Intake Total 572.12 ml 1305.28 ml 1105.28 ml Output Total 1400 ml 850 ml Balance 572.12 ml -94.72 ml 255.28 ml medications Current Medications Medications Dose Ordered Sig/Laura Route Start Time Stop Time Status Last Admin Dose Admin Ondansetron HCl 4 mg Q4HP PRN IV 06/14/25 10:45 Acetaminophen 650 mg Q6HP PRN PO 06/14/25 10:45 Insulin Glargine 15 units DAILY SC 06/15/25 10:00 06/19/25 10:00 15 UNITS Vancomycin HCl 0 ml @ 0 mls/hr UD IV 06/14/25 10:45 Patient Own Medication 1 cap DAILY PO 06/15/25 10:00 UNV Patient Own Medication 2 tab DAILY PO 06/15/25 10:00 UNV Patient Own Medication 1 cap DAILY PO 06/15/25 10:00 UNV Albuterol 2.5 mg Q4HWA [facility] 06/14/25 14:00 06/19/25 11:45 2.5 MG Ipratropium [place] 0.5 mg Q4HWA NEB 06/14/25 14:00 06/19/25 11:45 0.5 MG Lamotrigine 50 mg DAILY PO 06/15/25 10:00 06/19/25 12:36 50 MG Norepinephrine Bitartrate 250 ml @ 3.75 mls/hr Q24H IV 06/14/25 13:30 06/16/25 05:58 22.5 MLS/HR Propofol 100 ml @ 2.04 mls/hr Q24H IV 06/14/25 14:00 06/19/25 04:01 8.16 MLS/HR Midazolam HCl 50 ml @ 1 mls/hr Q24H IV 06/14/25 14:00 06/19/25 04:02 5 MLS/HR Fentanyl Citrate 250 ml @ 2.5 mls/hr Q24H IV 06/14/25 14:00 06/18/25 16:32 12.5 MLS/HR Pantoprazole Sodium 40 mg BID IV 06/16/25 22:00 06/19/25 12:34 40 MG Diagnostic Test (Pha) 1 strip IQ4HR 06/17/25 20:00 06/19/25 12:35 1 STRIP Insulin Human Regular IQ4HR SC 06/17/25 20:00 06/19/25 12:00 2 UNITS Dextrose 50 ml UD PRN IV 06/17/25 18:00 Enteral Nutritional Formula 1,000 ml 30ML/HR GT 06/17/25 18:00 Vancomycin HCl 200 ml @ 200 mls/hr Q12H IV 06/18/25 21:00 06/19/25 09:09 200 MLS/HR Metronidazole 100 ml @ 100 mls/hr Q8HR IV 06/18/25 22:00 06/19/25 14:42 100 MLS/HR Cefepime HCl 50 ml @ 12.5 mls/hr Q8H IV 06/19/25 20:00 Purified Water 200 ml Q6HR GT 06/19/25 18:00 UNV Examination General Appearance: Intubated, sedated, mechanically ventilated Head Exam: Constricted pupils. Neck Exam: Normal inspection. Non-tender. Normal alignment Pulmonary/Respiratory: Coarse bilateral breath sounds Cardiovascular/Chest: Regular rate and rhythm. No murmurs. No JVD. Abdominal Exam: Decreased bowel sounds. Soft. normal abdomen, no visible veins, Nontender. No hepatospenomegaly. No masses Ankle Exam: Negative ankle edema Lower extremities: Nonpitting edema of bilateral feet. L lower extremity warmth Skin Exam: Normal inspection. Normal color. Warm. Dry laboratory and microbiology Laboratory Tests 06/19/25 02:30 Test 06/19/25 02:30 Range/Units Serum Glucose 122 H 74-106 mg/dL Microbiology Date/Time Source Procedure Growth Status 06/17/25 21:04 Blood Blood Culture - Preliminary NO GROWTH AFTER 24 HOURS OF INCUBATION. Resulted 06/14/25 16:30 Nose MRSA Screen - Final Methicillin Resistant S.aureus Complete 06/14/25 14:00 Sputum Gram Stain - Final Complete 06/14/25 14:00 Respiratory Culture - Final Methicillin Resistant S.aureus Complete 06/14/25 07:00 Voided Urine Urine Culture - Final Complete Labs and/or images reviewed: Labs reviewed by me, Image(s) reviewed by me Problem List/Assessment/Plan Problem List/Assessment/Plan Neurology # acute metabolic encephalopathy # Sedated - intubated on 06/16/25 - fentanyl at 125 - propofol 15 -Versed 8 - Head CT: No acute intracranial abnormality. Respiratory # Ventilator RR 22, TV 400, FiO2 30%, peep 5 # Acute hypoxic respiratory failure # questionable pneumonia # history of asthma - ipratropium and albuterol med nebs - IV vancomycin - IV cefepime - CXR 06/16/25: Hazy opacity throughout the right hemithorax may be due to pneumonia or layering pleural effusion versus something outside of the patient. - CXR 06/17/2025: No evidence of acute disease GI # probable upper versus lower GI bleed # possible acute cholecystitis - s/p 2 PRBCs - GI on board - pen endoscopy once medically stable - CT abdomen pelvis: Limited evaluation without contrast. Rectal wall thickening with surrounding stranding. Correlate for proctocolitis and rectal catheter looped upon itself within the rectum. Right common femoral vein central venous catheter terminating in the right external iliac vein. Small amount of ascites /pelvic fluid. Soft tissue edema/ anasarca.Cholelithiasis and pericholecystic edema. Recommend HIDA scan to exclude cholecystitis.Small bilateral pleural effusions. - added metronidazole 06/18/25 - repeat blood cultures - liver ultrasound: Cholelithiasis and gallbladder wall thickening, may be seen with acute cholecystitis in the appropriate clinical setting. Gallbladder volume measures 94 mL. - s/p cholecystostomy today # Peptic ulcer prophylaxis -Pantoprazole 40 mg IV b.i.d. Endo # T2DM, uncontrolled, insulin dependent # DKA, resolved # possible acute cholecystitis - insulin Lantus 15 units daily - moderate sliding scale insulin # [place] catheter Nephrology # MABLE, likely hemodynamically mediated/VMN # hyperphosphatemia due to above # hyperkalemia due to above # hypernatremia - IV D5W at 75 cc/hour - free water 250 mL q.4 hours; decreased free water to 200 mL q.6 hours on 06/19/2025 Infectious disease # questionable pneumonia, cultures growing MRSA # blood cultures growing Gram-positive rods; bacillus # possible acute cholecystitis # sepsis due to above - IV vancomycin, IV cefepime - CT abdomen pelvis: Limited evaluation without contrast. Rectal wall thickening with surrounding stranding. Correlate for proctocolitis and rectal catheter looped upon itself within the rectum. Right common femoral vein central venous catheter terminating in the right external iliac vein. Small amount of ascites /pelvic fluid. Soft tissue edema/ anasarca.Cholelithiasis and pericholecystic edema. Recommend HIDA scan to exclude cholecystitis.Small bilateral pleural effusions. - added metronidazole 06/18/25 - repeat blood cultures negative - IR consult for cholecystostomy Hem/onc # anemia, s/p 2 PRBC - monitor Psychiatry # bipolar disorder # medication nonadherence - resumed home medication lamotrigine DVT prophylaxis - Holding due to possible GI bleed Nutrition - tube feedings Glucerna Lines Right triple-lumen femoral CVC placed on 06/14/2025 Right midline placed on 06/14/2025 Right 20 gauge placed on 06/16/2025 Drips during mech ventilation Versed 6 Fentanyl 150 Propofol 40 Critical care time 83 minutes excluding procedure. Code status discussed greater than 20 minutes: Full CODE STATUS. Detailed discussion about plan of care was held with patient's brother via telephone, all questions were answered and concerns addressed. Plan discussed with Dr. Pacheco Plan discussed with: Other (Patient's brother, RN) My Orders My Orders Orders - CECELIA BROWN Procedure Category Date Status Time Communication Order ORDERS 06/18/25 Transmitted 17:57 Chest Portable XY 06/19/25 Resulted 04:00 Abg W/ Co-Ox RT 06/19/25 Logged 07:00 Percutaneous Cholangio XY 06/19/25 Resulted 11:38 Free Water PHA 06/19/25 Logged 18:00 Basic Metabolic Panel LAB 06/19/25 Logged 15:06 Magnesium LAB 06/19/25 Logged 15:06 Dietary Evaluation Review Comments: 1) TF Vital AF 1.2Cal @ 55ml/hr (goal) Start @ 20ml/hr, increase 10ml/hr Q4H until goal is reached. TF @ goal volume along with Propofol provides 1746 kcal (100% energy needs), 99 gm protein (100% protein needs), 1104 ml free water. 2) Water flush 160ml Q6H if allowed, adjust PRN 3) TPN if NPO > 7 days 4) Monitor NPO status, lab values, wt trend, I/O Expected Outcomes/Goals: To meet >75% estimated needs Lab values to improve Fu 2-3 days Date of Service: Jun 19, 2025 Billing Provider: JOSETTE PACHECO MD Common Visit Codes: 83535-[id number] CARE 30-74 MIN, [id number] CARE-EACH +30MIN CECELIA BROWN Jun 19, 2025 15:16 JOSETTE PACHECO MD Jun 20, 2025 11:27
[2025-06-19 16:48] LABS: Chloride 107 mmol/L (98-107); Potassium 3.6 mmol/L (3.5-5.1); Sodium 144 mmol/L (136-145)
[2025-06-19 16:49] LABS: Anion Gap 15 (5-15); Carbon Dioxide 22 mmol/L (20-31)
[2025-06-19 16:50] LABS: Calcium 8.3 mg/dL (8.7-10.4)
[2025-06-19 16:54] LABS: BUN/Creatinine Ratio 14.3 (10.0-20.0)
[2025-06-19 16:55] LABS: Magnesium 1.9 mg/dL (1.6-2.6)
[2025-06-19 16:56] LABS: Blood Urea Nitrogen 6 mg/dL (9-23); Glucose 149 mg/dL (74-106)
[2025-06-19] MEDS: FREE WATER GT SCH (18:21)
[2025-06-19] MEDS: CEFEPIME 1GM/ 50ML 50 ML IV SCH (20:06)
[2025-06-20] VITALS (108 sets, daily range): BP systolic 89–158; BP diastolic 53–115; PULSE 108–131; RESP 13–26; TEMP 97.2–99.1; O2SAT 100
[2025-06-20 04:01] LABS: Alanine Aminotransferase 10 U/L (7-40); Alkaline Phosphatase 78 U/L (46-116); Anion Gap 16 (5-15); BUN/Creatinine Ratio 12.8 (10.0-20.0); Potassium 3.8 mmol/L (3.5-5.1); Sodium 143 mmol/L (136-145)
[2025-06-20 04:09] LABS: Albumin 2.7 g/dL (3.2-4.8); Bilirubin, Total 0.2 mg/dL (0.2-1.0); Blood Urea Nitrogen 5 mg/dL (9-23); Calcium 8.4 mg/dL (8.7-10.4); Carbon Dioxide 20 mmol/L (20-31); Chloride 107 mmol/L (98-107); Glucose 111 mg/dL (74-106); Total Protein 4.6 g/dL (5.7-8.2)
--- NOTE | 2025-06-20 05:30 | DVH ---
CHEST RADIOGRAPH Indication: pna Technique: Single frontal view of the chest was obtained COMPARISON: XY CHEST PORTABLE on DOS: 06/19/25, XY CHEST PORTABLE on DOS: 06/18/25, XY CHEST PORTABLE o n DOS: 06/17/25, XY CHEST XRAY 1 VIEW on DOS: 06/16/25, XY CHEST XRAY 1 VIEW on DOS: 06/15/25 FINDINGS: Lines and Tubes: Unchanged. Lungs: Stable small left pleural effusion. No evidence of focal consolidation. No pneumothorax. Cardiomediastinal contours: Unremarkable Bones: Unremarkable IMPRESSION: 1. Stable small left pleural effusion. 2. Lines and tubes unchanged.
[2025-06-20 07:23] LABS: Base Excess -5.6 mmol/L (-2.0-3.0)
[2025-06-20 09:30] LABS: Hematocrit 32.8 % (36.0-46.0); Hemoglobin 10.7 g/dL (12.2-16.2); Mean Corpuscular Hemoglobin 29.9 pg (28.0-32.0); Mean Corpuscular Volume 91.4 fL (80.0-100.0)
[2025-06-20 09:49] LABS: Total Cells Counted 100.0 (100)
[2025-06-20] MEDS: VANCOMYCIN 1GM/200ML PM 200 ML IV SCH (10:00)
--- NOTE | 2025-06-20 11:57 | DVHPN2 ---
Progress Note Date Seen: Jun 20, 2025 Medical Necessity Reason Pt with a Central, PICC or Fol: Yes The following are medically ne: Central Line Objective vital signs Vital Sign Date Time Temp Pulse Resp B/P (MAP) Pulse Ox O2 Delivery O2 Flow Rate FiO2 06/20/25 11:00 98.1 110 19 94/57 (69) 100 208.6 06/20/25 10:14 30 06/20/25 10:00 Mechanical Ventilator+ Total Intake and Output 06/19/25 06/19/25 06/20/25 15:00 23:00 07:00 Intake Total 670.08 ml 1373.02 ml 624.52 ml Output Total 900 ml 600 ml Balance 670.08 ml 473.02 ml 24.52 ml medications Current Medications Medications Dose Ordered Sig/Laura Route Start Time Stop Time Status Last Admin Dose Admin Ondansetron HCl 4 mg Q4HP PRN IV 06/14/25 10:45 Acetaminophen 650 mg Q6HP PRN PO 06/14/25 10:45 Insulin Glargine 15 units DAILY SC 06/15/25 10:00 06/20/25 10:06 15 UNITS Vancomycin HCl 0 ml @ 0 mls/hr UD IV 06/14/25 10:45 Patient Own Medication 1 cap DAILY PO 06/15/25 10:00 UNV Patient Own Medication 2 tab DAILY PO 06/15/25 10:00 UNV Patient Own Medication 1 cap DAILY PO 06/15/25 10:00 UNV Albuterol 2.5 mg Q4HWA [facility] 06/14/25 14:00 06/20/25 10:13 2.5 MG Ipratropium [place] 0.5 mg Q4HWA NEB 06/14/25 14:00 06/20/25 10:14 0.5 MG Lamotrigine 50 mg DAILY PO 06/15/25 10:00 06/20/25 09:57 50 MG Norepinephrine Bitartrate 250 ml @ 3.75 mls/hr Q24H IV 06/14/25 13:30 06/16/25 05:58 22.5 MLS/HR Propofol 100 ml @ 2.04 mls/hr Q24H IV 06/14/25 14:00 06/20/25 05:17 14.28 MLS/HR Midazolam HCl 50 ml @ 1 mls/hr Q24H IV 06/14/25 14:00 06/20/25 08:29 6 MLS/HR Fentanyl Citrate 250 ml @ 2.5 mls/hr Q24H IV 06/14/25 14:00 06/20/25 02:02 2.5 MLS/HR Pantoprazole Sodium 40 mg BID IV 06/16/25 22:00 06/20/25 09:57 40 MG Diagnostic Test (Pha) 1 strip IQ4HR 06/17/25 20:00 06/20/25 07:45 1 STRIP Insulin Human Regular IQ4HR SC 06/17/25 20:00 06/20/25 07:47 2 UNITS Dextrose 50 ml UD PRN IV 06/17/25 18:00 Enteral Nutritional Formula 1,000 ml 30ML/HR GT 06/17/25 18:00 Metronidazole 100 ml @ 100 mls/hr Q8HR IV 06/18/25 22:00 06/20/25 05:47 100 MLS/HR Cefepime HCl 50 ml @ 12.5 mls/hr Q8H IV 06/19/25 20:00 06/20/25 04:16 12.5 MLS/HR Purified Water 200 ml Q6HR GT 06/19/25 18:00 06/20/25 05:47 200 ML Vancomycin HCl 200 ml @ 200 mls/hr Q8H IV 06/20/25 10:00 06/20/25 10:00 200 MLS/HR laboratory and microbiology Laboratory Tests 06/20/25 08:30 06/20/25 02:20 Test 06/20/25 02:20 Range/Units Serum Glucose 111 H 74-106 mg/dL Problem List/Assessment/Plan Problem List/Assessment/Plan 06/20/25 CHOLECYSTOSTOMY PLACED BY RADFIOLOGIST YESTERDAY, DRAINING CLEAR BILE(CULTURES PENDING). ABDOMEN SOFT, NON DISTENDED, VITAL SIGNS UNCHANGED Plan discussed with: Other Dietary Evaluation Review Comments: 1) TF Vital AF 1.2Cal @ 55ml/hr (goal) Start @ 20ml/hr, increase 10ml/hr Q4H until goal is reached. TF @ goal volume along with Propofol provides 1746 kcal (100% energy needs), 99 gm protein (100% protein needs), 1104 ml free water. 2) Water flush 160ml Q6H if allowed, adjust PRN 3) TPN if NPO > 7 days 4) Monitor NPO status, lab values, wt trend, I/O Expected Outcomes/Goals: To meet >75% estimated needs Lab values to improve Fu 2-3 days JAXSON ZACARIAS MD Jun 20, 2025 11:57
[2025-06-20] MEDS: FUROSEMIDE 20 MG/2 ML VIAL IV ONE (12:07)
[2025-06-20] MEDS: LIDOCAINE 1% (LOCAL ANESTH.) PF 5ml SDV ID ONE (16:26)
--- NOTE | 2025-06-20 19:11 | DVHPNRES ---
Progress Note Date Seen: Jun 20, 2025 Resident Creating Document: CECELIA BROWN RESIDENT Medical Necessity Reason Pt with a Central, PICC or Fol: Yes The following are medically ne: Central Line Subjective Review of Systems Patient is a 50-year-old female with past medical history of asthma, type 2 diabetes, recurrent episodes of DKA, medical noncompliance, who came in due to hyperglycemia. According to the records, patient noted she did not have insulin at home, however, noted she did see her PCP 1 week ago. Patient lives with roommates and attempts at contacting family have been unsuccessful. Detailed history and review of systems could not be completed due to patient being intubated, sedated and mechanically ventilated. Of note, patient was discharged from the [facility] on 06/09/2025 after being treated for DKA. 06/18/25: low grade fevers, continued tachycardia. CT abdomen pelvis shows cholelithiasis with pericholecystic fluid, consulted IR, added metronidazole to vanc and cefepime. 06/19/2025: T-max 99.1, continues to have tachycardia as high as 121. Underwent cholecystostomy placement, blood cultures now showing Gram-positive cocci. Detailed discussions held about plan of care with patient's brother Mr. Riddle also via telephone, all questions were answered and concerns were addressed. 06/20/25: placed PICC line, dc'ed vancomycin. IV lasix 20mg once Objective vital signs Vital Sign Date Time Temp Pulse Resp B/P (MAP) Pulse Ox O2 Delivery O2 Flow Rate FiO2 06/20/25 19:00 99.0 120 22 112/71 (85) 100 210.2 06/20/25 18:09 30 06/20/25 18:00 Mechanical Ventilator+ Total Intake and Output 06/19/25 06/19/25 06/20/25 15:00 23:00 07:00 Intake Total 670.08 ml 1373.02 ml 662.30 ml Output Total 900 ml 600 ml Balance 670.08 ml 473.02 ml 62.30 ml medications Current Medications Medications Dose Ordered Sig/Laura Route Start Time Stop Time Status Last Admin Dose Admin Ondansetron HCl 4 mg Q4HP PRN IV 06/14/25 10:45 Acetaminophen 650 mg Q6HP PRN PO 06/14/25 10:45 Insulin Glargine 15 units DAILY SC 06/15/25 10:00 06/20/25 10:06 15 UNITS Vancomycin HCl 0 ml @ 0 mls/hr UD IV 06/14/25 10:45 Patient Own Medication 1 cap DAILY PO 06/15/25 10:00 UNV Patient Own Medication 2 tab DAILY PO 06/15/25 10:00 UNV Patient Own Medication 1 cap DAILY PO 06/15/25 10:00 UNV Albuterol 2.5 mg Q4HWA NEB 06/14/25 14:00 06/20/25 18:09 2.5 MG Ipratropium [place] 0.5 mg Q4HWA NEB 06/14/25 14:00 06/20/25 18:09 0.5 MG Lamotrigine 50 mg DAILY PO 06/15/25 10:00 06/20/25 09:57 50 MG Norepinephrine Bitartrate 250 ml @ 3.75 mls/hr Q24H IV 06/14/25 13:30 06/16/25 05:58 22.5 MLS/HR Propofol 100 ml @ 2.04 mls/hr Q24H IV 06/14/25 14:00 06/20/25 13:16 10.2 MLS/HR Midazolam HCl 50 ml @ 1 mls/hr Q24H IV 06/14/25 14:00 06/20/25 18:19 5 MLS/HR Fentanyl Citrate 250 ml @ 2.5 mls/hr Q24H IV 06/14/25 14:00 06/20/25 13:42 15 MLS/HR Pantoprazole Sodium 40 mg BID IV 06/16/25 22:00 06/20/25 09:57 40 MG Diagnostic Test (Pha) 1 strip IQ4HR 06/17/25 20:00 06/20/25 16:00 1 STRIP Insulin Human Regular IQ4HR SC 06/17/25 20:00 06/20/25 16:00 2 UNITS Dextrose 50 ml UD PRN IV 06/17/25 18:00 Enteral Nutritional Formula 1,000 ml 30ML/HR GT 06/17/25 18:00 Metronidazole 100 ml @ 100 mls/hr Q8HR IV 06/18/25 22:00 06/20/25 13:41 100 MLS/HR Cefepime HCl 50 ml @ 12.5 mls/hr Q8H IV 06/19/25 20:00 06/20/25 11:51 12.5 MLS/HR Purified Water 200 ml Q6HR GT 06/19/25 18:00 06/20/25 17:41 200 ML Vancomycin HCl 200 ml @ 200 mls/hr Q8H IV 06/20/25 10:00 06/20/25 17:41 200 MLS/HR Sodium Chloride 10 ml QSHIFT@10,22 IV 06/20/25 22:00 Examination General Appearance: Intubated, sedated, mechanically ventilated Head Exam: Constricted pupils. Neck Exam: Normal inspection. Non-tender. Normal alignment Pulmonary/Respiratory: Coarse bilateral breath sounds Cardiovascular/Chest: Regular rate and rhythm. No murmurs. No JVD. Abdominal Exam: Decreased bowel sounds. Soft. normal abdomen, no visible veins, Nontender. No hepatospenomegaly. No masses Ankle Exam: Negative ankle edema Lower extremities: Nonpitting edema of bilateral feet. L lower extremity warmth Skin Exam: Normal inspection. Normal color. Warm. Dry laboratory and microbiology Laboratory Tests 06/20/25 08:30 06/20/25 02:20 Test 06/20/25 02:20 Range/Units Serum Glucose 111 H 74-106 mg/dL Microbiology Date/Time Source Procedure Growth Status 06/17/25 21:04 Blood Blood Culture - Preliminary NO GROWTH AFTER 48 HOURS OF INCUBATION. Resulted 06/14/25 16:30 Nose MRSA Screen - Final Methicillin Resistant S.aureus Complete 06/14/25 14:00 Sputum Gram Stain - Final Complete 06/14/25 14:00 Respiratory Culture - Final Methicillin Resistant S.aureus Complete 06/14/25 07:00 Voided Urine Urine Culture - Final Complete Labs and/or images reviewed: Labs reviewed by me, Image(s) reviewed by me Problem List/Assessment/Plan Problem List/Assessment/Plan Neurology # acute metabolic encephalopathy # Sedated - intubated on 06/16/25 - fentanyl at 125 - propofol 15 -Versed 8 - Head CT: No acute intracranial abnormality. Respiratory # Ventilator RR 22, TV 400, FiO2 30%, peep 5 # Acute hypoxic respiratory failure # questionable pneumonia # history of asthma - ipratropium and albuterol med nebs - IV vancomycin - IV cefepime - CXR 06/16/25: Hazy opacity throughout the right hemithorax may be due to pneumonia or layering pleural effusion versus something outside of the patient. - CXR 06/17/2025: No evidence of acute disease GI # probable upper versus lower GI bleed # possible acute cholecystitis - s/p 2 PRBCs - GI on board - pen endoscopy once medically stable - CT abdomen pelvis: Limited evaluation without contrast. Rectal wall thickening with surrounding stranding. Correlate for proctocolitis and rectal catheter looped upon itself within the rectum. Right common femoral vein central venous catheter terminating in the right external iliac vein. Small amount of ascites /pelvic fluid. Soft tissue edema/ anasarca.Cholelithiasis and pericholecystic edema. Recommend HIDA scan to exclude cholecystitis.Small bilateral pleural effusions. - added metronidazole 06/18/25 - repeat blood cultures - liver ultrasound: Cholelithiasis and gallbladder wall thickening, may be seen with acute cholecystitis in the appropriate clinical setting. Gallbladder volume measures 94 mL. - s/p cholecystostomy today # Peptic ulcer prophylaxis -Pantoprazole 40 mg IV b.i.d. Endo # T2DM, uncontrolled, insulin dependent # DKA, resolved # possible acute cholecystitis - insulin Lantus 15 units daily - moderate sliding scale insulin # [place] catheter Nephrology # MABLE, likely hemodynamically mediated/VMN # hyperphosphatemia due to above # hyperkalemia due to above # hypernatremia - IV D5W at 75 cc/hour - free water 250 mL q.4 hours; decreased free water to 200 mL q.6 hours on 06/19/2025 Infectious disease # questionable pneumonia, cultures growing MRSA # blood cultures growing Gram-positive rods; bacillus # possible acute cholecystitis # sepsis due to above - IV vancomycin, IV cefepime - CT abdomen pelvis: Limited evaluation without contrast. Rectal wall thickening with surrounding stranding. Correlate for proctocolitis and rectal catheter looped upon itself within the rectum. Right common femoral vein central venous catheter terminating in the right external iliac vein. Small amount of ascites /pelvic fluid. Soft tissue edema/ anasarca.Cholelithiasis and pericholecystic edema. Recommend HIDA scan to exclude cholecystitis.Small bilateral pleural effusions. - added metronidazole 06/18/25 - repeat blood cultures negative - IR consult for cholecystostomy Hem/onc # anemia, s/p 2 PRBC - monitor Psychiatry # bipolar disorder # medication nonadherence - resumed home medication lamotrigine DVT prophylaxis - Holding due to possible GI bleed Nutrition - tube feedings Glucerna Lines PICC line placed on 06/20/25 Right midline placed on 06/14/2025 Right 20 gauge placed on 06/16/2025 [facility] Versed 6 Fentanyl 150 Propofol 40 Critical care time 83 minutes excluding procedure. Code status discussed greater than 20 minutes: Full CODE STATUS. Detailed discussion about plan of care was held with patient's brother via telephone, all questions were answered and concerns addressed. Plan discussed with Dr. Pacheco Plan discussed with: Other (RN) My Orders My Orders Orders - CECELIA BROWN RESIDENT Procedure Category Date Status Time Electrocardigram EKG 06/20/25 Logged 10:16 Complete Blood Count LAB 06/21/25 Verified 04:00 Comprehensive LAB 06/21/25 Verified Metabolic Panel 04:00 Chest Portable XY 06/21/25 Logged 04:00 Dietary Evaluation Review Comments: 1) TF Vital AF 1.2Cal @ 55ml/hr (goal) Start @ 20ml/hr, increase 10ml/hr Q4H until goal is reached. TF @ goal volume along with Propofol provides 1746 kcal (100% energy needs), 99 gm protein (100% protein needs), 1104 ml free water. 2) Water flush 160ml Q6H if allowed, adjust PRN 3) TPN if NPO > 7 days 4) Monitor NPO status, lab values, wt trend, I/O Expected Outcomes/Goals: To meet >75% estimated needs Lab values to improve Fu 2-3 days Date of Service: Jun 20, 2025 Billing Provider: JOSETTE PACHECO MD Common Visit Codes: 93613-[id number] CARE 30-74 MIN, 94899-[id number] CARE-EACH +30MIN CECELIA BROWN Jun 20, 2025 19:11 JOSETTE PACHECO MD Jun 22, 2025 12:52
[2025-06-20] MEDS: SODIUM CHLOR 0.9% PF (SALINE LOCK) 10ML VIAL/SYR IV SCH (21:25)
--- NOTE | 2025-06-20 21:49 | DVHPN2 ---
Progress Note - Dictate Date Seen: Jun 20, 2025 Medical Necessity Reason Pt with a Central, PICC or Fol: Yes The following are medically ne: Central Line Subjective Patient has not had any further coffee-ground ;NGT Output bilious Pt has been started on tube feedings Hemoglobin up to 10.7 Patient had a cholecystostomy tube placement this morning vital signs Vital Sign Date Time Temp Pulse Resp B/P (MAP) Pulse Ox O2 Delivery O2 Flow Rate FiO2 06/20/25 21:41 120/75 06/20/25 20:45 99.1 119 22 100 210.4 06/20/25 20:17 30 06/20/25 20:00 Mechanical Ventilator+ Total Intake and Output 06/19/25 06/19/25 06/20/25 15:00 23:00 07:00 Intake Total 670.08 ml 1373.02 ml 662.30 ml Output Total 900 ml 600 ml Balance 670.08 ml 473.02 ml 62.30 ml medications Current Medications Medications Dose Ordered Sig/Laura Route Start Time Stop Time Status Last Admin Dose Admin Ondansetron HCl 4 mg Q4HP PRN IV 06/14/25 10:45 Acetaminophen 650 mg Q6HP PRN PO 06/14/25 10:45 Insulin Glargine 15 units DAILY SC 06/15/25 10:00 06/20/25 10:06 15 UNITS Vancomycin HCl 0 ml @ 0 mls/hr UD IV 06/14/25 10:45 Patient Own Medication 1 cap DAILY PO 06/15/25 10:00 UNV Patient Own Medication 2 tab DAILY PO 06/15/25 10:00 UNV Patient Own Medication 1 cap DAILY PO 06/15/25 10:00 UNV Albuterol 2.5 mg Q4HWA NEB 06/14/25 14:00 06/20/25 18:09 2.5 MG Ipratropium [place] 0.5 mg Q4HWA NEB 06/14/25 14:00 06/20/25 18:09 0.5 MG Lamotrigine 50 mg DAILY PO 06/15/25 10:00 06/20/25 09:57 50 MG Norepinephrine Bitartrate 250 ml @ 3.75 mls/hr Q24H IV 06/14/25 13:30 06/16/25 05:58 22.5 MLS/HR Propofol 100 ml @ 2.04 mls/hr Q24H IV 06/14/25 14:00 06/20/25 21:41 10.2 MLS/HR Midazolam HCl 50 ml @ 1 mls/hr Q24H IV 06/14/25 14:00 06/20/25 18:19 5 MLS/HR Fentanyl Citrate 250 ml @ 2.5 mls/hr Q24H IV 06/14/25 14:00 06/20/25 13:42 15 MLS/HR Pantoprazole Sodium 40 mg BID IV 06/16/25 22:00 06/20/25 21:25 40 MG Diagnostic Test (Pha) 1 strip IQ4HR 06/17/25 20:00 06/20/25 20:03 1 STRIP Insulin Human Regular IQ4HR SC 06/17/25 20:00 06/20/25 20:06 2 UNITS Dextrose 50 ml UD PRN IV 06/17/25 18:00 Enteral Nutritional Formula 1,000 ml 30ML/HR GT 06/17/25 18:00 Metronidazole 100 ml @ 100 mls/hr Q8HR IV 06/18/25 22:00 06/20/25 21:25 100 MLS/HR Cefepime HCl 50 ml @ 12.5 mls/hr Q8H IV 06/19/25 20:00 06/20/25 20:01 12.5 MLS/HR Purified Water 200 ml Q6HR GT 06/19/25 18:00 06/20/25 17:41 200 ML Vancomycin HCl 200 ml @ 200 mls/hr Q8H IV 06/20/25 10:00 06/20/25 17:41 200 MLS/HR Sodium Chloride 10 ml QSHIFT@10,22 IV 06/20/25 22:00 06/20/25 21:25 10 ML objective General: Intubated and sedated HEENT: NC/AT EOMI PERRLA ETT in place NG tube Regular rate and rhythm Soft nontender nondistended abdomen No clubbing cyanosis or edema Neuro patient is sedated laboratory and microbiology Laboratory Tests 06/20/25 08:30 06/20/25 02:20 Test 06/20/25 02:20 Range/Units Serum Glucose 111 H 74-106 mg/dL Problems(with codes): (1) Coffee ground emesis (2) DKA (diabetic ketoacidosis) (3) Acute metabolic encephalopathy (4) Sepsis (5) Asthma Prognosis Plan Continue to monitor labs Resumed enteral tube feedings Protonix 40 mg IV q.12 hours IV antibiotics Sedation vacation Cholecystomy tube draining green bile Dietary Evaluation Review Comments: 1) TF Vital AF 1.2Cal @ 55ml/hr (goal) Start @ 20ml/hr, increase 10ml/hr Q4H until goal is reached. TF @ goal volume along with Propofol provides 1746 kcal (100% energy needs), 99 gm protein (100% protein needs), 1104 ml free water. 2) Water flush 160ml Q6H if allowed, adjust PRN 3) TPN if NPO > 7 days 4) Monitor NPO status, lab values, wt trend, I/O Expected Outcomes/Goals: To meet >75% estimated needs Lab values to improve Fu 2-3 days Plan discussed with: Other (None) DARIUS LLAMAS MD Jun 20, 2025 21:49
[2025-06-21] VITALS (109 sets, daily range): BP systolic 95–143; BP diastolic 64–83; PULSE 99–133; RESP 15–35; TEMP 98.2–99.5; O2SAT 97–100
[2025-06-21 03:55] LABS: Hematocrit 29.1 % (36.0-46.0); Hemoglobin 9.7 g/dL (12.2-16.2); Mean Corpuscular Hemoglobin 29.8 pg (28.0-32.0); Mean Corpuscular Volume 89.1 fL (80.0-100.0)
[2025-06-21 04:08] LABS: Alanine Aminotransferase 10 U/L (7-40); Alkaline Phosphatase 78 U/L (46-116); Anion Gap 16 (5-15); BUN/Creatinine Ratio 11.9 (10.0-20.0); Carbon Dioxide 22 mmol/L (20-31); Chloride 106 mmol/L (98-107); Sodium 144 mmol/L (136-145)
[2025-06-21 04:24] LABS: Albumin 2.8 g/dL (3.2-4.8); Bilirubin, Total 0.2 mg/dL (0.2-1.0); Blood Urea Nitrogen 5 mg/dL (9-23); Calcium 8.5 mg/dL (8.7-10.4); Glucose 135 mg/dL (74-106); Potassium 2.8 mmol/L (3.5-5.1); Total Protein 4.7 g/dL (5.7-8.2)
[2025-06-21] MEDS: POTASSIUM CHL 20MEQ/100ML 100 ML IV SCH (05:13)
[2025-06-21 05:17] LABS: Total Cells Counted 100.0 (100)
--- NOTE | 2025-06-21 05:28 | DVH ---
CHEST RADIOGRAPH Indication: VENTED Technique: Single frontal view of the chest was obtained COMPARISON: XY CHEST PORTABLE on DOS: 06/20/25, XY CHEST PORTABLE on DOS: 06/19/25, XY CHEST PORTABLE o n DOS: 06/18/25, XY CHEST PORTABLE on DOS: 06/17/25, XY CHEST XRAY 1 VIEW on DOS: 06/16/25 FINDINGS: Lines and Tubes: New right peripherally inserted central catheter terminates at the expected location of the cavoatrial junction. Remaining lines and tubes unchanged. Lungs: Stable appearing mild left basilar pulmonary airspace disease and small pleural effusion. No pneumothorax. Cardiomediastinal contours: Unremarkable Bones: Unremarkable IMPRESSION: 1. Stable mild left basilar pulmonary airspace disease and small left pleural effusion. 2. New right PICC. Remaining lines and tubes unchanged.
[2025-06-21 06:31] LABS: Base Excess -4.7 mmol/L (-2.0-3.0)
[2025-06-21] MEDS: MAGNESIUM SULFATE 1GM/100ML 100 ML IV ONE (06:40)
--- NOTE | 2025-06-21 10:18 | DVHPN2 ---
Progress Note Date Seen: Jun 21, 2025 Medical Necessity Reason Pt with a Central, PICC or Fol: Yes The following are medically ne: Central Line Objective vital signs Vital Sign Date Time Temp Pulse Resp B/P (MAP) Pulse Ox O2 Delivery O2 Flow Rate FiO2 06/21/25 10:13 122 26 117/79 (92) 99 30 06/21/25 10:00 Mechanical Ventilator+ 06/21/25 10:00 99.0 210.2 Total Intake and Output 06/20/25 06/20/25 06/21/25 15:00 23:00 07:00 Intake Total 605.38 ml 986.6 ml 890.78 ml Output Total 3050 ml 950 ml Balance 605.38 ml -2063.4 ml -59.22 ml medications Current Medications Medications Dose Ordered Sig/Laura Route Start Time Stop Time Status Last Admin Dose Admin Ondansetron HCl 4 mg Q4HP PRN IV 06/14/25 10:45 Acetaminophen 650 mg Q6HP PRN PO 06/14/25 10:45 Insulin Glargine 15 units DAILY SC 06/15/25 10:00 06/21/25 09:23 15 UNITS Patient Own Medication 1 cap DAILY PO 06/15/25 10:00 UNV Patient Own Medication 2 tab DAILY PO 06/15/25 10:00 UNV Patient Own Medication 1 cap DAILY PO 06/15/25 10:00 UNV Albuterol 2.5 mg Q4HWA [facility] 06/14/25 14:00 06/21/25 10:13 2.5 MG Ipratropium [place] 0.5 mg Q4HWA [facility] 06/14/25 14:00 06/21/25 10:13 0.5 MG Lamotrigine 50 mg DAILY PO 06/15/25 10:00 06/21/25 09:23 50 MG Norepinephrine Bitartrate 250 ml @ 3.75 mls/hr Q24H IV 06/14/25 13:30 06/16/25 05:58 22.5 MLS/HR Propofol 100 ml @ 2.04 mls/hr Q24H IV 06/14/25 14:00 06/21/25 04:09 10.2 MLS/HR Midazolam HCl 50 ml @ 1 mls/hr Q24H IV 06/14/25 14:00 06/20/25 18:19 5 MLS/HR Fentanyl Citrate 250 ml @ 2.5 mls/hr Q24H IV 06/14/25 14:00 06/20/25 13:42 15 MLS/HR Pantoprazole Sodium 40 mg BID IV 06/16/25 22:00 06/21/25 09:23 40 MG Diagnostic Test (Pha) 1 strip IQ4HR 06/17/25 20:00 06/21/25 08:04 1 STRIP Insulin Human Regular IQ4HR SC 06/17/25 20:00 06/21/25 08:06 2 UNITS Dextrose 50 ml UD PRN IV 06/17/25 18:00 Enteral Nutritional Formula 1,000 ml 30ML/HR GT 06/17/25 18:00 Metronidazole 100 ml @ 100 mls/hr Q8HR IV 06/18/25 22:00 06/21/25 05:11 100 MLS/HR Cefepime HCl 50 ml @ 12.5 mls/hr Q8H IV 06/19/25 20:00 06/21/25 04:10 12.5 MLS/HR Purified Water 200 ml Q6HR GT 06/19/25 18:00 06/20/25 23:59 200 ML Sodium Chloride 10 ml QSHIFT@10,22 IV 06/20/25 22:00 06/21/25 09:29 10 ML Potassium Chloride 100 ml @ 50 mls/hr Q2H IV 06/21/25 04:45 06/21/25 10:44 06/21/25 08:47 50 MLS/HR laboratory and microbiology Laboratory Tests 06/21/25 03:00 Test 06/21/25 03:00 Range/Units Serum Glucose 135 H 74-106 mg/dL Problem List/Assessment/Plan Problem List/Assessment/Plan 06/20/25 CHOLECYSTOSTOMY PLACED BY RADIOLOGIST YESTERDAY, DRAINING CLEAR BILE(CULTURES PENDING). ABDOMEN SOFT, NON DISTENDED, VITAL SIGNS UNCHANGED 06/21/25 essentially unchanged, abdomen non distended, soft, cholecystostomy draining clear bile. Plan discussed with: Other Dietary Evaluation Review Comments: 1) TF Vital AF 1.2Cal @ 55ml/hr (goal) Start @ 20ml/hr, increase 10ml/hr Q4H until goal is reached. TF @ goal volume along with Propofol provides 1746 kcal (100% energy needs), 99 gm protein (100% protein needs), 1104 ml free water. 2) Water flush 160ml Q6H if allowed, adjust PRN 3) TPN if NPO > 7 days 4) Monitor NPO status, lab values, wt trend, I/O Expected Outcomes/Goals: To meet >75% estimated needs Lab values to improve Fu 2-3 days JAXSON ZACARIAS MD Jun 21, 2025 10:18
[2025-06-21] MEDS: DEXMEDETOMIDINE HCL IN D5W 100 ML IV SCH (10:30)
--- NOTE | 2025-06-21 10:31 | DVHPNRES ---
Progress Note Date Seen: Jun 21, 2025 Resident Creating Document: CECELIA BROWN RESIDENT Medical Necessity Reason Pt with a Central, PICC or Fol: Yes The following are medically ne: Central Line Subjective Review of Systems Patient is a 50-year-old female with past medical history of asthma, type 2 diabetes, recurrent episodes of DKA, medical noncompliance, who came in due to hyperglycemia. According to the records, patient noted she did not have insulin at home, however, noted she did see her PCP 1 week ago. Patient lives with roommates and attempts at contacting family have been unsuccessful. Detailed history and review of systems could not be completed due to patient being intubated, sedated and mechanically ventilated. Of note, patient was discharged from the [facility] on 06/09/2025 after being treated for DKA. 06/18/25: low grade fevers, continued tachycardia. CT abdomen pelvis shows cholelithiasis with pericholecystic fluid, consulted IR, added metronidazole to vanc and cefepime. 06/19/2025: T-max 99.1, continues to have tachycardia as high as 121. Underwent cholecystostomy placement, blood cultures now showing Gram-positive cocci. Detailed discussions held about plan of care with patient's brother Mr. Riddle also via telephone, all questions were answered and concerns were addressed. 06/20/25: placed PICC line, dc'ed vancomycin. IV lasix 20mg once 06/21/25: going down on sedation. plan for cpap trial tomorrow. Objective vital signs Vital Sign Date Time Temp Pulse Resp B/P (MAP) Pulse Ox O2 Delivery O2 Flow Rate FiO2 06/21/25 10:13 122 26 117/79 (92) 99 30 06/21/25 10:00 Mechanical Ventilator+ 06/21/25 10:00 99.0 210.2 Total Intake and Output 06/20/25 06/20/25 06/21/25 15:00 23:00 07:00 Intake Total 605.38 ml 986.6 ml 890.78 ml Output Total 3050 ml 950 ml Balance 605.38 ml -2063.4 ml -59.22 ml medications Current Medications Medications Dose Ordered Sig/Laura Route Start Time Stop Time Status Last Admin Dose Admin Ondansetron HCl 4 mg Q4HP PRN IV 06/14/25 10:45 Acetaminophen 650 mg Q6HP PRN PO 06/14/25 10:45 Insulin Glargine 15 units DAILY SC 06/15/25 10:00 06/21/25 09:23 15 UNITS Patient Own Medication 1 cap DAILY PO 06/15/25 10:00 UNV Patient Own Medication 2 tab DAILY PO 06/15/25 10:00 UNV Patient Own Medication 1 cap DAILY PO 06/15/25 10:00 UNV Albuterol 2.5 mg Q4HWA NEB 06/14/25 14:00 06/21/25 10:13 2.5 MG Ipratropium [place] 0.5 mg Q4HWA NEB 06/14/25 14:00 06/21/25 10:13 0.5 MG Lamotrigine 50 mg DAILY PO 06/15/25 10:00 06/21/25 09:23 50 MG Norepinephrine Bitartrate 250 ml @ 3.75 mls/hr Q24H IV 06/14/25 13:30 06/16/25 05:58 22.5 MLS/HR Propofol 100 ml @ 2.04 mls/hr Q24H IV 06/14/25 14:00 06/21/25 04:09 10.2 MLS/HR Midazolam HCl 50 ml @ 1 mls/hr Q24H IV 06/14/25 14:00 06/20/25 18:19 5 MLS/HR Fentanyl Citrate 250 ml @ 2.5 mls/hr Q24H IV 06/14/25 14:00 06/20/25 13:42 15 MLS/HR Pantoprazole Sodium 40 mg BID IV 06/16/25 22:00 06/21/25 09:23 40 MG Diagnostic Test (Pha) 1 strip IQ4HR 06/17/25 20:00 06/21/25 08:04 1 STRIP Insulin Human Regular IQ4HR SC 06/17/25 20:00 06/21/25 08:06 2 UNITS Dextrose 50 ml UD PRN IV 06/17/25 18:00 Enteral Nutritional Formula 1,000 ml 30ML/HR GT 06/17/25 18:00 Metronidazole 100 ml @ 100 mls/hr Q8HR IV 06/18/25 22:00 06/21/25 05:11 100 MLS/HR Cefepime HCl 50 ml @ 12.5 mls/hr Q8H IV 06/19/25 20:00 06/21/25 04:10 12.5 MLS/HR Purified Water 200 ml Q6HR GT 06/19/25 18:00 06/20/25 23:59 200 ML Sodium Chloride 10 ml QSHIFT@10,22 IV 06/20/25 22:00 06/21/25 09:29 10 ML Potassium Chloride 100 ml @ 50 mls/hr Q2H IV 06/21/25 04:45 06/21/25 10:44 06/21/25 08:47 50 MLS/HR Examination General Appearance: Intubated, sedated, mechanically ventilated Head Exam: Constricted pupils. Neck Exam: Normal inspection. Non-tender. Normal alignment Pulmonary/Respiratory: Coarse bilateral breath sounds Cardiovascular/Chest: Regular rate and rhythm. No murmurs. No JVD. Abdominal Exam: Decreased bowel sounds. Soft. normal abdomen, no visible veins, Nontender. No hepatospenomegaly. No masses Ankle Exam: Negative ankle edema Lower extremities: Nonpitting edema of bilateral feet. L lower extremity warmth Skin Exam: Normal inspection. Normal color. Warm. Dry cholecystostomy draining dark green billous fluid 250ml in 24 hours laboratory and microbiology Laboratory Tests 06/21/25 03:00 Test 06/21/25 03:00 Range/Units Serum Glucose 135 H 74-106 mg/dL Microbiology Date/Time Source Procedure Growth Status 06/17/25 21:04 Blood Blood Culture - Preliminary NO GROWTH AFTER 72 HOURS OF INCUBATION. Resulted 06/14/25 16:30 Nose MRSA Screen - Final Methicillin Resistant S.aureus Complete 06/14/25 14:00 Sputum Gram Stain - Final Complete 06/14/25 14:00 Respiratory Culture - Final Methicillin Resistant S.aureus Complete 06/14/25 07:00 Voided Urine Urine Culture - Final Complete Problem List/Assessment/Plan Problem List/Assessment/Plan Neurology # acute metabolic encephalopathy # Sedated - intubated on 06/16/25 - fentanyl at 125 - propofol 15 -Versed 8 - Head CT: No acute intracranial abnormality. Respiratory # Ventilator RR 22, TV 400, FiO2 30%, peep 5 # Acute hypoxic respiratory failure # questionable pneumonia # history of asthma - ipratropium and albuterol med nebs - IV vancomycin - IV cefepime - CXR 06/16/25: Hazy opacity throughout the right hemithorax may be due to pneumonia or layering pleural effusion versus something outside of the patient. - CXR 06/17/2025: No evidence of acute disease GI # probable upper versus lower GI bleed # possible acute cholecystitis - s/p 2 PRBCs - GI on board - pen endoscopy once medically stable - CT abdomen pelvis: Limited evaluation without contrast. Rectal wall thickening with surrounding stranding. Correlate for proctocolitis and rectal catheter looped upon itself within the rectum. Right common femoral vein central venous catheter terminating in the right external iliac vein. Small amount of ascites /pelvic fluid. Soft tissue edema/ anasarca.Cholelithiasis and pericholecystic edema. Recommend HIDA scan to exclude cholecystitis.Small bilateral pleural effusions. - added metronidazole 06/18/25 - repeat blood cultures - liver ultrasound: Cholelithiasis and gallbladder wall thickening, may be seen with acute cholecystitis in the appropriate clinical setting. Gallbladder volume measures 94 mL. - s/p cholecystostomy # Peptic ulcer prophylaxis -Pantoprazole 40 mg IV b.i.d. Endo # T2DM, uncontrolled, insulin dependent # DKA, resolved # possible acute cholecystitis - insulin Lantus 15 units daily - moderate sliding scale insulin # Mayfield catheter Nephrology # MABLE, likely hemodynamically mediated/VMN # hyperphosphatemia due to above # hyperkalemia due to above # hypernatremia - IV D5W at 75 cc/hour - free water 250 mL q.4 hours; decreased free water to 200 mL q.6 hours on 06/19/2025 Infectious disease # questionable pneumonia, cultures growing MRSA # blood cultures growing Gram-positive rods; bacillus # possible acute cholecystitis # sepsis due to above - IV vancomycin, IV cefepime - CT abdomen pelvis: Limited evaluation without contrast. Rectal wall thickening with surrounding stranding. Correlate for proctocolitis and rectal catheter looped upon itself within the rectum. Right common femoral vein central venous catheter terminating in the right external iliac vein. Small amount of ascites /pelvic fluid. Soft tissue edema/ anasarca.Cholelithiasis and pericholecystic edema. Recommend HIDA scan to exclude cholecystitis.Small bilateral pleural effusions. - added metronidazole 06/18/25 - repeat blood cultures negative - IR consult for cholecystostomy Hem/onc # anemia, s/p 2 PRBC - monitor Psychiatry # bipolar disorder # medication nonadherence - resumed home medication lamotrigine DVT prophylaxis - Holding due to possible GI bleed Nutrition - tube feedings Glucerna Lines PICC line placed on 06/20/25 Right midline placed on 06/14/2025 Right 20 gauge placed on 06/16/2025 [facility] Versed 6 Fentanyl 150 Propofol 40 Critical care time 83 minutes excluding procedure. Code status discussed greater than 20 minutes: Full CODE STATUS. Detailed discussion about plan of care was held with patient's brother via telephone, all questions were answered and concerns addressed. Plan discussed with Dr. Machado Plan discussed with: Other (RN) My Orders My Orders Orders - CECELIA BROWN RESIDENT Procedure Category Date Status Time Electrocardigram EKG 06/20/25 Logged 10:16 Chest Portable XY 06/21/25 Resulted 04:00 Abg W/ Co-Ox RT 06/21/25 Logged 06:00 Dietary Evaluation Review Comments: 1) TF Vital AF 1.2Cal @ 55ml/hr (goal) Start @ 20ml/hr, increase 10ml/hr Q4H until goal is reached. TF @ goal volume along with Propofol provides 1746 kcal (100% energy needs), 99 gm protein (100% protein needs), 1104 ml free water. 2) Water flush 160ml Q6H if allowed, adjust PRN 3) TPN if NPO > 7 days 4) Monitor NPO status, lab values, wt trend, I/O Expected Outcomes/Goals: To meet >75% estimated needs Lab values to improve Fu 2-3 days CECELIA BROWN RESIDENT Jun 21, 2025 10:31
[2025-06-21] MEDS: PROPOFOL 100 ML IV SCH (14:02)
[2025-06-21] MEDS: POTASSIUM CHL 20MEQ/100ML 100 ML IV ONE (15:54)
--- NOTE | 2025-06-21 17:49 | DVHTSRES ---
Transfer Summary Transfer Summary Resident Creating Document: CECELIA BROWN RESIDENT Date of Admission Jun 14, 2025 at 10:39 Date of Transfer: Jun 21, 2025 Brief Hx & Hospital Course: Patient: 50-year-old female PMH: Asthma, Type 2 Diabetes Mellitus (insulin-dependent), Recurrent DKA, Bipolar Disorder, History of medical noncompliance Presentation: Admitted for hyperglycemia; reported lack of insulin at home despite recent PCP visit. Lives with roommates; family contact limited. Intubated, sedated, and mechanically ventilated since 06/16/2025. Hospital Course Summary: DKA: Resolved with appropriate management. Insulin regimen: Lantus 15 units daily + moderate sliding scale. Respiratory: Acute hypoxic respiratory failure; intubated 06/16/2025. Vent settings: RR 22, TV 400, FiO2 30%, PEEP 5. CXR 06/16: Right-sided hazy opacity (possible pneumonia or effusion). CXR 06/17: No acute disease. On ipratropium/albuterol nebs. Antibiotics: Vancomycin, Cefepime, Metronidazole (added 06/18). Cultures: MRSA in sputum; blood cultures with Gram-positive rods (Bacillus). GI: Probable GI bleed (upper vs. lower); s/p [address] A/P: Cholelithiasis, pericholecystic fluid, rectal wall thickening, ascites. Liver US: Gallbladder wall thickening, cholelithiasis. IR consulted; cholecystostomy placed 06/19. GI consulted; pending endoscopy when stable. Pantoprazole 40 mg IV BID for ulcer prophylaxis. Neuro: Acute metabolic encephalopathy. Sedation: Fentanyl 125 mcg/hr, Propofol 15 mcg/kg/min, Versed 8 mg/hr. Head CT: No acute intracranial abnormality. Renal/Metabolic: MABLE likely secondary to volume depletion and nephrotoxic meds. Electrolyte abnormalities: Hyperkalemia, hypernatremia, hyperphosphatemia. Fluids: D5W @ 75 cc/hr, free water 200 mL q6h (adjusted from 250 mL q4h). Infectious Disease: Sepsis likely secondary to pneumonia and cholecystitis. Blood cultures: Gram-positive rods (Bacillus); repeat cultures negative. Antibiotics: Vancomycin (discontinued 06/20), Cefepime, Metronidazole. IR placed cholecystostomy. Endocrine: T2DM, insulin-dependent. DKA resolved. Lantus + sliding scale insulin. : Mayfield catheter in place. Hematology: Anemia, s/p 2 PRBCs. Monitoring ongoing. Psychiatry: Bipolar disorder, history of nonadherence. Lamotrigine resumed. Nutrition: Glucerna tube feeds. Lines: PICC placed 06/20. Right midline placed 06/14. Peripheral IV (20G) placed 06/16. Procedures: Cholecystostomy 06/19. PICC line placement 06/20. Code Status: Full Code. Detailed discussion held with patient's brother, Mr. Riddle, via phone. Scheduled Duloxetine HCl (Duloxetine HCl), 1 CAP PO DAILY, (Reported) Hydrochlorothiazide (Hydrochlorothiazide), 1 TAB PO DAILY, (Reported) Insulin Glargine (Basaglar Kwikpen), 18 UNIT SC BID Lamotrigine (Lamotrigine), 2 TAB PO DAILY, (Reported) Losartan Potassium (Losartan Potassium), 1 TAB PO DAILY, (Reported) Omeprazole (Omeprazole Dr), 1 CAP PO DAILY, (Reported) Scheduled PRN Albuterol Sulfate (Ventolin Mdi), 90 MCG IN Q4HP PRN Miscellaneous Medications Olanzapine (Olanzapine Odt), 1 TAB PO, (Reported) CECELIA BROWN RESIDENT Jun 21, 2025 17:49
--- NOTE | 2025-06-21 21:34 | DVHPN2 ---
Progress Note - Dictate Date Seen: Jun 21, 2025 Medical Necessity Reason Pt with a Central, PICC or Fol: Yes The following are medically ne: Central Line Subjective Patient has not had any further coffee-ground ;NGT Output bilious Pt has been started on tube feedings which she is tolerating Hemoglobin stable at 9.7 Patient had a cholecystostomy tube placement draining clear bile vital signs Vital Sign Date Time Temp Pulse Resp B/P (MAP) Pulse Ox O2 Delivery O2 Flow Rate FiO2 06/21/25 20:43 130/80 06/21/25 20:10 120 25 99 30 06/21/25 18:45 98.8 209.8 06/21/25 18:00 Mechanical Ventilator+ Total Intake and Output 06/20/25 06/20/25 06/21/25 15:00 23:00 07:00 Intake Total 605.38 ml 986.6 ml 890.78 ml Output Total 3050 ml 950 ml Balance 605.38 ml -2063.4 ml -59.22 ml medications Current Medications Medications Dose Ordered Sig/Laura Route Start Time Stop Time Status Last Admin Dose Admin Ondansetron HCl 4 mg Q4HP PRN IV 06/14/25 10:45 Acetaminophen 650 mg Q6HP PRN PO 06/14/25 10:45 Insulin Glargine 15 units DAILY SC 06/15/25 10:00 06/21/25 09:23 15 UNITS Patient Own Medication 1 cap DAILY PO 06/15/25 10:00 UNV Patient Own Medication 2 tab DAILY PO 06/15/25 10:00 UNV Patient Own Medication 1 cap DAILY PO 06/15/25 10:00 UNV Albuterol 2.5 mg Q4HWA NEB 06/14/25 14:00 06/21/25 18:13 2.5 MG Ipratropium [place] 0.5 mg Q4HWA NEB 06/14/25 14:00 06/21/25 18:13 0.5 MG Lamotrigine 50 mg DAILY PO 06/15/25 10:00 06/21/25 09:23 50 MG Norepinephrine Bitartrate 250 ml @ 3.75 mls/hr Q24H IV 06/14/25 13:30 06/16/25 05:58 22.5 MLS/HR Midazolam HCl 50 ml @ 1 mls/hr Q24H IV 06/14/25 14:00 06/20/25 18:19 5 MLS/HR Fentanyl Citrate 250 ml @ 2.5 mls/hr Q24H IV 06/14/25 14:00 06/21/25 11:59 2.5 MLS/HR Pantoprazole Sodium 40 mg BID IV 06/16/25 22:00 06/21/25 09:23 40 MG Diagnostic Test (Pha) 1 strip IQ4HR 06/17/25 20:00 06/21/25 20:26 1 STRIP Insulin Human Regular IQ4HR SC 06/17/25 20:00 06/21/25 20:39 3 UNITS Dextrose 50 ml UD PRN IV 06/17/25 18:00 Enteral Nutritional Formula 1,000 ml 30ML/HR GT 06/17/25 18:00 Metronidazole 100 ml @ 100 mls/hr Q8HR IV 06/18/25 22:00 06/21/25 13:37 100 MLS/HR Cefepime HCl 50 ml @ 12.5 mls/hr Q8H IV 06/19/25 20:00 06/21/25 20:26 12.5 MLS/HR Purified Water 200 ml Q6HR GT 06/19/25 18:00 06/21/25 17:27 200 ML Sodium Chloride 10 ml QSHIFT@10,22 IV 06/20/25 22:00 06/21/25 09:29 10 ML Propofol 100 ml @ 2.286 mls/ hr Q24H IV 06/21/25 14:02 06/21/25 20:26 16.002 MLS/HR objective General: Intubated and sedated HEENT: NC/AT EOMI PERRLA ETT in place NG tube Regular rate and rhythm Soft nontender nondistended abdomen No clubbing cyanosis or edema Neuro patient is sedated laboratory and microbiology Laboratory Tests 06/21/25 13:15 06/21/25 03:00 Test 06/21/25 03:00 Range/Units Serum Glucose 135 H 74-106 mg/dL Problems(with codes): (1) Heme positive stool (2) Anemia (3) Cholelithiasis with cholecystitis (4) Coffee ground emesis (5) Asthma (6) DKA (diabetic ketoacidosis) (7) Acute metabolic encephalopathy (8) Sepsis Prognosis Plan Patient was undergoing sedation vacation today There is plan for attempt of CPAP and extubation over the weekend Patient is hemodynamically stable and does not appear to need an urgent EGD I will be standing by if the patient has signs of active bleeding otherwise endoscopy and colonoscopy will be scheduled at a later date Continue Protonix 40 mg IV q.12 hours Dietary Evaluation Review Comments: 1) TF Vital AF 1.2Cal @ 55ml/hr (goal) Start @ 20ml/hr, increase 10ml/hr Q4H until goal is reached. TF @ goal volume along with Propofol provides 1746 kcal (100% energy needs), 99 gm protein (100% protein needs), 1104 ml free water. 2) Water flush 160ml Q6H if allowed, adjust PRN 3) TPN if NPO > 7 days 4) Monitor NPO status, lab values, wt trend, I/O Expected Outcomes/Goals: To meet >75% estimated needs Lab values to improve Fu 2-3 days Plan discussed with: Other (ICU Nurse and Dr Gonzalez) DARIUS LLAMAS MD Jun 21, 2025 21:34
[2025-06-22] VITALS (106 sets, daily range): BP systolic 90–143; BP diastolic 58–83; PULSE 100–131; RESP 15–30; TEMP 98.4–99.9; O2SAT 98–100
[2025-06-22 03:43] LABS: Hematocrit 28.1 % (36.0-46.0); Hemoglobin 9.5 g/dL (12.2-16.2); Mean Corpuscular Hemoglobin 29.8 pg (28.0-32.0); Mean Corpuscular Volume 88.4 fL (80.0-100.0)
[2025-06-22 04:01] LABS: Alanine Aminotransferase 12 U/L (7-40); Alkaline Phosphatase 85 U/L (46-116); Anion Gap 15 (5-15); BUN/Creatinine Ratio 10.7 (10.0-20.0); Calcium 9.4 mg/dL (8.7-10.4); Carbon Dioxide 21 mmol/L (20-31); Sodium 145 mmol/L (136-145)
[2025-06-22 04:04] LABS: Albumin 2.8 g/dL (3.2-4.8); Bilirubin, Total < 0.2 mg/dL (0.2-1.0); Blood Urea Nitrogen 6 mg/dL (9-23); Chloride 109 mmol/L (98-107); Glucose 190 mg/dL (74-106); Potassium 3.2 mmol/L (3.5-5.1); Total Protein 4.8 g/dL (5.7-8.2)
[2025-06-22 04:35] LABS: Total Cells Counted 100.0 (100)
[2025-06-22] MEDS: POTASSIUM CHL 20MEQ/100ML 100 ML IV SCH (04:59)
--- NOTE | 2025-06-22 05:32 | DVH ---
CHEST RADIOGRAPH Indication: pna Technique: Single frontal view of the chest was obtained COMPARISON: XY CHEST PORTABLE on DOS: 06/21/25, XY CHEST PORTABLE on DOS: 06/20/25, XY CHEST PORTABLE o n DOS: 06/19/25, XY CHEST PORTABLE on DOS: 06/18/25, XY CHEST PORTABLE on DOS: 06/17/25 FINDINGS: Lines and Tubes: Endotracheal tube, enteric catheter and right PICC in satisfactory position Lungs: Left lower lobe airspace disease Pleura: No effusion. No pneumothorax. Cardiomediastinal contours: Unremarkable Bones: Unremarkable IMPRESSION: Lines and tubes in satisfactory position. No significant interval change.
--- NOTE | 2025-06-22 05:38 | DVH ---
Exam: US US GUIDED VASCULAR ACCESS Clinical History: PICC Placement Comparison: None Findings: Targeted sonographic evaluation of the arm vein was obtained utilizing grayscale and color Doppler im aging. IMPRESSION: Sonographic assistance for peripherally inserted central line placement. Please refer to procedural r eport for detailed findings.
[2025-06-22 07:17] LABS: Base Excess -5.0 mmol/L (-2.0-3.0)
[2025-06-22 12:02] LABS: Base Excess -5.1 mmol/L (-2.0-3.0)
--- NOTE | 2025-06-22 15:24 | DVHPN2 ---
Subjective The patient is seen and examined at bedside. Remained intubated. No events overnight. Reviewed: Care Plan, H&P, Labs, Medications, Previous Orders, Radiology Changes from previous H/P or p: No Changes Objective Vitals Vital Signs Date Time Temp Pulse Resp B/P (MAP) Pulse Ox O2 Delivery O2 Flow Rate FiO2 06/22/25 14:45 99.3 116 30 124/76 (92) 99 210.7 06/22/25 13:56 30 06/22/25 13:30 Mechanical Ventilator+ Intake/Output Intake and Output 06/22/25 07:00 Intake Total 2286.056 ml Output Total 1950 ml Balance 336.056 ml Intake Oral 920 ml IV Total 976.056 ml Tube Feeding 390 ml Output Urine Total 1650 ml Stool Total 0 ml Drainage Total 300 ml General Appearance: Other (intubated and sedated) HEENT: Atraumatic Lungs: Clear to auscultation Cardiovascular: Regular rate, Normal S1, Normal S2 Abdomen: Normal bowel sounds Medications Current Medications Medications Dose Ordered Sig/Laura Route Start Time Stop Time Status Last Admin Dose Admin Ondansetron HCl 4 mg Q4HP PRN IV 06/14/25 10:45 Acetaminophen 650 mg Q6HP PRN PO 06/14/25 10:45 Insulin Glargine 15 units DAILY SC 06/15/25 10:00 06/22/25 10:32 15 UNITS Patient Own Medication 1 cap DAILY PO 06/15/25 10:00 UNV Patient Own Medication 2 tab DAILY PO 06/15/25 10:00 UNV Patient Own Medication 1 cap DAILY PO 06/15/25 10:00 UNV Albuterol 2.5 mg Q4HWA NEB 06/14/25 14:00 06/22/25 14:15 2.5 MG Ipratropium [place] 0.5 mg Q4HWA NEB 06/14/25 14:00 06/22/25 14:15 0.5 MG Lamotrigine 50 mg DAILY PO 06/15/25 10:00 06/22/25 10:32 50 MG Norepinephrine Bitartrate 250 ml @ 3.75 mls/hr Q24H IV 06/14/25 13:30 06/16/25 05:58 22.5 MLS/HR Midazolam HCl 50 ml @ 1 mls/hr Q24H IV 06/14/25 14:00 06/20/25 18:19 5 MLS/HR Fentanyl Citrate 250 ml @ 2.5 mls/hr Q24H IV 06/14/25 14:00 06/21/25 11:59 2.5 MLS/HR Pantoprazole Sodium 40 mg BID IV 06/16/25 22:00 06/22/25 10:32 40 MG Diagnostic Test (Pha) 1 strip IQ4HR 06/17/25 20:00 06/22/25 11:43 1 STRIP Insulin Human Regular IQ4HR SC 06/17/25 20:00 06/22/25 11:43 3 UNITS Dextrose 50 ml UD PRN IV 06/17/25 18:00 Enteral Nutritional Formula 1,000 ml 30ML/HR GT 06/17/25 18:00 Metronidazole 100 ml @ 100 mls/hr Q8HR IV 06/18/25 22:00 06/22/25 14:06 100 MLS/HR Cefepime HCl 50 ml @ 12.5 mls/hr Q8H IV 06/19/25 20:00 06/22/25 11:46 12.5 MLS/HR Purified Water 200 ml Q6HR GT 06/19/25 18:00 06/22/25 11:42 200 ML Sodium Chloride 10 ml QSHIFT@10,22 IV 06/20/25 22:00 06/22/25 10:32 10 ML Propofol 100 ml @ 2.286 mls/ hr Q24H IV 06/21/25 14:02 06/22/25 05:19 9.144 MLS/HR Laboratory Results Laboratory Tests 06/22/25 03:00 Chemistry Test 06/22/25 03:00 Albumin 2.8 g/dL (3.2-4.8) L Calcium Level 9.4 mg/dL (8.7-10.4) Total Protein 4.8 g/dL (5.7-8.2) L LFT Test 06/22/25 03:00 Alanine Aminotransferase (ALT) 12 U/L (7-40) Alkaline Phosphatase 85 U/L (46-116) Aspartate Amino Transferase (AST) 19 U/L (13-40) Total Bilirubin < 0.2 mg/dL (0.2-1.0) L Urinalysis Test 06/14/25 07:00 Urine Color Light-yellow (Yellow) Urine Clarity Clear (Clear) Urine pH 5.0 (5.0-9.0) Urine Specific [place] 1.021 (1.001-1.035) Urine Protein Negative (Negative) Urine Ketones 4+ (Negative) H Urine Blood Negative /uL (Negative) Urine Nitrite Negative (Negative) Urine Bilirubin Negative (Negative) Urine Urobilinogen Normal mg/dL (Negative) Urine Leukocyte Esterase Negative /uL (Negative) Urine RBC 1 /hpf (0 - 4) Urine Microscopic WBC 2 /HPF (0-5) Urine Squamous Epithelial Cells Few /hpf (<5) Urine Bacteria None seen /hpf (None Seen) Urine Mucus Few (None Seen) Urine Glucose 4+ mg/dL (Normal) H Urine Test Negative (Negative) Blood Gas Results Test 06/22/25 07:08 06/22/25 11:53 Arterial Blood pH 7.381 (7.350-7.450) 7.387 (7.350-7.450) FiO2 % 30.0 30.0 Microbiology Microbiology Date/Time Source Procedure Growth Status 06/17/25 21:04 Blood Blood Culture - Preliminary NO GROWTH AFTER 72 HOURS OF INCUBATION. Resulted 06/14/25 16:30 Nose MRSA Screen - Final Methicillin Resistant S.aureus Complete 06/14/25 14:00 Sputum Gram Stain - Final Complete 06/14/25 14:00 Respiratory Culture - Final Methicillin Resistant S.aureus Complete 06/14/25 07:00 Voided Urine Urine Culture - Final Complete Labs and/or images reviewed: Labs reviewed by me Assessment/Plan Assessment/Plan Neurology # acute metabolic encephalopathy # Sedated - intubated on 06/16/25 - fentanyl at 125 - propofol 15 -Versed 8 - Head CT: No acute intracranial abnormality. Respiratory # Ventilator RR 22, TV 400, FiO2 30%, peep 5 # Acute hypoxic respiratory failure # questionable pneumonia # history of asthma - ipratropium and albuterol med nebs - IV vancomycin - IV cefepime - CXR 06/16/25: Hazy opacity throughout the right hemithorax may be due to pneumonia or layering pleural effusion versus something outside of the patient. - CXR 06/17/2025: No evidence of acute disease GI # probable upper versus lower GI bleed # possible acute cholecystitis - s/p 2 PRBCs - GI on board - pen endoscopy once medically stable - CT abdomen pelvis: Limited evaluation without contrast. Rectal wall thickening with surrounding stranding. Correlate for proctocolitis and rectal catheter looped upon itself within the rectum. Right common femoral vein central venous catheter terminating in the right external iliac vein. Small amount of ascites /pelvic fluid. Soft tissue edema/ anasarca.Cholelithiasis and pericholecystic edema. Recommend HIDA scan to exclude cholecystitis.Small bilateral pleural effusions. - added metronidazole 06/18/25 - repeat blood cultures - liver ultrasound: Cholelithiasis and gallbladder wall thickening, may be seen with acute cholecystitis in the appropriate clinical setting. Gallbladder volume measures 94 mL. - s/p cholecystostomy # Peptic ulcer prophylaxis -Pantoprazole 40 mg IV b.i.d. Endo # T2DM, uncontrolled, insulin dependent # DKA, resolved # possible acute cholecystitis - insulin Lantus 15 units daily - moderate sliding scale insulin # [place] catheter Nephrology # MABLE, likely hemodynamically mediated/VMN # hyperphosphatemia due to above # hyperkalemia due to above # hypernatremia - IV D5W at 75 cc/hour - free water 250 mL q.4 hours; decreased free water to 200 mL q.6 hours on 06/19/2025 Infectious disease # questionable pneumonia, cultures growing MRSA # blood cultures growing Gram-positive rods; bacillus # possible acute cholecystitis # sepsis due to above - IV vancomycin, IV cefepime - CT abdomen pelvis: Limited evaluation without contrast. Rectal wall thickening with surrounding stranding. Correlate for proctocolitis and rectal catheter looped upon itself within the rectum. Right common femoral vein central venous catheter terminating in the right external iliac vein. Small amount of ascites /pelvic fluid. Soft tissue edema/ anasarca.Cholelithiasis and pericholecystic edema. Recommend HIDA scan to exclude cholecystitis.Small bilateral pleural effusions. - added metronidazole 06/18/25 - repeat blood cultures negative - IR consult for cholecystostomy Hem/onc # anemia, s/p 2 PRBC - monitor Psychiatry # bipolar disorder # medication nonadherence - resumed home medication lamotrigine DVT prophylaxis - Holding due to possible GI bleed Nutrition - tube feedings Glucerna Lines PICC line placed on 06/20/25 Right midline placed on 06/14/2025 Right 20 gauge placed on 06/16/2025 [facility] Versed 6 Fentanyl 150 Propofol 40 Continuing current management Hopefully can extubate soon. Critical care time 37 minutes excluding procedure. This medical document was created using an electronic medical record system with [employer] computerized dictation system. Although this document has been carefully reviewed, there may still be some phonetic and typographical errors. These areas are purely typographical due to imperfections of the software programs, and do not reflect any compromise in the patient's medical care. Plan discussed with: Other (RN) Date of Service: Jun 22, 2025 Billing Provider: LIUDMILA MEDINA MD Common Visit Codes: [id number] INP/OBS CARE(HIGH) LIUDMILA MEDINA MD Jun 22, 2025 15:24
[2025-06-22] MEDS: Glucerna 1.2 Cal 1Liter BOTTLE GT SCH (21:50)
--- NOTE | 2025-06-22 23:07 | DVHPN2 ---
Progress Note - Dictate Date Seen: Jun 22, 2025 Medical Necessity Reason Pt with a Central, PICC or Fol: Yes The following are medically ne: Central Line, Sotelo Catheter Reason for sotelo catheter: Strict I&O Subjective [facility] Patient seen and examined at bedside. Intubated on mechanical ventilator. Overnight events reviewed. vital signs Vital Sign Date Time Temp Pulse Resp B/P (MAP) Pulse Ox O2 Delivery O2 Flow Rate FiO2 06/22/25 22:15 104 23 96/61 (73) 100 30 06/22/25 20:00 Mechanical Ventilator+ 06/22/25 18:00 99.3 210.7 Total Intake and Output 06/21/25 06/21/25 06/22/25 15:00 23:00 07:00 Intake Total 411.224 ml 695.506 ml 1181.231 ml Output Total 1100 ml 850 ml Balance 411.224 ml -404.494 ml 331.231 ml medications Current Medications Medications Dose Ordered Sig/Laura Route Start Time Stop Time Status Last Admin Dose Admin Ondansetron HCl 4 mg Q4HP PRN IV 06/14/25 10:45 Acetaminophen 650 mg Q6HP PRN PO 06/14/25 10:45 Insulin Glargine 15 units DAILY SC 06/15/25 10:00 06/22/25 10:32 15 UNITS Patient Own Medication 1 cap DAILY PO 06/15/25 10:00 UNV Patient Own Medication 2 tab DAILY PO 06/15/25 10:00 UNV Patient Own Medication 1 cap DAILY PO 06/15/25 10:00 UNV Albuterol 2.5 mg Q4HWA NEB 06/14/25 14:00 06/22/25 22:14 2.5 MG Ipratropium [place] 0.5 mg Q4HWA NEB 06/14/25 14:00 06/22/25 22:14 0.5 MG Lamotrigine 50 mg DAILY PO 06/15/25 10:00 06/22/25 10:32 50 MG Norepinephrine Bitartrate 250 ml @ 3.75 mls/hr Q24H IV 06/14/25 13:30 06/16/25 05:58 22.5 MLS/HR Midazolam HCl 50 ml @ 1 mls/hr Q24H IV 06/14/25 14:00 06/20/25 18:19 5 MLS/HR Fentanyl Citrate 250 ml @ 2.5 mls/hr Q24H IV 06/14/25 14:00 06/22/25 16:30 2.5 MLS/HR Pantoprazole Sodium 40 mg BID IV 06/16/25 22:00 06/22/25 21:50 40 MG Diagnostic Test (Pha) 1 strip IQ4HR 06/17/25 20:00 06/22/25 20:26 1 STRIP Insulin Human Regular IQ4HR SC 06/17/25 20:00 06/22/25 16:05 2 UNITS Dextrose 50 ml UD PRN IV 06/17/25 18:00 Enteral Nutritional Formula 1,000 ml 30ML/HR GT 06/17/25 18:00 06/22/25 21:50 1,000 ML Metronidazole 100 ml @ 100 mls/hr Q8HR IV 06/18/25 22:00 06/22/25 21:50 100 MLS/HR Cefepime HCl 50 ml @ 12.5 mls/hr Q8H IV 06/19/25 20:00 06/22/25 20:26 12.5 MLS/HR Purified Water 200 ml Q6HR GT 06/19/25 18:00 06/22/25 17:58 200 ML Sodium Chloride 10 ml QSHIFT@10,22 IV 06/20/25 22:00 06/22/25 21:50 10 ML Propofol 100 ml @ 2.286 mls/ hr Q24H IV 06/21/25 14:02 06/22/25 05:19 9.144 MLS/HR objective Gen.: Patient lying in bed in medical ICU. Intubated on mechanical ventilator. Head: Normocephalic, atraumatic. Eyes: PERRLA. Ears: Normal external anatomy. Throat: Endotracheal tube and orogastric tube in place. Neck: Supple, trachea midline. Chest: Transmitted breath sounds bilaterally. Decreased air entry bilaterally. No wheezing. Bibasilar crackles. Cardiovascular: Positive S1, positive S2. Regular rate and rhythm. Abdomen: Positive bowel sounds in all 4 quadrants. Soft, nontender, nondistended. : Sotelo in place. Normal external genitalia. Rectal: Deferred. Skin: Warm, dry. Intact. Extremities: 2+ radial pulses bilaterally. No lower extremity edema. Neuro: Off sedation laboratory and microbiology Laboratory Tests 06/22/25 03:00 Test 06/22/25 03:00 Range/Units Serum Glucose 190 H 74-106 mg/dL Assessment/Plan Impression Acute hypoxemic respiratory failure On mechanical ventilator Leukocytosis Atelectasis Sepsis Events Remains on vent support Currently on CPAP with PS 8, PEEP of 5 - patient tolerating Follow ABG and weaning parameters. ABG reviewed, compensated On Fentanyl drip Precedex Continue antibiotics Tube feeds on hold for CPAP. Monitor hemoglobin Monitor renal function Monitor electrolytes; supplement as needed Potassium supplementation Monitor sodium d/t hypernatremia Labs and imaging reviewed Plan: On mechanical ventilation S/p intubation On AC mode with RR 22, VT 400, PEEP 5, FiO2 30% Titrate to maintain sats 90% or above Sedation holiday daily If patient follows commands, proceed to weaning trial Pressure support 06/01, extubate when ready Continue antibiotics F/u cultures Bronchodilators Monitor renal function Monitor electrolytes Supplement as needed Monitor sodium d/t hypernatremia Pressors as needed for hemodynamic support To maintain a mean arterial pressure of 65 mmHg Monitor hemoglobin Transfuse blood products as needed Glycemic control DVT prophylaxis Prognosis: Poor given patient's multiple co-morbidities. Condition: Critical Rest of plan per hospitalist and other consultants. A total of 35 minutes of critical care time was spent reviewing the patient record, examining the patient, making a diagnostic and therapeutic plan, discussing this plan with the medical personnel, following up on diagnostic studies and following the patient for clinical stability excluding any and all procedures. At least 50% of this time was spent in direct, [id number] contact. Thank you Dr. Gonzalez for allowing me to participate in this patient's care. Further recommendations will depend on the patient's clinical course. Please do not hesitate to contact me if you have any questions or concerns. This medical document was created using an electronic medical record system with [employer] dictation system. Although these documentations are being carefully reviewed, there may still be some phonetic and typographical changes. The errors are purely typographical, due to imperfection on the software program, and do not reflect any compromise in the patient's medical care. Dietary Evaluation Review Comments: 1) TF Vital AF 1.2Cal @ 55ml/hr (goal) Start @ 20ml/hr, increase 10ml/hr Q4H until goal is reached. TF @ goal volume along with Propofol provides 1746 kcal (100% energy needs), 99 gm protein (100% protein needs), 1104 ml free water. 2) Water flush 160ml Q6H if allowed, adjust PRN 3) TPN if NPO > 7 days 4) Monitor NPO status, lab values, wt trend, I/O Expected Outcomes/Goals: To meet >75% estimated needs Lab values to improve Fu 2-3 days Plan discussed with: Other (ROSEMARY Santiago) Critical Care Time(min): 35 NURA PIPER MD Jun 22, 2025 23:07
[2025-06-23] VITALS (110 sets, daily range): BP systolic 92–148; BP diastolic 52–92; PULSE 98–128; RESP 10–29; TEMP 95–99.5; O2SAT 99–100
[2025-06-23 03:43] LABS: Hematocrit 25.2 % (36.0-46.0); Hemoglobin 8.9 g/dL (12.2-16.2); Mean Corpuscular Hemoglobin 30.9 pg (28.0-32.0); Mean Corpuscular Volume 87.8 fL (80.0-100.0)
[2025-06-23 03:57] LABS: Alanine Aminotransferase 14 U/L (7-40); Albumin 2.6 g/dL (3.2-4.8); Alkaline Phosphatase 76 U/L (46-116); Anion Gap 13 (5-15); BUN/Creatinine Ratio 10.4 (10.0-20.0); Blood Urea Nitrogen 5 mg/dL (9-23); Calcium 8.9 mg/dL (8.7-10.4); Carbon Dioxide 23 mmol/L (20-31); Chloride 109 mmol/L (98-107); Glucose 168 mg/dL (74-106); Potassium 3.1 mmol/L (3.5-5.1); Sodium 145 mmol/L (136-145); Total Protein 4.4 g/dL (5.7-8.2)
[2025-06-23 03:58] LABS: Bilirubin, Total < 0.2 mg/dL (0.2-1.0)
[2025-06-23 04:06] LABS: Total Cells Counted 100.0 (100)
[2025-06-23] MEDS: POTASSIUM CHL 20MEQ/100ML 100 ML IV SCH (05:08)
[2025-06-23 07:03] LABS: Base Excess -4.4 mmol/L (-2.0-3.0)
--- NOTE | 2025-06-23 09:04 | DVH ---
CHEST RADIOGRAPH Indication: intubated Technique: Single frontal view of the chest was obtained COMPARISON: XY CHEST PORTABLE on DOS: 06/22/25, XY CHEST PORTABLE on DOS: 06/21/25, XY CHEST PORTABLE o n DOS: 06/20/25, XY CHEST PORTABLE on DOS: 06/19/25, XY CHEST PORTABLE on DOS: 06/18/25 FINDINGS: Lines and Tubes: Endotracheal tube, enteric catheter and right PICC in satisfactory position. Lungs: Pulmonary vascular congestion Pleura: No effusion. No pneumothorax. Cardiomediastinal contours: Unremarkable Bones: Unremarkable IMPRESSION: Lines and tubes in satisfactory position. No significant interval change.
[2025-06-23 09:31] LABS: Base Excess -2.6 mmol/L (-2.0-3.0)
--- NOTE | 2025-06-23 11:30 | MEDREC ---
[facility] ASP Intervention Section I [facility] ASP Intervention: Dose optimization(PK/PD) (FOR ACUTE CHOLECYSTITIS CONSIDER CEFEPIME 2 G EVERY 8 HOURS TO 12 HOURS; IF P. AERUGINOSA IS SUSPECTED, USE 2 G EVERY 8 HOURS. CONTINUE FOR 1 DAY AFTER GALLBLADDER REMOVAL OR UNTIL CLINICAL RESOLUTION IN PATIENTS MANAGED NONOPERATIVELY ), Review courses of the rapy, Time Sensitive MARTA CARPIO PHARMACIST Jun 23, 2025 11:30
--- NOTE | 2025-06-23 12:33 | DVHPN2 ---
Subjective The patient is seen and examined at bedside. No events overnight. Status post extubate. Remained weak. Reviewed: Care Plan, H&P, Labs, Medications, Previous Orders, Radiology Changes from previous H/P or p: No Changes Objective Vitals Vital Signs Date Time Temp Pulse Resp B/P (MAP) Pulse Ox O2 Delivery O2 Flow Rate FiO2 06/23/25 12:03 22 100 Cool Aerosol 8 30 30 06/23/25 12:03 116 06/23/25 12:00 99.1 113/60 (77) 210.4 Intake/Output Intake and Output 06/23/25 07:00 Intake Total 1786.946 ml Output Total 1400 ml Balance 386.946 ml IV Total 681.946 ml Tube Feeding 305 ml Other 800 ml Output Urine Total 1075 ml Stool Total 0 ml Drainage Total 325 ml General Appearance: Alert, Cooperative HEENT: Atraumatic, Mucous membr. moist/pink Lungs: Clear to auscultation Cardiovascular: Regular rate, Normal S1, Normal S2 Abdomen: Normal bowel sounds Medications Current Medications Medications Dose Ordered Sig/Laura Route Start Time Stop Time Status Last Admin Dose Admin Ondansetron HCl 4 mg Q4HP PRN IV 06/14/25 10:45 Acetaminophen 650 mg Q6HP PRN PO 06/14/25 10:45 Insulin Glargine 15 units DAILY SC 06/15/25 10:00 06/23/25 10:16 15 UNITS Patient Own Medication 1 cap DAILY PO 06/15/25 10:00 UNV Patient Own Medication 2 tab DAILY PO 06/15/25 10:00 UNV Patient Own Medication 1 cap DAILY PO 06/15/25 10:00 UNV Albuterol 2.5 mg Q4HWA NEB 06/14/25 14:00 06/23/25 10:10 2.5 MG Ipratropium [place] 0.5 mg Q4HWA NEB 06/14/25 14:00 06/23/25 10:10 0.5 MG Lamotrigine 50 mg DAILY PO 06/15/25 10:00 06/23/25 10:07 50 MG Norepinephrine Bitartrate 250 ml @ 3.75 mls/hr Q24H IV 06/14/25 13:30 06/16/25 05:58 22.5 MLS/HR Midazolam HCl 50 ml @ 1 mls/hr Q24H IV 06/14/25 14:00 06/20/25 18:19 5 MLS/HR Fentanyl Citrate 250 ml @ 2.5 mls/hr Q24H IV 06/14/25 14:00 06/22/25 16:30 2.5 MLS/HR Pantoprazole Sodium 40 mg BID IV 06/16/25 22:00 06/23/25 10:07 40 MG Diagnostic Test (Pha) 1 strip IQ4HR 06/17/25 20:00 06/23/25 11:46 1 STRIP Insulin Human Regular IQ4HR SC 06/17/25 20:00 06/23/25 11:32 3 UNITS Dextrose 50 ml UD PRN IV 06/17/25 18:00 Enteral Nutritional Formula 1,000 ml 30ML/HR GT 06/17/25 18:00 06/22/25 21:50 1,000 ML Metronidazole 100 ml @ 100 mls/hr Q8HR IV 06/18/25 22:00 06/23/25 05:41 100 MLS/HR Cefepime HCl 50 ml @ 12.5 mls/hr Q8H IV 06/19/25 20:00 06/23/25 11:46 12.5 MLS/HR Purified Water 200 ml Q6HR GT 06/19/25 18:00 06/23/25 05:41 200 ML Sodium Chloride 10 ml QSHIFT@10,22 IV 06/20/25 22:00 06/23/25 10:07 10 ML Propofol 100 ml @ 2.286 mls/ hr Q24H IV 06/21/25 14:02 06/22/25 05:19 9.144 MLS/HR Lactulose 30 ml Q8HR NG 06/23/25 14:00 Laboratory Results Laboratory Tests 06/23/25 02:55 Chemistry Test 06/23/25 02:55 Albumin 2.6 g/dL (3.2-4.8) L Calcium Level 8.9 mg/dL (8.7-10.4) Total Protein 4.4 g/dL (5.7-8.2) L LFT Test 06/23/25 02:55 Alanine Aminotransferase (ALT) 14 U/L (7-40) Alkaline Phosphatase 76 U/L (46-116) Aspartate Amino Transferase (AST) 28 U/L (13-40) Total Bilirubin < 0.2 mg/dL (0.2-1.0) L Urinalysis Test 06/14/25 07:00 Urine Color Light-yellow (Yellow) Urine Clarity Clear (Clear) Urine pH 5.0 (5.0-9.0) Urine Specific [place] 1.021 (1.001-1.035) Urine Protein Negative (Negative) Urine Ketones 4+ (Negative) H Urine Blood Negative /uL (Negative) Urine Nitrite Negative (Negative) Urine Bilirubin Negative (Negative) Urine Urobilinogen Normal mg/dL (Negative) Urine Leukocyte Esterase Negative /uL (Negative) Urine RBC 1 /hpf (0 - 4) Urine Microscopic WBC 2 /HPF (0-5) Urine Squamous Epithelial Cells Few /hpf (<5) Urine Bacteria None seen /hpf (None Seen) Urine Mucus Few (None Seen) Urine Glucose 4+ mg/dL (Normal) H Urine Test Negative (Negative) Blood Gas Results Test 06/23/25 06:51 06/23/25 09:25 Arterial Blood pH 7.417 (7.350-7.450) 7.443 (7.350-7.450) FiO2 % 30.0 30.0 Microbiology Microbiology Date/Time Source Procedure Growth Status 06/17/25 21:04 Blood Blood Culture - Final NO GROWTH AFTER 5 DAYS OF INCUBATION. Complete 06/14/25 16:30 Nose MRSA Screen - Final Methicillin Resistant S.aureus Complete 06/14/25 14:00 Sputum Gram Stain - Final Complete 06/14/25 14:00 Respiratory Culture - Final Methicillin Resistant S.aureus Complete 06/14/25 07:00 Voided Urine Urine Culture - Final Complete Labs and/or images reviewed: Labs reviewed by me Assessment/Plan Assessment/Plan Neurology # acute metabolic encephalopathy # Sedated - intubated on 06/16/25 -status post extubate today 06/23/2025 -sedation d/c - Head CT: No acute intracranial abnormality. Respiratory # Ventilator DC, extubated. RR 22, TV 400, FiO2 30%, peep 5 # Acute hypoxic respiratory failure # questionable pneumonia # history of asthma - ipratropium and albuterol med nebs - IV vancomycin - IV cefepime - CXR 06/16/25: Hazy opacity throughout the right hemithorax may be due to pneumonia or layering pleural effusion versus something outside of the patient. - CXR 06/17/2025: No evidence of acute disease GI # probable upper versus lower GI bleed # possible acute cholecystitis - s/p 2 PRBCs - GI on board - pen endoscopy once medically stable - CT abdomen pelvis: Limited evaluation without contrast. Rectal wall thickening with surrounding stranding. Correlate for proctocolitis and rectal catheter looped upon itself within the rectum. Right common femoral vein central venous catheter terminating in the right external iliac vein. Small amount of ascites /pelvic fluid. Soft tissue edema/ anasarca.Cholelithiasis and pericholecystic edema. Recommend HIDA scan to exclude cholecystitis.Small bilateral pleural effusions. - added metronidazole 06/18/25 - repeat blood cultures - liver ultrasound: Cholelithiasis and gallbladder wall thickening, may be seen with acute cholecystitis in the appropriate clinical setting. Gallbladder volume measures 94 mL. - s/p cholecystostomy # Peptic ulcer prophylaxis -Pantoprazole 40 mg IV b.i.d. Endo # T2DM, uncontrolled, insulin dependent # DKA, resolved # possible acute cholecystitis - insulin Lantus 15 units daily - moderate sliding scale insulin # [place] catheter Nephrology # MABLE, likely hemodynamically mediated/VMN # hyperphosphatemia due to above # hyperkalemia due to above # hypernatremia - IV D5W at 75 cc/hour - free water 250 mL q.4 hours; decreased free water to 200 mL q.6 hours on 06/19/2025 Infectious disease # questionable pneumonia, cultures growing MRSA # blood cultures growing Gram-positive rods; bacillus # possible acute cholecystitis # sepsis due to above - IV vancomycin, IV cefepime - CT abdomen pelvis: Limited evaluation without contrast. Rectal wall thickening with surrounding stranding. Correlate for proctocolitis and rectal catheter looped upon itself within the rectum. Right common femoral vein central venous catheter terminating in the right external iliac vein. Small amount of ascites /pelvic fluid. Soft tissue edema/ anasarca.Cholelithiasis and pericholecystic edema. Recommend HIDA scan to exclude cholecystitis.Small bilateral pleural effusions. - added metronidazole 06/18/25 - repeat blood cultures negative - IR consult for cholecystostomy Hem/onc # anemia, s/p 2 PRBC - monitor Psychiatry # bipolar disorder # medication nonadherence - resumed home medication lamotrigine DVT prophylaxis - Holding due to possible GI bleed Nutrition - tube feedings Glucerna Lines PICC line placed on 06/20/25 Right midline placed on 06/14/2025 Right 20 gauge placed on 06/16/2025 Drips during mech ventilation Versed 6 Fentanyl 150 Propofol 40 Continuing current management Status post extubate today Will monitor Swallow evaluation before restart diet. Critical care time 37 minutes excluding procedure. This medical document was created using an electronic medical record system with [employer] direct computerized dictation system. Although this document has been carefully reviewed, there may still be some phonetic and typographical errors. These areas are purely typographical due to imperfections of the software programs, and do not reflect any compromise in the patient's medical care. Plan discussed with: Patient, Other (RN) My Orders Orders - LIUDMILA MEDINA MD Procedure Category Date Status Time Lactulose Oral PHA 06/23/25 In Process 14:00 Date of Service: Jun 23, 2025 Billing Provider: LIUDMILA MEDINA MD Common Visit Codes: [id number] INP/OBS CARE(HIGH) LIUDMILA MEDINA MD Jun 23, 2025 12:33
[2025-06-23] MEDS: LACTULOSE 20Gm/30ML SOLN NG SCH (14:00)
--- NOTE | 2025-06-23 23:15 | DVHPN2 ---
Progress Note - Dictate Date Seen: Jun 23, 2025 Medical Necessity Reason Pt with a Central, PICC or Fol: Yes The following are medically ne: Central Line, Sotelo Catheter Reason for sotelo catheter: Strict I&O Subjective [facility] Patient seen and examined at bedside. Intubated on mechanical ventilator. Overnight events reviewed. vital signs Vital Sign Date Time Temp Pulse Resp B/P (MAP) Pulse Ox O2 Delivery O2 Flow Rate FiO2 06/23/25 22:30 98.1 99 19 143/89 (107) 100 208.6 06/23/25 22:00 Nasal Cannula* 2 28 Total Intake and Output 06/22/25 06/22/25 06/23/25 15:00 23:00 07:00 Intake Total 205.506 ml 702.720 ml 878.720 ml Output Total 850 ml 550 ml Balance 205.506 ml -147.280 ml 328.720 ml medications Current Medications Medications Dose Ordered Sig/Laura Route Start Time Stop Time Status Last Admin Dose Admin Ondansetron HCl 4 mg Q4HP PRN IV 06/14/25 10:45 Acetaminophen 650 mg Q6HP PRN PO 06/14/25 10:45 Insulin Glargine 15 units DAILY SC 06/15/25 10:00 06/23/25 10:16 15 UNITS Patient Own Medication 1 cap DAILY PO 06/15/25 10:00 UNV Patient Own Medication 2 tab DAILY PO 06/15/25 10:00 UNV Patient Own Medication 1 cap DAILY PO 06/15/25 10:00 UNV Albuterol 2.5 mg Q4HWA NEB 06/14/25 14:00 06/23/25 22:08 2.5 MG Ipratropium [place] 0.5 mg Q4HWA NEB 06/14/25 14:00 06/23/25 22:08 0.5 MG Lamotrigine 50 mg DAILY PO 06/15/25 10:00 06/23/25 10:07 50 MG Norepinephrine Bitartrate 250 ml @ 3.75 mls/hr Q24H IV 06/14/25 13:30 06/16/25 05:58 22.5 MLS/HR Midazolam HCl 50 ml @ 1 mls/hr Q24H IV 06/14/25 14:00 06/20/25 18:19 5 MLS/HR Pantoprazole Sodium 40 mg BID IV 06/16/25 22:00 06/23/25 22:53 40 MG Diagnostic Test (Pha) 1 strip IQ4HR 06/17/25 20:00 06/23/25 23:02 1 STRIP Insulin Human Regular IQ4HR SC 06/17/25 20:00 06/23/25 23:03 2 UNITS Dextrose 50 ml UD PRN IV 06/17/25 18:00 Enteral Nutritional Formula 1,000 ml 30ML/HR GT 06/17/25 18:00 06/22/25 21:50 1,000 ML Metronidazole 100 ml @ 100 mls/hr Q8HR IV 06/18/25 22:00 06/23/25 22:53 100 MLS/HR Cefepime HCl 50 ml @ 12.5 mls/hr Q8H IV 06/19/25 20:00 06/23/25 19:54 12.5 MLS/HR Purified Water 200 ml Q6HR GT 06/19/25 18:00 06/23/25 05:41 200 ML Sodium Chloride 10 ml QSHIFT@10,22 IV 06/20/25 22:00 06/23/25 22:53 10 ML Propofol 100 ml @ 2.286 mls/ hr Q24H IV 06/21/25 14:02 06/22/25 05:19 9.144 MLS/HR Lactulose 30 ml Q8HR NG 06/23/25 14:00 objective Gen.: Patient lying in bed in medical ICU. Intubated on mechanical ventilator. Head: Normocephalic, atraumatic. Eyes: PERRLA. Ears: Normal external anatomy. Throat: Endotracheal tube and orogastric tube in place. Neck: Supple, trachea midline. Chest: Transmitted breath sounds bilaterally. Decreased air entry bilaterally. No wheezing. Bibasilar crackles. Cardiovascular: Positive S1, positive S2. Regular rate and rhythm. Abdomen: Positive bowel sounds in all 4 quadrants. Soft, nontender, nondistended. : Sotelo in place. Normal external genitalia. Rectal: Deferred. Skin: Warm, dry. Intact. Extremities: 2+ radial pulses bilaterally. No lower extremity edema. Neuro: Off sedation laboratory and microbiology Laboratory Tests 06/23/25 02:55 Test 06/23/25 02:55 Range/Units Serum Glucose 168 H 74-106 mg/dL Assessment/Plan Impression Acute hypoxemic respiratory failure On mechanical ventilator Leukocytosis Atelectasis Sepsis Events Remains on vent support Currently on CPAP with PS 8, PEEP of 5 - patient tolerated Reviewed ABG and weaning parameters. Plan to extubate. On Precedex drip Continue antibiotics Tube feeds on hold for CPAP. Monitor hemoglobin Monitor renal function Monitor electrolytes; supplement as needed Potassium supplementation Monitor sodium d/t hypernatremia Labs and imaging reviewed Plan: On mechanical ventilation S/p intubation Titrate to maintain sats 90% or above Off sedation, on Precedex drip. CPAP with pressure support 07/02, extubate when ready Continue antibiotics F/u cultures Bronchodilators Monitor renal function Monitor electrolytes Supplement as needed Monitor sodium d/t hypernatremia Pressors as needed for hemodynamic support To maintain a mean arterial pressure of 65 mmHg Monitor hemoglobin Transfuse blood products as needed Glycemic control DVT prophylaxis Prognosis: Poor given patient's multiple co-morbidities. Condition: Critical Rest of plan per hospitalist and other consultants. A total of 35 minutes of critical care time was spent reviewing the patient record, examining the patient, making a diagnostic and therapeutic plan, discussing this plan with the medical personnel, following up on diagnostic studies and following the patient for clinical stability excluding any and all procedures. At least 50% of this time was spent in direct, [id number] contact. Thank you Dr. Gonzalez for allowing me to participate in this patient's care. Further recommendations will depend on the patient's clinical course. Please do not hesitate to contact me if you have any questions or concerns. This medical document was created using an electronic medical record system with [employer] computerized dictation system. Although these documentations are being carefully reviewed, there may still be some phonetic and typographical changes. The errors are purely typographical, due to imperfection on the software program, and do not reflect any compromise in the patient's medical care. Dietary Evaluation Review Comments: 1) TF Vital AF 1.2Cal @ 55ml/hr (goal) Start @ 20ml/hr, increase 10ml/hr Q4H until goal is reached. TF @ goal volume along with Propofol provides 1746 kcal (100% energy needs), 99 gm protein (100% protein needs), 1104 ml free water. 2) Water flush 160ml Q6H if allowed, adjust PRN 3) TPN if NPO > 7 days 4) Monitor NPO status, lab values, wt trend, I/O Expected Outcomes/Goals: To meet >75% estimated needs Lab values to improve Fu 2-3 days Plan discussed with: Other (ROSEMARY Santiago) Critical Care Time(min): 35 NURA PIPER MD Jun 23, 2025 23:15
--- NOTE | 2025-06-23 23:53 | DVHPN2 ---
Progress Note - Dictate Date Seen: Jun 23, 2025 Medical Necessity Reason Pt with a Central, PICC or Fol: Yes The following are medically ne: Central Line, Sotelo Catheter Reason for sotelo catheter: Strict I&O Subjective Patient has been extubated on 2 L nasal cannula No further GI bleeding or coffee-ground emesis, H&H down to 8.9 Patient had a cholecystostomy tube placement draining clear bile vital signs Vital Sign Date Time Temp Pulse Resp B/P (MAP) Pulse Ox O2 Delivery O2 Flow Rate FiO2 06/23/25 22:30 98.1 99 19 143/89 (107) 100 208.6 06/23/25 22:00 Nasal Cannula* 2 28 Total Intake and Output 06/22/25 06/22/25 06/23/25 15:00 23:00 07:00 Intake Total 205.506 ml 702.720 ml 878.720 ml Output Total 850 ml 550 ml Balance 205.506 ml -147.280 ml 328.720 ml medications Current Medications Medications Dose Ordered Sig/Laura Route Start Time Stop Time Status Last Admin Dose Admin Ondansetron HCl 4 mg Q4HP PRN IV 06/14/25 10:45 Acetaminophen 650 mg Q6HP PRN PO 06/14/25 10:45 Insulin Glargine 15 units DAILY SC 06/15/25 10:00 06/23/25 10:16 15 UNITS Patient Own Medication 1 cap DAILY PO 06/15/25 10:00 UNV Patient Own Medication 2 tab DAILY PO 06/15/25 10:00 UNV Patient Own Medication 1 cap DAILY PO 06/15/25 10:00 UNV Albuterol 2.5 mg Q4HWA NEB 06/14/25 14:00 06/23/25 22:08 2.5 MG Ipratropium [place] 0.5 mg Q4HWA NEB 06/14/25 14:00 06/23/25 22:08 0.5 MG Lamotrigine 50 mg DAILY PO 06/15/25 10:00 06/23/25 10:07 50 MG Norepinephrine Bitartrate 250 ml @ 3.75 mls/hr Q24H IV 06/14/25 13:30 06/16/25 05:58 22.5 MLS/HR Midazolam HCl 50 ml @ 1 mls/hr Q24H IV 06/14/25 14:00 06/20/25 18:19 5 MLS/HR Pantoprazole Sodium 40 mg BID IV 06/16/25 22:00 06/23/25 22:53 40 MG Diagnostic Test (Pha) 1 strip IQ4HR 06/17/25 20:00 06/23/25 23:02 1 STRIP Insulin Human Regular IQ4HR SC 06/17/25 20:00 06/23/25 23:03 2 UNITS Dextrose 50 ml UD PRN IV 06/17/25 18:00 Enteral Nutritional Formula 1,000 ml 30ML/HR GT 06/17/25 18:00 06/22/25 21:50 1,000 ML Metronidazole 100 ml @ 100 mls/hr Q8HR IV 06/18/25 22:00 06/23/25 22:53 100 MLS/HR Cefepime HCl 50 ml @ 12.5 mls/hr Q8H IV 06/19/25 20:00 06/23/25 19:54 12.5 MLS/HR Purified Water 200 ml Q6HR GT 06/19/25 18:00 06/23/25 05:41 200 ML Sodium Chloride 10 ml QSHIFT@10,22 IV 06/20/25 22:00 06/23/25 22:53 10 ML Propofol 100 ml @ 2.286 mls/ hr Q24H IV 06/21/25 14:02 06/22/25 05:19 9.144 MLS/HR Lactulose 30 ml Q8HR NG 06/23/25 14:00 objective General: Intubated and sedated HEENT: NC/AT EOMI PERRLA ETT in place NG tube Regular rate and rhythm Soft nontender nondistended abdomen No clubbing cyanosis or edema Neuro patient is sedated laboratory and microbiology Laboratory Tests 06/23/25 02:55 Test 06/23/25 02:55 Range/Units Serum Glucose 168 H 74-106 mg/dL Problems(with codes): (1) Heme positive stool (2) Cholelithiasis with cholecystitis (3) Anemia (4) Coffee ground emesis (5) DKA (diabetic ketoacidosis) (6) Sepsis (7) Acute metabolic encephalopathy Prognosis PLAN Patient is hemodynamically stable and does not appear to need an urgent EGD I will be standing by if the patient has signs of active bleeding otherwise endoscopy and colonoscopy will be scheduled at a later date possibly as an outpatient Continue Protonix 40 mg IV q.12 hours Dietary Evaluation Review Comments: 1) TF Vital AF 1.2Cal @ 55ml/hr (goal) Start @ 20ml/hr, increase 10ml/hr Q4H until goal is reached. TF @ goal volume along with Propofol provides 1746 kcal (100% energy needs), 99 gm protein (100% protein needs), 1104 ml free water. 2) Water flush 160ml Q6H if allowed, adjust PRN 3) TPN if NPO > 7 days 4) Monitor NPO status, lab values, wt trend, I/O Expected Outcomes/Goals: To meet >75% estimated needs Lab values to improve Fu 2-3 days Plan discussed with: Other (None) DARIUS LLAMAS MD Jun 23, 2025 23:53
[2025-06-24] VITALS (107 sets, daily range): BP systolic 115–155; BP diastolic 64–98; PULSE 103–130; RESP 14–29; TEMP 97.9–99.9; O2SAT 93–100
[2025-06-24 03:58] LABS: Hematocrit 28.7 % (36.0-46.0); Hemoglobin 9.9 g/dL (12.2-16.2); Mean Corpuscular Hemoglobin 29.9 pg (28.0-32.0); Mean Corpuscular Volume 86.8 fL (80.0-100.0)
[2025-06-24 04:13] LABS: Sodium 144 mmol/L (136-145)
[2025-06-24 04:35] LABS: BUN/Creatinine Ratio 15.2 (10.0-20.0); Blood Urea Nitrogen < 5 mg/dL (9-23); Calcium 8.0 mg/dL (8.7-10.4); Chloride 108 mmol/L (98-107); Glucose 115 mg/dL (74-106); Potassium 2.8 mmol/L (3.5-5.1)
[2025-06-24 04:45] LABS: Anion Gap 17 (5-15)
[2025-06-24 04:48] LABS: Carbon Dioxide 19 mmol/L (20-31)
[2025-06-24 05:06] LABS: Total Cells Counted 100.0 (100)
[2025-06-24] MEDS: POTASSIUM CHL 20MEQ/100ML 100 ML IV ONE ×2 (06:07→06:08)
--- NOTE | 2025-06-24 10:04 | DVH ---
XY CHEST XRAY 1 VIEW, HISTORY: f/u extubated COMPARISON: XY CHEST PORTABLE on DOS: 06/23/25, XY CHEST PORTABLE on DOS: 06/22/25, XY CHEST PORTABLE o n DOS: 06/21/25 XY CHEST PORTABLE on DOS: 06/23/25, XY CHEST PORTABLE on DOS: 06/22/25, XY CHEST PORTABLE on DOS: TECHNICAL DATA: 1 view of the chest was obtained. FINDINGS: Lines and tubes: Right arm PICC is noted. A cholecystostomy tube is seen in the same position. Cardiomediastinal silhouette: normal Pulmonary vasculature: normal Lung expansion: normal Lung airspace: normal Lung interstitium: normal Pleura: normal Pneumothorax: no Bones: Unremarkable Other: no IMPRESSION: No acute intrathoracic abnormality.
[2025-06-24] MEDS ORDERED: POTASSIUM CHL 20MEQ/100ML 100 ML IV ONE ×3 (11:15)
[2025-06-24] MEDS: MAGNESIUM SULFATE 1GM/100ML 100 ML IV SCH (11:47)
[2025-06-24] MEDS: POTASSIUM CHL 20MEQ/100ML 100 ML IV SCH (11:47)
[2025-06-24] MEDS: METOCLOPRAMIDE HCL 5MG/ml INJ 2ml VIAL IV ONE (15:11)
[2025-06-24] MEDS ORDERED: CLINIMIX PER PHARMACY 0 ML IV SCH (16:00)
[2025-06-24] MEDS ORDERED: DEXTROSE (50%) 50ML SYRG IV SCH (16:15)
[2025-06-24] MEDS: InsuLIN REG 1unit/0.01ml Soln (100units/ml) SC SCH ×2 (16:44→21:07)
[2025-06-24] MEDS: ACCU-CHEK COMFORT CURVE STRIP VI SCH ×2 (16:44→20:59)
--- NOTE | 2025-06-24 17:00 | DVHPNRES ---
Progress Note Date Seen: Jun 24, 2025 Resident Creating Document: ALONZO NAQVI RESIDENT Medical Necessity Reason Pt with a Central, PICC or Fol: Yes The following are medically ne: Central Line, Sotelo Catheter Reason for sotelo catheter: Strict I&O Subjective Review of Systems Chanell Riddle is a 50-year-old female with a history of asthma, type 2 diabetes, recurrent DKA, and medical noncompliance, who presented with hyperglycemia. She reported not having insulin at home despite a recent PCP visit one week prior. She lives with roommates, and family contact attempts were unsuccessful. A detailed history and review of systems were limited due to the patient being intubated, sedated, and mechanically ventilated. Notably, she was recently discharged from [facility] on 06/09/2025 after treatment for DKA. Between June 18 and June 23, 2025, the patient experienced improvement in her condition and cholecystotomy tube placement. On June 18, the patient developed low-grade fevers and tachycardia. A CT scan of the abdomen and pelvis revealed cholelithiasis with pericholecystic fluid, prompting an interventional radiology (IR) consult and the addition of metronidazole to the existing antibiotic regimen of vancomycin and cefepime. On June 19, the patient had a maximum temperature of 99.1F and continued tachycardia (heart rate up to 121). A cholecystostomy was performed, and blood cultures revealed Gram-positive cocci. The care plan was discussed with the patient's brother, Mr. Riddle. On June 20, a PICC line was placed, vancomycin was discontinued, and the patient received a single dose of IV Lasix (20 mg). On June 21, sedation was reduced in preparation for a CPAP trial planned for the next day. By June 23, the patient was successfully extubated and transitioned from nasal cannula to room air. Today(06/24), the patient was seen and examined at the bedside. She is currently post-extubation day 1 and on room air. The patient reported generalized weakness. She failed her swallow evaluation today and was subsequently started on Clinimix IV for nutritional support. Potassium and magnesium were replenished. A physical therapy evaluation was ordered. The patient was also started on Reglan and received a tap water enema to assist with bowel movements. Discontinued free water. Objective vital signs Vital Sign Date Time Temp Pulse Resp B/P (MAP) Pulse Ox O2 Delivery O2 Flow Rate FiO2 06/24/25 16:23 123 06/24/25 16:03 97 Room Air* 0 N/A Nasal Cannula* 06/24/25 16:00 99.4 20 128/73 (91) 99.4 Total Intake and Output 06/23/25 06/23/25 06/24/25 15:00 23:00 07:00 Intake Total 67.145 ml 112.5 ml 186 ml Output Total 850 ml 1600 ml Balance 67.145 ml -737.5 ml -1414 ml medications Current Medications Medications Dose Ordered Sig/Laura Route Start Time Stop Time Status Last Admin Dose Admin Ondansetron HCl 4 mg Q4HP PRN IV 06/14/25 10:45 Acetaminophen 650 mg Q6HP PRN PO 06/14/25 10:45 Insulin Glargine 15 units DAILY SC 06/15/25 10:00 06/24/25 10:23 15 UNITS Patient Own Medication 1 cap DAILY PO 06/15/25 10:00 UNV Patient Own Medication 2 tab DAILY PO 06/15/25 10:00 UNV Patient Own Medication 1 cap DAILY PO 06/15/25 10:00 UNV Albuterol 2.5 mg Q4HWA NEB 06/14/25 14:00 06/24/25 13:50 2.5 MG Ipratropium [place] 0.5 mg Q4HWA NEB 06/14/25 14:00 06/24/25 13:50 0.5 MG Lamotrigine 50 mg DAILY PO 06/15/25 10:00 06/23/25 10:07 50 MG Pantoprazole Sodium 40 mg BID IV 06/16/25 22:00 06/24/25 10:21 40 MG Enteral Nutritional Formula 1,000 ml 30ML/HR GT 06/17/25 18:00 06/22/25 21:50 1,000 ML Metronidazole 100 ml @ 100 mls/hr Q8HR IV 06/18/25 22:00 06/24/25 15:11 100 MLS/HR Cefepime HCl 50 ml @ 12.5 mls/hr Q8H IV 06/19/25 20:00 06/24/25 11:47 12.5 MLS/HR Sodium Chloride 10 ml QSHIFT@10,22 IV 06/20/25 22:00 06/24/25 10:21 10 ML Metoclopramide HCl 5 mg Q8HR IV 06/24/25 22:00 Amino Acids 0 ml @ 0 mls/hr PER PHARMACY IV 06/24/25 16:00 Diagnostic Test (Pha) 1 strip Q6HR 06/24/25 18:00 Insulin Human Regular FOLLOW SLIDING SCALE Q6HR SC 06/24/25 18:00 Dextrose 50 ml UD IV 06/24/25 16:15 Amino Acids/ Electrolytes/ Dextrose 1,000 ml @ 41 mls/hr DAILY@2200 IV 06/24/25 22:00 Examination Pt is lying on bed General Appearance: Alert, Oriented X3, Cooperative, mild distress HEENT: Atraumatic, Mucous membranes moist/pink Respiratory: Clear to auscultation, Normal air movement, No added sounds Cardiovascular: Regular rate, Normal S1, Normal S2, No murmurs Abdominal: Hypo Active bowel sounds, Soft, no distention, no tenderness, cholecystostomy tube in place, draining bile Extremities: Generalized edema, Normal pulses, No tenderness Skin: No Significant rash, except past surgical scars Neuro: Normal speech, sensorimotor deficits none Psych/Mental Status: Mental status NL, Mood NL Nurse was there as pest control worker helper during examination laboratory and microbiology Laboratory Tests 06/24/25 02:59 Test 06/24/25 02:59 Range/Units Serum Glucose 115 H 74-106 mg/dL Microbiology Date/Time Source Procedure Growth Status 06/17/25 21:04 Blood Blood Culture - Final NO GROWTH AFTER 5 DAYS OF INCUBATION. Complete 06/14/25 16:30 Nose MRSA Screen - Final Methicillin Resistant S.aureus Complete 06/14/25 14:00 Sputum Gram Stain - Final Complete 06/14/25 14:00 Respiratory Culture - Final Methicillin Resistant S.aureus Complete 06/14/25 07:00 Voided Urine Urine Culture - Final Complete Labs and/or images reviewed: Labs reviewed by me, Image(s) reviewed by me Problem List/Assessment/Plan Problem List/Assessment/Plan Neurology # Acute metabolic encephalopathy likely from DKA resolving - intubated on 06/16/25, extubated on June 23 - fentanyl , propofol, Versed discontinued on June 22 - Head CT: No acute intracranial abnormality. Respiratory # Acute hypoxic respiratory failure-status post extubation June 23 and on room air right now # ? Acute Gram-positive/negative bacterial PNA, resolving # Hx of asthma , not in exacerbation - ipratropium and albuterol med nebs - IV vancomycin discontinued on 06/20 - IV cefepime and Flagyl - CXR 06/16/25: Hazy opacity throughout the right hemithorax may be due to pneumonia or layering pleural effusion versus something outside of the patient. - CXR 06/17/2025: No evidence of acute disease -repeat CXR tomorrow GI # Gastrointestinal Bleed (Upper vs. Lower) - Patient received 2 units PRBCs. - GI team is on board; pending endoscopy once medically stable. - CT A/P (non-contrast) shows rectal wall thickening with stranding, suggestive of proctocolitis, and cholelithiasis with small ascites and anasarca. Also noted: rectal catheter looping, bilateral pleural effusions, and central line terminating in the right external iliac vein. # Suspected Acute Cholecystitis - CT findings: Cholelithiasis with pericholecystic edema. - Liver ultrasound: Cholelithiasis and gallbladder wall thickeningfindings may suggest acute cholecystitis. - HIDA scan recommended to confirm diagnosis. - Metronidazole added on 06/18/2025. - Cholecystostomy placed; gallbladder volume ~200 mL. - Surgical consult (Dr. Hummel) updated regarding possible cholecystectomydecision pending. # Peptic Ulcer Prophylaxis - Pantoprazole 40 mg IV BID initiated. Diet-initiated IV Clinimix Endo # T2DM, uncontrolled, insulin dependent # DKA, resolved # possible acute cholecystitis - insulin Lantus 15 units daily - moderate sliding scale insulin # Sotelo catheter Nephrology # MABLE, likely hemodynamically mediated/VMN-improving # hyperphosphatemia due to above # hyperkalemia due to above # hypernatremia-corrected with the free water # hypomagnesemia -discontinued free water -repleting magnesium and potassium -monitor lab -avoid nephrotoxic agents -strict I&Os Infectious disease # ? Acute Gram-positive/negative bacterial PNA, resolving # blood cultures growing Gram-positive rods; bacillus, repeat cultures negative # ? acute cholecystitis # sepsis due to above - IV cefepime and Flagyl - CT abdomen pelvis: Limited evaluation without contrast. Rectal wall thickening with surrounding stranding. Correlate for proctocolitis and rectal catheter looped upon itself within the rectum. Right common femoral vein central venous catheter terminating in the right external iliac vein. Small amount of ascites /pelvic fluid. Soft tissue edema/ anasarca.Cholelithiasis and pericholecystic edema. Recommend HIDA scan to exclude cholecystitis.Small bilateral pleural effusions. - added metronidazole 06/18/25 - repeat blood cultures negative - surgical consult for possible cholecystectomy Hem/onc # anemia, s/p 2 PRBC - monitor Psychiatry # bipolar disorder # medication nonadherence - resumed home medication lamotrigine but patient is unable to take due to failed swallow eval GI PPX: Protonix DVT prophylaxis- Holding due to possible GI bleed Nutrition-IV Clinimix Lines PICC line placed on Rt upper arm 06/20/25 Drips Versed, fentanyl, propofol discontinued on 06/22 Extubated on 06/23 Code status discussed greater than 29 minutes: Full CODE STATUS. Case discussed with Dr. Pacheco, patient and nurse Critical care time 57 minutes excluding procedure. Detailed discussion about plan of care was held with patient's brother via telephone, all questions were answered and concerns addressed. Plan discussed with: Patient, Other (RN) My Orders My Orders Orders - ALONZO NAQVI RESIDENT Procedure Category Date Status Time Chest Xray 1 View XY 06/24/25 Resulted 08:44 Potassium LAB 06/24/25 Logged 16:19 Thyroid Stimulating LAB 06/24/25 In Process Hormone 16:19 Complete Blood Count LAB 06/25/25 Verified 04:00 Comprehensive LAB 06/25/25 Verified Metabolic Panel 04:00 Magnesium LAB 06/25/25 Verified 04:00 Chest Xray 1 View XY 06/25/25 Logged 04:00 Dietary Evaluation Review Comments: 1) TF Vital AF 1.2Cal @ 55ml/hr (goal) Start @ 20ml/hr, increase 10ml/hr Q4H until goal is reached. TF @ goal volume along with Propofol provides 1746 kcal (100% energy needs), 99 gm protein (100% protein needs), 1104 ml free water. 2) Water flush 160ml Q6H if allowed, adjust PRN 3) TPN if NPO > 7 days 4) Monitor NPO status, lab values, wt trend, I/O Expected Outcomes/Goals: To meet >75% estimated needs Lab values to improve Fu 2-3 days Date of Service: Jun 24, 2025 Billing Provider: JOSETTE PACHECO MD Common Visit Codes: [id number] CARE 30-74 MIN ALONZO NAQVI RESIDENT Jun 24, 2025 17:00 JOSETTE PACHECO MD Jun 25, 2025 15:29
[2025-06-24 17:02] LABS: Triglycerides 139.0 mg/dL (< 150)
[2025-06-24 17:04] LABS: Albumin 2.9 g/dL (3.2-4.8); Bilirubin, Total 0.2 mg/dL (0.2-1.0)
[2025-06-24] MEDS: POTASSIUM PHOSPHATE 22 MEQ in SODIUM CHL 0.9% 100 ML IV ONE (18:05)
[2025-06-24] MEDS ORDERED: DEXTROSE (50%) 50ML SYRG IV PRN (19:30)
--- NOTE | 2025-06-24 22:24 | DVHPN2 ---
Progress Note - Dictate Date Seen: Jun 24, 2025 Medical Necessity Reason Pt with a Central, PICC or Fol: Yes The following are medically ne: Central Line, Sotelo Catheter Reason for sotelo catheter: Strict I&O Subjective Patient has been extubated on 2 L nasal cannula Patient failed swallow evaluation today No further GI bleeding or coffee-ground emesis, H&H stable at 9.9 Patient had a cholecystostomy tube placement draining clear bile vital signs Vital Sign Date Time Temp Pulse Resp B/P (MAP) Pulse Ox O2 Delivery O2 Flow Rate FiO2 06/24/25 21:45 99.5 117 19 138/77 (97) 97 211.1 06/24/25 20:00 Room Air* 0 21 Total Intake and Output 06/23/25 06/23/25 06/24/25 15:00 23:00 07:00 Intake Total 67.145 ml 112.5 ml 350 ml Output Total 850 ml 1600 ml Balance 67.145 ml -737.5 ml -1250 ml medications Current Medications Medications Dose Ordered Sig/Laura Route Start Time Stop Time Status Last Admin Dose Admin Ondansetron HCl 4 mg Q4HP PRN IV 06/14/25 10:45 Acetaminophen 650 mg Q6HP PRN PO 06/14/25 10:45 Insulin Glargine 15 units DAILY SC 06/15/25 10:00 06/24/25 10:23 15 UNITS Patient Own Medication 1 cap DAILY PO 06/15/25 10:00 UNV Patient Own Medication 2 tab DAILY PO 06/15/25 10:00 UNV Patient Own Medication 1 cap DAILY PO 06/15/25 10:00 UNV Albuterol 2.5 mg Q4HWA NEB 06/14/25 14:00 06/24/25 19:04 2.5 MG Ipratropium [place] 0.5 mg Q4HWA NEB 06/14/25 14:00 06/24/25 19:04 0.5 MG Lamotrigine 50 mg DAILY PO 06/15/25 10:00 06/23/25 10:07 50 MG Pantoprazole Sodium 40 mg BID IV 06/16/25 22:00 06/24/25 10:21 40 MG Enteral Nutritional Formula 1,000 ml 30ML/HR GT 06/17/25 18:00 06/22/25 21:50 1,000 ML Metronidazole 100 ml @ 100 mls/hr Q8HR IV 06/18/25 22:00 06/24/25 15:11 100 MLS/HR Cefepime HCl 50 ml @ 12.5 mls/hr Q8H IV 06/19/25 20:00 06/24/25 20:59 12.5 MLS/HR Sodium Chloride 10 ml QSHIFT@10,22 IV 06/20/25 22:00 06/24/25 10:21 10 ML Metoclopramide HCl 5 mg Q8HR IV 06/24/25 22:00 Amino Acids 0 ml @ 0 mls/hr PER PHARMACY IV 06/24/25 16:00 Amino Acids/ Electrolytes/ Dextrose 1,000 ml @ 41 mls/hr DAILY@2200 IV 06/24/25 22:00 Diagnostic Test (Pha) 1 strip IQ4HR 06/24/25 20:00 06/24/25 20:59 1 STRIP Insulin Human Regular IQ4HR SC 06/24/25 20:00 06/24/25 21:07 2 UNITS Dextrose 50 ml UD PRN IV 06/24/25 19:30 objective General: Intubated and sedated HEENT: NC/AT EOMI PERRLA ETT in place NG tube Regular rate and rhythm Soft nontender nondistended abdomen No clubbing cyanosis or edema Neuro patient is sedated laboratory and microbiology Laboratory Tests 06/24/25 17:39 06/24/25 02:59 Test 06/24/25 02:59 Range/Units Serum Glucose 115 H 74-106 mg/dL Problems(with codes): (1) Heme positive stool (2) Cholelithiasis with cholecystitis (3) Anemia (4) Coffee ground emesis (5) Asthma (6) DKA (diabetic ketoacidosis) (7) Acute metabolic encephalopathy (8) Sepsis Prognosis Plan Start patient on IV Clinimix at 42 mL/hour Monitor labs Repeat swallow evaluation in 48-72 hrs to reassess Dietary Evaluation Review Comments: 1) TF Vital AF 1.2Cal @ 55ml/hr (goal) Start @ 20ml/hr, increase 10ml/hr Q4H until goal is reached. TF @ goal volume along with Propofol provides 1746 kcal (100% energy needs), 99 gm protein (100% protein needs), 1104 ml free water. 2) Water flush 160ml Q6H if allowed, adjust PRN 3) TPN if NPO > 7 days 4) Monitor NPO status, lab values, wt trend, I/O Expected Outcomes/Goals: To meet >75% estimated needs Lab values to improve Fu 2-3 days Plan discussed with: Other (ICU Nurse) DARIUS LLAMAS MD Jun 24, 2025 22:24
[2025-06-24] MEDS: METOCLOPRAMIDE HCL 5MG/ml INJ 2ml VIAL IV SCH (22:38)
[2025-06-24] MEDS: AMINO ACID INFUSION IN D10W 1,000 ML IV SCH (22:38)
[2025-06-25] VITALS (106 sets, daily range): BP systolic 100–143; BP diastolic 57–93; PULSE 95–125; RESP 12–27; TEMP 99–99.9; O2SAT 92–100
[2025-06-25 03:57] LABS: Hematocrit 29.2 % (36.0-46.0); Hemoglobin 10.0 g/dL (12.2-16.2); Mean Corpuscular Hemoglobin 29.9 pg (28.0-32.0); Mean Corpuscular Volume 87.2 fL (80.0-100.0)
[2025-06-25 04:08] LABS: Alanine Aminotransferase 15 U/L (7-40); Alkaline Phosphatase 77 U/L (46-116); Anion Gap 15 (5-15); Magnesium 1.9 mg/dL (1.6-2.6); Sodium 142 mmol/L (136-145)
[2025-06-25 04:23] LABS: Albumin 2.8 g/dL (3.2-4.8); BUN/Creatinine Ratio 11.6 (10.0-20.0); Bilirubin, Total < 0.2 mg/dL (0.2-1.0); Blood Urea Nitrogen < 5 mg/dL (9-23); Calcium 8.0 mg/dL (8.7-10.4); Carbon Dioxide 18 mmol/L (20-31); Chloride 109 mmol/L (98-107); Glucose 186 mg/dL (74-106); Potassium 3.1 mmol/L (3.5-5.1); Total Protein 4.9 g/dL (5.7-8.2)
[2025-06-25 04:39] LABS: Total Cells Counted 100.0 (100)
--- NOTE | 2025-06-25 05:24 | DVH ---
CHEST RADIOGRAPH Indication: F/U Technique: Single frontal view of the chest was obtained COMPARISON: XY CHEST XRAY 1 VIEW on DOS: 06/24/25, XY CHEST PORTABLE on DOS: 06/23/25, XY CHEST PORTABL E on DOS: 06/22/25, XY CHEST PORTABLE on DOS: 06/21/25, XY CHEST PORTABLE on DOS: 06/20/25 FINDINGS: Lines and Tubes: Right PICC in satisfactory position Lungs: Patchy bilateral airspace disease Pleura: No effusion. No pneumothorax. Cardiomediastinal contours: Unremarkable Bones: Unremarkable IMPRESSION: No significant interval change
[2025-06-25] MEDS: POTASSIUM CHL 20MEQ/100ML 100 ML IV SCH (06:41)
[2025-06-25] MEDS: MAGNESIUM SULFATE 1GM/100ML 100 ML IV ONE (08:20)
[2025-06-25] MEDS: POTASSIUM CHL 20MEQ/100ML 100 ML IV ONE (10:16)
[2025-06-25] MEDS ORDERED: POTASSIUM PHOSPHATE 44 MEQ in D5W 5% 250 ML IV ONE (11:00)
--- NOTE | 2025-06-25 11:11 | DVHPNRES ---
Progress Note Date Seen: Jun 25, 2025 Resident Creating Document: ALONZO NAQVI RESIDENT Medical Necessity Reason Pt with a Central, PICC or Fol: Yes The following are medically ne: Central Line, Sotelo Catheter Reason for sotelo catheter: Strict I&O Subjective Review of Systems Chanell Riddle is a 50-year-old female with a history of asthma, type 2 diabetes, recurrent DKA, and medical noncompliance, who presented with hyperglycemia. She reported not having insulin at home despite a recent PCP visit one week prior. She lives with roommates, and family contact attempts were unsuccessful. A detailed history and review of systems were limited due to the patient being intubated, sedated, and mechanically ventilated. Notably, she was recently discharged from [facility] on 06/09/2025 after treatment for DKA. ROS: 06/25: Patient seen and examined at the bedside by me. Status post extubation day 2 currently on room air. Today also patient reporting generalized weakness and we are continuing NPO status and IV Clinimix until reassessment with swallow evaluation. Yesterday patient refused enema, today explained patient about risks versus benefits and agreed and had bowel movement today. Replenished potassium and magnesium. e business consultant evaluated the patient and advised possible cholecystectomy on . PT eval done and recommended acute rehabilitation after discharge. Patient reports: Feels better Objective vital signs Vital Sign Date Time Temp Pulse Resp B/P (MAP) Pulse Ox O2 Delivery O2 Flow Rate FiO2 06/25/25 10:45 99.3 110 16 117/57 (77) 98 210.7 06/25/25 10:00 Room Air* 0 N/A Nasal Cannula* Total Intake and Output 06/24/25 06/24/25 06/25/25 15:00 23:00 07:00 Intake Total 400 ml 150 ml Output Total 1050 ml 1650 ml Balance 400 ml -900 ml -1650 ml medications Current Medications Medications Dose Ordered Sig/Laura Route Start Time Stop Time Status Last Admin Dose Admin Ondansetron HCl 4 mg Q4HP PRN IV 06/14/25 10:45 Acetaminophen 650 mg Q6HP PRN PO 06/14/25 10:45 Insulin Glargine 15 units DAILY SC 06/15/25 10:00 06/25/25 10:05 15 UNITS Patient Own Medication 1 cap DAILY PO 06/15/25 10:00 UNV Patient Own Medication 2 tab DAILY PO 06/15/25 10:00 UNV Patient Own Medication 1 cap DAILY PO 06/15/25 10:00 UNV Albuterol 2.5 mg Q4HWA [facility] 06/14/25 14:00 06/25/25 10:04 2.5 MG Ipratropium [place] 0.5 mg Q4HWA [facility] 06/14/25 14:00 06/25/25 10:04 0.5 MG Lamotrigine 50 mg DAILY PO 06/15/25 10:00 06/23/25 10:07 50 MG Pantoprazole Sodium 40 mg BID IV 06/16/25 22:00 06/25/25 10:04 40 MG Enteral Nutritional Formula 1,000 ml 30ML/HR GT 06/17/25 18:00 06/22/25 21:50 1,000 ML Metronidazole 100 ml @ 100 mls/hr Q8HR IV 06/18/25 22:00 06/25/25 05:35 100 MLS/HR Cefepime HCl 50 ml @ 12.5 mls/hr Q8H IV 06/19/25 20:00 06/25/25 05:35 12.5 MLS/HR Sodium Chloride 10 ml QSHIFT@10,22 IV 06/20/25 22:00 06/25/25 10:04 10 ML Metoclopramide HCl 5 mg Q8HR IV 06/24/25 22:00 06/25/25 05:35 5 MG Amino Acids 0 ml @ 0 mls/hr PER PHARMACY IV 06/24/25 16:00 Amino Acids/ Electrolytes/ Dextrose 1,000 ml @ 41 mls/hr DAILY@2200 IV 06/24/25 22:00 06/24/25 22:38 41 MLS/HR Diagnostic Test (Pha) 1 strip IQ4HR 06/24/25 20:00 06/25/25 07:47 1 STRIP Insulin Human Regular IQ4HR SC 06/24/25 20:00 06/25/25 07:50 6 UNITS Dextrose 50 ml UD PRN IV 06/24/25 19:30 Examination Pt is lying on bed General Appearance: Alert, Oriented X3, Cooperative, mild distress HEENT: Atraumatic, Mucous membranes moist/pink Respiratory: Clear to auscultation, Normal air movement, No added sounds Cardiovascular: Regular rate, Normal S1, Normal S2, No murmurs Abdominal:Active bowel sounds, Soft, no distention, no tenderness, cholecystostomy tube in place, draining bile, no signs of infection/inflammation at the site Extremities: Generalized edema, Normal pulses, No tenderness Skin: No Significant rash, except past surgical scars Neuro: Normal speech, sensorimotor deficits none Psych/Mental Status: Mental status NL, Mood NL Nurse was there as gis consultant during examination laboratory and microbiology Laboratory Tests 06/25/25 02:57 Test 06/25/25 02:57 Range/Units Serum Glucose 186 H 74-106 mg/dL Microbiology Date/Time Source Procedure Growth Status 06/17/25 21:04 Blood Blood Culture - Final NO GROWTH AFTER 5 DAYS OF INCUBATION. Complete 06/14/25 16:30 Nose MRSA Screen - Final Methicillin Resistant S.aureus Complete 06/14/25 14:00 Sputum Gram Stain - Final Complete 06/14/25 14:00 Respiratory Culture - Final Methicillin Resistant S.aureus Complete 06/14/25 07:00 Voided Urine Urine Culture - Final Complete Labs and/or images reviewed: Labs reviewed by me, Image(s) reviewed by me Problem List/Assessment/Plan Problem List/Assessment/Plan Neurology # Acute metabolic encephalopathy likely from DKA resolving - intubated on 06/16/25, extubated on June 23 - fentanyl , propofol, Versed discontinued on June 22 - Head CT: No acute intracranial abnormality. Respiratory # Acute hypoxic respiratory failure-status post extubation June 23 and on room air right now # ? Acute Gram-positive/negative bacterial PNA, resolving # Hx of asthma , not in exacerbation - ipratropium and albuterol med nebs - IV vancomycin discontinued on 06/20 - IV cefepime and Flagyl - CXR 06/16/25: Hazy opacity throughout the right hemithorax may be due to pneumonia or layering pleural effusion versus something outside of the patient. - CXR 06/17/2025: No evidence of acute disease -repeat CXR no significant interval changes GI # Gastrointestinal Bleed (Upper vs. Lower) - Patient received 2 units PRBCs. - GI team is on board; pending endoscopy once medically stable. - CT A/P (non-contrast) shows rectal wall thickening with stranding, suggestive of proctocolitis, and cholelithiasis with small ascites and anasarca. Also noted: rectal catheter looping, bilateral pleural effusions, and central line terminating in the right external iliac vein. # Suspected Acute Cholecystitis - CT findings: Cholelithiasis with pericholecystic edema. - Liver ultrasound: Cholelithiasis and gallbladder wall thickeningfindings may suggest acute cholecystitis. - HIDA scan recommended to confirm diagnosis. - Metronidazole added on 06/18/2025. - Cholecystostomy placed; gallbladder volume ~200 mL. - Surgical consult (Dr. Hummel) updated regarding possible cholecystectomy . # Peptic Ulcer Prophylaxis - Pantoprazole 40 mg IV BID initiated. Diet-initiated IV Clinimix -06/24 Fleet enema given Endo # T2DM, uncontrolled, insulin dependent # DKA, resolved - insulin Lantus 15 units daily - moderate sliding scale insulin # Sotelo catheter Nephrology # MABLE, likely hemodynamically mediated/VMN-improving # hyperphosphatemia due to above -resolving # hyperkalemia due to above -resolving # hypernatremia-corrected with the free water # hypomagnesemia # hypokalemia -discontinued free water -repleting magnesium and potassium -monitor lab -avoid nephrotoxic agents -strict I&Os Infectious disease # ? Acute Gram-positive/negative bacterial PNA, resolving # blood cultures growing Gram-positive rods; bacillus, repeat cultures negative # ? acute cholecystitis # sepsis due to above - IV cefepime and Flagyl - CT abdomen pelvis: Limited evaluation without contrast. Rectal wall thickening with surrounding stranding. Correlate for proctocolitis and rectal catheter looped upon itself within the rectum. Right common femoral vein central venous catheter terminating in the right external iliac vein. Small amount of ascites /pelvic fluid. Soft tissue edema/ anasarca.Cholelithiasis and pericholecystic edema. Recommend HIDA scan to exclude cholecystitis.Small bilateral pleural effusions. - added metronidazole 06/18/25 - repeat blood cultures negative - surgical consult for possible cholecystectomy Hem/onc # anemia, s/p 2 PRBC - monitor Psychiatry # bipolar disorder # medication nonadherence - resumed home medication lamotrigine but patient is unable to take due to failed swallow eval PT eval done and recommended acute rehabilitation after discharge GI PPX: Protonix DVT prophylaxis- Holding due to possible GI bleed Nutrition-IV Clinimix, we will keep her NPO and continue IV Clinimix until cholecystectomy. Lines PICC line placed on 06/20/25 Drips Versed, fentanyl, propofol discontinued on 06/22 Extubated on 06/23 Code status discussed greater than 29 minutes: Full CODE STATUS. Case discussed with Dr. Pacheco, patient and nurse Critical care time 43 minutes excluding procedure. Detailed discussion about plan of care was held with patient's brother via telephone, all questions were answered and concerns addressed. And also informed about possible cholecystectomy on . Plan discussed with: Patient, Other (Brother and RN) My Orders My Orders Orders - ALONZO NAQVI Procedure Category Date Status Time Chest Xray 1 View XY 06/25/25 Resulted 04:00 Dietary Evaluation Review Comments: 1) TF Vital AF 1.2Cal @ 55ml/hr (goal) Start @ 20ml/hr, increase 10ml/hr Q4H until goal is reached. TF @ goal volume along with Propofol provides 1746 kcal (100% energy needs), 99 gm protein (100% protein needs), 1104 ml free water. 2) Water flush 160ml Q6H if allowed, adjust PRN 3) TPN if NPO > 7 days 4) Monitor NPO status, lab values, wt trend, I/O Expected Outcomes/Goals: To meet >75% estimated needs Lab values to improve Fu 2-3 days Date of Service: Jun 25, 2025 Billing Provider: JOSETTE PACHECO MD Common Visit Codes: 97229-WKPTZANK CARE 30-74 MIN ALONZO NAQVI Jun 25, 2025 11:11 JOSETTE PACHECO MD Jun 26, 2025 15:26
--- NOTE | 2025-06-25 11:50 | DVHPN2 ---
Progress Note Date Seen: Jun 25, 2025 Medical Necessity Reason Pt with a Central, PICC or Fol: Yes The following are medically ne: Central Line, Sotelo Catheter Reason for sotelo catheter: Strict I&O Objective vital signs Vital Sign Date Time Temp Pulse Resp B/P (MAP) Pulse Ox O2 Delivery O2 Flow Rate FiO2 06/25/25 10:45 99.3 110 16 117/57 (77) 98 210.7 06/25/25 10:00 Room Air* 0 N/A Nasal Cannula* Total Intake and Output 06/24/25 06/24/25 06/25/25 15:00 23:00 07:00 Intake Total 400 ml 150 ml Output Total 1050 ml 1650 ml Balance 400 ml -900 ml -1650 ml medications Current Medications Medications Dose Ordered Sig/Laura Route Start Time Stop Time Status Last Admin Dose Admin Ondansetron HCl 4 mg Q4HP PRN IV 06/14/25 10:45 Acetaminophen 650 mg Q6HP PRN PO 06/14/25 10:45 Insulin Glargine 15 units DAILY SC 06/15/25 10:00 06/25/25 10:05 15 UNITS Patient Own Medication 1 cap DAILY PO 06/15/25 10:00 UNV Patient Own Medication 2 tab DAILY PO 06/15/25 10:00 UNV Patient Own Medication 1 cap DAILY PO 06/15/25 10:00 UNV Albuterol 2.5 mg Q4HWA [facility] 06/14/25 14:00 06/25/25 10:04 2.5 MG Ipratropium [place] 0.5 mg Q4HWA [facility] 06/14/25 14:00 06/25/25 10:04 0.5 MG Lamotrigine 50 mg DAILY PO 06/15/25 10:00 06/23/25 10:07 50 MG Pantoprazole Sodium 40 mg BID IV 06/16/25 22:00 06/25/25 10:04 40 MG Enteral Nutritional Formula 1,000 ml 30ML/HR GT 06/17/25 18:00 06/22/25 21:50 1,000 ML Metronidazole 100 ml @ 100 mls/hr Q8HR IV 06/18/25 22:00 06/25/25 05:35 100 MLS/HR Cefepime HCl 50 ml @ 12.5 mls/hr Q8H IV 06/19/25 20:00 06/25/25 11:31 12.5 MLS/HR Sodium Chloride 10 ml QSHIFT@10,22 IV 06/20/25 22:00 06/25/25 10:04 10 ML Metoclopramide HCl 5 mg Q8HR IV 06/24/25 22:00 06/25/25 05:35 5 MG Amino Acids 0 ml @ 0 mls/hr PER PHARMACY IV 06/24/25 16:00 Amino Acids/ Electrolytes/ Dextrose 1,000 ml @ 41 mls/hr DAILY@2200 IV 06/24/25 22:00 06/24/25 22:38 41 MLS/HR Diagnostic Test (Pha) 1 strip IQ4HR 06/24/25 20:00 06/25/25 11:35 1 STRIP Insulin Human Regular IQ4HR SC 06/24/25 20:00 06/25/25 11:40 3 UNITS Dextrose 50 ml UD PRN IV 06/24/25 19:30 laboratory and microbiology Laboratory Tests 06/25/25 02:57 Test 06/25/25 02:57 Range/Units Serum Glucose 186 H 74-106 mg/dL Problem List/Assessment/Plan Problem List/Assessment/Plan 06/20/25 CHOLECYSTOSTOMY PLACED BY RADIOLOGIST YESTERDAY, DRAINING CLEAR BILE(CULTURES PENDING). ABDOMEN SOFT, NON DISTENDED, VITAL SIGNS UNCHANGED 06/21/25 essentially unchanged, abdomen non distended, soft, cholecystostomy draining clear bilepatient extubated hemodynamically stable, laparoscopic possibly open cholecystectomy, risks and complications explained Plan discussed with: Patient Dietary Evaluation Review Comments: 1) TF Vital AF 1.2Cal @ 55ml/hr (goal) Start @ 20ml/hr, increase 10ml/hr Q4H until goal is reached. TF @ goal volume along with Propofol provides 1746 kcal (100% energy needs), 99 gm protein (100% protein needs), 1104 ml free water. 2) Water flush 160ml Q6H if allowed, adjust PRN 3) TPN if NPO > 7 days 4) Monitor NPO status, lab values, wt trend, I/O Expected Outcomes/Goals: To meet >75% estimated needs Lab values to improve Fu 2-3 days JAXSON ZACARIAS MD Jun 25, 2025 11:50
[2025-06-25 13:32] LABS: INR 1.18 (0.9-1.15); Partial Thromboplastin Time 28.7 SEC (24.5-34.5); Prothrombin Time 12.3 sec (9.3-11.8)
--- NOTE | 2025-06-25 16:28 | DVHPN2 ---
Progress Note Date Seen: Jun 25, 2025 Resident Creating Document: VILMA ERVIN RESIDENT Has the PT tested + for MRSA If YES, has PT been informed?: Yes Medical Necessity Reason Pt with a Central, PICC or Fol: Yes The following are medically ne: Central Line, Sotelo Catheter Reason for sotelo catheter: Strict I&O Subjective Review of Systems 06/25/25 Patient is a 50-year-old female with cholelithiasis complicated by cholecystitis and recent coffee-ground emesis, initially intubated now She was extubated and is now on 2 L NC. Coffee-ground emesis has resolved. She failed swallow evaluation today; remains NPO and is receiving Clinimex IV amino acids at 42 mL/hr for nutritional support. She had a tap water enema with resultant bowel movement. The patient is scheduled for laparoscopic cholecystectomy on . No new GI bleeding reported. H&H stable at 10.0. Patient denies abdominal pain, nausea, or vomiting at present. Brief Gist of Todays Progress, Treatment, Labs, Imaging * Extubated; stable on nasal cannula. * No recurrent GI bleeding; Hgb stable. * Failed swallow evaluation; will repeat swallow study in 2448 hrs. * Nutritional support with IV Clinimex amino acids ongoing. * Cholecystostomy tube draining clear bile. * Labs: Hgb 10.0, Platelets 508K (reactive thrombocytosis), Na 142, K 3.1 (low), Albumin 2.8 (low), Glucose 709553 (high). * ABG: Mild metabolic acidosis improving. * Plan: Continue current management, monitor labs, repeat swallow study, maintain NPO until safe swallow confirmed, prepare for scheduled laparoscopic cholecystectomy. Review of Systems (Focused GI) * GI: No abdominal pain, nausea, vomiting, hematemesis, or melena. * Constitutional: No fevers or chills. * Other systems: Negative except as mentioned abo Objective vital signs Vital Sign Date Time Temp Pulse Resp B/P (MAP) Pulse Ox O2 Delivery O2 Flow Rate FiO2 06/25/25 16:00 22 Room Air* 0 N/A Nasal Cannula* 06/25/25 15:45 109 129/75 (93) 98 06/25/25 12:00 99.4 99.4 Total Intake and Output 06/24/25 06/24/25 06/25/25 15:00 23:00 07:00 Intake Total 400 ml 150 ml 141 ml Output Total 1050 ml 1650 ml Balance 400 ml -900 ml -1509 ml medications Current Medications Medications Dose Ordered Sig/Laura Route Start Time Stop Time Status Last Admin Dose Admin Ondansetron HCl 4 mg Q4HP PRN IV 06/14/25 10:45 Acetaminophen 650 mg Q6HP PRN PO 06/14/25 10:45 Insulin Glargine 15 units DAILY SC 06/15/25 10:00 06/25/25 10:05 15 UNITS Patient Own Medication 1 cap DAILY PO 06/15/25 10:00 UNV Patient Own Medication 2 tab DAILY PO 06/15/25 10:00 UNV Patient Own Medication 1 cap DAILY PO 06/15/25 10:00 UNV Albuterol 2.5 mg Q4HWA [facility] 06/14/25 14:00 06/25/25 13:10 2.5 MG Ipratropium [place] 0.5 mg Q4HWA [facility] 06/14/25 14:00 06/25/25 13:10 0.5 MG Lamotrigine 50 mg DAILY PO 06/15/25 10:00 06/23/25 10:07 50 MG Pantoprazole Sodium 40 mg BID IV 06/16/25 22:00 06/25/25 10:04 40 MG Enteral Nutritional Formula 1,000 ml 30ML/HR GT 06/17/25 18:00 06/22/25 21:50 1,000 ML Metronidazole 100 ml @ 100 mls/hr Q8HR IV 06/18/25 22:00 06/25/25 14:38 100 MLS/HR Cefepime HCl 50 ml @ 12.5 mls/hr Q8H IV 06/19/25 20:00 06/25/25 11:31 12.5 MLS/HR Sodium Chloride 10 ml QSHIFT@10,22 IV 06/20/25 22:00 06/25/25 10:04 10 ML Metoclopramide HCl 5 mg Q8HR IV 06/24/25 22:00 06/25/25 14:38 5 MG Amino Acids 0 ml @ 0 mls/hr PER PHARMACY IV 06/24/25 16:00 Amino Acids/ Electrolytes/ Dextrose 1,000 ml @ 41 mls/hr DAILY@2200 IV 06/24/25 22:00 06/24/25 22:38 41 MLS/HR Diagnostic Test (Pha) 1 strip IQ4HR 06/24/25 20:00 06/25/25 11:35 1 STRIP Insulin Human Regular IQ4HR SC 06/24/25 20:00 06/25/25 11:40 3 UNITS Dextrose 50 ml UD PRN IV 06/24/25 19:30 Examination * General: Awake, extubated, no acute distress. * HEENT: NG tube in place. * Abdomen: Soft, nondistended, nontender, cholecystostomy tube present with clear bile drainage. * Rectal: Deferred. * Extremities: No cyanosis, clubbing, or edema. * Neuro: Sedated but arousable, no focal deficits. laboratory and microbiology Laboratory Tests 06/25/25 02:57 Test 06/25/25 02:57 Range/Units Serum Glucose 186 H 74-106 mg/dL Microbiology Date/Time Source Procedure Growth Status 06/17/25 21:04 Blood Blood Culture - Final NO GROWTH AFTER 5 DAYS OF INCUBATION. Complete 06/14/25 16:30 Nose MRSA Screen - Final Methicillin Resistant S.aureus Complete 06/14/25 14:00 Sputum Gram Stain - Final Complete 06/14/25 14:00 Respiratory Culture - Final Methicillin Resistant S.aureus Complete 06/14/25 07:00 Voided Urine Urine Culture - Final Complete Problem List/Assessment/Plan Problem List/Assessment/Plan Assessment 1. Cholelithiasis with cholecystitis s/p cholecystostomy tube, awaiting laparoscopic cholecystectomy. 2. Resolved upper GI bleed (coffee-ground emesis) stable Hgb, no active bleeding. 3. Failed swallow evaluation high aspiration risk; NPO. 4. Severe protein-calorie malnutrition receiving IV Clinimex amino acids. 5. Anemia stable, likely multifactorial (GI bleed, chronic disease). 6. Electrolyte abnormalities hypokalemia, hypoalbuminemia, hypocalcemia. 7. Hyperglycemia ongoing monitoring. Treatment Plan (GI-Specific, System-Neumann) Gastrointestinal * Continue NPO until swallow function reassessed. * Maintain Clinimex IV amino acids at 42 mL/hr for nutrition. * Prepare patient for laparoscopic cholecystectomy on . * Continue IV Protonix for GI mucosal protection. Repeat swallow evaluation / modified barium swallow in 2448 hrs. Nutrition / Metabolic * Continue parenteral nutrition (Clinimex) until safe swallowing. * Monitor electrolytes daily; replace potassium and calcium as needed. * Correct hypoalbuminemia with adequate protein support. WE WILL CONTINUE TO MONITOR THE PATIENT Case discussed in detail with the attending physician, including the clinical presentation, diagnostic workup, and comprehensive management plan. The patient was present for the discussion and demonstrated understanding of her condition and the proposed plan. Plan discussed with: Patient Dietary Evaluation Review Comments: 1) TF Vital AF 1.2Cal @ 55ml/hr (goal) Start @ 20ml/hr, increase 10ml/hr Q4H until goal is reached. TF @ goal volume along with Propofol provides 1746 kcal (100% energy needs), 99 gm protein (100% protein needs), 1104 ml free water. 2) Water flush 160ml Q6H if allowed, adjust PRN 3) TPN if NPO > 7 days 4) Monitor NPO status, lab values, wt trend, I/O Expected Outcomes/Goals: To meet >75% estimated needs Lab values to improve Fu 2-3 days VILMA ERVIN RESIDENT Jun 25, 2025 16:28
[2025-06-26] VITALS (36 sets, daily range): BP systolic 107–152; BP diastolic 63–115; PULSE 97–129; RESP 9–33; TEMP 98.2–100; O2SAT 94–100
--- NOTE | 2025-06-26 05:06 | DVH ---
CHEST RADIOGRAPH Indication: f/u Technique: Single frontal view of the chest was obtained COMPARISON: XY CHEST XRAY 1 VIEW on DOS: 06/25/25, XY CHEST XRAY 1 VIEW on DOS: 06/24/25, XY CHEST PORT ABLE on DOS: 06/23/25, XY CHEST PORTABLE on DOS: 06/22/25, XY CHEST PORTABLE on DOS: 06/21/25 FINDINGS: Lines and Tubes: Right PICC unchanged. Lungs: Clear Pleura: No effusion. No pneumothorax. Cardiomediastinal contours: Unremarkable Bones: Unremarkable IMPRESSION: 1. No acute disease. Right PICC.
[2025-06-26 05:20] LABS: Hematocrit 28.8 % (36.0-46.0); Hemoglobin 10.1 g/dL (12.2-16.2); Mean Corpuscular Hemoglobin 30.2 pg (28.0-32.0); Mean Corpuscular Volume 85.9 fL (80.0-100.0)
[2025-06-26 05:39] LABS: Alanine Aminotransferase 13 U/L (7-40); Alkaline Phosphatase 68 U/L (46-116); Anion Gap 11 (5-15); Carbon Dioxide 24 mmol/L (20-31); Chloride 104 mmol/L (98-107); Sodium 139 mmol/L (136-145)
[2025-06-26 05:41] LABS: Albumin 2.8 g/dL (3.2-4.8); BUN/Creatinine Ratio 15.6 (10.0-20.0); Bilirubin, Total 0.2 mg/dL (0.2-1.0); Blood Urea Nitrogen < 5 mg/dL (9-23); Calcium 8.1 mg/dL (8.7-10.4); Glucose 223 mg/dL (74-106); Magnesium 1.6 mg/dL (1.6-2.6); Potassium 2.7 mmol/L (3.5-5.1); Total Protein 4.8 g/dL (5.7-8.2)
[2025-06-26 05:57] LABS: Total Cells Counted 100.0 (100)
[2025-06-26] MEDS: POTASSIUM CHL 20MEQ/100ML 100 ML IV SCH (06:31)
[2025-06-26] MEDS: MAGNESIUM SULFATE 1GM/100ML 100 ML IV SCH (06:42)
[2025-06-26] MEDS: MAGNESIUM SULFATE 1GM/100ML 100 ML IV ONE (09:00)
[2025-06-26] MEDS: POTASSIUM PHOSPHATE 22 MEQ in SODIUM CHL 0.9% 100 ML IV ONE ×2 (09:16→17:01)
--- NOTE | 2025-06-26 12:49 | DVHPN2 ---
Progress Note Date Seen: Jun 26, 2025 Has the PT tested + for MRSA If YES, has PT been informed?: Yes Medical Necessity Reason Pt with a Central, PICC or Fol: Yes The following are medically ne: Central Line, Sotelo Catheter Reason for sotelo catheter: Strict I&O Objective vital signs Vital Sign Date Time Temp Pulse Resp B/P (MAP) Pulse Ox O2 Delivery O2 Flow Rate FiO2 06/26/25 12:00 99.7 104 33 126/90 (102) 98 99.7 06/26/25 10:31 0.0 21 06/26/25 10:00 Room Air* Nasal Cannula* Total Intake and Output 06/25/25 06/25/25 06/26/25 15:00 23:00 07:00 Intake Total 821.5 ml 590.5 ml 578 ml Output Total 1975 ml 2050 ml Balance 821.5 ml -1384.5 ml -1472 ml medications Current Medications Medications Dose Ordered Sig/Laura Route Start Time Stop Time Status Last Admin Dose Admin Ondansetron HCl 4 mg Q4HP PRN IV 06/14/25 10:45 Acetaminophen 650 mg Q6HP PRN PO 06/14/25 10:45 Insulin Glargine 15 units DAILY SC 06/15/25 10:00 06/26/25 10:14 15 UNITS Patient Own Medication 1 cap DAILY PO 06/15/25 10:00 UNV Patient Own Medication 2 tab DAILY PO 06/15/25 10:00 UNV Patient Own Medication 1 cap DAILY PO 06/15/25 10:00 UNV Albuterol 2.5 mg Q4HWA [facility] 06/14/25 14:00 06/26/25 09:04 2.5 MG Ipratropium [place] 0.5 mg Q4HWA [facility] 06/14/25 14:00 06/26/25 09:04 0.5 MG Lamotrigine 50 mg DAILY PO 06/15/25 10:00 06/26/25 10:12 50 MG Pantoprazole Sodium 40 mg BID IV 06/16/25 22:00 06/26/25 10:12 40 MG Enteral Nutritional Formula 1,000 ml 30ML/HR GT 06/17/25 18:00 06/22/25 21:50 1,000 ML Metronidazole 100 ml @ 100 mls/hr Q8HR IV 06/18/25 22:00 06/26/25 05:29 100 MLS/HR Cefepime HCl 50 ml @ 12.5 mls/hr Q8H IV 06/19/25 20:00 06/26/25 12:15 12.5 MLS/HR Sodium Chloride 10 ml QSHIFT@10,22 IV 06/20/25 22:00 06/26/25 10:12 10 ML Metoclopramide HCl 5 mg Q8HR IV 06/24/25 22:00 06/26/25 05:29 5 MG Amino Acids 0 ml @ 0 mls/hr PER PHARMACY IV 06/24/25 16:00 Amino Acids/ Electrolytes/ Dextrose 1,000 ml @ 41 mls/hr DAILY@2200 IV 06/24/25 22:00 06/25/25 21:46 41 MLS/HR Diagnostic Test (Pha) 1 strip IQ4HR 06/24/25 20:00 06/26/25 12:15 1 STRIP Insulin Human Regular IQ4HR SC 06/24/25 20:00 06/26/25 12:17 9 UNITS Dextrose 50 ml UD PRN IV 06/24/25 19:30 laboratory and microbiology Laboratory Tests 06/26/25 04:41 Test 06/26/25 04:41 Range/Units Serum Glucose 223 H 74-106 mg/dL Problem List/Assessment/Plan Problem List/Assessment/Plan 06/20/25 CHOLECYSTOSTOMY PLACED BY RADIOLOGIST YESTERDAY, DRAINING CLEAR BILE(CULTURES PENDING). ABDOMEN SOFT, NON DISTENDED, VITAL SIGNS UNCHANGED 06/21/25 essentially unchanged, abdomen non distended, soft, cholecystostomy draining clear bile patient extubated hemodynamically stable, laparoscopic possibly open cholecystectomy, risks and complications explained 06/26/25 patient without pain nausea or vomiting, afebrile answered of her questions . she is scheduled for laparoscopic possibly open cholecystectomy tomorrow AM Plan discussed with: Patient Dietary Evaluation Review Comments: 1) TF Vital AF 1.2Cal @ 55ml/hr (goal) Start @ 20ml/hr, increase 10ml/hr Q4H until goal is reached. TF @ goal volume along with Propofol provides 1746 kcal (100% energy needs), 99 gm protein (100% protein needs), 1104 ml free water. 2) Water flush 160ml Q6H if allowed, adjust PRN 3) TPN if NPO > 7 days 4) Monitor NPO status, lab values, wt trend, I/O Expected Outcomes/Goals: To meet >75% estimated needs Lab values to improve Fu 2-3 days JAXSON ZACARIAS MD Jun 26, 2025 12:48
[2025-06-26] MEDS: POTASSIUM CHL 20MEQ/100ML 100 ML IV ONE (15:00)
--- NOTE | 2025-06-26 15:10 | DVHPN2 ---
Progress Note Date Seen: Jun 26, 2025 Resident Creating Document: VILMA ERVIN RESIDENT Has the PT tested + for MRSA If YES, has PT been informed?: Yes Medical Necessity Reason Pt with a Central, PICC or Fol: Yes The following are medically ne: Central Line, Sotelo Catheter Reason for sotelo catheter: Strict I&O Subjective Review of Systems 06/26/25 The patient is a 50-year-old female with a history of cholelithiasis complicated by acute cholecystitis and prior upper GI bleeding. She remains NPO after failing her swallow evaluation today due to persistent coughing with attempted swallowing. A repeat swallow evaluation is planned for tomorrow. She had a bowel movement yesterday after a tap water enema. The patient is currently receiving parenteral nutrition with Clinimex IV amino acids at 42 mL/hr. Enteral feeds (Glucerna 1.2) are on hold. No new episodes of coffee-ground emesis have been reported. She denies abdominal pain, nausea, or vomiting. The cholecystostomy tube remains in place, draining clear bile. She is scheduled for laparoscopic cholecystectomy, possibly open, tomorrow morning per surgical plan. Brief Gist of Todays Progress, Treatments, Labs, Imaging, and Plan * Progress: Stable hemodynamics, afebrile, no new GI bleeding, still NPO due to failed swallow and planned cholecystectomy tomorrow. * Feeds: Receiving Clinimex IV amino acids; no enteral feeds. * Antibiotics: Continuing Metronidazole IV and Cefepime IV. * Other Medications: Zofran 4 mg IV PRN, Acetaminophen 650 mg PO (held while NPO), Insulin protocol, Pantoprazole IV, Metoclopramide IV, electrolyte replacements (KCl, KPhos). * Labs: WBC normal, Hgb stable at 10.0, Hct 28.8, Albumin 2.8, mild hypokalemia corrected, glucose [id number]. * Plan: Maintain NPO, continue IV nutrition, repeat swallow evaluation tomorrow, monitor labs, prepare for laparoscopic cholecystectomy (possible conversion to open) tomorrow AM. Review of Systems * GI: No abdominal pain, no nausea, no vomiting, no hematemesis or melena. * Constitutional: Low-grade temperature 99.7F. * Other systems: Unremarkable except as stated. Objective vital signs Vital Sign Date Time Temp Pulse Resp B/P (MAP) Pulse Ox O2 Delivery O2 Flow Rate FiO2 7/30/25 13:35 109 16 100 06/26/25 13:19 Room Air 0.0 06/26/25 13:19 21 06/26/25 12:00 99.7 126/90 (102) 99.7 Total Intake and Output 06/25/25 06/25/25 06/26/25 15:00 23:00 07:00 Intake Total 821.5 ml 590.5 ml 578 ml Output Total 1975 ml 2050 ml Balance 821.5 ml -1384.5 ml -1472 ml medications Current Medications Medications Dose Ordered Sig/Laura Route Start Time Stop Time Status Last Admin Dose Admin Ondansetron HCl 4 mg Q4HP PRN IV 06/14/25 10:45 Acetaminophen 650 mg Q6HP PRN PO 06/14/25 10:45 Insulin Glargine 15 units DAILY SC 06/15/25 10:00 06/26/25 10:14 15 UNITS Patient Own Medication 1 cap DAILY PO 06/15/25 10:00 UNV Patient Own Medication 2 tab DAILY PO 06/15/25 10:00 UNV Patient Own Medication 1 cap DAILY PO 06/15/25 10:00 UNV Albuterol 2.5 mg Q4HWA [facility] 06/14/25 14:00 06/26/25 13:19 2.5 MG Ipratropium [place] 0.5 mg Q4HWA [facility] 06/14/25 14:00 06/26/25 13:19 0.5 MG Lamotrigine 50 mg DAILY PO 06/15/25 10:00 06/26/25 10:12 50 MG Pantoprazole Sodium 40 mg BID IV 06/16/25 22:00 06/26/25 10:12 40 MG Enteral Nutritional Formula 1,000 ml 30ML/HR GT 06/17/25 18:00 06/22/25 21:50 1,000 ML Metronidazole 100 ml @ 100 mls/hr Q8HR IV 06/18/25 22:00 06/26/25 13:36 100 MLS/HR Cefepime HCl 50 ml @ 12.5 mls/hr Q8H IV 06/19/25 20:00 06/26/25 12:15 12.5 MLS/HR Sodium Chloride 10 ml QSHIFT@,22 IV 06/20/25 22:00 06/26/25 10:12 10 ML Metoclopramide HCl 5 mg Q8HR IV 06/24/25 22:00 06/26/25 13:36 5 MG Amino Acids 0 ml @ 0 mls/hr PER PHARMACY IV 06/24/25 16:00 Amino Acids/ Electrolytes/ Dextrose 1,000 ml @ 41 mls/hr DAILY@2200 IV 06/24/25 22:00 06/25/25 21:46 41 MLS/HR Diagnostic Test (Pha) 1 strip IQ4HR 06/24/25 20:00 06/26/25 12:15 1 STRIP Insulin Human Regular IQ4HR SC 06/24/25 20:00 06/26/25 12:17 9 UNITS Dextrose 50 ml UD PRN IV 06/24/25 19:30 Examination * General: Alert, extubated, no acute distress. * HEENT: Oropharynx moist, no lesions. NG tube present. * Abdomen: Soft, nondistended, nontender. Cholecystostomy tube present with clear bile drainage. * Rectal: Deferred. * Skin: No jaundice. * Extremities: No cyanosis, clubbing, or edema. * Neuro: Alert, oriented, no focal deficits. laboratory and microbiology Laboratory Tests 06/26/25 04:41 Test 06/26/25 04:41 Range/Units Serum Glucose 223 H 74-106 mg/dL Microbiology Date/Time Source Procedure Growth Status 06/17/25 21:04 Blood Blood Culture - Final NO GROWTH AFTER 5 DAYS OF INCUBATION. Complete 06/14/25 16:30 Nose MRSA Screen - Final Methicillin Resistant S.aureus Complete 06/14/25 14:00 Sputum Gram Stain - Final Complete 06/14/25 14:00 Respiratory Culture - Final Methicillin Resistant S.aureus Complete 06/14/25 07:00 Voided Urine Urine Culture - Final Complete Problem List/Assessment/Plan Problem List/Assessment/Plan Assessment 1. Cholelithiasis with cholecystitis s/p cholecystostomy tube, awaiting laparoscopic cholecystectomy. 2. Resolved upper GI bleed (coffee-ground emesis) stable Hgb, no active bleeding. 3. Failed swallow evaluation high aspiration risk; NPO. 4. Severe protein-calorie malnutrition receiving IV Clinimex amino acids. 5. Anemia stable, likely multifactorial (GI bleed, chronic disease). 6. Electrolyte abnormalities hypokalemia, hypoalbuminemia, hypocalcemia. 7. Hyperglycemia ongoing monitoring. Treatment Plan (GI-Specific, System-Neumann) Gastrointestinal * Continue NPO until swallow function reassessed. * Maintain Clinimex IV amino acids at 42 mL/hr for nutrition. * Prepare patient for laparoscopic cholecystectomy on . * Continue IV antibiotics (Metronidazole, Cefepime) for biliary coverag * Continue IV Protonix for GI mucosal protection. Repeat swallow evaluation / modified barium swallow in 2448 hrs. Nutrition / Metabolic * Continue parenteral nutrition (Clinimex) until safe swallowing. * Monitor electrolytes daily; replace potassium and calcium as needed. * Correct hypoalbuminemia with adequate protein support. WE WILL CONTINUE TO MONITOR THE PATIENT Case discussed in detail with the attending physician, including the clinical presentation, diagnostic workup, and comprehensive management plan. The patient was present for the discussion and demonstrated understanding of her condition and the proposed plan. Plan discussed with: Patient Dietary Evaluation Review Comments: 1) TF Vital AF 1.2Cal @ 55ml/hr (goal) Start @ 20ml/hr, increase 10ml/hr Q4H until goal is reached. TF @ goal volume along with Propofol provides 1746 kcal (100% energy needs), 99 gm protein (100% protein needs), 1104 ml free water. 2) Water flush 160ml Q6H if allowed, adjust PRN 3) TPN if NPO > 7 days 4) Monitor NPO status, lab values, wt trend, I/O Expected Outcomes/Goals: To meet >75% estimated needs Lab values to improve Fu 2-3 days VILMA ERVIN RESIDENT Jun 26, 2025 15:10
[2025-06-26 16:15] LABS: Potassium 3.0 mmol/L (3.5-5.1)
--- NOTE | 2025-06-26 16:21 | DVHPNRES ---
Progress Note Date Seen: Jun 26, 2025 Resident Creating Document: ALONZO NAQVI RESIDENT Has the PT tested + for MRSA If YES, has PT been informed?: Yes Medical Necessity Reason Pt with a Central, PICC or Fol: Yes The following are medically ne: Central Line, Sotelo Catheter Reason for sotelo catheter: Strict I&O Subjective Review of Systems Chanell Riddle is a 50-year-old female with a history of asthma, type 2 diabetes, recurrent DKA, and medical noncompliance, who presented with hyperglycemia. She reported not having insulin at home despite a recent PCP visit one week prior. She lives with roommates, and family contact attempts were unsuccessful. A detailed history and review of systems were limited due to the patient being intubated, sedated, and mechanically ventilated. Notably, she was recently discharged from [facility] on 06/09/2025 after treatment for DKA. ROS: 06/25: Patient seen and examined at the bedside by me. Status post extubation day 2 currently on room air. Today also patient reporting generalized weakness and we are continuing NPO status and IV Clinimix until reassessment with swallow evaluation. Yesterday patient refused enema, today explained patient about risks versus benefits and agreed and had bowel movement today. Replenished potassium and magnesium. executive talent acquisition consultant evaluated the patient and advised possible cholecystectomy on . PT eval done and recommended acute rehabilitation after discharge. ROS; 06/26: Patient seen and examined at the bedside by me. Patient reported improvement in her weakness since yesterday, Pt is working on her everyday. We are continuing NPO until cholecystectomy. Replenishing potassium, phosphorous and magnesium, repeat lab today evening and replenish if needed. Patient will have laparoscopic/open cholecystectomy tomorrow. Continue current antibiotics. Patient reports: Feels better Objective vital signs Vital Sign Date Time Temp Pulse Resp B/P (MAP) Pulse Ox O2 Delivery O2 Flow Rate FiO2 06/26/25 16:00 99.5 129 13 152/93 (112) 98 99.5 06/26/25 14:00 Room Air* 0 N/A Nasal Cannula* Total Intake and Output 06/25/25 06/25/25 06/26/25 15:00 23:00 07:00 Intake Total 821.5 ml 590.5 ml 578 ml Output Total 1975 ml 2050 ml Balance 821.5 ml -1384.5 ml -1472 ml medications Current Medications Medications Dose Ordered Sig/Laura Route Start Time Stop Time Status Last Admin Dose Admin Ondansetron HCl 4 mg Q4HP PRN IV 06/14/25 10:45 Acetaminophen 650 mg Q6HP PRN PO 06/14/25 10:45 Insulin Glargine 15 units DAILY SC 06/15/25 10:00 06/26/25 10:14 15 UNITS Patient Own Medication 1 cap DAILY PO 06/15/25 10:00 UNV Patient Own Medication 2 tab DAILY PO 06/15/25 10:00 UNV Patient Own Medication 1 cap DAILY PO 06/15/25 10:00 UNV Albuterol 2.5 mg Q4HWA [facility] 06/14/25 14:00 06/26/25 13:[address] [place] 0.5 mg Q4HWA [facility] 06/14/25 14:00 06/26/25 13:19 0.5 MG Lamotrigine 50 mg DAILY PO 06/15/25 10:00 06/26/25 10:12 50 MG Pantoprazole Sodium 40 mg BID IV 06/16/25 22:00 06/26/25 10:12 40 MG Enteral Nutritional Formula 1,000 ml 30ML/HR GT 06/17/25 18:00 06/22/25 21:50 1,000 ML Metronidazole 100 ml @ 100 mls/hr Q8HR IV 06/18/25 22:00 06/26/25 13:36 100 MLS/HR Cefepime HCl 50 ml @ 12.5 mls/hr Q8H IV 06/19/25 20:00 06/26/25 12:15 12.5 MLS/HR Sodium Chloride 10 ml QSHIFT@10,22 IV 06/20/25 22:00 06/26/25 10:12 10 ML Metoclopramide HCl 5 mg Q8HR IV 06/24/25 22:00 06/26/25 13:36 5 MG Amino Acids 0 ml @ 0 mls/hr PER PHARMACY IV 06/24/25 16:00 Amino Acids/ Electrolytes/ Dextrose 1,000 ml @ 41 mls/hr DAILY@2200 IV 06/24/25 22:00 06/25/25 21:46 41 MLS/HR Diagnostic Test (Pha) 1 strip IQ4HR 06/24/25 20:00 06/26/25 12:15 1 STRIP Insulin Human Regular IQ4HR SC 06/24/25 20:00 06/26/25 12:17 9 UNITS Dextrose 50 ml UD PRN IV 06/24/25 19:30 Examination Pt is lying on bed General Appearance: Alert, Oriented X3, Cooperative, mild distress HEENT: Atraumatic, Mucous membranes moist/pink Respiratory: Clear to auscultation, Normal air movement, No added sounds Cardiovascular: Regular rate, Normal S1, Normal S2, No murmurs Abdominal:Active bowel sounds, Soft, no distention, no tenderness, cholecystostomy tube in place, draining bile, no signs of infection/inflammation at the site Extremities: Generalized edema, Normal pulses, No tenderness Skin: No Significant rash, except past surgical scars Neuro: Normal speech, sensorimotor deficits none Psych/Mental Status: Mental status NL, Mood NL Nurse was there as wireless sales associate during examination laboratory and microbiology Laboratory Tests 06/26/25 15:40 06/26/25 04:41 Test 06/26/25 04:41 Range/Units Serum Glucose 223 H 74-106 mg/dL Microbiology Date/Time Source Procedure Growth Status 06/17/25 21:04 Blood Blood Culture - Final NO GROWTH AFTER 5 DAYS OF INCUBATION. Complete 06/14/25 16:30 Nose MRSA Screen - Final Methicillin Resistant S.aureus Complete 06/14/25 14:00 Sputum Gram Stain - Final Complete 06/14/25 14:00 Respiratory Culture - Final Methicillin Resistant S.aureus Complete 06/14/25 07:00 Voided Urine Urine Culture - Final Complete Labs and/or images reviewed: Labs reviewed by me, Image(s) reviewed by me Problem List/Assessment/Plan Problem List/Assessment/Plan Neurology # Acute metabolic encephalopathy likely from DKA resolving - intubated on 06/16/25, extubated on June 23 - fentanyl , propofol, Versed discontinued on June 22 - Head CT: No acute intracranial abnormality. Respiratory # Acute hypoxic respiratory failure-status post extubation June 23 and on room air right now # ? Acute Gram-positive/negative bacterial PNA, resolving # Hx of asthma , not in exacerbation - ipratropium and albuterol med nebs - IV vancomycin discontinued on 06/20 - IV cefepime and Flagyl - CXR 06/16/25: Hazy opacity throughout the right hemithorax may be due to pneumonia or layering pleural effusion versus something outside of the patient. - CXR 06/17/2025: No evidence of acute disease -repeat CXR no significant interval changes GI # Gastrointestinal Bleed (Upper vs. Lower) - Patient received 2 units PRBCs. - GI team is on board; pending endoscopy once medically stable. - CT A/P (non-contrast) shows rectal wall thickening with stranding, suggestive of proctocolitis, and cholelithiasis with small ascites and anasarca. Also noted: rectal catheter looping, bilateral pleural effusions, and central line terminating in the right external iliac vein. # Suspected Acute Cholecystitis - CT findings: Cholelithiasis with pericholecystic edema. - Liver ultrasound: Cholelithiasis and gallbladder wall thickeningfindings may suggest acute cholecystitis. - HIDA scan recommended to confirm diagnosis. - Metronidazole added on 06/18/2025. - Cholecystostomy placed - Surgical consult (Dr. Hummel) updated regarding possible cholecystectomy . # Peptic Ulcer Prophylaxis - Pantoprazole 40 mg IV BID initiated. Diet-initiated IV Clinimix -06/24 Fleet enema given, 06/25-large BM Endo # T2DM, uncontrolled, insulin dependent # DKA, resolved - insulin Lantus 15 units daily - moderate sliding scale insulin # Sotelo catheter Nephrology # MABLE, likely hemodynamically mediated/VMN-improving # hyperphosphatemia due to above -resolving # hyperkalemia due to above -resolving # hypernatremia-corrected with the free water # hypomagnesemia # hypokalemia -discontinued free water -repleting magnesium and potassium -monitor lab -avoid nephrotoxic agents -strict I&Os Infectious disease # ? Acute Gram-positive/negative bacterial PNA, resolving # blood cultures growing Gram-positive rods; bacillus, repeat cultures negative # ? acute cholecystitis # sepsis due to above - IV cefepime and Flagyl - CT abdomen pelvis: Limited evaluation without contrast. Rectal wall thickening with surrounding stranding. Correlate for proctocolitis and rectal catheter looped upon itself within the rectum. Right common femoral vein central venous catheter terminating in the right external iliac vein. Small amount of ascites /pelvic fluid. Soft tissue edema/ anasarca.Cholelithiasis and pericholecystic edema. Recommend HIDA scan to exclude cholecystitis.Small bilateral pleural effusions. - added metronidazole 06/18/25 - repeat blood cultures negative - surgical consult for possible cholecystectomy 06/27 Hem/onc # anemia, s/p 2 PRBC - monitor Psychiatry # bipolar disorder # medication nonadherence - resumed home medication lamotrigine but patient is unable to take due to failed swallow eval PT eval done and recommended acute rehabilitation after discharge GI PPX: Protonix DVT prophylaxis- Holding due to possible GI bleed Nutrition-IV Clinimix, we will keep her NPO and continue IV Clinimix until cholecystectomy. Lines PICC line placed on 06/20/25 Drips Versed, fentanyl, propofol discontinued on 06/22 Extubated on 06/23 Code status discussed greater than 29 minutes: Full CODE STATUS. Case discussed with Dr. Pacheco, patient and nurse Critical care time 43 minutes excluding procedure. Detailed discussion about plan of care was held with patient's brother via telephone, all questions were answered and concerns addressed. And also informed about possible cholecystectomy tomorrow. Plan discussed with: Patient, Other (RN) Dietary Evaluation Review Comments: 1) TF Vital AF 1.2Cal @ 55ml/hr (goal) Start @ 20ml/hr, increase 10ml/hr Q4H until goal is reached. TF @ goal volume along with Propofol provides 1746 kcal (100% energy needs), 99 gm protein (100% protein needs), 1104 ml free water. 2) Water flush 160ml Q6H if allowed, adjust PRN 3) TPN if NPO > 7 days 4) Monitor NPO status, lab values, wt trend, I/O Expected Outcomes/Goals: To meet >75% estimated needs Lab values to improve Fu 2-3 days Date of Service: Jun 26, 2025 Billing Provider: JOSTETE PACHECO MD Common Visit Codes: [id number] CARE 30-74 MIN ALONZO NAQVI RESIDENT Jun 26, 2025 16:21 JOSETTE PACHECO MD Jun 29, 2025 12:24
[2025-06-27] VITALS (31 sets, daily range): BP systolic 100–149; BP diastolic 58–105; PULSE 92–129; RESP 10–25; TEMP 98.1–99; O2SAT 93–100
[2025-06-27 05:22] LABS: Hematocrit 28.1 % (36.0-46.0); Hemoglobin 9.6 g/dL (12.2-16.2); Mean Corpuscular Hemoglobin 29.8 pg (28.0-32.0); Mean Corpuscular Volume 86.8 fL (80.0-100.0)
--- NOTE | 2025-06-27 05:37 | DVH ---
CHEST RADIOGRAPH Indication: F/U Technique: Single frontal view of the chest was obtained COMPARISON: XY CHEST XRAY 1 VIEW on DOS: 06/26/25, XY CHEST XRAY 1 VIEW on DOS: 06/25/25, XY CHEST XRAY 1 VIEW on DOS: 06/24/25, XY CHEST PORTABLE on DOS: 06/23/25, XY CHEST PORTABLE on DOS: 06/22/25 FINDINGS: Lines and Tubes: Stably positioned right peripherally inserted central catheter. Lungs: Clear Pleura: No effusion. No pneumothorax. Cardiomediastinal contours: Unremarkable Bones: Unremarkable IMPRESSION: 1. No acute disease. 2. Right PICC.
[2025-06-27 05:41] LABS: Alanine Aminotransferase 10 U/L (7-40); Alkaline Phosphatase 60 U/L (46-116); Anion Gap 10 (5-15); Carbon Dioxide 27 mmol/L (20-31); Chloride 103 mmol/L (98-107); Magnesium 1.8 mg/dL (1.6-2.6); Sodium 140 mmol/L (136-145)
[2025-06-27 05:43] LABS: INR 1.19 (0.9-1.15); Partial Thromboplastin Time 26.4 SEC (24.5-34.5); Prothrombin Time 12.4 sec (9.3-11.8)
[2025-06-27 05:59] LABS: Albumin 2.7 g/dL (3.2-4.8); BUN/Creatinine Ratio 20.0 (10.0-20.0); Bilirubin, Total 0.2 mg/dL (0.2-1.0); Blood Urea Nitrogen < 5 mg/dL (9-23); Calcium 7.9 mg/dL (8.7-10.4); Glucose 207 mg/dL (74-106); Potassium 3.0 mmol/L (3.5-5.1); Total Protein 4.6 g/dL (5.7-8.2)
[2025-06-27 06:10] LABS: Total Cells Counted 100.0 (100)
[2025-06-27] MEDS: CELECOXIB 100 MG CAP PO ONE (06:45)
[2025-06-27] MEDS: GABAPENTIN 300 MG CAP PO ONE (06:45)
[2025-06-27] MEDS: ACETAMINOPHEN IV 1000 MG/100ML (10MG/ML) IV ONE (06:45)
[2025-06-27] MEDS ORDERED: PROPOFOL 10 MG/ML 20 ML IV ONE (07:00)
[2025-06-27] MEDS ORDERED: KETOROLAC TROMETH 30 MG/ML 1ML VIAL ONE (07:00)
[2025-06-27] MEDS ORDERED: LIDOCAINE 2% (LOCAL ANESTH.) PF 5ml SDV ONE (07:00)
[2025-06-27] MEDS ORDERED: ROCURONIUM 10MG/ML 10ML VIAL IV ONE (07:00)
[2025-06-27] MEDS ORDERED: GLYCOPYRROLATE 0.2 MG/ML 1ML VIAL ONE (07:00)
[2025-06-27] MEDS ORDERED: ONDANSETRON HCL 4 MG/2 ML VIAL ONE (07:00)
[2025-06-27] MEDS ORDERED: SUGAMMADEX 200mg/2ml Vial (100MG/ML) IV ONE (07:00)
[2025-06-27] MEDS ORDERED: fentaNYL CITRATE 100 MCG/2 ML VL ONE (07:04)
[2025-06-27] MEDS ORDERED: KETAMINE 50mg/ML 1ml syringe ONE (07:04)
[2025-06-27] MEDS ORDERED: PHENYLEPHRINE HCL 10 MG/ML VL ONE (09:00)
[2025-06-27] MEDS ORDERED: SODIUM CHLORIDE LOCK 10 ML ONE ×2 (09:00→09:01)
[2025-06-27] MEDS: BUPIVACAINE HCL 0.25% P/F 10 ML VIAL ONE (09:20)
[2025-06-27] MEDS: LIDOCAINE W/ EPINEPHRINE 1% 20ML VIAL ONE (09:20)
[2025-06-27] MEDS ORDERED: hydrALAZINE HCL 20 MG/ML VL IV PRN (09:45)
[2025-06-27] MEDS ORDERED: ONDANSETRON HCL 4 MG/2 ML VIAL IV PRN (09:45)
[2025-06-27] MEDS ORDERED: NALOXONE HCL 0.4 MG/ML VIAL IV PRN (09:45)
[2025-06-27] MEDS ORDERED: fentaNYL CITRATE 100 MCG/2 ML VL IV PRN (09:45)
[2025-06-27] MEDS ORDERED: FLUMAZENIL 0.1 MG/ML INJ 10ML MDV IV PRN (09:45)
--- NOTE | 2025-06-27 09:49 | DVHOP ---
DATE OF SURGERY: 06/27/2025 PREOPERATIVE DIAGNOSES: * Cholelithiasis. * Cholecystitis. * Cholecystostomy tube. POSTOPERATIVE DIAGNOSES: * Cholelithiasis. * Cholecystitis. * Cholecystostomy tube. SURGEON: Arya Hummel MD BEHAVIOR SUPPORT SPECIALIST: Chaka Eaton NP ANESTHESIA: General endotracheal. ANESTHESIOLOGIST: Donaldo Bets MD PROCEDURES: * Laparoscopy. * Laparoscopic cholecystectomy. * Removal of percutaneous cholecystostomy. DESCRIPTION OF PROCEDURE: The patient was taken to the operating room. She was having dysphonia and difficulty talking after protracted intubation; however, otherwise, she was stable preoperatively. She was taken to the operating room. General anesthesia was administered by Dr. Donaldo Best. The patient was placed on the operating room table in the supine position. The abdomen was prepped and draped. A supraumbilical incision was made and Veress needle inserted by the hanging drop technique in order to establish pneumoperitoneum to 15 mmHg pressure by insufflation with carbon dioxide. The abdomen was fully distended. The needle was removed and replaced with a 5-mm port site through which a 0-degree viewing laparoscope was inserted and under direct vision, an additional 10 mm port was inserted through the subxiphoid midline skin and a 5-mm port inserted through the anterior axillary line at the level of the umbilicus on the right flank. Instrumentation was then introduced and laparoscopy was conducted revealing no obvious unexpected pathology. There was a percutaneously placed transhepatic cholecystostomy, which was visualized. Its retaining suture was severed and the drain was removed from the liver and the gallbladder. Subsequently, the cystic duct and cystic artery were identified, circumferentially dissected, skeletonized, and traced into the hepatocystic triangle system to minimize the potential for inadvertent injury to the common bile duct. The cystic duct and cystic artery were divided close to the gallbladder again attempting to avoid inadvertent injury to the common bile duct or the hepatic artery. Following division of the cystic duct and cystic artery between metallic clips, the gallbladder was resected from its liver bed by electrocautery and traction. The fully mobilized gallbladder was removed from the peritoneal cavity by placement in a specimen extraction bag, which was then withdrawn through the 10-mm port site subxiphoid position. The right upper quadrant was irrigated. Irrigant was aspirated and hemostasis was meticulously inspected and found to be complete. At the termination of the procedure, there was no evidence of bleeding from either the liver bed or from the port sites. Instrumentation was withdrawn. Pneumoperitoneum was evacuated. The fascia defect was closed using 0 Vicryl. Wounds were approximated using Monocryl sutures, Dermabond, glue, and Steri-Strips. The percutaneous drain was removed and subsequently sterile dressings were applied. The patient remained stable throughout the procedure, left the operating room following an accurate needle and sponge count. No family members were either present in the waiting room or responding to the telephone call. Arya Hummel MD PF/MCKENNA TID: [id number] RECEIPT: [id number]
[2025-06-27] MEDS: HYDROmorphone HCL 2 MG/ML VL/or syr IV PRN (09:50)
[2025-06-27] MEDS: HYDROmorphone HCL 2 MG/ML VL/or syr ONE (09:50)
[2025-06-27] MEDS: MAGNESIUM SULFATE 1GM/100ML 100 ML IV ONE (10:52)
[2025-06-27] MEDS: POTASSIUM CHL 20MEQ/100ML 100 ML IV SCH (10:53)
[2025-06-27] MEDS ORDERED: cefTRIAXone 1GM/50ML D5W 50 ML IV ONE (13:15)
[2025-06-27] MEDS: MORPHINE SULFATE INJ 2 MG/ml SYRG IV PRN (13:41)
--- NOTE | 2025-06-27 13:53 | DVHPN2 ---
Progress Note Date Seen: Jun 27, 2025 Resident Creating Document: VILMA ERVIN RESIDENT Has the PT tested + for MRSA If YES, has PT been informed?: Yes Medical Necessity Reason Pt with a Central, PICC or Fol: Yes The following are medically ne: Central Line, Sotelo Catheter Reason for sotelo catheter: Strict I&O Subjective Review of Systems 06/27/25 The patient is a 50-year-old female with a history of cholelithiasis and acute cholecystitis, who underwent laparoscopic cholecystectomy with removal of percutaneous cholecystostomy today. She was previously NPO due to aspiration risk with failed swallow evaluations and was receiving IV Clinimex amino acids for nutritional support. No new episodes of GI bleeding. She is advanced to clear liquid diet once she passes the swallow evaluation. Brief Gist of Todays Progress, Treatment, Labs, Imaging, and Plan * Surgery: Laparoscopic cholecystectomy with successful removal of gallbladder and percutaneous cholecystostomy tube. No intraoperative complications. * Feeds: Advance to clear liquid diet if she passes the swallow evaluation * Antibiotics: Receiving IV Metronidazole and IV Cefepime. * Other medications: IV Pantoprazole, Reglan, electrolyte replacement (potassium, phosphate), insulin per protocol. * Vitals: Stable (BP 125/87, HR 96, Temp 98.5F, SpO? 9597% on room air). * Labs: * Hgb 9.6 (down slightly from 10.1) * Hct 28.1 * WBC 7.0 (normal) * Platelets 399K * Albumin 2.7 (low), Ca 7.9 (low), K 3.0 (low) * Glucose 635304 (elevated) * Imaging: Chest X-ray post-op shows clear lungs, no effusion, no pneumothorax, right PICC in stable position. Review of Systems * GI: No abdominal pain, nausea, vomiting, hematemesis, or melena. * Constitutional: No fever or chills. * Other systems: Unremarkable. Objective vital signs Vital Sign Date Time Temp Pulse Resp B/P (MAP) Pulse Ox O2 Delivery O2 Flow Rate FiO2 06/27/25 12:00 96 06/27/25 12:00 98.5 15 125/87 (100) 95 98.5 06/27/25 12:00 Room Air* 0 N/A Nasal Cannula* Total Intake and Output 06/26/25 06/26/25 06/27/25 15:00 23:00 07:00 Intake Total 870.50 ml 634.25 ml 478 ml Output Total 2300 ml 1750 ml Balance 870.50 ml -1665.75 ml -1272 ml medications Current Medications Medications Dose Ordered Sig/Laura Route Start Time Stop Time Status Last Admin Dose Admin Ondansetron HCl 4 mg Q4HP PRN IV 06/14/25 10:45 Acetaminophen 650 mg Q6HP PRN PO 06/14/25 10:45 Insulin Glargine 15 units DAILY SC 06/15/25 10:00 06/27/25 10:55 15 UNITS Patient Own Medication 1 cap DAILY PO 06/15/25 10:00 UNV Patient Own Medication 2 tab DAILY PO 06/15/25 10:00 UNV Patient Own Medication 1 cap DAILY PO 06/15/25 10:00 UNV Albuterol 2.[address] [facility] 06/14/25 14:00 06/26/25 22:18 2.5 MG Ipratropium [place] 0.5 mg Q4HWA [facility] 06/14/25 14:00 06/26/25 22:18 0.5 MG Lamotrigine 50 mg DAILY PO 06/15/25 10:00 06/27/25 10:56 50 MG Pantoprazole Sodium 40 mg BID IV 06/16/25 22:00 06/27/25 10:56 40 MG Enteral Nutritional Formula 1,000 ml 30ML/HR GT 06/17/25 18:00 06/22/25 21:50 1,000 ML Metronidazole 100 ml @ 100 mls/hr Q8HR IV 06/18/25 22:00 06/27/25 08:50 Sodium Chloride 10 ml QSHIFT@10,22 IV 06/20/25 22:00 06/27/25 10:56 10 ML Metoclopramide HCl 5 mg Q8HR IV 06/24/25 22:00 06/27/25 05:27 5 MG Amino Acids 0 ml @ 0 mls/hr PER PHARMACY IV 06/24/25 16:00 Amino Acids/ Electrolytes/ Dextrose 1,000 ml @ 41 mls/hr DAILY@2200 IV 06/24/25 22:00 06/26/25 21:09 41 MLS/HR Diagnostic Test (Pha) 1 strip IQ4HR 06/24/25 20:00 06/27/25 11:38 1 STRIP Insulin Human Regular IQ4HR SC 06/24/25 20:00 06/27/25 10:50 6 UNITS Dextrose 50 ml UD PRN IV 06/24/25 19:30 Oxycodone HCl 10 mg ONCE PRN PO 06/27/25 09:45 Ceftriaxone Sodium 50 ml @ 100 mls/hr DAILY@09 IV 06/28/25 09:00 Morphine Sulfate 1 mg Q4HP PRN IV 06/27/25 13:15 Examination * General: Postoperative, alert, in no acute distress. * Abdomen: Soft, nondistended, minimally tender at surgical sites. No guarding or rebound. Dressings clean, dry, intact. * Drain Sites: Cholecystostomy tube removed; no leakage. * Rectal: Deferred. * Skin: No jaundice, incisions intact. laboratory and microbiology Laboratory Tests 06/27/25 04:45 Test 06/27/25 04:45 Range/Units Serum Glucose 207 H 74-106 mg/dL Microbiology Date/Time Source Procedure Growth Status 06/17/25 21:04 Blood Blood Culture - Final NO GROWTH AFTER 5 DAYS OF INCUBATION. Complete 06/14/25 16:30 Nose MRSA Screen - Final Methicillin Resistant S.aureus Complete 06/14/25 14:00 Sputum Gram Stain - Final Complete 06/14/25 14:00 Respiratory Culture - Final Methicillin Resistant S.aureus Complete 06/14/25 07:00 Voided Urine Urine Culture - Final Complete Problem List/Assessment/Plan Problem List/Assessment/Plan 1. Acute calculous cholecystitis s/p successful laparoscopic cholecystectomy and removal of cholecystostomy tube. 2. Resolved upper GI bleed no recurrence; stable Hgb. 3. Protein-calorie malnutrition continues to require IV nutrition. 4. Anemia mild, likely dilutional/postoperative; stable. 5. Electrolyte abnormalities hypokalemia, hypocalcemia, hypoalbuminemia; replacement ongoing. 6. Hyperglycemia under insulin protocol. Treatment Plan (GI-Specific, System-Neumann) Gastrointestinal * Continue Clear liquid diet if patient passed the swallow evaluation otherwise NPO * Repeat swallow evaluation when clinically appropriate. * Maintain IV antibiotics (Cefepime, Metronidazole) for 2448 hrs post-op per protocol. * Continue IV Pantoprazole for GI mucosal protection. Nutrition / Metabolic * Continue IV Clinimex amino acids at 42 mL/hr until oral/enteral feeding is safe. * Monitor daily electrolytes and replace potassium, calcium, magnesium as per protocol. * Assess for transition to enteral feeds once swallow function improves. Hematology * Monitor CBC daily; transfuse only if Hgb <7.0 or symptomatic. Prophylaxis * Stress ulcer prophylaxis: Continue IV PPI. WE WILL CONTINUE TO MONITOR THE PATIENT Case discussed in detail with the attending physician, including the clinical presentation, diagnostic workup, and comprehensive management plan. The patient was present for the discussion and demonstrated understanding of her condition and the proposed plan. Plan discussed with: Patient, Other (NURSE) Dietary Evaluation Review Comments: 1) TF Vital AF 1.2Cal @ 55ml/hr (goal) Start @ 20ml/hr, increase 10ml/hr Q4H until goal is reached. TF @ goal volume along with Propofol provides 1746 kcal (100% energy needs), 99 gm protein (100% protein needs), 1104 ml free water. 2) Water flush 160ml Q6H if allowed, adjust PRN 3) TPN if NPO > 7 days 4) Monitor NPO status, lab values, wt trend, I/O Expected Outcomes/Goals: To meet >75% estimated needs Lab values to improve Fu 2-3 days VILMA ERVIN RESIDENT Jun 27, 2025 13:53
--- NOTE | 2025-06-27 14:10 | DVHPNRES ---
Progress Note Date Seen: Jun 27, 2025 Resident Creating Document: ALONZO NAQVI RESIDENT Has the PT tested + for MRSA If YES, has PT been informed?: Yes Medical Necessity Reason Pt with a Central, PICC or Fol: Yes The following are medically ne: Central Line, Sotelo Catheter Reason for sotelo catheter: Strict I&O Subjective Review of Systems Patient seen and examined at the bedside. Patient reported improvement in weakness. For the underwent laparoscopic cholecystectomy status post day 0, patient tolerated procedure well. Continue Clinimix. All the swallow eval tomorrow again and initiate that as per surgeon orders. Downgraded to tele. Switched antibiotics to Levaquin. Objective vital signs Vital Sign Date Time Temp Pulse Resp B/P (MAP) Pulse Ox O2 Delivery O2 Flow Rate FiO2 06/27/25 13:41 106 17 136/94 06/27/25 13:00 98 06/27/25 12:00 98.5 98.5 06/27/25 12:00 Room Air* 0 N/A Nasal Cannula* Total Intake and Output 06/26/25 06/26/25 06/27/25 15:00 23:00 07:00 Intake Total 870.50 ml 634.25 ml 478 ml Output Total 2300 ml 1750 ml Balance 870.50 ml -1665.75 ml -1272 ml medications Current Medications Medications Dose Ordered Sig/Laura Route Start Time Stop Time Status Last Admin Dose Admin Ondansetron HCl 4 mg Q4HP PRN IV 06/14/25 10:45 Acetaminophen 650 mg Q6HP PRN PO 06/14/25 10:45 Insulin Glargine 15 units DAILY SC 06/15/25 10:00 06/27/25 10:55 15 UNITS Patient Own Medication 1 cap DAILY PO 06/15/25 10:00 UNV Patient Own Medication 2 tab DAILY PO 06/15/25 10:00 UNV Patient Own Medication 1 cap DAILY PO 06/15/25 10:00 UNV Albuterol 2.5 mg Q4HWA [facility]B 06/14/25 14:00 06/26/25 22:18 2.5 MG Ipratropium [place] 0.5 mg Q4HWA NEB 06/14/25 14:00 06/26/25 22:18 0.5 MG Lamotrigine 50 mg DAILY PO 06/15/25 10:00 06/27/25 10:56 50 MG Pantoprazole Sodium 40 mg BID IV 06/16/25 22:00 06/27/25 10:56 40 MG Enteral Nutritional Formula 1,000 ml 30ML/HR GT 06/17/25 18:00 06/22/25 21:50 1,000 ML Metronidazole 100 ml @ 100 mls/hr Q8HR IV 06/18/25 22:00 06/27/25 08:50 Sodium Chloride 10 ml QSHIFT@10,22 IV 06/20/25 22:00 06/27/25 10:56 10 ML Metoclopramide HCl 5 mg Q8HR IV 06/24/25 22:00 06/27/25 05:27 5 MG Amino Acids 0 ml @ 0 mls/hr PER PHARMACY IV 06/24/25 16:00 Amino Acids/ Electrolytes/ Dextrose 1,000 ml @ 41 mls/hr DAILY@2200 IV 06/24/25 22:00 06/26/25 21:09 41 MLS/HR Diagnostic Test (Pha) 1 strip IQ4HR 06/24/25 20:00 06/27/25 11:38 1 STRIP Insulin Human Regular IQ4HR SC 06/24/25 20:00 06/27/25 10:50 6 UNITS Dextrose 50 ml UD PRN IV 06/24/25 19:30 Oxycodone HCl 10 mg ONCE PRN PO 06/27/25 09:45 Morphine Sulfate 1 mg Q4HP PRN IV 06/27/25 13:15 06/27/25 13:41 1 MG Levofloxacin/ Dextrose 100 ml @ 100 mls/hr DAILY IV 06/27/25 14:15 UNV Examination Pt is lying on bed General Appearance: Alert, Oriented X3, Cooperative, Not in acute distress HEENT: Atraumatic, Mucous membranes moist/pink Respiratory: Clear to auscultation, Normal air movement, No added sounds Cardiovascular: Regular rate, Normal S1, Normal S2, No murmurs Abdominal: Hypo active bowel sounds, Soft, Cholecystostomy tube removed, binder in place Extremities: No edema, Normal pulses, No tenderness/swelling Skin: No Significant rash, except past surgical scars Neuro: Normal speech, sensorimotor deficits none Psych/Mental Status: Mental status NL, Mood NL Nurse was there as medical laboratory scientist during examination laboratory and microbiology Laboratory Tests 06/27/25 04:45 Test 06/27/25 04:45 Range/Units Serum Glucose 207 H 74-106 mg/dL Microbiology Date/Time Source Procedure Growth Status 06/17/25 21:04 Blood Blood Culture - Final NO GROWTH AFTER 5 DAYS OF INCUBATION. Complete 06/14/25 16:30 Nose MRSA Screen - Final Methicillin Resistant S.aureus Complete 06/14/25 14:00 Sputum Gram Stain - Final Complete 06/14/25 14:00 Respiratory Culture - Final Methicillin Resistant S.aureus Complete 06/14/25 07:00 Voided Urine Urine Culture - Final Complete Labs and/or images reviewed: Labs reviewed by me, Image(s) reviewed by me Problem List/Assessment/Plan Problem List/Assessment/Plan Neurology # Acute metabolic encephalopathy likely from DKA resolved - intubated on 06/16/25, extubated on June 23 - fentanyl , propofol, Versed discontinued on June 22 - Head CT: No acute intracranial abnormality. Respiratory # Acute hypoxic respiratory failure-status post extubation June 23 and on room air right now # ? Acute Gram-positive/negative bacterial PNA, resolving # Hx of asthma , not in exacerbation -downgraded to tele - Ipratropium and albuterol med nebs - IV vancomycin discontinued on 06/20 - IV Levaquin(06/27) and Flagyl - Dc IV cefepime today - CXR 06/16/25: Hazy opacity throughout the right hemithorax may be due to pneumonia or layering pleural effusion versus something outside of the patient. - CXR 06/17/2025: No evidence of acute disease - Repeat CXR no significant interval changes GI # Gastrointestinal Bleed (Upper vs. Lower) - Patient received 2 units PRBCs. - GI team is on board; pending endoscopy once medically stable. - CT A/P (non-contrast) shows rectal wall thickening with stranding, suggestive of proctocolitis, and cholelithiasis with small ascites and anasarca. Also noted: rectal catheter looping, bilateral pleural effusions, and central line terminating in the right external iliac vein. # Suspected Acute Cholecystitis - CT findings: Cholelithiasis with pericholecystic edema. - Liver ultrasound: Cholelithiasis and gallbladder wall thickeningfindings may suggest acute cholecystitis. - HIDA scan recommended to confirm diagnosis. - Metronidazole added on 06/18/2025. - IV Levaquin(06/27) and Flagyl - Dc IV cefepime today - Cholecystostomy placed - Surgical consult (Dr. Hummel) updated regarding possible cholecystectomy -status post cholecystectomy day 0, patient tolerated with the procedure well # Peptic Ulcer Prophylaxis - Pantoprazole 40 mg IV BID initiated. Diet-initiated IV Clinimix -06/24 Fleet enema given, 06/25-large BM Endo # T2DM, uncontrolled, insulin dependent # DKA, resolved - insulin Lantus 15 units daily - moderate sliding scale insulin # Sotelo catheter Nephrology # MABLE, likely hemodynamically mediated/VMN-improving # hyperphosphatemia due to above -resolving # hyperkalemia due to above -resolving # hypernatremia-corrected with the free water # hypomagnesemia # hypokalemia -discontinued free water -repleting magnesium and potassium -monitor lab -avoid nephrotoxic agents -strict I&Os Infectious disease # ? Acute Gram-positive/negative bacterial PNA, resolving # blood cultures growing Gram-positive rods; bacillus, repeat cultures negative # ? acute cholecystitis # sepsis due to above - IV Levaquin(06/27) and Flagyl - Dc IV cefepime today - CT abdomen pelvis: Limited evaluation without contrast. Rectal wall thickening with surrounding stranding. Correlate for proctocolitis and rectal catheter looped upon itself within the rectum. Right common femoral vein central venous catheter terminating in the right external iliac vein. Small amount of ascites /pelvic fluid. Soft tissue edema/ anasarca.Cholelithiasis and pericholecystic edema. Recommend HIDA scan to exclude cholecystitis.Small bilateral pleural effusions. - added metronidazole 06/18/25 - repeat blood cultures negative Hem/onc # anemia, s/p 2 PRBC - monitor Psychiatry # bipolar disorder # medication nonadherence - resumed home medication lamotrigine but patient is unable to take due to failed swallow eval PT eval done and recommended acute rehabilitation after discharge GI PPX: Protonix DVT prophylaxis- Holding due to possible GI bleed Nutrition- IV Clinimix, we will do swallow eval tomorrow and initiate diet if passes Lines PICC line placed on 06/20/25 Drips Versed, fentanyl, propofol discontinued on 06/22 Extubated on 06/23 Code status discussed greater than 29 minutes: Full CODE STATUS. Case discussed with Dr. Pacheco, patient and nurse Critical care time 41 minutes excluding procedure. Detailed discussion about plan of care was held with patient's brother via telephone, all questions were answered and concerns addressed. And also informed about possible cholecystectomy tomorrow. Plan discussed with: Patient, Other (RN) My Orders My Orders Orders - ALONZO NAQVI Procedure Category Date Status Time Chest Portable XY 06/27/25 Resulted 05:00 Morphine Sulfate PHA 06/27/25 In Process Injection 13:15 Levofloxacin 500mg PHA 06/27/25 Logged (Levaquin 500mg/ 100m 14:15 Dietary Evaluation Review Comments: 1) TF Vital AF 1.2Cal @ 55ml/hr (goal) Start @ 20ml/hr, increase 10ml/hr Q4H until goal is reached. TF @ goal volume along with Propofol provides 1746 kcal (100% energy needs), 99 gm protein (100% protein needs), 1104 ml free water. 2) Water flush 160ml Q6H if allowed, adjust PRN 3) TPN if NPO > 7 days 4) Monitor NPO status, lab values, wt trend, I/O Expected Outcomes/Goals: To meet >75% estimated needs Lab values to improve Fu 2-3 days Date of Service: Jun 27, 2025 Billing Provider: JOSETTE PACHECO MD Common Visit Codes: 43236-[id number] CARE 30-74 MIN ALONZO NAQVI Jun 27, 2025 14:10 JOSETTE PACHECO MD Jun 29, 2025 12:25
[2025-06-27] MEDS: POTASSIUM CHL 20MEQ/100ML 100 ML IV ONE (16:11)
[2025-06-27] MEDS: POTASSIUM PHOSPHATE 22 MEQ in SODIUM CHL 0.9% 100 ML IV ONE (18:56)
[2025-06-28] VITALS (11 sets, daily range): BP systolic 108–116; BP diastolic 70–79; PULSE 105–115; RESP 14–20; TEMP 97.8–99.3; O2SAT 93–99
[2025-06-28 05:41] LABS: Hematocrit 28.4 % (36.0-46.0); Hemoglobin 9.8 g/dL (12.2-16.2); Mean Corpuscular Hemoglobin 30.1 pg (28.0-32.0); Mean Corpuscular Volume 87.1 fL (80.0-100.0)
[2025-06-28 06:01] LABS: Alanine Aminotransferase 14 U/L (7-40); Alkaline Phosphatase 59 U/L (46-116); Anion Gap 7 (5-15); BUN/Creatinine Ratio 15.0 (10.0-20.0); Calcium 8.9 mg/dL (8.7-10.4); Carbon Dioxide 28 mmol/L (20-31); Chloride 104 mmol/L (98-107); Magnesium 1.7 mg/dL (1.6-2.6); Potassium 3.9 mmol/L (3.5-5.1); Sodium 139 mmol/L (136-145)
[2025-06-28 06:15] LABS: Albumin 2.8 g/dL (3.2-4.8); Bilirubin, Total 0.2 mg/dL (0.2-1.0); Blood Urea Nitrogen 6 mg/dL (9-23); Glucose 223 mg/dL (74-106); Total Protein 4.7 g/dL (5.7-8.2)
[2025-06-28 06:35] LABS: Total Cells Counted 100.0 (100)
[2025-06-28] MEDS ORDERED: cefTRIAXone 1GM/50ML D5W 50 ML IV SCH (09:00)
[2025-06-28] MEDS: MAGNESIUM SULFATE 1GM/100ML 100 ML IV SCH (10:15)
--- NOTE | 2025-06-28 10:35 | DVHPN2 ---
Progress Note Date Seen: Jun 28, 2025 Has the PT tested + for MRSA If YES, has PT been informed?: Yes Medical Necessity Reason Pt with a Central, PICC or Fol: Yes The following are medically ne: Central Line, Sotelo Catheter Reason for sotelo catheter: Strict I&O Objective vital signs Vital Sign Date Time Temp Pulse Resp B/P (MAP) Pulse Ox O2 Delivery O2 Flow Rate FiO2 06/28/25 09:00 98.2 107 18 108/70 (83) 95 98.2 06/27/25 22:00 Room Air* 0 21 Total Intake and Output 06/27/25 06/27/25 06/28/25 15:00 23:00 07:00 Intake Total 878 ml 573 ml 0 ml Output Total 1650 ml 900 ml Balance 878 ml -1077 ml -900 ml medications Current Medications Medications Dose Ordered Sig/Laura Route Start Time Stop Time Status Last Admin Dose Admin Ondansetron HCl 4 mg Q4HP PRN IV 06/14/25 10:45 Acetaminophen 650 mg Q6HP PRN PO 06/14/25 10:45 Insulin Glargine 15 units DAILY SC 06/15/25 10:00 06/27/25 10:55 15 UNITS Patient Own Medication 1 cap DAILY PO 06/15/25 10:00 UNV Patient Own Medication 2 tab DAILY PO 06/15/25 10:00 UNV Patient Own Medication 1 cap DAILY PO 06/15/25 10:00 UNV Albuterol 2.5 mg Q4HWA [facility] 06/14/25 14:00 06/27/25 18:35 2.5 MG Ipratropium [place] 0.5 mg Q4HWA [facility] 06/14/25 14:00 06/27/25 18:35 0.5 MG Lamotrigine 50 mg DAILY PO 06/15/25 10:00 06/28/25 10:15 50 MG Pantoprazole Sodium 40 mg BID IV 06/16/25 22:00 06/27/25 23:14 40 MG Enteral Nutritional Formula 1,000 ml 30ML/HR GT 06/17/25 18:00 06/22/25 21:50 1,000 ML Metronidazole 100 ml @ 100 mls/hr Q8HR IV 06/18/25 22:00 06/28/25 06:05 100 MLS/HR Sodium Chloride 10 ml QSHIFT@, IV 06/20/25 22:00 06/27/25 23:14 10 ML Metoclopramide HCl 5 mg Q8HR IV 06/24/25 22:00 06/28/25 06:05 5 MG Amino Acids 0 ml @ 0 mls/hr PER PHARMACY IV 06/24/25 16:00 Amino Acids/ Electrolytes/ Dextrose 1,000 ml @ 41 mls/hr DAILY@2200 IV 06/24/25 22:00 06/27/25 23:19 41 MLS/HR Diagnostic Test (Pha) 1 strip IQ4HR 06/24/25 20:00 06/28/25 08:25 1 STRIP Insulin Human Regular IQ4HR SC 06/24/25 20:00 06/28/25 08:24 6 UNITS Dextrose 50 ml UD PRN IV 06/24/25 19:30 Oxycodone HCl 10 mg ONCE PRN PO 06/27/25 09:45 Morphine Sulfate 1 mg Q4HP PRN IV 06/27/25 13:15 06/28/25 06:04 1 MG Levofloxacin/ Dextrose 100 ml @ 100 mls/hr DAILY IV 06/27/25 14:15 06/28/25 10:15 100 MLS/HR Magnesium Sulfate/ Dextrose 100 ml @ 100 mls/hr Q1HR IV 06/28/25 09:00 06/28/25 10:59 06/28/25 10:15 100 MLS/HR laboratory and microbiology Laboratory Tests 06/28/25 04:56 Test 06/28/25 04:56 Range/Units Serum Glucose 223 H 74-106 mg/dL Problem List/Assessment/Plan Problem List/Assessment/Plan 06/20/25 CHOLECYSTOSTOMY PLACED BY RADIOLOGIST YESTERDAY, DRAINING CLEAR BILE(CULTURES PENDING). ABDOMEN SOFT, NON DISTENDED, VITAL SIGNS UNCHANGED 06/21/25 essentially unchanged, abdomen non distended, soft, cholecystostomy draining clear bile patient extubated hemodynamically stable, laparoscopic possibly open cholecystectomy, risks and complications explained 06/26/25 patient without pain nausea or vomiting, afebrile answered of her questions . she is scheduled for laparoscopic possibly open cholecystectomy tomorrow AM 06/28/25 feels well, has not ambulated, occasional nausea, abdomen appropriately tender, wounds clean and well approximated, Plan discussed with: Patient Dietary Evaluation Review Comments: 1) TF Vital AF 1.2Cal @ 55ml/hr (goal) Start @ 20ml/hr, increase 10ml/hr Q4H until goal is reached. TF @ goal volume along with Propofol provides 1746 kcal (100% energy needs), 99 gm protein (100% protein needs), 1104 ml free water. 2) Water flush 160ml Q6H if allowed, adjust PRN 3) TPN if NPO > 7 days 4) Monitor NPO status, lab values, wt trend, I/O Expected Outcomes/Goals: To meet >75% estimated needs Lab values to improve Fu 2-3 days JAXSON ZACARIAS MD Jun 28, 2025 10:35
--- NOTE | 2025-06-28 14:33 | DVHPNRES ---
Progress Note Date Seen: Jun 28, 2025 Resident Creating Document: ALONZO NAQVI RESIDENT Has the PT tested + for MRSA If YES, has PT been informed?: Yes Medical Necessity Reason Pt with a Central, PICC or Fol: Yes The following are medically ne: Central Line, Sotelo Catheter Reason for sotelo catheter: Strict I&O Subjective Review of Systems Patient seen and examined at the bedside. Patient reported improvement in weakness. For the underwent laparoscopic cholecystectomy status post day 1, patient tolerated procedure well. Feels well, has not ambulated, occasional nausea, abdomen appropriately tender, wounds clean and well approximated, Continue Clinimix. NPO status due to failed a swallow eval, we will repeat Swallow eval and initiate diet if passes. T-max in last 24 hours is 99.7. Objective vital signs Vital Sign Date Time Temp Pulse Resp B/P (MAP) Pulse Ox O2 Delivery O2 Flow Rate FiO2 06/28/25 13:00 97.8 109 18 115/75 (88) 97 97.8 06/28/25 08:00 Room Air* 0 21 Total Intake and Output 06/27/25 06/27/25 06/28/25 15:00 23:00 07:00 Intake Total 878 ml 573 ml 0 ml Output Total 1650 ml 900 ml Balance 878 ml -1077 ml -900 ml medications Current Medications Medications Dose Ordered Sig/Laura Route Start Time Stop Time Status Last Admin Dose Admin Ondansetron HCl 4 mg Q4HP PRN IV 06/14/25 10:45 Acetaminophen 650 mg Q6HP PRN PO 06/14/25 10:45 Insulin Glargine 15 units DAILY SC 06/15/25 10:00 06/28/25 12:51 15 UNITS Patient Own Medication 1 cap DAILY PO 06/15/25 10:00 UNV Patient Own Medication 2 tab DAILY PO 06/15/25 10:00 UNV Patient Own Medication 1 cap DAILY PO 06/15/25 10:00 UNV Albuterol 2.5 mg Q4HWA NEB 06/14/25 14:00 06/27/25 18:35 2.5 MG Ipratropium [place] 0.5 mg Q4HWA NEB 06/14/25 14:00 06/27/25 18:35 0.5 MG Lamotrigine 50 mg DAILY PO 06/15/25 10:00 06/28/25 10:15 50 MG Pantoprazole Sodium 40 mg BID IV 06/16/25 22:00 06/28/25 12:43 40 MG Enteral Nutritional Formula 1,000 ml 30ML/HR GT 06/17/25 18:00 06/22/25 21:50 1,000 ML Metronidazole 100 ml @ 100 mls/hr Q8HR IV 06/18/25 22:00 06/28/25 14:07 100 MLS/HR Sodium Chloride 10 ml QSHIFT@10,22 IV 06/20/25 22:00 06/28/25 10:20 10 ML Metoclopramide HCl 5 mg Q8HR IV 06/24/25 22:00 06/28/25 14:07 5 MG Amino Acids 0 ml @ 0 mls/hr PER PHARMACY IV 06/24/25 16:00 Amino Acids/ Electrolytes/ Dextrose 1,000 ml @ 41 mls/hr DAILY@2200 IV 06/24/25 22:00 06/27/25 23:19 41 MLS/HR Diagnostic Test (Pha) 1 strip IQ4HR 06/24/25 20:00 06/28/25 12:44 1 STRIP Insulin Human Regular IQ4HR SC 06/24/25 20:00 06/28/25 12:51 9 UNITS Dextrose 50 ml UD PRN IV 06/24/25 19:30 Oxycodone HCl 10 mg ONCE PRN PO 06/27/25 09:45 Morphine Sulfate 1 mg Q4HP PRN IV 06/27/25 13:15 06/28/25 06:04 1 MG Levofloxacin/ Dextrose 100 ml @ 100 mls/hr DAILY IV 06/27/25 14:15 06/28/25 10:15 100 MLS/HR Examination Pt is lying on bed General Appearance: Alert, Oriented X3, Cooperative, Not in acute distress HEENT: Atraumatic, Mucous membranes moist/pink Respiratory: Clear to auscultation, Normal air movement, No added sounds Cardiovascular: Regular rate, Normal S1, Normal S2, No murmurs Abdominal: Hypo active bowel sounds, Soft, binder in place, wound is clean no signs of infection/inflammation Extremities: No edema, Normal pulses, No tenderness/swelling Skin: No Significant rash, except past surgical scars Neuro: Normal speech, sensorimotor deficits none Psych/Mental Status: Mental status NL, Mood NL Nurse was there as prototype model maker during examination laboratory and microbiology Laboratory Tests 06/28/25 04:56 Test 06/28/25 04:56 Range/Units Serum Glucose 223 H 74-106 mg/dL Microbiology Date/Time Source Procedure Growth Status 06/17/25 21:04 Blood Blood Culture - Final NO GROWTH AFTER 5 DAYS OF INCUBATION. Complete 06/14/25 16:30 Nose MRSA Screen - Final Methicillin Resistant S.aureus Complete 06/14/25 14:00 Sputum Gram Stain - Final Complete 06/14/25 14:00 Respiratory Culture - Final Methicillin Resistant S.aureus Complete 06/14/25 07:00 Voided Urine Urine Culture - Final Complete Labs and/or images reviewed: Labs reviewed by me, Image(s) reviewed by me Problem List/Assessment/Plan Problem List/Assessment/Plan Neurology # Acute metabolic encephalopathy likely from DKA resolved - intubated on 06/16/25, extubated on June 23 - fentanyl , propofol, Versed discontinued on June 22 - Head CT: No acute intracranial abnormality. Respiratory # Acute hypoxic respiratory failure-status post extubation June 23 and on room air right now # ? Acute Gram-positive/negative bacterial PNA, resolving # Hx of asthma , not in exacerbation -downgraded to tele - Ipratropium and albuterol med nebs - IV vancomycin discontinued on 06/20 - IV Levaquin(06/27) and Flagyl - Dc IV cefepime today - CXR 06/16/25: Hazy opacity throughout the right hemithorax may be due to pneumonia or layering pleural effusion versus something outside of the patient. - CXR 06/17/2025: No evidence of acute disease - Repeat CXR no significant interval changes GI # Gastrointestinal Bleed (Upper vs. Lower) - Patient received 2 units PRBCs. - GI team is on board; pending endoscopy once medically stable. - CT A/P (non-contrast) shows rectal wall thickening with stranding, suggestive of proctocolitis, and cholelithiasis with small ascites and anasarca. Also noted: rectal catheter looping, bilateral pleural effusions, and central line terminating in the right external iliac vein. # Suspected Acute Cholecystitis - CT findings: Cholelithiasis with pericholecystic edema. - Liver ultrasound: Cholelithiasis and gallbladder wall thickeningfindings may suggest acute cholecystitis. - HIDA scan recommended to confirm diagnosis. - Metronidazole added on 06/18/2025. - IV Levaquin(06/27) and Flagyl - Dc IV cefepime today - Cholecystostomy placed - Surgical consult (Dr. Hummel) updated regarding possible cholecystectomy -status post cholecystectomy day 1, patient tolerated with the procedure well # Peptic Ulcer Prophylaxis - Pantoprazole 40 mg IV BID initiated. Diet-initiated IV Clinimix -06/24 Fleet enema given, 06/25-large BM Endo # T2DM, uncontrolled, insulin dependent # DKA, resolved - insulin Lantus 15 units daily - moderate sliding scale insulin # Sotelo catheter Nephrology # MABLE, likely hemodynamically mediated/VMN-improving # hyperphosphatemia due to above -resolving # hyperkalemia due to above -resolving # hypernatremia-corrected with the free water # hypomagnesemia # hypokalemia -discontinued free water -repleting magnesium and potassium -monitor lab -avoid nephrotoxic agents -strict I&Os Infectious disease # ? Acute Gram-positive/negative bacterial PNA, resolving # blood cultures growing Gram-positive rods; bacillus, repeat cultures negative # ? acute cholecystitis # sepsis due to above - IV Levaquin(06/27) and Flagyl - Dc IV cefepime today - CT abdomen pelvis: Limited evaluation without contrast. Rectal wall thickening with surrounding stranding. Correlate for proctocolitis and rectal catheter looped upon itself within the rectum. Right common femoral vein central venous catheter terminating in the right external iliac vein. Small amount of ascites /pelvic fluid. Soft tissue edema/ anasarca.Cholelithiasis and pericholecystic edema. Recommend HIDA scan to exclude cholecystitis.Small bilateral pleural effusions. - added metronidazole 06/18/25 - repeat blood cultures negative Hem/onc # anemia, s/p 2 PRBC - monitor Psychiatry # bipolar disorder # medication nonadherence - resumed home medication lamotrigine but patient is unable to take due to failed swallow eval PT eval done and recommended acute rehabilitation after discharge GI PPX: Protonix DVT prophylaxis- Holding due to possible GI bleed Nutrition- IV Clinimix, we will do swallow eval tomorrow and initiate diet if passes Lines PICC line placed on 06/20/25 Drips Versed, fentanyl, propofol discontinued on 7/26 Extubated on 06/23 Code status discussed greater than 29 minutes: Full CODE STATUS. Critical care time 41 minutes excluding procedure. Detailed discussion about plan of care was held with patient's brother via telephone, all questions were answered and concerns addressed. Case discussed with Dr. Winslow regarding her current antibiotics, hemodynamics, PT and swallow evaluation Plan discussed with: Patient, Other (brother and RN) My Orders My Orders Orders - ALONZO NAQVI Procedure Category Date Status Time Npo (Nothing By DIET 06/28/25 Transmitted Mouth) Diet Dinner Dietary Evaluation Review Comments: 1) TF Vital AF 1.2Cal @ 55ml/hr (goal) Start @ 20ml/hr, increase 10ml/hr Q4H until goal is reached. TF @ goal volume along with Propofol provides 1746 kcal (100% energy needs), 99 gm protein (100% protein needs), 1104 ml free water. 2) Water flush 160ml Q6H if allowed, adjust PRN 3) TPN if NPO > 7 days 4) Monitor NPO status, lab values, wt trend, I/O Expected Outcomes/Goals: To meet >75% estimated needs Lab values to improve Fu 2-3 days ALONZO NAQVI RESIDENT Jun 28, 2025 14:33
--- NOTE | 2025-06-28 17:02 | DVHPN2 ---
Progress Note Date Seen: Jun 28, 2025 Resident Creating Document: VILMA ERVIN RESIDENT Has the PT tested + for MRSA If YES, has PT been informed?: Yes Medical Necessity Reason Pt with a Central, PICC or Fol: Yes The following are medically ne: Central Line, Sotelo Catheter Reason for sotelo catheter: Strict I&O Subjective Review of Systems The patient is a 50-year-old female with a history of cholelithiasis and acute cholecystitis who underwent laparoscopic cholecystectomy with removal of percutaneous cholecystostomy yesterday. She reports no abdominal pain today, pain is well controlled without need for additional analgesia. No nausea, vomiting, hematemesis, or melena. She failed her swallow evaluation again today, continues to cough with attempted sips of water, and is awaiting a speech therapy evaluation for further management. She remains NPO, allowed only ice chips, and is receiving IV Clinimex amino acids for nutritional support. No new GI complaints were noted. Brief Gist of Todays Progress, Treatments, Labs, Imaging, and Plan * Postoperative Day 1 from laparoscopic cholecystectomy; incision sites clean, dry, intact with no drainage. * Swallow evaluation: Failed again today; awaiting formal speech therapy evaluation. * Feeds: Continues IV Clinimex amino acids for parenteral nutrition; no enteral/oral feeds. * Antibiotics: Receiving IV Metronidazole and IV Levofloxacin for postoperative infection prophylaxis. * Plan: Continue current antibiotics, maintain NPO with IV nutrition, correct electrolytes, repeat swallow evaluation after speech therapy assessment, and monitor for postoperative complications. Objective vital signs Vital Sign Date Time Temp Pulse Resp B/P (MAP) Pulse Ox O2 Delivery O2 Flow Rate FiO2 06/28/25 13:00 97.8 109 18 115/75 (88) 97 97.8 06/28/25 08:00 Room Air* 0 21 Total Intake and Output 06/27/25 06/27/25 06/28/25 15:00 23:00 07:00 Intake Total 878 ml 573 ml 0 ml Output Total 1650 ml 900 ml Balance 878 ml -1077 ml -900 ml medications Current Medications Medications Dose Ordered Sig/Laura Route Start Time Stop Time Status Last Admin Dose Admin Ondansetron HCl 4 mg Q4HP PRN IV 06/14/25 10:45 Acetaminophen 650 mg Q6HP PRN PO 06/14/25 10:45 Insulin Glargine 15 units DAILY SC 06/15/25 10:00 06/28/25 12:51 15 UNITS Patient Own Medication 1 cap DAILY PO 06/15/25 10:00 UNV Patient Own Medication 2 tab DAILY PO 06/15/25 10:00 UNV Patient Own Medication 1 cap DAILY PO 06/15/25 10:00 UNV Albuterol 2.5 mg Q4HWA NEB 06/14/25 14:00 06/27/25 18:35 2.5 MG Ipratropium [place] 0.5 mg Q4HWA NEB 06/14/25 14:00 06/27/25 18:35 0.5 MG Lamotrigine 50 mg DAILY PO 06/15/25 10:00 06/28/25 10:15 50 MG Pantoprazole Sodium 40 mg BID IV 06/16/25 22:00 06/28/25 12:43 40 MG Enteral Nutritional Formula 1,000 ml 30ML/HR GT 06/17/25 18:00 06/22/25 21:50 1,000 ML Metronidazole 100 ml @ 100 mls/hr Q8HR IV 06/18/25 22:00 06/28/25 14:07 100 MLS/HR Sodium Chloride 10 ml QSHIFT@10,22 IV 06/20/25 22:00 06/28/25 10:20 10 ML Metoclopramide HCl 5 mg Q8HR IV 06/24/25 22:00 06/28/25 14:07 5 MG Amino Acids 0 ml @ 0 mls/hr PER PHARMACY IV 06/24/25 16:00 Amino Acids/ Electrolytes/ Dextrose 1,000 ml @ 41 mls/hr DAILY@2200 IV 06/24/25 22:00 06/27/25 23:19 41 MLS/HR Diagnostic Test (Pha) 1 strip IQ4HR 06/24/25 20:00 06/28/25 12:44 1 STRIP Insulin Human Regular IQ4HR SC 06/24/25 20:00 06/28/25 12:51 9 UNITS Dextrose 50 ml UD PRN IV 06/24/25 19:30 Oxycodone HCl 10 mg ONCE PRN PO 06/27/25 09:45 Morphine Sulfate 1 mg Q4HP PRN IV 06/27/25 13:15 06/28/25 06:04 1 MG Levofloxacin/ Dextrose 100 ml @ 100 mls/hr DAILY IV 06/27/25 14:15 06/28/25 10:15 100 MLS/HR Examination * General: Alert, no acute distress, postoperative. * HEENT: Mucous membranes moist, oropharynx clear, no lesions. * Abdomen: Soft, nondistended, non-tender. Surgical incisions are clean, dry, intact; no erythema, drainage, or signs of infection. * Drain Sites: No drains currently in place. * Skin: No jaundice, incisions intact. * Neuro: Awake, oriented, no focal deficits. laboratory and microbiology Laboratory Tests 06/28/25 04:56 Test 06/28/25 04:56 Range/Units Serum Glucose 223 H 74-106 mg/dL Microbiology Date/Time Source Procedure Growth Status 06/17/25 21:04 Blood Blood Culture - Final NO GROWTH AFTER 5 DAYS OF INCUBATION. Complete 06/14/25 16:30 Nose MRSA Screen - Final Methicillin Resistant S.aureus Complete 06/14/25 14:00 Sputum Gram Stain - Final Complete 06/14/25 14:00 Respiratory Culture - Final Methicillin Resistant S.aureus Complete 06/14/25 07:00 Voided Urine Urine Culture - Final Complete Problem List/Assessment/Plan Problem List/Assessment/Plan Assessment 1. Acute cholecystitis, s/p laparoscopic cholecystectomy POD #1, stable, no complications. 2. Persistent postoperative dysphagia with aspiration risk failed swallow evaluation; remains NPO with IV nutrition; awaiting speech therapy. 3. Protein-calorie malnutrition continues IV Clinimex amino acids. 4. Electrolyte disturbances hypokalemia, hypocalcemia; replacement ongoing. 5. Mild anemia stable, likely postoperative. 6. Hyperglycemia under control with insulin protocol. Treatment Plan Gastrointestinal * Continue NPO (except ice chips) due to high aspiration risk. * Continue IV Clinimex amino acids at current rate for parenteral nutrition. * Maintain IV antibiotics (Metronidazole + Levofloxacin) for postoperative infection prophylaxis. * Monitor for any signs of bile leak, infection, or GI bleeding. * Await speech therapy evaluation for dysphagia management. * Continue IV Pantoprazole for stress ulcer and GI mucosal protection. Nutrition / Metabolic * Maintain parenteral nutrition with IV Clinimex amino acids. * Monitor daily CMP, albumin, and replace electrolytes (K, Ca, Mg) per protocol. * Reassess readiness for transition to enteral feeds once swallow function improves. Hematology * Monitor CBC daily; transfuse only if Hgb <7.0 or symptomatic. Prophylaxis * DVT prophylaxis: Continue Heparin 5000 units SQ Q8H. WE WILL CONTINUE TO MONITOR THE PATIENT Case discussed in detail with the attending physician, including the clinical presentation, diagnostic workup, and comprehensive management plan. The patient was present for the discussion and demonstrated understanding of her condition and the proposed plan. Plan discussed with: Patient Dietary Evaluation Review Comments: 1) TF Vital AF 1.2Cal @ 55ml/hr (goal) Start @ 20ml/hr, increase 10ml/hr Q4H until goal is reached. TF @ goal volume along with Propofol provides 1746 kcal (100% energy needs), 99 gm protein (100% protein needs), 1104 ml free water. 2) Water flush 160ml Q6H if allowed, adjust PRN 3) TPN if NPO > 7 days 4) Monitor NPO status, lab values, wt trend, I/O Expected Outcomes/Goals: To meet >75% estimated needs Lab values to improve Fu 2-3 days VILMA ERVIN RESIDENT Jun 28, 2025 17:02
[2025-06-29] VITALS (14 sets, daily range): BP systolic 121–134; BP diastolic 74–87; PULSE 108–124; RESP 16–19; TEMP 98–99; O2SAT 94–97
[2025-06-29 07:21] LABS: Alanine Aminotransferase 14 U/L (7-40); Alkaline Phosphatase 60 U/L (46-116); Anion Gap 8 (5-15); Carbon Dioxide 29 mmol/L (20-31); Chloride 103 mmol/L (98-107); Magnesium 1.7 mg/dL (1.6-2.6); Sodium 140 mmol/L (136-145)
[2025-06-29 07:25] LABS: Hematocrit 28.4 % (36.0-46.0); Hemoglobin 9.8 g/dL (12.2-16.2); Mean Corpuscular Hemoglobin 30.2 pg (28.0-32.0); Mean Corpuscular Volume 87.5 fL (80.0-100.0); Nucleated Red Blood Cells % 0.1 %
[2025-06-29 07:28] LABS: Albumin 2.8 g/dL (3.2-4.8); BUN/Creatinine Ratio 14.3 (10.0-20.0); Bilirubin, Total 0.2 mg/dL (0.2-1.0); Blood Urea Nitrogen < 5 mg/dL (9-23); Calcium 8.1 mg/dL (8.7-10.4); Glucose 202 mg/dL (74-106); Potassium 3.4 mmol/L (3.5-5.1); Total Protein 4.6 g/dL (5.7-8.2)
--- NOTE | 2025-06-29 08:53 | DVHPN2 ---
Progress Note Date Seen: Jun 29, 2025 Has the PT tested + for MRSA If YES, has PT been informed?: Yes Medical Necessity Reason Pt with a Central, PICC or Fol: Yes The following are medically ne: Central Line, Sotelo Catheter Reason for sotelo catheter: Strict I&O Objective vital signs Vital Sign Date Time Temp Pulse Resp B/P (MAP) Pulse Ox O2 Delivery O2 Flow Rate FiO2 06/29/25 06:24 107 18 119/69 06/29/25 05:50 95 Room Air* 0 21 06/29/25 05:00 98.8 98.8 Total Intake and Output 06/28/25 06/28/25 06/29/25 15:00 23:00 07:00 Intake Total 300 ml 100 ml 0 ml Output Total 2100 ml Balance 300 ml -2000 ml 0 ml medications Current Medications Medications Dose Ordered Sig/Laura Route Start Time Stop Time Status Last Admin Dose Admin Ondansetron HCl 4 mg Q4HP PRN IV 06/14/25 10:45 Acetaminophen 650 mg Q6HP PRN PO 06/14/25 10:45 Insulin Glargine 15 units DAILY SC 06/15/25 10:00 06/28/25 12:51 15 UNITS Patient Own Medication 1 cap DAILY PO 06/15/25 10:00 UNV Patient Own Medication 2 tab DAILY PO 06/15/25 10:00 UNV Patient Own Medication 1 cap DAILY PO 06/15/25 10:00 UNV Albuterol 2.5 mg Q4HWA [facility] 06/14/25 14:00 06/28/25 19:30 2.5 MG Ipratropium [place] 0.5 mg Q4HWA [facility] 06/14/25 14:00 06/28/25 19:30 0.5 MG Lamotrigine 50 mg DAILY PO 06/15/25 10:00 06/28/25 10:15 50 MG Pantoprazole Sodium 40 mg BID IV 06/16/25 22:00 06/28/25 21:53 40 MG Enteral Nutritional Formula 1,000 ml 30ML/HR GT 06/17/25 18:00 06/22/25 21:50 1,000 ML Metronidazole 100 ml @ 100 mls/hr Q8HR IV 06/18/25 22:00 06/29/25 05:28 100 MLS/HR Sodium Chloride 10 ml QSHIFT@,22 IV 06/20/25 22:00 06/28/25 22:06 10 ML Metoclopramide HCl 5 mg Q8HR IV 06/24/25 22:00 06/29/25 05:27 5 MG Amino Acids 0 ml @ 0 mls/hr PER PHARMACY IV 06/24/25 16:00 Amino Acids/ Electrolytes/ Dextrose 1,000 ml @ 41 mls/hr DAILY@2200 IV 06/24/25 22:00 06/28/25 21:54 41 MLS/HR Diagnostic Test (Pha) 1 strip IQ4HR 06/24/25 20:00 06/29/25 04:07 1 STRIP Insulin Human Regular IQ4HR SC 06/24/25 20:00 06/29/25 04:14 6 UNITS Dextrose 50 ml UD PRN IV 06/24/25 19:30 Oxycodone HCl 10 mg ONCE PRN PO 06/27/25 09:45 Morphine Sulfate 1 mg Q4HP PRN IV 06/27/25 13:15 06/29/25 05:54 1 MG Levofloxacin/ Dextrose 100 ml @ 100 mls/hr DAILY IV 06/27/25 14:15 06/28/25 10:15 100 MLS/HR laboratory and microbiology Laboratory Tests 06/29/25 05:40 Test 06/29/25 05:40 Range/Units Serum Glucose 202 H 74-106 mg/dL Problem List/Assessment/Plan Problem List/Assessment/Plan 06/20/25 CHOLECYSTOSTOMY PLACED BY RADIOLOGIST YESTERDAY, DRAINING CLEAR BILE(CULTURES PENDING). ABDOMEN SOFT, NON DISTENDED, VITAL SIGNS UNCHANGED 06/21/25 essentially unchanged, abdomen non distended, soft, cholecystostomy draining clear bile patient extubated hemodynamically stable, laparoscopic possibly open cholecystectomy, risks and complications explained 06/26/25 patient without pain nausea or vomiting, afebrile answered of her questions . she is scheduled for laparoscopic possibly open cholecystectomy tomorrow AM 06/28/25 feels well, has not ambulated, occasional nausea, abdomen appropriately tender, wounds clean and well approximated, 06/29/25 doing well, wounds OK, abdomen soft, non distended,is hungry.labs reviewed. Plan discussed with: Patient Dietary Evaluation Review Comments: 1) TF Vital AF 1.2Cal @ 55ml/hr (goal) Start @ 20ml/hr, increase 10ml/hr Q4H until goal is reached. TF @ goal volume along with Propofol provides 1746 kcal (100% energy needs), 99 gm protein (100% protein needs), 1104 ml free water. 2) Water flush 160ml Q6H if allowed, adjust PRN 3) TPN if NPO > 7 days 4) Monitor NPO status, lab values, wt trend, I/O Expected Outcomes/Goals: To meet >75% estimated needs Lab values to improve Fu 2-3 days JAXSON ZACARIAS MD Jun 29, 2025 08:53
--- NOTE | 2025-06-29 11:42 | DVHPN2 ---
Progress Note - Dictate Date Seen: Jun 29, 2025 Has the PT tested + for MRSA If YES, has PT been informed?: Yes Medical Necessity Reason Pt with a Central, PICC or Fol: Yes The following are medically ne: Central Line, Sotelo Catheter Reason for sotelo catheter: Strict I&O Subjective Postop day 2. S/P laparoscopic cholecystectomy and removal of cholecystostomy tube Patient is awake alert in no true distress hungry and wants to eat No further GI bleeding or coffee-ground emesis, H&H stable at 9.8 vital signs Vital Sign Date Time Temp Pulse Resp B/P (MAP) Pulse Ox O2 Delivery O2 Flow Rate FiO2 06/29/25 09:11 108 16 95 0.0 21 06/29/25 09:09 Room Air* 06/29/25 09:00 98.2 122/74 (90) 98.2 Total Intake and Output 06/28/25 06/28/25 06/29/25 15:00 23:00 07:00 Intake Total 300 ml 100 ml 0 ml Output Total 2100 ml Balance 300 ml -2000 ml 0 ml medications Current Medications Medications Dose Ordered Sig/Laura Route Start Time Stop Time Status Last Admin Dose Admin Ondansetron HCl 4 mg Q4HP PRN IV 06/14/25 10:45 Acetaminophen 650 mg Q6HP PRN PO 06/14/25 10:45 Insulin Glargine 15 units DAILY SC 06/15/25 10:00 06/29/25 09:52 15 UNITS Patient Own Medication 1 cap DAILY PO 06/15/25 10:00 UNV Patient Own Medication 2 tab DAILY PO 06/15/25 10:00 UNV Patient Own Medication 1 cap DAILY PO 06/15/25 10:00 UNV Albuterol 2.5 mg Q4HWA [facility] 06/14/25 14:00 06/28/25 19:30 2.5 MG Ipratropium [place] 0.5 mg Q4HWA [facility] 06/14/25 14:00 06/28/25 19:30 0.5 MG Lamotrigine 50 mg DAILY PO 06/15/25 10:00 06/29/25 09:43 50 MG Pantoprazole Sodium 40 mg BID IV 06/16/25 22:00 06/29/25 09:43 40 MG Enteral Nutritional Formula 1,000 ml 30ML/HR GT 06/17/25 18:00 06/22/25 21:50 1,000 ML Metronidazole 100 ml @ 100 mls/hr Q8HR IV 06/18/25 22:00 06/29/25 05:28 100 MLS/HR Sodium Chloride 10 ml QSHIFT@10,22 IV 06/20/25 22:00 06/29/25 09:43 10 ML Metoclopramide HCl 5 mg Q8HR IV 06/24/25 22:00 06/29/25 05:27 5 MG Amino Acids 0 ml @ 0 mls/hr PER PHARMACY IV 06/24/25 16:00 Amino Acids/ Electrolytes/ Dextrose 1,000 ml @ 41 mls/hr DAILY@2200 IV 06/24/25 22:00 06/28/25 21:54 41 MLS/HR Diagnostic Test (Pha) 1 strip IQ4HR 06/24/25 20:00 06/29/25 11:31 1 STRIP Insulin Human Regular IQ4HR SC 06/24/25 20:00 06/29/25 11:34 3 UNITS Dextrose 50 ml UD PRN IV 06/24/25 19:30 Oxycodone HCl 10 mg ONCE PRN PO 06/27/25 09:45 Morphine Sulfate 1 mg Q4HP PRN IV 06/27/25 13:15 06/29/25 05:54 1 MG Levofloxacin/ Dextrose 100 ml @ 100 mls/hr DAILY IV 06/27/25 14:15 06/29/25 09:43 100 MLS/HR objective General: Intubated and sedated HEENT: NC/AT EOMI PERRLA ETT in place NG tube Regular rate and rhythm Soft nontender nondistended abdomen No clubbing cyanosis or edema Neuro patient is sedated laboratory and microbiology Laboratory Tests 06/29/25 05:40 Test 06/29/25 05:40 Range/Units Serum Glucose 202 H 74-106 mg/dL Problems(with codes): (1) Heme positive stool (2) Cholelithiasis with cholecystitis (3) Anemia (4) Coffee ground emesis (5) DKA (diabetic ketoacidosis) Prognosis Assessment 1. Acute cholecystitis, s/p laparoscopic cholecystectomy POD #2 stable, no complications. 2. Persistent postoperative dysphagia with aspiration risk failed swallow evaluation; remains NPO with IV nutrition; awaiting speech therapy. 3. Protein-calorie malnutrition continues IV Clinimix amino acids. 4. Electrolyte disturbances hypokalemia, hypocalcemia; replacement ongoing. 5. Mild anemia stable, likely postoperative. 6. Hyperglycemia under control with insulin protocol. Treatment Plan Gastrointestinal * Continue NPO (except ice chips) due to high aspiration risk; repeat swallow evaluation in 24-48 hours * Continue IV Clinimix amino acids at current rate for parenteral nutrition. * Maintain IV antibiotics (Metronidazole + Levofloxacin) for postoperative infection prophylaxis. * Monitor for any signs of bile leak, infection, or GI bleeding. * Await speech therapy evaluation for dysphagia management. * Continue IV Pantoprazole for stress ulcer and GI mucosal protection. Nutrition / Metabolic * Maintain parenteral nutrition with IV Clinimix amino acids. * Monitor daily CMP, albumin, and replace electrolytes (K, Ca, Mg) per protocol. * Reassess readiness for transition to enteral feeds once swallow function improves. Hematology * Monitor CBC daily; transfuse only if Hgb <7.0 or symptomatic. Prophylaxis * DVT prophylaxis: Continue Heparin 5000 units SQ Q8H. WE WILL CONTINUE TO MONITOR THE PATIENT Dietary Evaluation Review Comments: 1) TF Vital AF 1.2Cal @ 55ml/hr (goal) Start @ 20ml/hr, increase 10ml/hr Q4H until goal is reached. TF @ goal volume along with Propofol provides 1746 kcal (100% energy needs), 99 gm protein (100% protein needs), 1104 ml free water. 2) Water flush 160ml Q6H if allowed, adjust PRN 3) TPN if NPO > 7 days 4) Monitor NPO status, lab values, wt trend, I/O Expected Outcomes/Goals: To meet >75% estimated needs Lab values to improve Fu 2-3 days Plan discussed with: Other (Dr Koenig) DARIUS LLAMAS MD Jun 29, 2025 11:41
[2025-06-29] MEDS: POTASSIUM CHL 20MEQ/100ML 100 ML IV ONE (12:45)
--- NOTE | 2025-06-29 15:50 | DVHPN2 ---
Subjective Continues to complain of generalized weakness Reviewed: Care Plan, H&P, Labs, Medications, Previous Orders, Radiology, Other (Consultations) Changes from previous H/P or p: No Changes Objective Vitals Vital Signs Date Time Temp Pulse Resp B/P (MAP) Pulse Ox O2 Delivery O2 Flow Rate FiO2 06/29/25 13:19 96 Room Air* 0 21 06/29/25 13:00 98.0 112 17 121/87 (98) 98.0 Intake/Output Intake and Output 06/29/25 07:00 Intake Total 400 ml Output Total 2100 ml Balance -1700 ml Intake Oral 0 ml IV Total 400 ml Output Urine Total 2100 ml # Voids 1 General Appearance: Alert, Oriented X3, Cooperative, No acute distress HEENT: Atraumatic Lungs: Clear to auscultation, Normal air movement Cardiovascular: Regular rate, Normal S1, Normal S2 Abdomen: Normal bowel sounds, Soft, Other (Mild tenderness; healing surgical wounds) Extremities: Other (RUE PICC) Neuro: Normal speech, Cranial nerves 3-12 NL Psych/Mental Status: Mental status NL, Mood NL Medications Current Medications Medications Dose Ordered Sig/Laura Route Start Time Stop Time Status Last Admin Dose Admin Ondansetron HCl 4 mg Q4HP PRN IV 06/14/25 10:45 Acetaminophen 650 mg Q6HP PRN PO 06/14/25 10:45 Insulin Glargine 15 units DAILY SC 06/15/25 10:00 06/29/25 09:52 15 UNITS Patient Own Medication 1 cap DAILY PO 06/15/25 10:00 UNV Patient Own Medication 2 tab DAILY PO 06/15/25 10:00 UNV Patient Own Medication 1 cap DAILY PO 06/15/25 10:00 UNV Albuterol 2.5 mg Q4HWA [facility] 06/14/25 14:00 06/28/25 19:30 2.5 MG Ipratropium [place] 0.5 mg Q4HWA [facility] 06/14/25 14:00 06/28/25 19:30 0.5 MG Lamotrigine 50 mg DAILY PO 06/15/25 10:00 06/29/25 09:43 50 MG Pantoprazole Sodium 40 mg BID IV 06/16/25 22:00 06/29/25 09:43 40 MG Enteral Nutritional Formula 1,000 ml 30ML/HR GT 06/17/25 18:00 06/22/25 21:50 1,000 ML Metronidazole 100 ml @ 100 mls/hr Q8HR IV 06/18/25 22:00 06/29/25 14:15 100 MLS/HR Sodium Chloride 10 ml QSHIFT@10,22 IV 06/20/25 22:00 06/29/25 09:43 10 ML Metoclopramide HCl 5 mg Q8HR IV 06/24/25 22:00 06/29/25 05:27 5 MG Amino Acids 0 ml @ 0 mls/hr PER PHARMACY IV 06/24/25 16:00 Amino Acids/ Electrolytes/ Dextrose 1,000 ml @ 41 mls/hr DAILY@2200 IV 06/24/25 22:00 06/28/25 21:54 41 MLS/HR Diagnostic Test (Pha) 1 strip IQ4HR 06/24/25 20:00 06/29/25 11:31 1 STRIP Insulin Human Regular IQ4HR SC 06/24/25 20:00 06/29/25 11:34 3 UNITS Dextrose 50 ml UD PRN IV 06/24/25 19:30 Oxycodone HCl 10 mg ONCE PRN PO 06/27/25 09:45 Morphine Sulfate 1 mg Q4HP PRN IV 06/27/25 13:15 06/29/25 05:54 1 MG Levofloxacin/ Dextrose 100 ml @ 100 mls/hr DAILY IV 06/27/25 14:15 06/29/25 09:43 100 MLS/HR Laboratory Results Laboratory Tests 06/29/25 05:40 Chemistry Test 06/29/25 05:40 Albumin 2.8 g/dL (3.2-4.8) L Calcium Level 8.1 mg/dL (8.7-10.4) L Magnesium Level 1.7 mg/dL (1.6-2.6) Total Protein 4.6 g/dL (5.7-8.2) L LFT Test 06/29/25 05:40 Alanine Aminotransferase (ALT) 14 U/L (7-40) Alkaline Phosphatase 60 U/L (46-116) Aspartate Amino Transferase (AST) 19 U/L (13-40) Total Bilirubin 0.2 mg/dL (0.2-1.0) Urinalysis Test 06/14/25 07:00 Urine Color Light-yellow (Yellow) Urine Clarity Clear (Clear) Urine pH 5.0 (5.0-9.0) Urine Specific [place] 1.021 (1.001-1.035) Urine Protein Negative (Negative) Urine Ketones 4+ (Negative) H Urine Blood Negative /uL (Negative) Urine Nitrite Negative (Negative) Urine Bilirubin Negative (Negative) Urine Urobilinogen Normal mg/dL (Negative) Urine Leukocyte Esterase Negative /uL (Negative) Urine RBC 1 /hpf (0 - 4) Urine Microscopic WBC 2 /HPF (0-5) Urine Squamous Epithelial Cells Few /hpf (<5) Urine Bacteria None seen /hpf (None Seen) Urine Mucus Few (None Seen) Urine Glucose 4+ mg/dL (Normal) H Urine Test Negative (Negative) Microbiology Microbiology Date/Time Source Procedure Growth Status 06/17/25 21:04 Blood Blood Culture - Final NO GROWTH AFTER 5 DAYS OF INCUBATION. 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 status post mechanical ventilation (intubated June 16, 2025 and extubated June 23, 2025) Acute metabolic/ encephalopathy due to DKA status post mechanical ventilation; resolved Acute hypoxic respiratory failure status post mechanical ventilation; resolved; saturating well on room air Severe blood loss anemia due to GI bleed status post transfusion of a total of 2 units of packed RBCs during hospitalization; stable hemoglobin Acute cholecystitis status post laparoscopic cholecystectomy and removal of percutaneous cholecystostomy on June 27, 2025 Sepsis due to acute cholecystitis, Bacillus bacteremia, and MRSA pneumonia Uncontrolled diabetes mellitus with DKA; DKA resolved MABLE, due to vasomotor nephropathy Electrolytes disturbance MRSA pneumonia Bipolar disorder; no suicide ideation/plan Nonadherence Reviewed available lab work and available imaging study Reviewed the available cultures results Advance diet as tolerated; continue parenteral feeding as needed Surgery is following Continue IV antibiotics Continue psychiatric medication Continue insulin therapy and adjust according to blood glucose monitoring Avoid nephrotoxic agents Replace and correct electrolytes as indicated Counseled the patient on the importance of adherence to medications and medical management SCDs for DVT prophylaxis in the setting of GI bleed Continue IV pantoprazole twice a day in the setting of GI bleed Reviewed previous consultations services notes Physical therapy on board [employer] Linesman on board Contact precautions Continue monitoring Goals of care discussed with the patient for 20 minutes; full code Late Entry. This medical document was created using an electronic medical record system with computerized dictation system. Although this document has been carefully reviewed, there might still be some phonetic and typographical errors. These areas are purely typographical due to imperfections of the software programs, and do not reflect any compromise in the patient's medical care. Plan discussed with: Patient, Other (Nurse) My Orders Orders - BHAVIN ELLIS MD Procedure Category Date Status Time Clear Liq Diet DIET 06/29/25 Transmitted Dinner Date of Service: Jun 29, 2025 Billing Provider: BHAVIN ELLIS MD Common Visit Codes: [id number] INP/OBS CARE(HIGH) Secondary Visit Codes: [id number] CARE PLAN 30 MINUTES (20 minutes) BHAVIN ELLIS MD Jun 29, 2025 15:50
[2025-06-30] VITALS (9 sets, daily range): BP systolic 115–138; BP diastolic 76–89; PULSE 60–115; RESP 16–20; TEMP 98–99.7; O2SAT 94–99
[2025-06-30 08:03] LABS: Hematocrit 32.6 % (36.0-46.0); Hemoglobin 10.8 g/dL (12.2-16.2); Mean Corpuscular Hemoglobin 29.7 pg (28.0-32.0); Mean Corpuscular Volume 89.3 fL (80.0-100.0)
[2025-06-30 08:21] LABS: Alanine Aminotransferase 11 U/L (7-40); Alkaline Phosphatase 63 U/L (46-116); Anion Gap 8 (5-15); Carbon Dioxide 29 mmol/L (20-31); Chloride 103 mmol/L (98-107); Potassium 3.6 mmol/L (3.5-5.1); Sodium 140 mmol/L (136-145)
[2025-06-30 08:23] LABS: Albumin 2.9 g/dL (3.2-4.8); BUN/Creatinine Ratio 13.9 (10.0-20.0); Bilirubin, Total 0.2 mg/dL (0.2-1.0); Blood Urea Nitrogen < 5 mg/dL (9-23); Calcium 8.3 mg/dL (8.7-10.4); Glucose 230 mg/dL (74-106); Magnesium 1.5 mg/dL (1.6-2.6); Total Protein 4.8 g/dL (5.7-8.2)
[2025-06-30 08:34] LABS: Total Cells Counted 100.0 (100)
--- NOTE | 2025-06-30 10:33 | DVHPN2 ---
Progress Note Date Seen: Jun 30, 2025 Has the PT tested + for MRSA If YES, has PT been informed?: Yes Medical Necessity Reason Pt with a Central, PICC or Fol: Yes The following are medically ne: Central Line, Sotelo Catheter Reason for sotelo catheter: Strict I&O Objective vital signs Vital Sign Date Time Temp Pulse Resp B/P (MAP) Pulse Ox O2 Delivery O2 Flow Rate FiO2 06/30/25 09:00 98.3 115 16 120/78 (92) 99 98.3 06/30/25 08:00 Room Air* 0 21 Total Intake and Output 06/29/25 06/29/25 06/30/25 15:00 23:00 07:00 Intake Total 100 ml 200 ml 892 ml Output Total 1600 ml 2325 ml Balance 100 ml -1400 ml -1433 ml medications Current Medications Medications Dose Ordered Sig/Laura Route Start Time Stop Time Status Last Admin Dose Admin Ondansetron HCl 4 mg Q4HP PRN IV 06/14/25 10:45 Acetaminophen 650 mg Q6HP PRN PO 06/14/25 10:45 Insulin Glargine 15 units DAILY SC 06/15/25 10:00 06/30/25 08:52 15 UNITS Patient Own Medication 1 cap DAILY PO 06/15/25 10:00 UNV Patient Own Medication 2 tab DAILY PO 06/15/25 10:00 UNV Patient Own Medication 1 cap DAILY PO 06/15/25 10:00 UNV Albuterol 2.5 mg Q4HWA [facility] 06/14/25 14:00 06/28/25 19:30 2.5 MG Ipratropium [place] 0.5 mg Q4HWA [facility] 06/14/25 14:00 06/28/25 19:30 0.5 MG Lamotrigine 50 mg DAILY PO 06/15/25 10:00 06/30/25 08:52 50 MG Pantoprazole Sodium 40 mg BID IV 06/16/25 22:00 06/30/25 08:52 40 MG Enteral Nutritional Formula 1,000 ml 30ML/HR GT 06/17/25 18:00 06/22/25 21:50 1,000 ML Metronidazole 100 ml @ 100 mls/hr Q8HR IV 06/18/25 22:00 06/30/25 05:23 100 MLS/HR Sodium Chloride 10 ml QSHIFT@10,22 IV 06/20/25 22:00 06/29/25 22:00 10 ML Metoclopramide HCl 5 mg Q8HR IV 06/24/25 22:00 06/30/25 05:23 5 MG Amino Acids 0 ml @ 0 mls/hr PER PHARMACY IV 06/24/25 16:00 Amino Acids/ Electrolytes/ Dextrose 1,000 ml @ 41 mls/hr DAILY@2200 IV 06/24/25 22:00 06/29/25 21:12 41 MLS/HR Diagnostic Test (Pha) 1 strip IQ4HR 06/24/25 20:00 06/30/25 04:20 1 STRIP Insulin Human Regular IQ4HR SC 06/24/25 20:00 06/30/25 08:40 6 UNITS Dextrose 50 ml UD PRN IV 06/24/25 19:30 Oxycodone HCl 10 mg ONCE PRN PO 06/27/25 09:45 Morphine Sulfate 1 mg Q4HP PRN IV 06/27/25 13:15 06/29/25 21:15 1 MG Levofloxacin/ Dextrose 100 ml @ 100 mls/hr DAILY IV 06/27/25 14:15 06/30/25 08:53 100 MLS/HR laboratory and microbiology Laboratory Tests 06/30/25 07:40 Test 06/30/25 07:40 Range/Units Serum Glucose 230 H 74-106 mg/dL Problem List/Assessment/Plan Problem List/Assessment/Plan 06/20/25 CHOLECYSTOSTOMY PLACED BY RADIOLOGIST YESTERDAY, DRAINING CLEAR BILE(CULTURES PENDING). ABDOMEN SOFT, NON DISTENDED, VITAL SIGNS UNCHANGED 06/21/25 essentially unchanged, abdomen non distended, soft, cholecystostomy draining clear bile patient extubated hemodynamically stable, laparoscopic possibly open cholecystectomy, risks and complications explained 06/26/25 patient without pain nausea or vomiting, afebrile answered of her questions . she is scheduled for laparoscopic possibly open cholecystectomy tomorrow AM 06/28/25 feels well, has not ambulated, occasional nausea, abdomen appropriately tender, wounds clean and well approximated, 06/29/25 doing well, wounds OK, abdomen soft, non distended,is hungry.labs reviewed. 06/30/25 "surgically"stable, ok to discharge to a convalescent facility Plan discussed with: Patient Dietary Evaluation Review Comments: 1) TF Vital AF 1.2Cal @ 55ml/hr (goal) Start @ 20ml/hr, increase 10ml/hr Q4H until goal is reached. TF @ goal volume along with Propofol provides 1746 kcal (100% energy needs), 99 gm protein (100% protein needs), 1104 ml free water. 2) Water flush 160ml Q6H if allowed, adjust PRN 3) TPN if NPO > 7 days 4) Monitor NPO status, lab values, wt trend, I/O Expected Outcomes/Goals: To meet >75% estimated needs Lab values to improve Fu 2-3 days JAXSON ZACARIAS MD Jun 30, 2025 10:33
--- NOTE | 2025-06-30 15:10 | DVHPN2 ---
Subjective Continues to feel weak Reviewed: Care Plan, H&P, Labs, Medications, Previous Orders, Radiology, Other (Consultations) Changes from previous H/P or p: No Changes Objective Vitals Vital Signs Date Time Temp Pulse Resp B/P (MAP) Pulse Ox O2 Delivery O2 Flow Rate FiO2 06/30/25 13:00 98.2 110 18 122/82 (95) 98 98.2 06/30/25 08:00 Room Air* 0 21 Intake/Output Intake and Output 06/30/25 07:00 Intake Total 1192 ml Output Total 3925 ml Balance -2733 ml Intake Oral 300 ml IV Total 892 ml Output Urine Total 3925 ml General Appearance: Alert, Oriented X3, Cooperative, No acute distress HEENT: Atraumatic Lungs: Clear to auscultation, Normal air movement Cardiovascular: Regular rate, Normal S1, Normal S2 Abdomen: Normal bowel sounds, Soft, Other (Mild diffuse tenderness; healing surgical wounds) Extremities: No edema, Other (RUE PICC) Neuro: Normal speech, Cranial nerves 3-12 NL Psych/Mental Status: Mental status NL, Mood NL Medications Current Medications Medications Dose Ordered Sig/Laura Route Start Time Stop Time Status Last Admin Dose Admin Ondansetron HCl 4 mg Q4HP PRN IV 06/14/25 10:45 Acetaminophen 650 mg Q6HP PRN PO 06/14/25 10:45 Insulin Glargine 15 units DAILY SC 06/15/25 10:00 06/30/25 08:52 15 UNITS Patient Own Medication 1 cap DAILY PO 06/15/25 10:00 UNV Patient Own Medication 2 tab DAILY PO 06/15/25 10:00 UNV Patient Own Medication 1 cap DAILY PO 06/15/25 10:00 UNV Albuterol 2.5 mg Q4HWA [facility] 06/14/25 14:00 06/28/25 19:30 2.5 MG Ipratropium [place] 0.5 mg Q4HWA [facility] 06/14/25 14:00 06/28/25 19:30 0.5 MG Lamotrigine 50 mg DAILY PO 06/15/25 10:00 06/30/25 08:52 50 MG Pantoprazole Sodium 40 mg BID IV 06/16/25 22:00 06/30/25 08:52 40 MG Enteral Nutritional Formula 1,000 ml 30ML/HR GT 06/17/25 18:00 06/22/25 21:50 1,000 ML Metronidazole 100 ml @ 100 mls/hr Q8HR IV 06/18/25 22:00 06/30/25 14:26 100 MLS/HR Sodium Chloride 10 ml QSHIFT@10,22 IV 06/20/25 22:00 06/30/25 10:00 10 ML Metoclopramide HCl 5 mg Q8HR IV 06/24/25 22:00 06/30/25 14:32 5 MG Amino Acids 0 ml @ 0 mls/hr PER PHARMACY IV 06/24/25 16:00 Amino Acids/ Electrolytes/ Dextrose 1,000 ml @ 41 mls/hr DAILY@2200 IV 06/24/25 22:00 06/29/25 21:12 41 MLS/HR Diagnostic Test (Pha) 1 strip IQ4HR 06/24/25 20:00 06/30/25 12:00 1 STRIP Insulin Human Regular IQ4HR SC 06/24/25 20:00 06/30/25 11:46 6 UNITS Dextrose 50 ml UD PRN IV 06/24/25 19:30 Oxycodone HCl 10 mg ONCE PRN PO 06/27/25 09:45 06/30/25 13:27 10 MG Morphine Sulfate 1 mg Q4HP PRN IV 06/27/25 13:15 06/29/25 21:15 1 MG Levofloxacin/ Dextrose 100 ml @ 100 mls/hr DAILY IV 06/27/25 14:15 06/30/25 08:53 100 MLS/HR Magnesium Sulfate/ Dextrose 100 ml @ 100 mls/hr Q1HR IV 06/30/25 15:00 06/30/25 16:59 Laboratory Results Laboratory Tests 06/30/25 07:40 Chemistry Test 06/30/25 07:40 Albumin 2.9 g/dL (3.2-4.8) L Calcium Level 8.3 mg/dL (8.7-10.4) L Magnesium Level 1.5 mg/dL (1.6-2.6) L Phosphorus Level 3.7 mg/dL (2.4-5.1) Total Protein 4.8 g/dL (5.7-8.2) L LFT Test 06/30/25 07:40 Alanine Aminotransferase (ALT) 11 U/L (7-40) Alkaline Phosphatase 63 U/L (46-116) Aspartate Amino Transferase (AST) 17 U/L (13-40) Total Bilirubin 0.2 mg/dL (0.2-1.0) Urinalysis Test 06/14/25 07:00 Urine Color Light-yellow (Yellow) Urine Clarity Clear (Clear) Urine pH 5.0 (5.0-9.0) Urine Specific [place] 1.021 (1.001-1.035) Urine Protein Negative (Negative) Urine Ketones 4+ (Negative) H Urine Blood Negative /uL (Negative) Urine Nitrite Negative (Negative) Urine Bilirubin Negative (Negative) Urine Urobilinogen Normal mg/dL (Negative) Urine Leukocyte Esterase Negative /uL (Negative) Urine RBC 1 /hpf (0 - 4) Urine Microscopic WBC 2 /HPF (0-5) Urine Squamous Epithelial Cells Few /hpf (<5) Urine Bacteria None seen /hpf (None Seen) Urine Mucus Few (None Seen) Urine Glucose 4+ mg/dL (Normal) H Urine Test Negative (Negative) Microbiology Microbiology Date/Time Source Procedure Growth Status 06/17/25 21:04 Blood Blood Culture - Final NO GROWTH AFTER 5 DAYS OF INCUBATION. 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 status post mechanical ventilation (intubated June 16, 2025 and extubated June 23, 2025) Acute metabolic/ encephalopathy due to DKA status post mechanical ventilation; resolved Acute hypoxic respiratory failure status post mechanical ventilation; resolved; saturating well on room air Severe blood loss anemia due to GI bleed status post transfusion of a total of 2 units of packed RBCs during hospitalization; stable hemoglobin Acute cholecystitis status post laparoscopic cholecystectomy and removal of percutaneous cholecystostomy on June 27, 2025 Sepsis due to acute cholecystitis, Bacillus bacteremia, and MRSA pneumonia Uncontrolled diabetes mellitus with DKA; DKA resolved MABLE, due to vasomotor nephropathy Electrolytes disturbance MRSA pneumonia Bipolar disorder; no suicide ideation/plan Nonadherence Reviewed available lab work and available imaging study Reviewed the available cultures results Advance diet as tolerated; continue parenteral feeding as needed Surgery is following Continue IV antibiotics Continue psychiatric medication Continue insulin therapy and adjust according to blood glucose monitoring Avoid nephrotoxic agents Replace and correct electrolytes as indicated Counseled the patient on the importance of adherence to medications and medical management SCDs for DVT prophylaxis in the setting of GI bleed Continue IV pantoprazole twice a day in the setting of GI bleed Reviewed previous consultations services notes Physical therapy on board V[employer]er Matcher on board Contact precautions Continue monitoring Late Entry. This medical document was created using an electronic medical record system with computerized dictation system. Although this document has been carefully reviewed, there might still be some phonetic and typographical errors. These areas are purely typographical due to imperfections of the software programs, and do not reflect any compromise in the patient's medical care. Plan discussed with: Patient, Other (Nurse) Date of Service: Jun 30, 2025 Billing Provider: BHAVIN ELLIS MD Common Visit Codes: [id number] INP/OBS CARE(HIGH) BHAVIN ELLIS MD Jun 30, 2025 15:10
[2025-06-30] MEDS: MAGNESIUM SULFATE 1GM/100ML 100 ML IV SCH ×2 (16:00→20:10)
[2025-07-01] VITALS (15 sets, daily range): BP systolic 110–131; BP diastolic 65–90; PULSE 96–117; RESP 16–19; TEMP 98.1–98.8; O2SAT 93–100
[2025-07-01] MEDS: DOCUSATE SOD 100 MG CAP PO ONE (06:33)
[2025-07-01 07:17] LABS: Hematocrit 31.9 % (36.0-46.0); Hemoglobin 10.6 g/dL (12.2-16.2); Mean Corpuscular Hemoglobin 29.2 pg (28.0-32.0); Mean Corpuscular Volume 88.0 fL (80.0-100.0)
[2025-07-01 07:37] LABS: Alanine Aminotransferase 10 U/L (7-40); Alkaline Phosphatase 63 U/L (46-116); Anion Gap 10 (5-15); Carbon Dioxide 30 mmol/L (20-31); Chloride 102 mmol/L (98-107); Magnesium 1.7 mg/dL (1.6-2.6); Sodium 142 mmol/L (136-145)
[2025-07-01 07:39] LABS: Albumin 2.9 g/dL (3.2-4.8); BUN/Creatinine Ratio 11.6 (10.0-20.0); Bilirubin, Total 0.2 mg/dL (0.2-1.0); Blood Urea Nitrogen < 5 mg/dL (9-23); Calcium 8.4 mg/dL (8.7-10.4); Glucose 180 mg/dL (74-106); Potassium 3.0 mmol/L (3.5-5.1); Total Protein 4.7 g/dL (5.7-8.2)
[2025-07-01 08:24] LABS: Total Cells Counted 100.0 (100)
[2025-07-01] MEDS: POTASSIUM CHL 20MEQ/100ML 100 ML IV SCH (08:45)
[2025-07-01] MEDS: POTASSIUM CHL 20MEQ/100ML 100 ML IV ONE (16:03)
--- NOTE | 2025-07-01 16:23 | DVHPN2 ---
Progress Note Date Seen: Jul 01, 2025 Resident Creating Document: VILMA ERVIN RESIDENT Has the PT tested + for MRSA If YES, has PT been informed?: Yes Medical Necessity Reason Pt with a Central, PICC or Fol: Yes The following are medically ne: Central Line, Sotelo Catheter Reason for sotelo catheter: Strict I&O Subjective Review of Systems s/p laparoscopic cholecystectomy for acute cholecystitis with cholelithiasis, complicated by concurrent UTI. Today, the patient is clinically stable and reports no abdominal pain. She denies nausea, vomiting, or abdominal distension. She is alert, oriented, and able to communicate discomfort. Surgical incision sites are clean, dry, with no signs of erythema, drainage, or infection. Patient failed her repeat swallow evaluation today, and is currently on a full liquid diet, receiving IV Clinimex for nutritional support due to inadequate PO intake. She is tolerating ice chips. Currently receiving IV metronidazole and levofloxacin as per surgical antibiotic plan. Ostelo catheter is being removed today. Possible discharge tomorrow if she passes repeat swallow evaluation. Objective vital signs Vital Sign Date Time Temp Pulse Resp B/P (MAP) Pulse Ox O2 Delivery O2 Flow Rate FiO2 07/01/25 15:00 101 16 100 07/01/25 12:57 98.4 124/84 (97) 98.4 07/01/25 08:00 Room Air* 0 21 Total Intake and Output 06/30/25 06/30/25 07/01/25 15:00 23:00 07:00 Intake Total 100 ml 920 ml 1501 ml Output Total 1350 ml 1450 ml Balance 100 ml -430 ml 51 ml medications Current Medications Medications Dose Ordered Sig/Laura Route Start Time Stop Time Status Last Admin Dose Admin Ondansetron HCl 4 mg Q4HP PRN IV 06/14/25 10:45 Acetaminophen 650 mg Q6HP PRN PO 06/14/25 10:45 Insulin Glargine 15 units DAILY SC 06/15/25 10:00 07/01/25 10:17 15 UNITS Patient Own Medication 1 cap DAILY PO 06/15/25 10:00 UNV Patient Own Medication 2 tab DAILY PO 06/15/25 10:00 UNV Patient Own Medication 1 cap DAILY PO 06/15/25 10:00 UNV Albuterol 2.5 mg Q4HWA NEB 06/14/25 14:00 07/01/25 14:58 2.5 MG Ipratropium [place] 0.5 mg Q4HWA NEB 06/14/25 14:00 07/01/25 14:58 0.5 MG Lamotrigine 50 mg DAILY PO 06/15/25 10:00 07/01/25 10:09 50 MG Pantoprazole Sodium 40 mg BID IV 06/16/25 22:00 07/01/25 10:10 40 MG Enteral Nutritional Formula 1,000 ml 30ML/HR GT 06/17/25 18:00 06/22/25 21:50 1,000 ML Metronidazole 100 ml @ 100 mls/hr Q8HR IV 06/18/25 22:00 07/01/25 05:33 100 MLS/HR Sodium Chloride 10 ml QSHIFT@10,22 IV 06/20/25 22:00 07/01/25 10:00 10 ML Metoclopramide HCl 5 mg Q8HR IV 06/24/25 22:00 07/01/25 15:16 5 MG Amino Acids 0 ml @ 0 mls/hr PER PHARMACY IV 06/24/25 16:00 Amino Acids/ Electrolytes/ Dextrose 1,000 ml @ 41 mls/hr DAILY@2200 IV 06/24/25 22:00 06/30/25 21:24 41 MLS/HR Diagnostic Test (Pha) 1 strip IQ4HR 06/24/25 20:00 07/01/25 12:03 1 STRIP Insulin Human Regular IQ4HR SC 06/24/25 20:00 07/01/25 12:07 6 UNITS Dextrose 50 ml UD PRN IV 06/24/25 19:30 Oxycodone HCl 10 mg ONCE PRN PO 06/27/25 09:45 06/30/25 13:27 10 MG Morphine Sulfate 1 mg Q4HP PRN IV 06/27/25 13:15 06/29/25 21:15 1 MG Levofloxacin/ Dextrose 100 ml @ 100 mls/hr DAILY IV 06/27/25 14:15 07/01/25 10:10 100 MLS/HR Examination * General: Awake, alert, not in distress * Abdomen: * Soft, non-tender, nondistended * No rebound or guarding * Bowel sounds present in all quadrants * Laparoscopic incision sites clean, dry, no erythema, no drainage laboratory and microbiology Laboratory Tests 07/01/25 06:05 Test 07/01/25 06:05 Range/Units Serum Glucose 180 H 74-106 mg/dL Microbiology Date/Time Source Procedure Growth Status 06/17/25 21:04 Blood Blood Culture - Final NO GROWTH AFTER 5 DAYS OF INCUBATION. Complete 06/14/25 16:30 Nose MRSA Screen - Final Methicillin Resistant S.aureus Complete 06/14/25 14:00 Sputum Gram Stain - Final Complete 06/14/25 14:00 Respiratory Culture - Final Methicillin Resistant S.aureus Complete 06/14/25 07:00 Voided Urine Urine Culture - Final Complete Problem List/Assessment/Plan Problem List/Assessment/Plan Assessment 1. Acute cholecystitis, s/p laparoscopic cholecystectomy POD #1, stable, no complications. 2. Persistent postoperative dysphagia with aspiration risk failed swallow evaluation; remains NPO with IV nutrition; awaiting speech therapy. 3. Protein-calorie malnutrition continues IV Clinimex amino acids. 4. Electrolyte disturbances hypokalemia, hypocalcemia; replacement ongoing. 5. Mild anemia stable, likely postoperative. 6. Hyperglycemia under control with insulin protocol. Treatment Plan Gastrointestinal * Continue post-cholecystectomy care * Advance diet as tolerated once swallow evaluation clears * Continue IV antibiotics * Continue Clinomex IV nutrition until PO tolerance improves * Monitor LFTs, bowel function * Monitor caloric intake, labs (electrolytes, albumin, prealbumin if prolonged support needed) Prophylactic Measures: * PPI for GI ulcer prophylaxis ( * Continue IV Clinimex amino acids at current rate for parenteral nutrition. * Maintain IV antibiotics (Metronidazole + Levofloxacin) for postoperative infection prophylaxis. * Monitor for any signs of bile leak, infection, or GI bleeding. * Await speech therapy evaluation for dysphagia management. * Continue IV Pantoprazole for stress ulcer and GI mucosal protection. Nutrition / Metabolic * Maintain parenteral nutrition with IV Clinimex amino acids. * Monitor daily CMP, albumin, and replace electrolytes (K, Ca, Mg) per protocol. * Reassess readiness for transition to enteral feeds once swallow function improves. Hematology * Monitor CBC daily; transfuse only if Hgb <7.0 or symptomatic. Prophylaxis GI Prophylaxis: Protonix WE WILL CONTINUE TO MONITOR THE PATIENT Case discussed in detail with the attending physician, including the clinical presentation, diagnostic workup, and comprehensive management plan. The patient was present for the discussion and demonstrated understanding of her condition and the proposed plan. Plan discussed with: Patient Dietary Evaluation Review Comments: 1) TF Vital AF 1.2Cal @ 55ml/hr (goal) Start @ 20ml/hr, increase 10ml/hr Q4H until goal is reached. TF @ goal volume along with Propofol provides 1746 kcal (100% energy needs), 99 gm protein (100% protein needs), 1104 ml free water. 2) Water flush 160ml Q6H if allowed, adjust PRN 3) TPN if NPO > 7 days 4) Monitor NPO status, lab values, wt trend, I/O Expected Outcomes/Goals: To meet >75% estimated needs Lab values to improve Fu 2-3 days VILMA ERVIN RESIDENT Jul 01, 2025 16:23
--- NOTE | 2025-07-01 17:43 | DVHPNRES ---
Progress Note Date Seen: Jul 01, 2025 Resident Creating Document: ALONZO NAQVI RESIDENT Has the PT tested + for MRSA If YES, has PT been informed?: Yes Medical Necessity Reason Pt with a Central, PICC or Fol: No Subjective Review of Systems Patient seen and examined at the bedside. Patient reported improvement in her symptoms since admission, currently tolerating liquid diet, advancing to soft diet. Possible DC tomorrow to SNF. Patient reports: Feels better Objective vital signs Vital Sign Date Time Temp Pulse Resp B/P (MAP) Pulse Ox O2 Delivery O2 Flow Rate FiO2 07/01/25 15:00 101 16 100 07/01/25 12:57 98.4 124/84 (97) 98.4 07/01/25 08:00 Room Air* 0 21 Total Intake and Output 06/30/25 06/30/25 07/01/25 15:00 23:00 07:00 Intake Total 100 ml 920 ml 1501 ml Output Total 1350 ml 1450 ml Balance 100 ml -430 ml 51 ml medications Current Medications Medications Dose Ordered Sig/Laura Route Start Time Stop Time Status Last Admin Dose Admin Ondansetron HCl 4 mg Q4HP PRN IV 06/14/25 10:45 Acetaminophen 650 mg Q6HP PRN PO 06/14/25 10:45 Insulin Glargine 15 units DAILY SC 06/15/25 10:00 07/01/25 10:17 15 UNITS Patient Own Medication 1 cap DAILY PO 06/15/25 10:00 UNV Patient Own Medication 2 tab DAILY PO 06/15/25 10:00 UNV Patient Own Medication 1 cap DAILY PO 06/15/25 10:00 UNV Albuterol 2.5 mg Q4HWA NEB 06/14/25 14:00 07/01/25 14:58 2.5 MG Ipratropium [place] 0.5 mg Q4HWA NEB 06/14/25 14:00 07/01/25 14:58 0.5 MG Lamotrigine 50 mg DAILY PO 06/15/25 10:00 07/01/25 10:09 50 MG Pantoprazole Sodium 40 mg BID IV 06/16/25 22:00 07/01/25 10:10 40 MG Sodium Chloride 10 ml QSHIFT@10,22 IV 06/20/25 22:00 07/01/25 10:00 10 ML Diagnostic Test (Pha) 1 strip IQ4HR 06/24/25 20:00 07/01/25 16:00 1 STRIP Insulin Human Regular IQ4HR SC 06/24/25 20:00 07/01/25 17:14 3 UNITS Dextrose 50 ml UD PRN IV 06/24/25 19:30 Oxycodone HCl 10 mg ONCE PRN PO 06/27/25 09:45 06/30/25 13:27 10 MG Morphine Sulfate 1 mg Q4HP PRN IV 06/27/25 13:15 06/29/25 21:15 1 MG Levofloxacin/ Dextrose 100 ml @ 100 mls/hr DAILY IV 06/27/25 14:15 07/01/25 10:10 100 MLS/HR Examination Pt is lying on bed General Appearance: Alert, Oriented X3, Cooperative, Not in acute distress HEENT: Atraumatic, Mucous membranes moist/pink Respiratory: Clear to auscultation, Normal air movement, No added sounds Cardiovascular: Regular rate, Normal S1, Normal S2, No murmurs Abdominal: Active bowel sounds, Soft, no distention, no tenderness Extremities: No edema, Normal pulses, No tenderness/swelling Skin: No Significant rash, except surgical scars Neuro: Normal speech, sensorimotor deficits none Psych/Mental Status: Mental status NL, Mood NL Nurse was there as home energy consultant supervisor during examination laboratory and microbiology Laboratory Tests 07/01/25 06:05 Test 07/01/25 06:05 Range/Units Serum Glucose 180 H 74-106 mg/dL Microbiology Date/Time Source Procedure Growth Status 06/17/25 21:04 Blood Blood Culture - Final NO GROWTH AFTER 5 DAYS OF INCUBATION. Complete 06/14/25 16:30 Nose MRSA Screen - Final Methicillin Resistant S.aureus Complete 06/14/25 14:00 Sputum Gram Stain - Final Complete 06/14/25 14:00 Respiratory Culture - Final Methicillin Resistant S.aureus Complete 06/14/25 07:00 Voided Urine Urine Culture - Final Complete Labs and/or images reviewed: Labs reviewed by me, Image(s) reviewed by me Problem List/Assessment/Plan Problem List/Assessment/Plan Neurology # Acute metabolic encephalopathy likely from DKA resolved - intubated on 06/16/25, extubated on June 23 - fentanyl , propofol, Versed discontinued on June 22 - Head CT: No acute intracranial abnormality. Respiratory # Acute hypoxic respiratory failure-status post extubation June 23 and on room air right now # ? Acute Gram-positive/negative bacterial PNA, resolving # Hx of asthma , not in exacerbation -downgraded to tele - Ipratropium and albuterol med nebs - IV vancomycin discontinued on 06/20 - IV Levaquin(06/27) - Dc Flagyl - Dc IV cefepime - CXR 06/16/25: Hazy opacity throughout the right hemithorax may be due to pneumonia or layering pleural effusion versus something outside of the patient. - CXR 06/17/2025: No evidence of acute disease - Repeat CXR no significant interval changes GI # Gastrointestinal Bleed (Upper vs. Lower) - Patient received 2 units PRBCs. - GI team is on board; pending endoscopy once medically stable. - CT A/P (non-contrast) shows rectal wall thickening with stranding, suggestive of proctocolitis, and cholelithiasis with small ascites and anasarca. Also noted: rectal catheter looping, bilateral pleural effusions, and central line terminating in the right external iliac vein. # Suspected Acute Cholecystitis - CT findings: Cholelithiasis with pericholecystic edema. - Liver ultrasound: Cholelithiasis and gallbladder wall thickeningfindings may suggest acute cholecystitis. - HIDA scan recommended to confirm diagnosis. - Metronidazole added on 06/18/2025. - IV Levaquin(06/27) -Dc Flagyl 07/01 - Dc IV cefepime - Cholecystostomy placed - Surgical consult (Dr. Hummel) updated regarding possible cholecystectomy -status post cholecystectomy, patient tolerated with the procedure well # Peptic Ulcer Prophylaxis - Pantoprazole 40 mg IV BID initiated. 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 Acute Gram-positive/negative bacterial PNA, resolving # blood cultures growing Gram-positive rods; bacillus, repeat cultures negative # ? acute cholecystitis # sepsis due to above - IV Levaquin(06/27) - DC Flagyl 07/01 - Dc IV cefepime today - CT abdomen pelvis: Limited evaluation without contrast. Rectal wall thickening with surrounding stranding. Correlate for proctocolitis and rectal catheter looped upon itself within the rectum. Right common femoral vein central venous catheter terminating in the right external iliac vein. Small amount of ascites /pelvic fluid. Soft tissue edema/ anasarca.Cholelithiasis and pericholecystic edema. Recommend HIDA scan to exclude cholecystitis.Small bilateral pleural effusions. - added metronidazole 06/18/25 - repeat blood cultures negative Hem/onc # anemia, s/p 2 PRBC - monitor Psychiatry # bipolar disorder # medication nonadherence - resumed home medication lamotrigine but patient is unable to take due to failed swallow eval PT eval done and recommended acute rehabilitation after discharge GI PPX: Protonix DVT prophylaxis- Holding due to possible GI bleed Nutrition- mechanical soft, diabetic diet Lines PICC line placed on 06/20/25 Drips Versed, fentanyl, propofol discontinued on 06/22 Extubated on 06/23 Code status discussed greater than 29 minutes: Full CODE STATUS. Critical care time 41 minutes excluding procedure. Detailed discussion about plan of care was held with patient's brother via telephone, all questions were answered and concerns addressed. Case discussed with Dr. Pacheco. Possible DC to SNF tomorrow. Plan discussed with: Patient, Other (Brother and RN) My Orders My Orders Orders - ALONZO NAQVI RESIDENT Procedure Category Date Status Time Discontinue [place] LONNIE 07/01/25 In Process Catheter 12:06 Dietary Evaluation Review Comments: 1) TF Vital AF 1.2Cal @ 55ml/hr (goal) Start @ 20ml/hr, increase 10ml/hr Q4H until goal is reached. TF @ goal volume along with Propofol provides 1746 kcal (100% energy needs), 99 gm protein (100% protein needs), 1104 ml free water. 2) Water flush 160ml Q6H if allowed, adjust PRN 3) TPN if NPO > 7 days 4) Monitor NPO status, lab values, wt trend, I/O Expected Outcomes/Goals: To meet >75% estimated needs Lab values to improve Fu 2-3 days Date of Service: Jul 01, 2025 Billing Provider: JOSETTE PACHECO MD Common Visit Codes: [id number] INP/OBS CARE(HIGH) ALONZO NAQVI RESIDENT Jul 01, 2025 17:43 JOSETTE PACHECO MD Jul 02, 2025 16:40
[2025-07-02] VITALS (10 sets, daily range): BP systolic 98–138; BP diastolic 69–96; PULSE 94–130; RESP 16–18; TEMP 97.8–100.3; O2SAT 92–97
[2025-07-02 05:36] LABS: Hematocrit 31.4 % (36.0-46.0); Hemoglobin 10.8 g/dL (12.2-16.2); Mean Corpuscular Hemoglobin 29.9 pg (28.0-32.0); Mean Corpuscular Volume 87.0 fL (80.0-100.0); Nucleated Red Blood Cells % 0.1 %
[2025-07-02 05:47] LABS: Alkaline Phosphatase 66 U/L (46-116); Anion Gap 9 (5-15); Carbon Dioxide 28 mmol/L (20-31); Chloride 105 mmol/L (98-107); Sodium 142 mmol/L (136-145)
[2025-07-02 05:50] LABS: Alanine Aminotransferase < 9 U/L (7-40); Albumin 2.9 g/dL (3.2-4.8); Bilirubin, Total 0.3 mg/dL (0.2-1.0); Blood Urea Nitrogen < 5 mg/dL (9-23); Calcium 8.5 mg/dL (8.7-10.4); Glucose 153 mg/dL (74-106); Magnesium 1.6 mg/dL (1.6-2.6); Potassium 3.3 mmol/L (3.5-5.1); Total Protein 4.8 g/dL (5.7-8.2)
[2025-07-02 05:53] LABS: BUN/Creatinine Ratio 11.1 (10.0-20.0)
[2025-07-02] MEDS: PANTOPRAZOLE 40 MG TAB PO SCH (09:30)
[2025-07-02] MEDS: MAGNESIUM SULFATE 1GM/100ML 100 ML IV SCH (09:41)
[2025-07-02] MEDS: ONDANSETRON HCL 4 MG/2 ML VIAL IV PRN (12:17)
[2025-07-02] MEDS: POTASSIUM EFFERVESENT TAB 25 MEQ PO ONE (12:44)
--- NOTE | 2025-07-02 17:20 | DVHPN2 ---
Progress Note Date Seen: Jul 02, 2025 Resident Creating Document: VILMA ERVIN RESIDENT Has the PT tested + for MRSA If YES, has PT been informed?: Yes Medical Necessity Reason Pt with a Central, PICC or Fol: No Subjective Review of Systems The patient was seen and examined at bedside. Discussed the case with the RN. The patient has passed the swallow evaluation. But still the patient complaints with a lot of nausea while eating she is on clear liquid diet and she is advanced to soft mechanical diet but she is not able to tolerate her diet at all and she is having a feeling of food getting stuck or something getting stuck sensation in the throat she was initially planned to be discharged today but now with her deteriorating a swallowing we are planning to do an EGD tomorrow. And we are placing her NPO after midnight today. Objective vital signs Vital Sign Date Time Temp Pulse Resp B/P (MAP) Pulse Ox O2 Delivery O2 Flow Rate FiO2 07/02/25 16:49 98.6 130 18 96 07/02/25 13:00 133/96 (108) 07/02/25 09:00 0.0 21 07/02/25 08:00 Room Air* Total Intake and Output 07/01/25 07/01/25 07/02/25 15:00 23:00 07:00 Intake Total 540 ml 780 ml 600 ml Balance 540 ml 780 ml 600 ml medications Current Medications Medications Dose Ordered Sig/Laura Route Start Time Stop Time Status Last Admin Dose Admin Ondansetron HCl 4 mg Q4HP PRN IV 06/14/25 10:45 07/02/25 12:17 4 MG Acetaminophen 650 mg Q6HP PRN PO 06/14/25 10:45 Insulin Glargine 15 units DAILY SC 06/15/25 10:00 07/02/25 12:25 15 UNITS Patient Own Medication 1 cap DAILY PO 06/15/25 10:00 UNV Patient Own Medication 2 tab DAILY PO 06/15/25 10:00 UNV Patient Own Medication 1 cap DAILY PO 06/15/25 10:00 UNV Lamotrigine 50 mg DAILY PO 06/15/25 10:00 07/02/25 09:44 50 MG Sodium Chloride 10 ml QSHIFT@10,22 IV 06/20/25 22:00 07/02/25 10:00 10 ML Diagnostic Test (Pha) 1 strip IQ4HR 7/28/25 20:00 07/02/25 12:00 1 STRIP Insulin Human Regular IQ4HR SC 06/24/25 20:00 07/02/25 12:29 3 UNITS Dextrose 50 ml UD PRN IV 06/24/25 19:30 Oxycodone HCl 10 mg ONCE PRN PO 06/27/25 09:45 06/30/25 13:27 10 MG Morphine Sulfate 1 mg Q4HP PRN IV 06/27/25 13:15 06/29/25 21:15 1 MG Levofloxacin/ Dextrose 100 ml @ 100 mls/hr DAILY IV 06/27/25 14:15 07/02/25 09:42 100 MLS/HR Pantoprazole Sodium 40 mg BID PO 07/02/25 09:30 07/02/25 09:30 40 MG Examination General: Awake, alert, not in distress * Abdomen: * Soft, non-tender, nondistended * No rebound or guarding * Bowel sounds present in all quadrants * Laparoscopic incision sites clean, dry, no erythema, no drainage laboratory and microbiology Laboratory Tests 07/02/25 04:57 Test 07/02/25 04:57 Range/Units Serum Glucose 153 H 74-106 mg/dL Microbiology Date/Time Source Procedure Growth Status 06/17/25 21:04 Blood Blood Culture - Final NO GROWTH AFTER 5 DAYS OF INCUBATION. Complete 06/14/25 16:30 Nose MRSA Screen - Final Methicillin Resistant S.aureus Complete 06/14/25 14:00 Sputum Gram Stain - Final Complete 06/14/25 14:00 Respiratory Culture - Final Methicillin Resistant S.aureus Complete 06/14/25 07:00 Voided Urine Urine Culture - Final Complete Problem List/Assessment/Plan Problem List/Assessment/Plan Assessment 1. Acute cholecystitis, s/p laparoscopic cholecystectomy POD #1, stable, no complications. 2. Persistent postoperative dysphagia with aspiration risk failed swallow evaluation; remains NPO with IV nutrition; awaiting speech therapy. 3. Protein-calorie malnutrition continues IV Clinimex amino acids. 4. Electrolyte disturbances hypokalemia, hypocalcemia; replacement ongoing. 5. Mild anemia stable, likely postoperative. 6. Hyperglycemia under control with insulin protocol. Treatment Plan Gastrointestinal Scheduled for EGD tomorrow. NPO after midnight for EGD tomorrow. * Continue post-cholecystectomy care * Continue IV antibiotics * Monitor LFTs, bowel function * Monitor caloric intake, labs (electrolytes, albumin, prealbumin if prolonged support needed) Prophylactic Measures: * PPI for GI ulcer prophylaxis * Maintain IV antibiotics (Levofloxacin) for postoperative infection prophylaxis. * Monitor for any signs of bile leak, infection, or GI bleeding. * Await speech therapy evaluation for dysphagia management. * Continue IV Pantoprazole for stress ulcer and GI mucosal protection. Nutrition / Metabolic * Monitor daily CMP, albumin, and replace electrolytes (K, Ca, Mg) per protocol. * Reassess readiness for transition to enteral feeds once swallow function improves. Hematology * Monitor CBC daily; transfuse only if Hgb <7.0 or symptomatic. Prophylaxis GI Prophylaxis: Protonix WE WILL CONTINUE TO MONITOR THE PATIENT Case discussed in detail with the attending physician, including the clinical presentation, diagnostic workup, and comprehensive management plan. The patient was present for the discussion and demonstrated understanding of her condition and the proposed plan. Plan discussed with: Patient My Orders My Orders Orders - VILMA ERVIN RESIDENT Procedure Category Date Status Time Obtain Consent For: ORDERS 07/02/25 Transmitted 17:13 Npo (Nothing By DIET 07/03/25 Transmitted Mouth) Diet Breakfast Obtain Consent For LONNIE 07/02/25 Transmitted Anesthesia 17:13 Dietary Evaluation Review Comments: 1) TF Vital AF 1.2Cal @ 55ml/hr (goal) Start @ 20ml/hr, increase 10ml/hr Q4H until goal is reached. TF @ goal volume along with Propofol provides 1746 kcal (100% energy needs), 99 gm protein (100% protein needs), 1104 ml free water. 2) Water flush 160ml Q6H if allowed, adjust PRN 3) TPN if NPO > 7 days 4) Monitor NPO status, lab values, wt trend, I/O Expected Outcomes/Goals: To meet >75% estimated needs Lab values to improve Fu 2-3 days VILMA ERVIN RESIDENT Jul 02, 2025 17:20
--- NOTE | 2025-07-02 17:21 | DVHPNRES ---
Progress Note Date Seen: Jul 02, 2025 Resident Creating Document: ALONZO NAQVI RESIDENT Has the PT tested + for MRSA If YES, has PT been informed?: Yes Medical Necessity Reason Pt with a Central, PICC or Fol: No Subjective Review of Systems Patient seen and examined at the bedside. Patient reported improvement in her symptoms since admission but patient reported she has been not able to tolerate diet, reporting she is feeling something stuck in her throat, spoken with the GI regarding possible EGD. Patient likely having EGD tomorrow. NPO after midnight. Replacing electrolytes. Patient reports: Feels better Objective vital signs Vital Sign Date Time Temp Pulse Resp B/P (MAP) Pulse Ox O2 Delivery O2 Flow Rate FiO2 07/02/25 16:49 98.6 130 18 96 07/02/25 13:00 133/96 (108) 07/02/25 09:00 0.0 21 07/02/25 08:00 Room Air* Total Intake and Output 07/01/25 07/01/25 07/02/25 15:00 23:00 07:00 Intake Total 540 ml 780 ml 600 ml Balance 540 ml 780 ml 600 ml medications Current Medications Medications Dose Ordered Sig/Laura Route Start Time Stop Time Status Last Admin Dose Admin Ondansetron HCl 4 mg Q4HP PRN IV 06/14/25 10:45 07/02/25 12:17 4 MG Acetaminophen 650 mg Q6HP PRN PO 06/14/25 10:45 Insulin Glargine 15 units DAILY SC 06/15/25 10:00 07/02/25 12:25 15 UNITS Patient Own Medication 1 cap DAILY PO 06/15/25 10:00 UNV Patient Own Medication 2 tab DAILY PO 06/15/25 10:00 UNV Patient Own Medication 1 cap DAILY PO 06/15/25 10:00 UNV Lamotrigine 50 mg DAILY PO 06/15/25 10:00 07/02/25 09:44 50 MG Sodium Chloride 10 ml QSHIFT@10,22 IV 06/20/25 22:00 07/02/25 10:00 10 ML Diagnostic Test (Pha) 1 strip IQ4HR 06/24/25 20:00 07/02/25 12:00 1 STRIP Insulin Human Regular IQ4HR SC 06/24/25 20:00 07/02/25 12:29 3 UNITS Dextrose 50 ml UD PRN IV 06/24/25 19:30 Oxycodone HCl 10 mg ONCE PRN PO 06/27/25 09:45 06/30/25 13:27 10 MG Morphine Sulfate 1 mg Q4HP PRN IV 06/27/25 13:15 06/29/25 21:15 1 MG Levofloxacin/ Dextrose 100 ml @ 100 mls/hr DAILY IV 06/27/25 14:15 07/02/25 09:42 100 MLS/HR Pantoprazole Sodium 40 mg BID PO 07/02/25 09:30 07/02/25 09:30 40 MG Examination Pt is lying on bed General Appearance: Alert, Oriented X3, Cooperative, Not in acute distress HEENT: Atraumatic, Mucous membranes moist/pink Respiratory: Clear to auscultation, Normal air movement, No added sounds Cardiovascular: Regular rate, Normal S1, Normal S2, No murmurs Abdominal: Hypo active bowel sounds, Soft, no distention, no tenderness Extremities: No edema, Normal pulses, No tenderness/swelling Skin: No Significant rash, except past surgical scars Neuro: Normal speech, sensorimotor deficits none Psych/Mental Status: Mental status NL, Mood NL Nurse was there as employment specialist/program manager during examination laboratory and microbiology Laboratory Tests 07/02/25 04:57 Test 07/02/25 04:57 Range/Units Serum Glucose 153 H 74-106 mg/dL Microbiology Date/Time Source Procedure Growth Status 06/17/25 21:04 Blood Blood Culture - Final NO GROWTH AFTER 5 DAYS OF INCUBATION. Complete 06/14/25 16:30 Nose MRSA Screen - Final Methicillin Resistant S.aureus Complete 06/14/25 14:00 Sputum Gram Stain - Final Complete 06/14/25 14:00 Respiratory Culture - Final Methicillin Resistant S.aureus Complete 06/14/25 07:00 Voided Urine Urine Culture - Final Complete Labs and/or images reviewed: Labs reviewed by me, Image(s) reviewed by me Problem List/Assessment/Plan Problem List/Assessment/Plan Neurology # Acute metabolic encephalopathy likely from DKA resolved - intubated on 06/16/25, extubated on June 23 - fentanyl , propofol, Versed discontinued on June 22 - Head CT: No acute intracranial abnormality. Respiratory # Acute hypoxic respiratory failure-status post extubation June 23 and on room air right now # ? Acute Gram-positive/negative bacterial PNA, resolving # Hx of asthma , not in exacerbation -downgraded to tele - Ipratropium and albuterol med nebs - IV vancomycin discontinued on 06/20 - IV Levaquin(06/27) - Dc Flagyl - Dc IV cefepime - CXR 06/16/25: Hazy opacity throughout the right hemithorax may be due to pneumonia or layering pleural effusion versus something outside of the patient. - CXR 06/17/2025: No evidence of acute disease - Repeat CXR no significant interval changes GI # Dysphagia - Patient reported she has been not able to tolerate diet, reporting she is feeling something stuck in her throat, spoken with the GI regarding possible EGD. # Gastrointestinal Bleed (Upper vs. Lower) - Patient received 2 units PRBCs. - GI team is on board; pending endoscopy once medically stable. - CT A/P (non-contrast) shows rectal wall thickening with stranding, suggestive of proctocolitis, and cholelithiasis with small ascites and anasarca. Also noted: rectal catheter looping, bilateral pleural effusions, and central line terminating in the right external iliac vein. # Suspected Acute Cholecystitis - CT findings: Cholelithiasis with pericholecystic edema. - Liver ultrasound: Cholelithiasis and gallbladder wall thickeningfindings may suggest acute cholecystitis. - HIDA scan recommended to confirm diagnosis. - Metronidazole added on 06/18/2025. - IV Levaquin(06/27) -Dc Flagyl 07/01 - Dc IV cefepime - Cholecystostomy placed - Surgical consult (Dr. Hummel) updated regarding possible cholecystectomy -status post cholecystectomy, patient tolerated with the procedure well # Peptic Ulcer Prophylaxis - Pantoprazole 40 mg IV BID initiated. 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 Acute Gram-positive/negative bacterial PNA, resolving # blood cultures growing Gram-positive rods; bacillus, repeat cultures negative # ? acute cholecystitis # sepsis due to above - IV Levaquin(06/27) - DC Flagyl 07/01 - Dc IV cefepime today - CT abdomen pelvis: Limited evaluation without contrast. Rectal wall thickening with surrounding stranding. Correlate for proctocolitis and rectal catheter looped upon itself within the rectum. Right common femoral vein central venous catheter terminating in the right external iliac vein. Small amount of ascites /pelvic fluid. Soft tissue edema/ anasarca.Cholelithiasis and pericholecystic edema. Recommend HIDA scan to exclude cholecystitis.Small bilateral pleural effusions. - added metronidazole 06/18/25 - repeat blood cultures negative Hem/onc # anemia, s/p 2 PRBC - monitor Psychiatry # bipolar disorder # medication nonadherence - resumed home medication lamotrigine but patient is unable to take due to failed swallow eval PT eval done and recommended acute rehabilitation after discharge GI PPX: Protonix DVT prophylaxis- Holding due to possible GI bleed Nutrition- mechanical soft, diabetic diet, NPO if patient is having EGD Code status discussed greater than 29 minutes: Full CODE STATUS. Critical care time 43 minutes excluding procedure. Detailed discussion about plan of care was held with patient's brother via telephone, all questions were answered and concerns addressed. Case discussed with Dr. Pacheco. Plan discussed with: Patient, Other (Brother and RN) My Orders My Orders Orders - ALONZO NAQVI RESIDENT Procedure Category Date Status Time Pantoprazole Tablet PHA 07/02/25 In Process (Protonix Tablet) 09:30 Schedule For Dc LONNIE 07/02/25 In Process Clinic F/U 13:07 Metoclopramide PHA 07/02/25 Transmitted Injection (Reglan 17:15 Complete Blood Count LAB 07/03/25 Verified 04:00 Comprehensive LAB 07/03/25 Verified Metabolic Panel 04:00 Magnesium LAB 07/03/25 Verified 04:00 Dietary Evaluation Review Comments: 1) TF Vital AF 1.2Cal @ 55ml/hr (goal) Start @ 20ml/hr, increase 10ml/hr Q4H until goal is reached. TF @ goal volume along with Propofol provides 1746 kcal (100% energy needs), 99 gm protein (100% protein needs), 1104 ml free water. 2) Water flush 160ml Q6H if allowed, adjust PRN 3) TPN if NPO > 7 days 4) Monitor NPO status, lab values, wt trend, I/O Expected Outcomes/Goals: To meet >75% estimated needs Lab values to improve Fu 2-3 days Date of Service: Jul 02, 2025 Billing Provider: JOSETTE PACHECO MD Common Visit Codes: [id number] INP/OBS CARE(HIGH) DONYAREBECCAAPRIL RESIDENT Jul 02, 2025 17:21 JOSETTE PACHECO MD Jul 03, 2025 16:41
[2025-07-02] MEDS: METOCLOPRAMIDE HCL 5MG/ml INJ 2ml VIAL IV SCH (18:04)
[2025-07-03] VITALS (9 sets, daily range): BP systolic 98–146; BP diastolic 69–105; PULSE 94–113; RESP 17–18; TEMP 97.5–98.6; O2SAT 97–99
[2025-07-03] MEDS: METOCLOPRAMIDE HCL 5MG/ml INJ 2ml VIAL IV SCH (04:08)
[2025-07-03 06:20] LABS: Hematocrit 31.4 % (36.0-46.0); Hemoglobin 10.7 g/dL (12.2-16.2); Mean Corpuscular Hemoglobin 29.6 pg (28.0-32.0); Mean Corpuscular Volume 87.2 fL (80.0-100.0); Nucleated Red Blood Cells % 0.1 %
[2025-07-03 06:39] LABS: Alkaline Phosphatase 69 U/L (46-116); Anion Gap 9 (5-15); Bilirubin, Total 0.3 mg/dL (0.2-1.0); Carbon Dioxide 28 mmol/L (20-31); Chloride 105 mmol/L (98-107); Magnesium 1.8 mg/dL (1.6-2.6); Potassium 3.6 mmol/L (3.5-5.1); Sodium 142 mmol/L (136-145)
[2025-07-03 06:44] LABS: Glucose 137 mg/dL (74-106)
[2025-07-03 06:45] LABS: Alanine Aminotransferase < 9 U/L (7-40); Albumin 3.0 g/dL (3.2-4.8); BUN/Creatinine Ratio 10.9 (10.0-20.0); Blood Urea Nitrogen < 5 mg/dL (9-23); Calcium 8.5 mg/dL (8.7-10.4); Total Protein 5.0 g/dL (5.7-8.2)
[2025-07-03] MEDS ORDERED: ONDANSETRON HCL 4 MG/2 ML VIAL IV PRN (07:30)
[2025-07-03] MEDS: MAGNESIUM SULFATE 1GM/100ML 100 ML IV SCH (08:39)
[2025-07-03] MEDS ORDERED: METOCLOPRAMIDE HCL 5MG/ml INJ 2ml VIAL ONE (15:00)
[2025-07-03] MEDS ORDERED: ONDANSETRON HCL 4 MG/2 ML VIAL ONE (15:00)
[2025-07-03] MEDS ORDERED: PROPOFOL 10 MG/ML 20 ML IV ONE ×2 (15:00→15:12)
--- NOTE | 2025-07-03 17:26 | DVHOP2 ---
Operative Report DATE OF OPERATION: 07/03/25 PROCEDURE: Upper Endoscopy with biopsy and balloon dilation of esophageal stricture. PREOPERATIVE INDICATION: The patient is a 50 -year-old female undergoing endoscopy for oropharyngeal dysphagia and history of coffee-ground emesis POSTOPERATIVE DIAGNOSES: 1. 3-4 cm sliding-type hiatal hernia with a tight esophageal stricture at the GE junction beyond which the endoscope could not be advanced and there was [id number] esophagitis with ulcerations involving the distal esophagus 2. The stricture was dilated with Microvasive radial expansion balloon from 12- 15 mm and subsequently a complete endoscopy was performed up to the 2nd part of the duodenum PROCEDURE PERFORMED BY: Darius Arellano GI NURSE: Estevan SCOPE: Olympus videoendoscope. ASA CLASS: 3 PREOPERATIVE MEDICATIONS: Mac sedation, Shaggy Bhakta PROCEDURE IN DETAIL: After obtaining an informed consent, the patient was placed on left lateral decubitus position. The patient was then sedated with the above medications. A bite block was placed between her teeth. The endoscope was then passed through the oropharynx, into the esophagus. Patient had severe acute esophagitis in the distal esophagus with distal esophageal ulcerations. There was a tight esophageal stricture at the GE junction through which the endoscope could not be advanced This was dilated with a radial expansion balloon from 12-15 mm. Subsequently I was able to advance the endoscope into the stomach through the pylorus up to the second and third part of the duodenum. The endoscope was then withdrawn. The 2nd and 3rd part of the duodenal and the duodenal bulb were normal. Duodenal biopsies were obtained The pre-pyloric area and antrum showed mild gastritis. Gastric biopsies were obtained. On retroflexion the fundus and cardia were normal The endoscope was then withdrawn into the distal esophagus where the patient had a 3-4 cm sliding-type hiatal hernia with a an esophageal stricture at the GE junction There were acute and chronic inflammatory changes in the distal esophagus where distal esophageal ulcerations hyperemia erythema. Multiple biopsies were obtained The remaining proximal esophagus and oropharynx were unremarkable. The patient tolerated the procedure well without difficulty. COMPLICATIONS : None SPECIMENS: Duodenal biopsy Gastric biopsy Distal esophageal biopsies DISPOSITION: Transfer back to floor Stable PLAN: 1. Await for biopsy result 2. Will place pt on Protonix 40 mg bid IV 3. Clear liquid diet advance to full liquid diet 4. Carafate suspension 1 g p.o. 4 times a day 5. DC aspirin NSAIDs smoking alcohol 6. Monitor labs 7. Outpatient follow up with GI Services as the patient may need to have a repeat endoscopy with balloon dilation as needed DARIUS ARELLANO MD Jul 03, 2025 17:26
--- NOTE | 2025-07-03 18:09 | DVHPNRES ---
Progress Note Date Seen: Jul 03, 2025 Resident Creating Document: ALONZO NAQVI RESIDENT Has the PT tested + for MRSA If YES, has PT been informed?: Yes Medical Necessity Reason Pt with a Central, PICC or Fol: No Subjective Review of Systems Patient seen and examined at the bedside. Patient reported improvement in her symptoms since admission but patient reported she has been not able to tolerate diet, reporting she is feeling something stuck in her throat, spoken with the GI regarding possible EGD done today which showed 3-4 cm sliding hiatal hernia with moderate to severe distal esophagitis with ulcerations along with tight esophageal stricture at the GE junction beyond which the endoscope could not be advanced and there was with ulcerations in distal esophagitis so stricture was dilated with a balloon. Initiated full liquid diet, diabetic diet so changed Protonix to b.i.d. and Carafate q.i.d.. GI advised outpatient follow up because patient may need to have repeat EGD with a balloon dilatation as needed. Patient reports: Feels better Objective vital signs Vital Sign Date Time Temp Pulse Resp B/P (MAP) Pulse Ox O2 Delivery O2 Flow Rate FiO2 07/03/25 17:00 98.4 107 18 146/105 (119) 97 98.4 07/03/25 15:27 Mask 5.0 07/03/25 15:27 92 Total Intake and Output 07/02/25 07/02/25 07/03/25 15:00 23:00 07:00 Intake Total 300 ml 300 ml 230 ml Balance 300 ml 300 ml 230 ml medications Current Medications Medications Dose Ordered Sig/Laura Route Start Time Stop Time Status Last Admin Dose Admin Acetaminophen 650 mg Q6HP PRN PO 06/14/25 10:45 Insulin Glargine 15 units DAILY SC 06/15/25 10:00 07/02/25 12:25 15 UNITS Patient Own Medication 1 cap DAILY PO 06/15/25 10:00 UNV Patient Own Medication 2 tab DAILY PO 06/15/25 10:00 UNV Patient Own Medication 1 cap DAILY PO 06/15/25 10:00 UNV Lamotrigine 50 mg DAILY PO 06/15/25 10:00 07/03/25 17:24 50 MG Sodium Chloride 10 ml QSHIFT@10,22 IV 06/20/25 22:00 07/03/25 10:00 10 ML Diagnostic Test (Pha) 1 strip IQ4HR 06/24/25 20:00 07/03/25 16:00 1 STRIP Insulin Human Regular IQ4HR SC 06/24/25 20:00 07/03/25 04:31 2 UNITS Dextrose 50 ml UD PRN IV 06/24/25 19:30 Oxycodone HCl 10 mg ONCE PRN PO 06/27/25 09:45 06/30/25 13:27 10 MG Morphine Sulfate 1 mg Q4HP PRN IV 06/27/25 13:15 06/29/25 21:15 1 MG Levofloxacin/ Dextrose 100 ml @ 100 mls/hr DAILY IV 06/27/25 14:15 07/03/25 17:24 100 MLS/HR Ondansetron HCl 4 mg Q4HPRN PRN IV 07/03/25 07:30 Sucralfate 1 gm QID@0600,1130,1700,2200 PO 07/03/25 22:00 Pantoprazole Sodium 80 mg/ Sodium Chloride 120 ml @ 240 mls/hr BID IV 07/03/25 22:00 Examination Pt is lying on bed General Appearance: Alert, Oriented X3, Cooperative, Not in acute distress HEENT: Atraumatic, Mucous membranes moist/pink Respiratory: Clear to auscultation, Normal air movement, No added sounds Cardiovascular: Regular rate, Normal S1, Normal S2, No murmurs Abdominal: Hypo active bowel sounds, Soft, no distention, no tenderness Extremities: No edema, Normal pulses, No tenderness/swelling Skin: No Significant rash, except past surgical scars Neuro: Normal speech, sensorimotor deficits none Psych/Mental Status: Mental status NL, Mood NL Nurse was there as concrete finishing machine operator during examination laboratory and microbiology Laboratory Tests 07/03/25 05:09 Test 07/03/25 05:09 Range/Units Serum Glucose 137 H 74-106 mg/dL Microbiology Date/Time Source Procedure Growth Status 06/17/25 21:04 Blood Blood Culture - Final NO GROWTH AFTER 5 DAYS OF INCUBATION. Complete 06/14/25 16:30 Nose MRSA Screen - Final Methicillin Resistant S.aureus Complete 06/14/25 14:00 Sputum Gram Stain - Final Complete 06/14/25 14:00 Respiratory Culture - Final Methicillin Resistant S.aureus Complete 06/14/25 07:00 Voided Urine Urine Culture - Final Complete Labs and/or images reviewed: Labs reviewed by me, Image(s) reviewed by me Problem List/Assessment/Plan Problem List/Assessment/Plan Neurology # Acute metabolic encephalopathy likely from DKA resolved - intubated on 06/16/25, extubated on June 23 - fentanyl , propofol, Versed discontinued on June 22 - Head CT: No acute intracranial abnormality. Respiratory # Acute hypoxic respiratory failure-status post extubation June 23 and on room air right now # ? Acute Gram-positive/negative bacterial PNA, resolving # Hx of asthma , not in exacerbation -downgraded to tele - Ipratropium and albuterol med nebs - IV vancomycin discontinued on 06/20 - IV Levaquin(06/27) - Dc Flagyl - Dc IV cefepime - CXR 06/16/25: Hazy opacity throughout the right hemithorax may be due to pneumonia or layering pleural effusion versus something outside of the patient. - CXR 06/17/2025: No evidence of acute disease - Repeat CXR no significant interval changes GI # Dysphagia - Patient reported she has been not able to tolerate diet, reporting she is feeling something stuck in her throat, spoken with the GI regarding possible EGD. # 3-4 cm Sliding hiatal hernia # Moderate to severe esophagitis with ulcerations # Esophageal stricture at GE junction s/p dilated with Microvasive radial expansion balloon -EGD showed above findings -Protonix 40 mg b.i.d. along with the Carafate q.i.d. -advanced diet slowly as tolerated -GI advised outpatient follow up because patient may need to have repeat EGD with a balloon dilatation as needed. # Gastrointestinal Bleed (Upper vs. Lower) - Patient received 2 units PRBCs. - GI team is on board; pending endoscopy once medically stable. - CT A/P (non-contrast) shows rectal wall thickening with stranding, suggestive of proctocolitis, and cholelithiasis with small ascites and anasarca. Also noted: rectal catheter looping, bilateral pleural effusions, and central line terminating in the right external iliac vein. # Suspected Acute Cholecystitis - CT findings: Cholelithiasis with pericholecystic edema. - Liver ultrasound: Cholelithiasis and gallbladder wall thickeningfindings may suggest acute cholecystitis. - HIDA scan recommended to confirm diagnosis. - Metronidazole added on 06/18/2025. - IV Levaquin(06/27) -Dc Flagyl 07/01 - Dc IV cefepime - Cholecystostomy placed - Surgical consult (Dr. Hummel) updated regarding possible cholecystectomy -status post cholecystectomy, patient tolerated with the procedure well # Peptic Ulcer Prophylaxis - Pantoprazole 40 mg IV BID initiated. 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 Acute Gram-positive/negative bacterial PNA, resolving # blood cultures growing Gram-positive rods; bacillus, repeat cultures negative # ? acute cholecystitis # sepsis due to above - IV Levaquin(06/27) - DC Flagyl 07/01 - Dc IV cefepime today - CT abdomen pelvis: Limited evaluation without contrast. Rectal wall thickening with surrounding stranding. Correlate for proctocolitis and rectal catheter looped upon itself within the rectum. Right common femoral vein central venous catheter terminating in the right external iliac vein. Small amount of ascites /pelvic fluid. Soft tissue edema/ anasarca.Cholelithiasis and pericholecystic edema. Recommend HIDA scan to exclude cholecystitis.Small bilateral pleural effusions. - added metronidazole 06/18/25 - repeat blood cultures negative Hem/onc # anemia, s/p 2 PRBC - monitor Psychiatry # bipolar disorder # medication nonadherence - resumed home medication lamotrigine but patient is unable to take due to failed swallow eval PT eval done and recommended acute rehabilitation after discharge GI PPX: Protonix DVT prophylaxis- Holding due to possible GI bleed Nutrition- mechanical soft, diabetic diet, NPO if patient is having EGD Code status discussed greater than 29 minutes: Full CODE STATUS. Critical care time 43 minutes excluding procedure. Detailed discussion about plan of care was held with patient's brother via telephone, all questions were answered and concerns addressed. Case discussed with Dr. Pacheco. Plan discussed with: Patient, Other (Brother and RN) My Orders My Orders Orders - ALONZO NAQVI Procedure Category Date Status Time Ondansetron Hcl PHA 07/03/25 In Process (Zofran) 07:30 Complete Blood Count LAB 07/04/25 Verified 04:00 Comprehensive LAB 07/04/25 Verified Metabolic Panel 04:00 Magnesium LAB 07/04/25 Verified 04:00 Full Liq Diet DIET 07/03/25 Transmitted Dinner Dietary Evaluation Review Comments: 1) TF Vital AF 1.2Cal @ 55ml/hr (goal) Start @ 20ml/hr, increase 10ml/hr Q4H until goal is reached. TF @ goal volume along with Propofol provides 1746 kcal (100% energy needs), 99 gm protein (100% protein needs), 1104 ml free water. 2) Water flush 160ml Q6H if allowed, adjust PRN 3) TPN if NPO > 7 days 4) Monitor NPO status, lab values, wt trend, I/O Expected Outcomes/Goals: To meet >75% estimated needs Lab values to improve Fu 2-3 days Date of Service: Jul 04, 2025 Billing Provider: JOSETTE PACHECO MD Common Visit Codes: [id number] CARE 30-74 MIN ALONZO NAQVI Jul 03, 2025 18:09 JOSETTE PACHECO MD Jul 04, 2025 13:03
[2025-07-03] MEDS: ACETAMINOPHEN 325 MG TAB PO PRN (18:56)
[2025-07-03] MEDS ORDERED: PANTOPRAZOLE 40 MG/10 ML VIAL INJ IV SCH (22:00)
[2025-07-03] MEDS: PANTOPRAZOLE 80 MG in SODIUM CHL 0.9% 100 ML IV SCH (22:00)
[2025-07-03] MEDS: SUCRALFATE 1 GM/10 ML ORAL SUSP PO SCH (23:33)
[2025-07-04] VITALS (8 sets, daily range): BP systolic 104–130; BP diastolic 73–87; PULSE 85–111; RESP 16–20; TEMP 97.1–98.8; O2SAT 94–97
[2025-07-04 06:12] LABS: Hematocrit 32.1 % (36.0-46.0); Hemoglobin 11.0 g/dL (12.2-16.2); Mean Corpuscular Hemoglobin 29.5 pg (28.0-32.0); Mean Corpuscular Volume 86.3 fL (80.0-100.0); Nucleated Red Blood Cells % 0.0 %
[2025-07-04 06:32] LABS: Alkaline Phosphatase 71 U/L (46-116); Anion Gap 9 (5-15); Carbon Dioxide 29 mmol/L (20-31); Chloride 104 mmol/L (98-107); Potassium 3.5 mmol/L (3.5-5.1); Sodium 142 mmol/L (136-145)
[2025-07-04 06:33] LABS: Magnesium 1.8 mg/dL (1.6-2.6)
[2025-07-04 06:44] LABS: BUN/Creatinine Ratio 10.4 (10.0-20.0); Blood Urea Nitrogen < 5 mg/dL (9-23); Glucose 150 mg/dL (74-106)
[2025-07-04 06:45] LABS: Alanine Aminotransferase < 9 U/L (7-40); Albumin 3.1 g/dL (3.2-4.8); Bilirubin, Total 0.3 mg/dL (0.2-1.0); Calcium 8.5 mg/dL (8.7-10.4); Total Protein 5.0 g/dL (5.7-8.2)
[2025-07-04] MEDS: POTASSIUM EFFERVESENT TAB 25 MEQ PO ONE (08:23)
[2025-07-04] MEDS: MAGNESIUM SULFATE 1GM/100ML 100 ML IV ONE (10:09)
--- NOTE | 2025-07-04 11:04 | DVHPN2 ---
Progress Note Date Seen: Jul 04, 2025 Resident Creating Document: VILMA ERVIN RESIDENT Has the PT tested + for MRSA If YES, has PT been informed?: Yes Medical Necessity Reason Pt with a Central, PICC or Fol: Yes The following are medically ne: Sotelo Catheter Reason for sotelo catheter: Bladder Retention/Obstruc Subjective Review of Systems 07/04/25 This patient is a 50-year-old female with a history of oropharyngeal dysphagia and prior coffee-ground emesis underwent EGD with biopsy and balloon dilation yesterday due to persistent dysphagia and suspected esophageal pathology. During the EGD the patient was found to have 1. 3-4 cm sliding-type hiatal hernia with a tight esophageal stricture at the GE junction beyond which the endoscope could not be advanced and there was [id number] esophagitis with ulcerations involving the distal esophagus 2. The stricture was dilated with Microvasive radial expansion balloon from 12- 15 mm and subsequently a complete endoscopy was performed up to the 2nd part of the duodenum Scope successfully advanced to 2nd portion of duodenum post dilation. Biopsies were taken from the duodenum, gastric mucosa, and distal esophagus. Awaiting pathology reports. Today, the patient is tolerating full liquid diet advanced to pureed diet. No nausea or vomiting. Mild epigastric discomfort attributed to recent balloon dilation and underlying esophagitis. Swallowing is improving, and patient passed gas today. Last bowel movement was a week ago. Plan is for aggressive acid suppression and mucosal healing therapy, monitoring for discharge readiness. Patient is required to continue lifelong acid suppression. Likely discharge tomorrow, outpatient GI follow-up required in 4-6 weeks might need an EGD with balloon dilation if the symptoms persist. Objective vital signs Vital Sign Date Time Temp Pulse Resp B/P (MAP) Pulse Ox O2 Delivery O2 Flow Rate FiO2 07/04/25 08:48 97.7 104 18 129/87 (101) 95 97.7 07/03/25 20:00 Room Air* 0 21 Total Intake and Output 07/03/25 07/03/25 07/04/25 15:00 23:00 07:00 Intake Total 300 ml 100 ml 400 ml Balance 300 ml 100 ml 400 ml medications Current Medications Medications Dose Ordered Sig/Laura Route Start Time Stop Time Status Last Admin Dose Admin Acetaminophen 650 mg Q6HP PRN PO 06/14/25 10:45 07/03/25 18:56 650 MG Insulin Glargine 15 units DAILY SC 06/15/25 10:00 07/03/25 17:59 15 UNITS Patient Own Medication 1 cap DAILY PO 06/15/25 10:00 UNV Patient Own Medication 2 tab DAILY PO 06/15/25 10:00 UNV Patient Own Medication 1 cap DAILY PO 06/15/25 10:00 UNV Lamotrigine 50 mg DAILY PO 06/15/25 10:00 07/04/25 10:10 50 MG Sodium Chloride 10 ml QSHIFT@10,22 IV 06/20/25 22:00 07/04/25 10:10 10 ML Diagnostic Test (Pha) 1 strip IQ4HR 06/24/25 20:00 07/04/25 08:26 1 STRIP Insulin Human Regular IQ4HR SC 06/24/25 20:00 07/04/25 08:00 3 UNITS Dextrose 50 ml UD PRN IV 06/24/25 19:30 Oxycodone HCl 10 mg ONCE PRN PO 06/27/25 09:45 06/30/25 13:27 10 MG Morphine Sulfate 1 mg Q4HP PRN IV 06/27/25 13:15 06/29/25 21:15 1 MG Ondansetron HCl 4 mg Q4HPRN PRN IV 07/03/25 07:30 Sucralfate 1 gm QID@0600,1130,1700,2200 PO 07/03/25 22:00 07/04/25 07:17 1 GM Levofloxacin/ Dextrose 100 ml @ 100 mls/hr DAILY@1100 IV 07/04/25 11:00 Pantoprazole Sodium 80 mg/ Sodium Chloride 120 ml @ 240 mls/hr Q12H IV 07/04/25 12:00 Examination General: Awake, alert, not in distress * Abdomen: * Soft, non-tender, nondistended * No rebound or guarding * Bowel sounds present in all quadrants * Laparoscopic incision sites clean, dry, no erythema, no drainage laboratory and microbiology Laboratory Tests 07/04/25 05:23 Test 07/04/25 05:23 Range/Units Serum Glucose 150 H 74-106 mg/dL Microbiology Date/Time Source Procedure Growth Status 06/17/25 21:04 Blood Blood Culture - Final NO GROWTH AFTER 5 DAYS OF INCUBATION. Complete 06/14/25 16:30 Nose MRSA Screen - Final Methicillin Resistant S.aureus Complete 06/14/25 14:00 Sputum Gram Stain - Final Complete 06/14/25 14:00 Respiratory Culture - Final Methicillin Resistant S.aureus Complete 06/14/25 07:00 Voided Urine Urine Culture - Final Complete Problem List/Assessment/Plan Problem List/Assessment/Plan Assessment Esophageal stricture at GE junction-s/p EGD with balloon dilation/tight stricture at GE junction successfully dilated from 12 mm to 15 mm/scope advanced post dilation, awaiting biopsy results/swallowing improving Moderate to severe esophagitis with ulceration biopsy pending/treated with pantoprazole b.i.d. IV and sucralfate q.i.d./likely require long-term to lifelong acid suppression. Hiatal hernia 3-4 cm sliding-type/symptomatic with reflux, stricture likely related./monitor for surgical indication and future/require acid suppression and conservative management for now Chronic dysphagia-likely secondary to strictures and esophagitis/improved post dilation/swallowing re-evaluation needed post discharge/plan for repeat EGD in 6 weeks Acute cholecystitis, s/p laparoscopic cholecystectomy POD #1, stable, no complications. Persistent postoperative dysphagia with aspiration risk failed swallow evaluation; remains NPO with IV nutrition; awaiting speech therapy. Protein-calorie malnutrition continues IV Clinimex amino acids. Electrolyte disturbances hypokalemia, hypocalcemia; replacement ongoing. Mild anemia stable, likely postoperative. Hyperglycemia under control with insulin protocol. Treatment Plan Gastrointestinal Continue pantoprazole 40 mg IV b.i.d. transitioned to p.o. at discharge Start sucralfate suspension 1 g p.o. q.i.d. on empty stomach. Strictly avoid NSAIDs, aspirin, alcohol, tobacco. Educated the patient on small, frequent meals and GERD precautions Reassess symptoms daily like pain, swallowing, bleeding. Plan for repeat EGD in 4-6 weeks outpatient. Patient will require outpatient GI follow-up visit in 4-6 weeks to re-evaluate symptoms. Patient will require aggressive treatment with Protonix b.i.d. and Carafate b.i.d. for the next 3-6 months and PPIs should be continued lifelong. Discharge likely tomorrow if tolerating diet and clinically stable. * Continue post-cholecystectomy care * Continue IV antibiotics * Monitor LFTs, bowel function * Monitor caloric intake, labs (electrolytes, albumin, prealbumin if prolonged support needed) Prophylactic Measures: * PPI for GI ulcer prophylaxis * Monitor for any signs of bile leak, infection, or GI bleeding. * Await speech therapy evaluation for dysphagia management. * Continue IV Pantoprazole for stress ulcer and GI mucosal protection. Nutrition / Metabolic * Monitor daily CMP, albumin, and replace electrolytes (K, Ca, Mg) per protocol. * Reassess readiness for transition to enteral feeds once swallow function improves. Hematology * Monitor CBC daily; transfuse only if Hgb <7.0 or symptomatic. Prophylaxis GI Prophylaxis: Protonix WE WILL CONTINUE TO MONITOR THE PATIENT Case discussed in detail with the attending physician, including the clinical presentation, diagnostic workup, and comprehensive management plan. The patient was present for the discussion and demonstrated understanding of her condition and the proposed plan. Plan discussed with: Patient Dietary Evaluation Review Comments: 1) TF Vital AF 1.2Cal @ 55ml/hr (goal) Start @ 20ml/hr, increase 10ml/hr Q4H until goal is reached. TF @ goal volume along with Propofol provides 1746 kcal (100% energy needs), 99 gm protein (100% protein needs), 1104 ml free water. 2) Water flush 160ml Q6H if allowed, adjust PRN 3) TPN if NPO > 7 days 4) Monitor NPO status, lab values, wt trend, I/O Expected Outcomes/Goals: To meet >75% estimated needs Lab values to improve Fu 2-3 days VILMA ERVIN RESIDENT Jul 04, 2025 11:04
[2025-07-04] MEDS: PANTOPRAZOLE 80 MG in SODIUM CHL 0.9% 100 ML IV SCH (12:10)
[2025-07-04] MEDS: LACTULOSE 20Gm/30ML SOLN PO ONE (12:22)
--- NOTE | 2025-07-04 15:25 | ECG ---
[facility] Test Date: 2025-07-04 Test Time: 10:29:13 Pat Name: RICHARD NEWMAN Department: Respiratoy Room: 0237 A Gender: F Chalk Tester: KANG : 1975 Requested By: CECELIA BROWN Order Number: [id number] Reading MD: Gerard Vidales Measurements Intervals [place] Rate: 102 P: 54 MO: 131 QRS: 24 QRSD: 82 T: 26 QT: 329 QTc: 429 Interpretive Statements Sinus tachycardia Borderline low voltage, extremity leads Electronically Signed On 07-08-2025 18:39:08 PDT by Gerard Vidales Please click the below link to view image of tracing.
--- NOTE | 2025-07-04 15:33 | DVHPNRES ---
Progress Note Date Seen: Jul 04, 2025 Resident Creating Document: ALONZO NAQVI RESIDENT Has the PT tested + for MRSA If YES, has PT been informed?: Yes Medical Necessity Reason Pt with a Central, PICC or Fol: Yes The following are medically ne: Sotelo Catheter Reason for sotelo catheter: Bladder Retention/Obstruc Subjective Review of Systems 07/03-Patient seen and examined at the bedside. Patient reported improvement in her symptoms since admission but patient reported she has been not able to tolerate diet, reporting she is feeling something stuck in her throat, spoken with the GI regarding possible EGD done today which showed 3-4 cm sliding hiatal hernia with moderate to severe distal esophagitis with ulcerations along with tight esophageal stricture at the GE junction beyond which the endoscope could not be advanced and there was with ulcerations in distal esophagitis so stricture was dilated with a balloon. Initiated full liquid diet, diabetic diet so changed Protonix to b.i.d. and Carafate q.i.d.. GI advised outpatient follow up because patient may need to have repeat EGD with a balloon dilatation as needed. Today patient seen and examined at the bedside. Patient reported improvement in her symptoms since admission, able to eat food after EGD and dilation, dc d protonix drip changed to Iv protonix BID. Advance diet as tolerated. Patient reports: Feels better Objective vital signs Vital Sign Date Time Temp Pulse Resp B/P (MAP) Pulse Ox O2 Delivery O2 Flow Rate FiO2 07/04/25 13:00 98.8 111 16 119/75 (90) 94 98.8 07/04/25 08:00 Room Air* 0 21 Total Intake and Output 07/03/25 07/03/25 07/04/25 15:00 23:00 07:00 Intake Total 300 ml 100 ml 400 ml Balance 300 ml 100 ml 400 ml medications Current Medications Medications Dose Ordered Sig/Laura Route Start Time Stop Time Status Last Admin Dose Admin Acetaminophen 650 mg Q6HP PRN PO 06/14/25 10:45 07/03/25 18:56 650 MG Insulin Glargine 15 units DAILY SC 06/15/25 10:00 07/03/25 17:59 15 UNITS Patient Own Medication 1 cap DAILY PO 06/15/25 10:00 UNV Patient Own Medication 2 tab DAILY PO 06/15/25 10:00 UNV Patient Own Medication 1 cap DAILY PO 06/15/25 10:00 UNV Lamotrigine 50 mg DAILY PO 06/15/25 10:00 07/04/25 10:10 50 MG Sodium Chloride 10 ml QSHIFT@10,22 IV 06/20/25 22:00 07/04/25 10:10 10 ML Diagnostic Test (Pha) 1 strip IQ4HR 06/24/25 20:00 07/04/25 12:15 1 STRIP Insulin Human Regular IQ4HR SC 06/24/25 20:00 07/04/25 12:20 6 UNITS Dextrose 50 ml UD PRN IV 06/24/25 19:30 Oxycodone HCl 10 mg ONCE PRN PO 06/27/25 09:45 06/30/25 13:27 10 MG Morphine Sulfate 1 mg Q4HP PRN IV 06/27/25 13:15 06/29/25 21:15 1 MG Ondansetron HCl 4 mg Q4HPRN PRN IV 07/03/25 07:30 Sucralfate 1 gm QID@0600,1130,1700,2200 PO 07/03/25 22:00 07/04/25 12:10 1 GM Levofloxacin/ Dextrose 100 ml @ 100 mls/hr DAILY@1100 IV 07/04/25 11:00 07/04/25 11:09 100 MLS/HR Pantoprazole Sodium 80 mg/ Sodium Chloride 120 ml @ 240 mls/hr Q12H IV 07/04/25 12:00 07/04/25 12:10 240 MLS/HR Lactulose 30 ml DAILY PO 07/05/25 10:00 Examination Pt is lying on bed General Appearance: Alert, Oriented X3, Cooperative, Not in acute distress HEENT: Atraumatic, Mucous membranes moist/pink Respiratory: Clear to auscultation, Normal air movement, No added sounds Cardiovascular: Regular rate, Normal S1, Normal S2, No murmurs Abdominal: Hypo active bowel sounds, Soft, no distention, no tenderness Extremities: No edema, Normal pulses, No tenderness/swelling Skin: No Significant rash, except past surgical scars Neuro: Normal speech, sensorimotor deficits none Psych/Mental Status: Mental status NL, Mood NL Nurse was there as technology auditor during examination laboratory and microbiology Laboratory Tests 07/04/25 05:23 Test 07/04/25 05:23 Range/Units Serum Glucose 150 H 74-106 mg/dL Microbiology Date/Time Source Procedure Growth Status 06/17/25 21:04 Blood Blood Culture - Final NO GROWTH AFTER 5 DAYS OF INCUBATION. Complete 06/14/25 16:30 Nose MRSA Screen - Final Methicillin Resistant S.aureus Complete 06/14/25 14:00 Sputum Gram Stain - Final Complete 06/14/25 14:00 Respiratory Culture - Final Methicillin Resistant S.aureus Complete 06/14/25 07:00 Voided Urine Urine Culture - Final Complete Labs and/or images reviewed: Labs reviewed by me, Image(s) reviewed by me Problem List/Assessment/Plan Problem List/Assessment/Plan Neurology # Acute metabolic encephalopathy likely from DKA resolved - intubated on 06/16/25, extubated on June 23 - fentanyl , propofol, Versed discontinued on June 22 - Head CT: No acute intracranial abnormality. Respiratory # Acute hypoxic respiratory failure-status post extubation June 23 and on room air right now # ? Acute Gram-positive/negative bacterial PNA, resolving # Hx of asthma , not in exacerbation -downgraded to tele - Ipratropium and albuterol med nebs - IV vancomycin discontinued on 06/20 - IV Levaquin(06/27) - Dc Flagyl - Dc IV cefepime - CXR 06/16/25: Hazy opacity throughout the right hemithorax may be due to pneumonia or layering pleural effusion versus something outside of the patient. - CXR 06/17/2025: No evidence of acute disease - Repeat CXR no significant interval changes GI # Dysphagia - Patient reported she has been not able to tolerate diet, reporting she is feeling something stuck in her throat, spoken with the GI regarding possible EGD. # 3-4 cm Sliding hiatal hernia # Moderate to severe esophagitis with ulcerations # Esophageal stricture at GE junction s/p dilated with Microvasive radial expansion balloon -EGD showed above findings -Protonix 40 mg b.i.d. along with the Carafate q.i.d. -advanced diet slowly as tolerated -GI advised outpatient follow up because patient may need to have repeat EGD with a balloon dilatation as needed. # Gastrointestinal Bleed (Upper vs. Lower) - Patient received 2 units PRBCs. - GI team is on board; pending endoscopy once medically stable. - CT A/P (non-contrast) shows rectal wall thickening with stranding, suggestive of proctocolitis, and cholelithiasis with small ascites and anasarca. Also noted: rectal catheter looping, bilateral pleural effusions, and central line terminating in the right external iliac vein. # Suspected Acute Cholecystitis - CT findings: Cholelithiasis with pericholecystic edema. - Liver ultrasound: Cholelithiasis and gallbladder wall thickeningfindings may suggest acute cholecystitis. - HIDA scan recommended to confirm diagnosis. - Metronidazole added on 06/18/2025. - IV Levaquin(06/27) -Dc Flagyl 07/01 - Dc IV cefepime - Cholecystostomy placed - Surgical consult (Dr. Hummel) updated regarding possible cholecystectomy -status post cholecystectomy, patient tolerated with the procedure well # Peptic Ulcer Prophylaxis - Pantoprazole 40 mg IV BID initiated. Diet-initiated IV Clinimix -06/24--discontinued 07/01 Fleet enema given, 06/25-large BM Endo # T2DM, uncontrolled, insulin dependent # DKA, resolved - insulin Lantus 15 units daily - moderate sliding scale insulin # Sotelo catheter Nephrology # MABLE, likely hemodynamically mediated/VMN-improving # hyperphosphatemia due to above -resolving # hyperkalemia due to above -resolving # hypernatremia-corrected with the free water # hypomagnesemia # hypokalemia -discontinued free water -repleting magnesium and potassium -monitor lab -avoid nephrotoxic agents -strict I&Os MSK # Physical deconditioning due to critical illness myopathy status post mechanical ventilation-SNF after discharge for rehabilitation Infectious disease # ? Acute Gram-positive/negative bacterial PNA, resolving # blood cultures growing Gram-positive rods; bacillus, repeat cultures negative # ? acute cholecystitis # sepsis due to above - IV Levaquin(06/27) - DC Flagyl 07/01 - Dc IV cefepime today - CT abdomen pelvis: Limited evaluation without contrast. Rectal wall thickening with surrounding stranding. Correlate for proctocolitis and rectal catheter looped upon itself within the rectum. Right common femoral vein central venous catheter terminating in the right external iliac vein. Small amount of ascites /pelvic fluid. Soft tissue edema/ anasarca.Cholelithiasis and pericholecystic edema. Recommend HIDA scan to exclude cholecystitis.Small bilateral pleural effusions. - added metronidazole 06/18/25 - repeat blood cultures negative Hem/onc # anemia, s/p 2 PRBC - monitor Psychiatry # bipolar disorder # medication nonadherence - resumed home medication lamotrigine but patient is unable to take due to failed swallow eval PT eval done and recommended acute rehabilitation after discharge GI PPX: Protonix DVT prophylaxis- Holding due to possible GI bleed Nutrition- mechanical soft, diabetic diet, advance as tolerated Code status discussed greater than 29 minutes: Full CODE STATUS. Detailed discussion about plan of care was held with patient's brother via telephone, all questions were answered and concerns addressed. Case discussed with Dr. Pacheco. Plan discussed with: Patient My Orders My Orders Orders - ALONZO NAQVI Procedure Category Date Status Time Levofloxacin 500mg PHA 07/04/25 In Process (Levaquin 500mg/ 100m 11:00 Lactulose Oral PHA 07/05/25 In Process 10:00 Dietary Evaluation Review Comments: 1) TF Vital AF 1.2Cal @ 55ml/hr (goal) Start @ 20ml/hr, increase 10ml/hr Q4H until goal is reached. TF @ goal volume along with Propofol provides 1746 kcal (100% energy needs), 99 gm protein (100% protein needs), 1104 ml free water. 2) Water flush 160ml Q6H if allowed, adjust PRN 3) TPN if NPO > 7 days 4) Monitor NPO status, lab values, wt trend, I/O Expected Outcomes/Goals: To meet >75% estimated needs Lab values to improve Fu 2-3 days Date of Service: Jul 04, 2025 Billing Provider: JOSETTE PACHECO MD Common Visit Codes: [id number] INP/OBS CARE(HIGH) Secondary Visit Codes: 99625-[id number] CARE PLAN 30 MINUTES ALONZO NAQVI Jul 04, 2025 15:33 JOSETTE PACHECO MD Jul 07, 2025 15:21
[2025-07-05 01:00] VITALS: BP 135/92; PULSE 105; RESP 16; TEMP 98.2; O2SAT 96
[2025-07-05 05:00] VITALS: BP 126/84; PULSE 105; RESP 18; TEMP 98.2; O2SAT 98
[2025-07-05 08:00] VITALS: PULSE 71; RESP 17
[2025-07-05 08:50] VITALS: BP 130/82; PULSE 102; RESP 20; TEMP 98.2; O2SAT 97
[2025-07-05] MEDS: LACTULOSE 20Gm/30ML SOLN PO SCH (08:50)
[2025-07-05 11:19] LABS: Hematocrit 34.2 % (36.0-46.0); Hemoglobin 11.5 g/dL (12.2-16.2); Mean Corpuscular Hemoglobin 28.9 pg (28.0-32.0); Mean Corpuscular Volume 85.9 fL (80.0-100.0); Nucleated Red Blood Cells % 0.0 %
--- NOTE | 2025-07-05 11:21 | DVHDSRES ---
Discharge Summary Date of Admission Resident Creating Document: ALONZO NAQVI RESIDENT Jun 14, 2025 at 10:39 Date of Discharge: Jul 05, 2025 Admitting Diagnosis DKA Labs/Diagnostic Data: Laboratory Results Test 07/05/25 10:36 07/05/25 08:48 07/05/25 07:43 07/04/25 05:23 POC Glucose 120 mg/dl (70-106) Eosinophils (%) (Auto) 0.9 % (0.0-7.0) Eosinophils # (Auto) 0.1 10 ^3/uL (0-0.8) Basophils # (Auto) 0 10 ^3/uL (0-0.2) Nucleated Red Blood Cells 0.0 % Test 07/02/25 04:57 07/01/25 06:05 06/27/25 04:45 06/24/25 02:59 Phosphorus Level 4.0 mg/dL (2.4-5.1) Differential Total Cells Counted 100.0 (100) Neutrophils % (Manual) 46 (37.0-80.0) Band Neutrophils % (Manual) 0 Lymphocytes % (Manual) 42 (10.0-50.0) Monocytes % (Manual) 12 (0-12) Eosinophils % (Manual) 0 (0-7) Basophils % (Manual) 0 (0.0-2.0) Metamyelocytes % (manual) 0 Myelocytes % (Manual) 0 Promyelocytes % (Manual) 0 Blast Cells % (Manual) 0 Reactive Lymphocytes 0 Platelet Estimate Adequate Prothrombin Time 12.4 sec (9.3-11.8) Prothrombin Time INR 1.19 (0.9-1.15) Activated Partial Thromboplast Time 26.4 SEC (24.5-34.5) Triglycerides Level 139 mg/dL (< 150) Thyroid Stimulating Hormone (TSH) 1.59 uIU/mL (0.55-4.78) Test 06/23/25 09:25 06/23/25 06:51 06/23/25 02:55 06/21/25 06:21 Blood Gas Specimen Type Arterial Blood Gas Sample Site Right radial Blood Gas Patient Temperature 37.0 Arterial Blood Date Drawn [id number] Arterial Blood pH 7.443 (7.350-7.450) Arterial Blood Partial Pressure CO2 31.0 mmHg (32.0-45.0) Arterial Blood Partial Pressure O2 108.7 mmHg (83.0-108.0) Arterial Blood HCO3 20.7 mmol/L (21.0-28.0) Arterial Blood Oxygen Saturation 98.0 % (94.0-98.0) Arterial Blood Base Excess -2.6 mmol/L (-2.0-3.0) Arterial Blood Oxyhemoglobin 97.4 % (94.0-98.0) Arterial Blood Carboxyhemoglobin 0.3 % (0.5-1.5) Arterial Blood Methemoglobin 0.3 % (0.0-1.5) Kadeem Test Yes Blood Gas Total Hemoglobin 10.50 g/dL (12.0-16.0) Blood Gas Modality Vent - cpap FiO2 % 30.0 Blood Gas Pressure Support 8 Blood Gas PEEP or CPAP 5.0 Blood Gas Set Respiration Rate 22.0 Blood Gas Tidal Volume 400.0 Large Platelets Blood Gas Spontaneous Rate 26 Test 06/20/25 08:30 06/19/25 11:30 06/17/25 13:09 06/16/25 06:16 Vancomycin Level Trough 10.5 ug/mL (5-10) Stool Occult Blood Positive (Negative) Stool Occult Blood Sample #3 (Negative) Beta HCG, Quantitative 0.8 mIU/mL (1.5-4.2) Blood Gas Critical Value Read Back Yes Blood Gas Notified Whom linda Schwartz dnp Blood Gas Notified Time [id number] Blood Gas Notified By Test 06/14/25 20:46 06/14/25 13:38 06/14/25 08:44 06/14/25 08:14 Specimen Drawn By Process Excellence Manager marlee figueroa Blood Gas Liter Flow 2.00 Serum Osmolality 357 mOsm/kg (278-298) Beta-Hydroxybutyric Acid > 4.500 mmol/L (< 0.4) Lactic Acid Level 1.8 mmol/L (0.4-2.0) Test 06/14/25 07:00 Urine Color Light-yellow (Yellow) Urine Clarity Clear (Clear) Urine pH 5.0 (5.0-9.0) Urine Specific [place] 1.021 (1.001-1.035) Urine Protein Negative (Negative) Urine Ketones 4+ (Negative) Urine Blood Negative /uL (Negative) Urine Nitrite Negative (Negative) Urine Bilirubin Negative (Negative) Urine Urobilinogen Normal mg/dL (Negative) Urine Leukocyte Esterase Negative /uL (Negative) Urine RBC 1 /hpf (0 - 4) Urine Microscopic WBC 2 /HPF (0-5) Urine Squamous Epithelial Cells Few /hpf (<5) Urine Bacteria None seen /hpf (None Seen) Urine Mucus Few (None Seen) Urine Glucose 4+ mg/dL (Normal) Urine Test Negative (Negative) Urine Opiates Screen Neg (NEGATIVE) Urine Fentanyl Screen Neg (NEGATIVE) Urine Barbiturates Screen Neg (NEGATIVE) Urine Phencyclidine Screen Neg (NEGATIVE) Urine Amphetamines Screen Neg (NEGATIVE) Urine Benzodiazepines Screen Neg (NEGATIVE) Urine Cocaine Screen Neg (NEGATIVE) Urine Cannabinoids Screen Neg (NEGATIVE) Brief Hx & Hospital Course: The patient is a 50-year-old female with a history of asthma, insulin-dependent type 2 diabetes mellitus, recurrent diabetic ketoacidosis (DKA), and bipolar disorder with known medication nonadherence. She presented to the hospital on 06/16/2025 with hyperglycemia, reportedly due to lack of insulin at home despite a recent PCP visit. She lives with roommates, and attempts to contact family were initially unsuccessful. On presentation, she was found to be in DKA and required intubation, sedation, and mechanical ventilation. She remained intubated until 06/23/2025, with sedation managed using fentanyl, propofol, and Versed, which were discontinued on 06/22/2025. DKA resolved with appropriate m anagement. During her hospital stay, she developed acute hypoxic respiratory failure and was treated for suspected bacterial pneumonia. Chest imaging on 06/16 showed hazy opacity in the right hemithorax, possibly due to pneumonia or pleural effusion. Repeat imaging on 06/17 showed no acute disease, and subsequent imaging revealed no significant changes. She was treated with IV vancomycin (discontinued on 06/20), cefepime (discontinued later), and continued on IV Levaquin and Flagyl. She was also managed with ipratropium and albuterol nebulizers. After extubation on 06/23, she was transitioned to room air and downgraded to telemetry. GI complications included a suspected gastrointestinal bleed, for which she received [address] abdomen/pelvis revealed rectal wall thickening suggestive of proctocolitis, cholelithiasis with pericholecystic edema, small ascites, and anasarca. A rectal catheter was noted to be looping, and bilateral pleural effusions were present. Liver ultrasound confirmed cholelithiasis and gallbladder wall thickening, raising concern for acute cholecystitis. Metronidazole was added on 06/18, and a surgical consult was obtained. A cholecystostomy was placed, and the patient underwent laparoscopic cholecystectomy on 06/27, which she tolerated well. Pantoprazole IV was initiated for peptic ulcer prophylaxis. Nutritional support was started with IV Clinimix on 06/24 after the patient failed her swallow evaluation. Nephrology was consulted for acute kidney injury likely secondary to hemodynamic instability and vancomycin use. Electrolyte abnormalities included hyperphosphatemia, hyperkalemia, hypernatremia (corrected with free water), hypomagnesemia, and hypokalemia. Free water was discontinued, and magnesium and potassium were repleted. Labs were closely monitored, and nephrotoxic agents were avoided. Strict I&Os were maintained. Neurologically, the patient had acute metabolic encephalopathy likely secondary to DKA, which resolved. Head CT showed no acute intracranial abnormalities. Psychiatry was consulted for bipolar disorder and medication nonadherence; lamotrigine was resumed but could not be administered orally due to swallowing difficulties. Despite initial improvement, the patient continued to have difficulty swallowing. GI performed an EGD, which revealed a 34 cm sliding-type hiatal hernia, a tight esophageal stricture at the GE junction, and [id number] esophagitis with ulcerations. The stricture was dilated using a Microvasive radial expansion balloon (1215 mm), allowing full endoscopic evaluation to the second part of the duodenum. Post-procedure, the patient was able to eat without difficulty, and no vomiting or choking was reported. She was started on Protonix 40 mg BID and Carafate 1 g PO QID, with outpatient GI follow-up recommended for possible repeat endoscopy and balloon dilation. Physical therapy evaluated the patient and recommended discharge to a halfway facility (SNF) for rehabilitation. The patient was hemodynamically stable at discharge and transitioned to optimal medical therapy. She was advised on the importance of medication adherence and follow-up with her PCP and discharge clinic. The discharge plan was discussed and agreed upon with the patient and her brother, Mr. Riddle. Pt is lying on bed General Appearance: Alert, Oriented X3, Cooperative, Not in acute distress HEENT: Atraumatic, Mucous membranes moist/pink Respiratory: Clear to auscultation, Normal air movement, No added sounds Cardiovascular: Regular rate, Normal S1, Normal S2, No murmurs Abdominal: Hypo active bowel sounds, Soft, no distention, no tenderness Extremities: No edema, Normal pulses, No tenderness/swelling Skin: No Significant rash, except past surgical scars Neuro: Normal speech, sensorimotor deficits none Psych/Mental Status: Mental status NL, Mood NL Nurse was there as knitting machine mechanic during examination Operations or Procedures CT Head Without Contrast Date: 06/15/2025 Impression: No acute intracranial abnormality. ------ Chest Radiograph (1 View) Date: 06/15/2025 Impression: Endotracheal tube approximately 4.8 cm above the roxann. Enteric tube in the stomach below the left diaphragm. Cardiopulmonary findings stable. ----- CT Abdomen and Pelvis Without Contrast Date: 06/18/2025 Impression: Rectal wall thickening with surrounding stranding; correlate for proctocolitis. Right common femoral vein central venous catheter terminating in the right external iliac vein. Small amount of ascites/pelvic fluid. Soft tissue edema/anasarca. Cholelithiasis and pericholecystic edema; recommend HIDA scan to exclude cholecystitis. Small bilateral pleural effusions. ------ Left Lower Extremity Venous Duplex Date: 06/18/2025 Impression: No left femoropopliteal venous thrombosis. Left 2 cm Bakers cyst. --------- Ultrasound Abdomen Modality: Grayscale sonographic imaging with color Doppler Impression: Cholelithiasis and gallbladder wall thickening, possibly acute cholecystitis Gallbladder volume: 94 mL Date: 06/19/2025 Signed by: Shaggy Barbosa ------ Chest Radiograph (Indication: PNA) Modality: Single frontal chest X-ray Impression: Lines and tubes in satisfactory position Left lower lobe airspace disease No effusion or pneumothorax Date: 06/22/2025 Signed by: Rohit Webster ------ Chest Radiograph (Indication: Follow-up) Modality: Single frontal chest X-ray Impression: No acute disease Right PICC line stably positioned Date: 06/27/2025 Signed by: Simone Butler -- PAY[facility] PERCUTANEOUS CHOLANGIO HISTORY: CHOLECYSTOSTOMY DRAIN placement for acute cholecystitis in a septic patient intubated in the ICU. PROCEDURE: Informed consent was obtained. The patient was placed in supine position, and initial limited ultrasound evaluation of the RUQ abdomen was obtained. The skin overlying the gallbladder was prepped with chlorhexidine which was allowed to dry and draped in the usual sterile fashion. Time out was performed. IV sedation and 1% lidocaine local anesthetic were administered. Using US needle biopsy guide, a 21 g Accu Stick needle was advanced into the gallbladder via a intercostal, transhepatic approach. Following aspiration of bile, a small amount of contrast was injected to delineate the viscous. The needle was then exchanged over mandrill wire to a non-vascular access set, through which a guidewire was advanced into the gallbladder. Following serial dilation, an 8.5 [place] multipurpose pigtail catheter was placed within the gallbladder. Approximately 5 cc of fluid was withdrawn and sent to the laboratory for analysis. The drain was secured in place and attached to gravity drainage. A sterile dressing was applied. No immediate complication was identified. DAP 104 FLUOROSCOPY TIME: 1.5 minutes. CONTRAST USED: 15 mL. SEDATION: Dr. Sanna Bustillos was personally responsible for the administration of moderate sedation during the procedure performed, including the use of an independent trained observer who had no other duties during the procedure. The drugs utilized were IV fentanyl and versed (see nursing log for details). The total time of supervision by the attending physician was approximately 30 minutes. FINDINGS: Limited US scan of the right upper abdomen demonstrates a distended gallbladder. Aspirated bile is thick. Completion image demonstrates good positioning of the drainage catheter. The cystic duct is obstructed. IMPRESSION: Obstructed cystic duct consistent with acute cholecystitis. US/fluoro-guided percutaneous 8.5 kittitian cholecystostomy tube placement. 5 mL bile aspirated for fluid analysis. PLAN: This tube will need to remain in place for at least 6-8 weeks before removal, so as to prevent bile leakage. If cholecystectomy is not planned, please have patient follow-up with IR at discharge to schedule cholangiogram in 6-8 weeks. If cystic duct patency and tract maturation is established, we will consider clamp trial prior to removal of the tube in 1-2 weeks. ------- DATE OF SURGERY: 06/27/2025 PREOPERATIVE DIAGNOSES: * Cholelithiasis. * Cholecystitis. * Cholecystostomy tube. POSTOPERATIVE DIAGNOSES: * Cholelithiasis. * Cholecystitis. * Cholecystostomy tube. SURGEON: Arya Hummel MD REFRIGERATING ENGINEER: Chaka Eaton NP ANESTHESIA: General endotracheal. ANESTHESIOLOGIST: Donaldo Best MD PROCEDURES: * Laparoscopy. * Laparoscopic cholecystectomy. * Removal of percutaneous cholecystostomy. Arya Hummel MD PF/MCKENNA TID: [id number] RECEIPT: [id number] -------- Operative Report DATE OF OPERATION: 07/03/25 PROCEDURE: Upper Endoscopy with biopsy and balloon dilation of esophageal stricture. PREOPERATIVE INDICATION: The patient is a 50 -year-old female undergoing endoscopy for oropharyngeal dysphagia and history of coffee-ground emesis POSTOPERATIVE DIAGNOSES: 1. 3-4 cm sliding-type hiatal hernia with a tight esophageal stricture at the GE junction beyond which the endoscope could not be advanced and there was mode [id number] esophagitis with ulcerations involving the distal esophagus 2. The stricture was dilated with Microvasive radial expansion balloon from 12- 15 mm and subsequently a complete endoscopy was performed up to the 2nd part of the duodenum PROCEDURE PERFORMED BY: Darius Llamas GI NURSE: Estevan SCOPE: Olympus videoendoscope. ASA CLASS: 3 PREOPERATIVE MEDICATIONS: Mac sedation, Shaggy Bhakta PROCEDURE IN DETAIL: After obtaining an informed consent, the patient was placed on left lateral decubitus position. The patient was then sedated with the above medications. A bite block was placed between her teeth. The endoscope was then passed through the oropharynx, into the esophagus. Patient had severe acute esophagitis in the distal esophagus with distal esophageal ulcerations. There was a tight esophageal stricture at the GE junction through which the endoscope could not be advanced This was dilated with a radial expansion balloon from 12-15 mm. Subsequently I was able to advance the endoscope into the stomach through the pylorus up to the second and third part of the duodenum. The endoscope was then withdrawn. The 2nd and 3rd part of the duodenal and the duodenal bulb were normal. Duodenal biopsies were obtained The pre-pyloric area and antrum showed mild gastritis. Gastric biopsies were obtained. On retroflexion the fundus and cardia were normal The endoscope was then withdrawn into the distal esophagus where the patient had a 3-4 cm sliding-type hiatal hernia with a an esophageal stricture at the GE junction There were acute and chronic inflammatory changes in the distal esophagus where distal esophageal ulcerations hyperemia erythema. Multiple biopsies were obtained The remaining proximal esophagus and oropharynx were unremarkable. The patient tolerated the procedure well without difficulty. COMPLICATIONS : None SPECIMENS: Duodenal biopsy Gastric biopsy Distal esophageal biopsies DISPOSITION: Transfer back to floor Stable PLAN: 1. Await for biopsy result 2. Will place pt on Protonix 40 mg bid IV 3. Clear liquid diet advance to full liquid diet 4. Carafate suspension 1 g p.o. 4 times a day 5. DC aspirin NSAIDs smoking alcohol 6. Monitor labs 7. Outpatient follow up with GI Services as the patient may need to have a repeat endoscopy with balloon dilation as needed DARIUS LLAMAS MD Condition at Discharge: Stable Final Diagnosis/Problems List Acute metabolic encephalopathy likely from DKA resolved Acute hypoxic respiratory failure status post extubation ? Acute Gram-positive/negative bacterial pneumonia resolving History of asthma not in exacerbation Dysphagia 34 cm sliding hiatal hernia Moderate to severe esophagitis with ulcerations Esophageal stricture at GE junction s/p dilation Gastrointestinal bleed (upper vs. lower) Suspected acute cholecystitis Type 2 Diabetes Mellitus uncontrolled, insulin dependent Diabetic ketoacidosis resolved Acute kidney injury likely hemodynamically mediated/VMN improving Hyperphosphatemia resolving Hyperkalemia resolving Hypernatremia corrected Hypomagnesemia Hypokalemia Physical deconditioning due to critical illness myopathy status post mechanical ventilation Anemia unspecified s/p 2 units PRBC Bipolar disorder Medication nonadherence Discharge Disposition: [facility] Discharge Instruct/Medications Diet: Consistent carbohydrate, Cardiac 2g Na,low cholest Diet comment: Advance diet slowly as tolerated Activity: No Restrictions, As Tolerated Follow Up/Referral: PCP Medications: As per SNF papers Resume home meds Scheduled Duloxetine HCl (Duloxetine HCl), 1 CAP PO DAILY, (Reported) Hydrochlorothiazide (Hydrochlorothiazide), 1 TAB PO DAILY, (Reported) Insulin Glargine (Basaglar Kwikpen), 18 UNIT SC BID Lamotrigine (Lamotrigine), 2 TAB PO DAILY, (Reported) Losartan Potassium (Losartan Potassium), 1 TAB PO DAILY, (Reported) Omeprazole (Omeprazole Dr), 1 CAP PO DAILY, (Reported) Scheduled PRN Albuterol Sulfate (Ventolin Mdi), 90 MCG IN Q4HP PRN Miscellaneous Medications Olanzapine (Olanzapine Odt), 1 TAB PO, (Reported) Discharge Statement: "Patient was advised to return to the ER or call 911 if any headaches, dizziness, shortness of breath, chest pain, abdominal pain, bleeding, fevers, or worsening of medical condition. Patient was counseled about treatment plan, medications, possible side effects, patientverbalized understanding. All questions were answered to the best of my ability. This discharge took greater then 30 minutes in planning, reviewing documentation, counseling the patient, and discussing with other team members." ASSESSMENT ASSESSMENT Assessment ALONZO PONCE RESIDENT Jul 05, 2025 11:21
[2025-07-05 11:28] LABS: Alanine Aminotransferase 11 U/L (7-40); Albumin 3.4 g/dL (3.2-4.8); Alkaline Phosphatase 76 U/L (46-116); Anion Gap 10 (5-15); Calcium 8.7 mg/dL (8.7-10.4); Carbon Dioxide 28 mmol/L (20-31); Chloride 104 mmol/L (98-107); Magnesium 1.7 mg/dL (1.6-2.6); Potassium 4.0 mmol/L (3.5-5.1); Sodium 142 mmol/L (136-145)
[2025-07-05 11:29] LABS: BUN/Creatinine Ratio 10.6 (10.0-20.0); Bilirubin, Total 0.3 mg/dL (0.2-1.0); Blood Urea Nitrogen < 5 mg/dL (9-23); Glucose 175 mg/dL (74-106); Total Protein 5.4 g/dL (5.7-8.2)
[2025-07-05 12:57] VITALS: BP 134/92; PULSE 101; RESP 17; TEMP 97.4; O2SAT 97
--- NOTE | 2025-07-05 16:25 | DVHPN2 ---
Progress Note Date Seen: Jul 05, 2025 Resident Creating Document: VILMA ERVIN RESIDENT Has the PT tested + for MRSA If YES, has PT been informed?: Yes Medical Necessity Reason Pt with a Central, PICC or Fol: No The following are medically ne: Sotelo Catheter Reason for sotelo catheter: Bladder Retention/Obstruc Subjective Review of Systems This patient is a 50-year-old female with a history of oropharyngeal dysphagia and prior coffee-ground emesis underwent EGD with biopsy and balloon dilation yesterday due to persistent dysphagia and suspected esophageal pathology. During the EGD the patient was found to have 1. 3-4 cm sliding-type hiatal hernia with a tight esophageal stricture at the GE junction beyond which the endoscope could not be advanced and there was [id number] esophagitis with ulcerations involving the distal esophagus 2. The stricture was dilated with Microvasive radial expansion balloon from 12- 15 mm and subsequently a complete endoscopy was performed up to the 2nd part of the duodenum Scope successfully advanced to 2nd portion of duodenum post dilation. Biopsies were taken from the duodenum, gastric mucosa, and distal esophagus. Awaiting pathology reports. Today, the patient is tolerating full liquid diet advanced to pureed diet. No nausea or vomiting. Mild epigastric discomfort attributed to recent balloon dilation and underlying esophagitis. Swallowing is improving, and patient passed gas today. Last bowel movement was a week ago. Plan is for aggressive acid suppression and mucosal healing therapy, monitoring for discharge readiness. Patient is required to continue lifelong acid suppression. The patient is being discharged today, outpatient GI follow-up required in 4-6 weeks. she might need an EGD with balloon dilation if the symptoms persist. Objective vital signs Vital Sign Date Time Temp Pulse Resp B/P (MAP) Pulse Ox O2 Delivery O2 Flow Rate FiO2 07/05/25 12:57 97.4 101 17 134/92 (106) 97 97.4 07/05/25 08:00 Room Air* 0 21 Total Intake and Output 07/04/25 07/04/25 07/05/25 15:00 23:00 07:00 Intake Total 800 ml 880 ml Balance 800 ml 880 ml medications Current Medications Medications Dose Ordered Sig/Laura Route Start Time Stop Time Status Last Admin Dose Admin Acetaminophen 650 mg Q6HP PRN PO 06/14/25 10:45 07/03/25 18:56 650 MG Insulin Glargine 15 units DAILY SC 06/15/25 10:00 07/05/25 10:00 15 UNITS Patient Own Medication 1 cap DAILY PO 06/15/25 10:00 UNV Patient Own Medication 2 tab DAILY PO 06/15/25 10:00 UNV Patient Own Medication 1 cap DAILY PO 06/15/25 10:00 UNV Lamotrigine 50 mg DAILY PO 06/15/25 10:00 07/05/25 08:50 50 MG Sodium Chloride 10 ml QSHIFT@10,22 IV 06/20/25 22:00 07/05/25 08:50 10 ML Diagnostic Test (Pha) 1 strip IQ4HR 06/24/25 20:00 07/05/25 12:04 1 STRIP Insulin Human Regular IQ4HR SC 06/24/25 20:00 07/05/25 12:14 3 UNITS Dextrose 50 ml UD PRN IV 06/24/25 19:30 Oxycodone HCl 10 mg ONCE PRN PO 06/27/25 09:45 06/30/25 13:27 10 MG Morphine Sulfate 1 mg Q4HP PRN IV 06/27/25 13:15 06/29/25 21:15 1 MG Ondansetron HCl 4 mg Q4HPRN PRN IV 07/03/25 07:30 Sucralfate 1 gm QID@0600,1130,1700,2200 PO 07/03/25 22:00 07/05/25 12:03 1 GM Levofloxacin/ Dextrose 100 ml @ 100 mls/hr DAILY@1100 IV 07/04/25 11:00 07/05/25 12:03 100 MLS/HR Pantoprazole Sodium 80 mg/ Sodium Chloride 120 ml @ 240 mls/hr Q12H IV 07/04/25 12:00 07/05/25 02:07 240 MLS/HR Lactulose 30 ml DAILY PO 07/05/25 10:00 07/05/25 08:50 30 ML Examination General: Awake, alert, not in distress * Abdomen: * Soft, non-tender, nondistended * No rebound or guarding * Bowel sounds present in all quadrants * Laparoscopic incision sites clean, dry, no erythema, no drainage laboratory and microbiology Laboratory Tests 07/05/25 10:36 Test 07/05/25 10:36 Range/Units Serum Glucose 175 H 74-106 mg/dL Microbiology Date/Time Source Procedure Growth Status 06/17/25 21:04 Blood Blood Culture - Final NO GROWTH AFTER 5 DAYS OF INCUBATION. Complete 06/14/25 16:30 Nose MRSA Screen - Final Methicillin Resistant S.aureus Complete 06/14/25 14:00 Sputum Gram Stain - Final Complete 06/14/25 14:00 Respiratory Culture - Final Methicillin Resistant S.aureus Complete 06/14/25 07:00 Voided Urine Urine Culture - Final Complete Problem List/Assessment/Plan Problem List/Assessment/Plan Assessment Esophageal stricture at GE junction-s/p EGD with balloon dilation/tight stricture at GE junction successfully dilated from 12 mm to 15 mm/scope advanced post dilation, awaiting biopsy results/swallowing improving Moderate to severe esophagitis with ulceration biopsy pending/treated with pantoprazole b.i.d. IV and sucralfate q.i.d./likely require long-term to lifelong acid suppression. Hiatal hernia 3-4 cm sliding-type/symptomatic with reflux, stricture likely related./monitor for surgical indication and future/require acid suppression and conservative management for now Chronic dysphagia-likely secondary to strictures and esophagitis/improved post dilation/swallowing re-evaluation needed post discharge/plan for repeat EGD in 6 weeks Acute cholecystitis, s/p laparoscopic cholecystectomy POD #1, stable, no complications. Persistent postoperative dysphagia with aspiration risk failed swallow evaluation; remains NPO with IV nutrition; awaiting speech therapy. Protein-calorie malnutrition continues IV Clinimex amino acids. Electrolyte disturbances hypokalemia, hypocalcemia; replacement ongoing. Mild anemia stable, likely postoperative. Hyperglycemia under control with insulin protocol. Treatment Plan Gastrointestinal Continue pantoprazole 40 mg IV b.i.d. transitioned to p.o. at discharge Start sucralfate suspension 1 g p.o. q.i.d. on empty stomach. Strictly avoid NSAIDs, aspirin, alcohol, tobacco. Educated the patient on small, frequent meals and GERD precautions Reassess symptoms daily like pain, swallowing, bleeding. Plan for repeat EGD in 4-6 weeks outpatient. Patient will require outpatient GI follow-up visit in 4-6 weeks to re-evaluate symptoms. Patient will require aggressive treatment with Protonix b.i.d. and Carafate b.i.d. for the next 3-6 months and PPIs should be continued lifelong. Discharge today. * Continue post-cholecystectomy care * Continue IV antibiotics * Monitor LFTs, bowel function * Monitor caloric intake, labs (electrolytes, albumin, prealbumin if prolonged support needed) Prophylactic Measures: * PPI for GI ulcer prophylaxis * Monitor for any signs of bile leak, infection, or GI bleeding. * Await speech therapy evaluation for dysphagia management. * Continue IV Pantoprazole for stress ulcer and GI mucosal protection. Nutrition / Metabolic * Monitor daily CMP, albumin, and replace electrolytes (K, Ca, Mg) per protocol. * Reassess readiness for transition to enteral feeds once swallow function improves. Hematology * Monitor CBC daily; transfuse only if Hgb <7.0 or symptomatic. Prophylaxis GI Prophylaxis: Protonix Case discussed in detail with the attending physician, including the clinical presentation, diagnostic workup, and comprehensive management plan. The patient was present for the discussion and demonstrated understanding of her condition and the proposed plan. Plan discussed with: Patient Dietary Evaluation Review Comments: 1) TF Vital AF 1.2Cal @ 55ml/hr (goal) Start @ 20ml/hr, increase 10ml/hr Q4H until goal is reached. TF @ goal volume along with Propofol provides 1746 kcal (100% energy needs), 99 gm protein (100% protein needs), 1104 ml free water. 2) Water flush 160ml Q6H if allowed, adjust PRN 3) TPN if NPO > 7 days 4) Monitor NPO status, lab values, wt trend, I/O Expected Outcomes/Goals: To meet >75% estimated needs Lab values to improve Fu 2-3 days VILMA ERVIN RESIDENT Jul 05, 2025 16:25
[2025-07-05 16:57] VITALS: BP 113/60; PULSE 104; RESP 20; TEMP 97.6; O2SAT 96
== END 2025-07-05 17:00 | DRG 853 ==
LOC: EDBD 06:57 → ER 06:57 → OVERFLOW 10:39 → ICU WEST 06-15 21:54 → OVERFLOW 06-19 10:05 → ICU WEST 06-19 10:06 → ICU CENTRL 06-25 13:28 → TELE-EAST 06-27 23:53 → EAST 07-01 18:15 → WEST WING 07-01 22:50 → EAST 07-01 23:16
PROVIDERS: ADMIT Internal Medicine Pulmonary Disease; ATTEND Internal Medicine Pulmonary Disease
PROC: 06HY33Z Insertion of Infusion Device into Lower Vein, Percutaneous Approach (ICD-10-PCS; 2025-06-14)
PROC: 0BH17EZ Insertion of Endotracheal Airway into Trachea, Via Natural or Artificial Opening (ICD-10-PCS; 2025-06-14)
PROC: 5A1955Z Respiratory Ventilation, Greater than 96 Consecutive Hours (ICD-10-PCS; 2025-06-14)
PROC: 05H933Z Insertion of Infusion Device into Right Brachial Vein, Percutaneous Approach (ICD-10-PCS; 2025-06-14)
PROC: B54MZZA Ultrasonography of Right Upper Extremity Veins, Guidance (ICD-10-PCS; 2025-06-14)
PROC: 30233N1 Transfusion of Nonautologous Red Blood Cells into Peripheral Vein, Percutaneous Approach (ICD-10-PCS; principal; 2025-06-16)
PROC: 0F9430Z Drainage of Gallbladder with Drainage Device, Percutaneous Approach (ICD-10-PCS; 2025-06-19)
PROC: 02HV33Z Insertion of Infusion Device into Superior Vena Cava, Percutaneous Approach (ICD-10-PCS; 2025-06-20)
PROC: B548ZZA Ultrasonography of Superior Vena Cava, Guidance (ICD-10-PCS; 2025-06-20)
PROC: 0FT44ZZ Resection of Gallbladder, Percutaneous Endoscopic Approach (ICD-10-PCS; 2025-06-27)
PROC: 0DB98ZX Excision of Duodenum, Via Natural or Artificial Opening Endoscopic, Diagnostic (ICD-10-PCS; 2025-07-03)
PROC: 0DB68ZX Excision of Stomach, Via Natural or Artificial Opening Endoscopic, Diagnostic (ICD-10-PCS; 2025-07-03)
PROC: 0DB38ZX Excision of Lower Esophagus, Via Natural or Artificial Opening Endoscopic, Diagnostic (ICD-10-PCS; 2025-07-03)
PROC: 0D748ZZ Dilation of Esophagogastric Junction, Via Natural or Artificial Opening Endoscopic (ICD-10-PCS; 2025-07-03)
DX: A41.02 Sepsis due to Methicillin resistant Staphylococcus aureus (principal); E11.10 Type 2 diabetes mellitus with ketoacidosis without coma; J96.01 Acute respiratory failure with hypoxia; G93.41 Metabolic encephalopathy; N17.0 Acute kidney failure with tubular necrosis; J15.69 Pneumonia due to other Gram-negative bacteria; E43 Unspecified severe protein-calorie malnutrition; J15.212 Pneumonia due to Methicillin resistant Staphylococcus aureus; J15.9 Unspecified bacterial pneumonia; K22.11 Ulcer of esophagus with bleeding; K29.71 Gastritis, unspecified, with bleeding; E87.0 Hyperosmolality and hypernatremia; G72.81 Critical illness myopathy; E87.1 Hypo-osmolality and hyponatremia; K80.00 Calculus of gallbladder with acute cholecystitis without obstruction; D62 Acute posthemorrhagic anemia; E87.5 Hyperkalemia; E83.51 Hypocalcemia; E83.39 Other disorders of phosphorus metabolism; E87.6 Hypokalemia; E88.09 Other disorders of plasma-protein metabolism, not elsewhere classified; F31.9 Bipolar disorder, unspecified; J45.909 Unspecified asthma, uncomplicated; I10 Essential (primary) hypertension; D63.8 Anemia in other chronic diseases classified elsewhere; K21.9 Gastro-esophageal reflux disease without esophagitis; K44.9 Diaphragmatic hernia without obstruction or gangrene; K22.2 Esophageal obstruction; E83.42 Hypomagnesemia; Z88.0 Allergy status to penicillin; Z79.4 Long term (current) use of insulin; Z83.3 Family history of diabetes mellitus; Z79.899 Other long term (current) drug therapy; Z91.148 Patient's other noncompliance with medication regimen for other reason; Z79.84 Long term (current) use of oral hypoglycemic drugs; Z68.24 Body mass index [BMI] 24.0-24.9, adult; R13.12 Dysphagia, oropharyngeal phase
CPT/HCPCS: 31500; 36415; 36430; 36556; 36569; 36600; 47532; 70450; 71045; 74176; 76705; 76937; 76942; 80048; 80053; 80202; 80307; 81001; 81025; 82010; 82040; 82247; 82270; 82565; 82805; 82962; 83605; 83735; 83930; 84100; 84132; 84443; 84478; 84702; 85007; 85025; 85027; 85610; 85730; 86850; 86900; 86901; 86920; 87040; 87070; 87077; 87081; 87086; 87186; 87205; 92610; 93005; 93971; 94002; 94003; 94640; 94667; 94668; 96375; 97110; 97116; 97163; 97530; 99152; 99291; 99292; A4618; G0378; J0131; J0692; J1100; J1815; J1885; J1956; J2003; J2405; J2470; J2704; J3480; J3490; Q9967

== ENCOUNTER 2025-10-15 21:13 | Emergency (ER) | payer MEDICARE, OTHER ==
[~2025-10-15] VITALS: Ht 162.6 cm; Wt 61.3 kg
[2025-10-15 22:00] LABS: Hematocrit 41.4 % (36.0-46.0); Hemoglobin 13.8 g/dL (12.2-16.2); Mean Corpuscular Hemoglobin 25.8 pg (28.0-32.0); Mean Corpuscular Volume 77.4 fL (80.0-100.0); Nucleated Red Blood Cells % 0.1 %
[2025-10-15 22:12] LABS: Alanine Aminotransferase 16 U/L (7-40); Albumin 4.8 g/dL (3.2-4.8); Alkaline Phosphatase 75 U/L (46-116); Anion Gap 9 (5-15); BUN/Creatinine Ratio 14.7 (10.0-20.0); Bilirubin, Total 0.7 mg/dL (0.2-1.0); Blood Urea Nitrogen 15 mg/dL (9-23); Calcium 10.3 mg/dL (8.7-10.4); Carbon Dioxide 30 mmol/L (20-31); Chloride 102 mmol/L (98-107); Potassium 3.8 mmol/L (3.5-5.1); Sodium 141 mmol/L (136-145); Total Protein 7.2 g/dL (5.7-8.2)
[2025-10-15 22:17] LABS: Glucose 412 mg/dL (74-106)
[2025-10-15] MEDS ORDERED: SODIUM CHLORIDE 0.9% 1,000 ML IV ONE (22:30)
[2025-10-15] MEDS ORDERED: INSLANTI SC (22:40)
--- NOTE | 2025-10-15 22:40 | ED.PDOC ---
History of present illness HPI Comments 50-year-old female presents to ER with complaints of medication refill. Patient with past medical history significant for type 2 diabetes reports that she has been out of her Lantus 18 mg subQ b.i.d. for one week and presents to ER requesting medication refill of this medication. Denies any pain and reports she currently is not experiencing any symptoms. Patient presents to ER ambulatory on arrival, alert and oriented x4, with steady gait, in no distress. Denies n/v, headache, confusion, body aches, chills, vision changes, dizziness, abdominal pain, changes in urination or any further symptoms/complaints Chief Complaint: Flu like Time Seen by MD: 21:29 Primary Care Provider: UNKNOWN History of present illness: Nurses Notes, Medications, Allergies Allergies: Coded Allergies: Penicillins (Verified Allergy, Severe, ANAPHYLAXIS , 06/27/25) Home Meds Active Scripts Insulin Glargine (Lantus) 100 Unit/Ml Inj, 18 UNIT SC BID, #5 INJ 0 Refills Prov:AXEL CRAWFORD 10/15/25 Albuterol Sulfate (VENTOLIN MDI) 90 Mcg Ih, 90 MCG IN Q4HP PRN for 30 Days, #1 INH Prov:SHAKEEL STONER [employer] 06/09/25 Insulin Glargine (Basaglar Kwikpen) 100 Unit/Ml Inj, 18 UNIT SC BID for 30 Days, #14 INJ Prov:SHAKEEL STONER [employer] 06/09/25 Reported Medications Lamotrigine (Lamotrigine) 25 Mg Tab, 2 TAB PO DAILY 05/31/25 Olanzapine (OLANZAPINE ODT) 10 Mg Tab, 1 TAB PO 05/31/25 Duloxetine HCl (Duloxetine HCl) 60 Mg Cap, 1 CAP PO DAILY 05/31/25 Omeprazole (Omeprazole Dr) 20 Mg Cap, 1 CAP PO DAILY 05/31/25 Hydrochlorothiazide (Hydrochlorothiazide) 12.5 Mg Tab, 1 TAB PO DAILY 05/31/25 Losartan Potassium (Losartan Potassium) 25 Mg Tab, 1 TAB PO DAILY 05/31/25 Information Source: Patient Mode of Arrival: EMS Past Medical History PAST MEDICAL HISTORY: Asthma, DM, HTN Surgical History: Denies all surgeries [employer] History: No Pertinent [employer] History Family History Family History: Unknown Social History Smoker: Non-Smoker Alcohol: Denies ETOH Use Drugs: Denies Drug Use Lives In: Home Constitutional: denies: chills, diaphoresis, fatigue, fever, malaise, sweats, weakness, others EENTM: denies: blurred vision, double vision, ear bleeding, ear discharge, ear drainage, ear pain, ear ringing, eye pain, eye redness, hearing loss, mouth pain, mouth swelling, nasal discharge, nose bleeding, nose congestion, nose pain, photophobia, tearing, throat pain, throat swelling, voice changes, others Respiratory: denies: cough, hemoptysis, orthopnea, SOB at rest, shortness of breath, SOB with excertion, stridor, wheezing, others Cardiovascular: denies: chest pain, dizzy spells, diaphoresis, Dyspnea on exertion, edema, irregular heart beat, left arm pain, lightheadedness, palpitations, PND, syncope, others Gastrointestinal: denies: abdomen distended, abdominal pain, blood streaked bowels, constipated, diarrhea, dysphagia, difficulty swallowing, hematemesis, melena, nausea, poor appetite, poor fluid intake, rectal bleeding, rectal pain, vomiting, others Genitourinary: denies: abnormal vagina bleeding, burning, dyspareunia, dysuria, flank pain, frequency, hematuria, incontinence, pain, , vagina discharge, urgency, others Neurological: denies: dizziness, fainting, headache, left sided numbness, left sided weakness, numbness, paresthesia, pre-existing deficit, right sided numbness, right sided weakness, seizure, speech problems, tingling, tremors, weakness, others Musculoskeletal: denies: back pain, gout, joint pain, joint swelling, muscle pain, muscle stiffness, neck pain, others Integumetry: denies: bruises, change in color, change in hair/nails, dryness, laceration, lesions, lumps, rash, wounds, others Allergic/Immunocompromised: denies: Difficulty Healing, Frequent Infections, Hives, Itching, others Hematologic/Lymphatic: denies: anemia, blood clots, easy bleeding, easy bruising, swollen glands, others Endocrine: reports: others (As stated in HPI) Psychiatric: denies: anxiety, bipolar disorder, depression, hopeless, panic disorder, schizophrenia, sleepless, suicidal, others Physical Exam General Appearance: No Apparent Distress HEENT: Normal ENT Inspection, PERRL/EOMI, Pharynx Normal Neck: Full Range of Motion, Non-Tender, Normal Respiratory: Chest Non-Tender, Lungs Clear, No Accessory Muscle Use, No Respiratory Distress, Normal Breath Sounds Cardiovascular: No Murmur, No Gallop, Regular Rate/Rhythm Breast Exam: Deferred Gastrointestinal: NOT DONE Genitalia: Deferred Pelvic: Deferred Rectal: Deferred Extremities: Normal capillary refill, Normal range of motion Neurologic: Alert, insulation worker interior surface II-XII nml as Tested, No Motor Deficits, Normal Affect, Normal Mood, No Sensory Deficits Cerebellar Function: Normal Reflexes: Normal Skin: Dry, Normal Color, Warm Peripheral Pulses: 2+ dorsalis pedis (R), 2+ dorsalis pedis (L), 2+ Radial (R), 2+ Radial (L), 2+ Brachial (R), 2+ Brachial (L) Lymphatic: No Adenopathy Was a procedure done? Was a procedure done?: No Sedation Sedation?: No Differential Diagnosis (DM) Differential Diagnosis: Electrolyte Abnormality, Encephalopathy, Hyperosmolar State, Hypoglycemia X-Ray, Labs, Meds, VS Vital Signs Date Time Temp Pulse Resp B/P (MAP) Pulse Ox O2 Delivery O2 Flow Rate FiO2 10/15/25 23:12 Room Air* 0 21 10/15/25 22:32 98.7 95 18 157/100 (119) 96 98.7 10/15/25 21:21 98.8 90 18 170/116 98 98.8 Lab Test 10/16/25 00:15 10/15/25 21:40 Range/Units POC Glucose 386 H 70-106 mg/dl White Blood Count 5.4 4.4-10.8 10^3/uL Red Blood Count 5.35 H 4.0-5.20 10^6/uL Hemoglobin 13.8 12.2-16.2 g/dL Hematocrit 41.4 36.0-46.0 % Mean Corpuscular Volume 77.4 L 80.0-100.0 fL Mean Corpuscular Hemoglobin 25.8 L 28.0-32.0 pg Mean Corpuscular Hemoglobin Concent 33.4 32.0-36.0 g/dL Red Cell Distribution Width 17.1 H 11.8-14.3 % Platelet Count 242 140-450 10^3/uL Mean Platelet Volume 8.0 6.9-10.8 fL Neutrophils (%) (Auto) 60.3 37.0-80.0 % Lymphocytes (%) (Auto) 30.5 10.0-50.0 % Monocytes (%) (Auto) 7.6 0.0-12.0 % Eosinophils (%) (Auto) 1.1 0.0-7.0 % Basophils (%) (Auto) 0.5 0.0-2.0 % Neutrophils # (Auto) 3.3 1.6-8.6 10 ^3/uL Lymphocytes # (Auto) 1.7 0.4-5.4 10 ^3/uL Monocytes # (Auto) 0.4 0-1.3 10 ^3/uL Eosinophils # (Auto) 0.1 0-0.8 10 ^3/uL Basophils # (Auto) 0 0-0.2 10 ^3/uL Nucleated Red Blood Cells 0.1 % Sodium Level 141 136-145 mmol/L Potassium Level 3.8 3.5-5.1 mmol/L Chloride Level 102 98-107 mmol/L Carbon Dioxide Level 30 20-31 mmol/L Anion Gap 9 5-15 Blood Urea Nitrogen 15 9-23 mg/dL Creatinine 1.02 0.550-1.02 mg/dL Glomerular Filtration Rate Calc 67 >90 mL/min BUN/Creatinine Ratio 14.7 10.0-20.0 Serum Glucose 412 *H 74-106 mg/dL Calcium Level 10.3 8.7-10.4 mg/dL Total Bilirubin 0.7 0.2-1.0 mg/dL Aspartate Amino Transferase (AST) 15 13-40 U/L Alanine Aminotransferase (ALT) 16 7-40 U/L Alkaline Phosphatase 75 46-116 U/L Total Protein 7.2 5.7-8.2 g/dL Albumin 4.8 3.2-4.8 g/dL Current Medications Medications (Trade) Dose Ordered Sig/Laura Route Start Time Stop Time Status Last Admin Insulin Human Regular (InsuLIN R) 10 units ONCE ONCE SC 10/15/25 23:30 10/15/25 23:31 DC 10/15/25 23:30 CBC reviewed without any significant abnormalities BMP reviewed-Serum glucose 412 10 units subQ regular insulin ordered POC glucose reassessed - 293 Patient asymptomatic during ER visit/prior to discharge Patients prescribed medications were verified with patient Importance of medication adherence discussed and advised with patient Advised to follow up with PCP in 1-2 days Patient verbalized understanding and agreeable with current plan of care Advised to return to ER immediately if symptoms worsen Time of 1ST Reevaluation: 22:04 Reevaluation 1ST: N/A Time of 2ND Reevaluation: 01:36 Reevaluation 2ND: Improved Patient Education/Counseling: Diagnosis, Treatment, Prognosis, Need For Follow Up Family Education/Counseling: No Family Present SEPSIS Sepsis Screen Date sepsis recognized/suspect: Oct 15, 2025 Time Sepsis recognized/suspect: 2126 Recent Procedure: No On Antibiotic Therapy: No Respiratory Rate >20: No Heart Rate >90: No Temp<36 C (96.8 F) or >38.3 C: No SBP <90 or MAP <65 mmHG: No New Acute Mental Status Change: No Is the patient on CPAP, BIPAP,: No Physician Orders Urinalysis (10/15/25 21:29) Vital Signs Date Time Temp Pulse Resp B/P (MAP) Pulse Ox O2 Delivery O2 Flow Rate FiO2 10/15/25 23:12 Room Air* 0 21 10/15/25 22:32 98.7 95 18 157/100 (119) 96 98.7 10/15/25 21:21 98.8 90 18 170/116 98 98.8 Laboratory Tests Test 10/15/25 21:40 White Blood Count 5.4 10^3/uL (4.4-10.8) Medications Medications Dose Ordered Sig/Laura Route Start Time Stop Time Status Last Admin Dose Admin Insulin Human Regular 10 units ONCE ONCE SC 10/15/25 23:30 10/15/25 23:31 DC 10/15/25 23:30 Departure 1 Departure Time of Disposition: 01:38 Impression: Primary Impression: Hyperglycemia Additional Impression: Poorly controlled diabetes mellitus Disposition: 01 HOME / SELF CARE / HOMELESS Condition: Stable e-Prescriptions Insulin Glargine (Lantus) 100 Unit/Ml Inj 18 UNIT SC BID, #5 INJ 0 Refills Prov: AXEL CRAWFORD 10/15/25 Discharged With: Self Critical Care Note Critical Care Time?: No Stability Stability form required: No Heart Score Heart Score: Heart Score Response (Comments) Value History N/A 0 EKG N/A 0 Age N/A 0 Risk Factors N/A 0 Troponin N/A 0 Total 0 AXEL CRAWFORD Oct 15, 2025 22:40
[2025-10-15] MEDS ORDERED: INSULIN LANTUS (GLARGINE) 1 /0.01ml (100units/ml) SC ONE (23:30)
[2025-10-15] MEDS: InsuLIN REG 1unit/0.01ml Soln (100units/ml) SC ONE (23:30)
[2025-10-16 01:34] VITALS: BP 148/87; PULSE 92; RESP 18; TEMP 98; O2SAT 98
[2025-10-17] MEDS ORDERED: NITR-87 PO (01:33)
== END 2025-10-16 01:34 | disposition home or self-care (01) ==
LOC: ER 21:13 → EDBD 21:13 → ER 10-16 01:34
DX: E11.65 Type 2 diabetes mellitus with hyperglycemia (principal); J45.909 Unspecified asthma, uncomplicated; I10 Essential (primary) hypertension; Z76.0 Encounter for issue of repeat prescription; Z79.899 Other long term (current) drug therapy; Z88.0 Allergy status to penicillin
CPT/HCPCS: 36415; 80053; 82947; 85025; 99283; J1815; 82962

== ENCOUNTER 2025-10-16 20:59 | Emergency (ER) | payer MEDICARE, OTHER ==
[~2025-10-16] VITALS: Ht 162.6 cm; Wt 57.3 kg
[~2025-10-16 20:59] MED LIST changes: +INSLANTI SC
[2025-10-16 22:04] LABS: Nucleated Red Blood Cells % 0.1 %
[2025-10-16 22:06] LABS: Hematocrit 43.2 % (36.0-46.0); Hemoglobin 14.5 g/dL (12.2-16.2); Mean Corpuscular Hemoglobin 26.1 pg (28.0-32.0); Mean Corpuscular Volume 77.8 fL (80.0-100.0)
[2025-10-16 22:23] LABS: Alanine Aminotransferase 19 U/L (7-40); Alkaline Phosphatase 83 U/L (46-116); Anion Gap 16 (5-15); BUN/Creatinine Ratio 18.5 (10.0-20.0); Blood Urea Nitrogen 15 mg/dL (9-23); Carbon Dioxide 25 mmol/L (20-31); Chloride 103 mmol/L (98-107); Sodium 144 mmol/L (136-145); Total Protein 7.9 g/dL (5.7-8.2)
[2025-10-16 22:24] LABS: Bilirubin, Total 0.9 mg/dL (0.2-1.0)
[2025-10-16 22:29] LABS: Albumin 5.3 g/dL (3.2-4.8); Calcium 10.5 mg/dL (8.7-10.4); Glucose 183 mg/dL (74-106); Potassium 3.4 mmol/L (3.5-5.1)
--- NOTE | 2025-10-16 22:31 | ED.PDOC ---
History of present illness HPI Comments 50-year-old female with a past medical history of type 2 diabetes, hypertension, depression has come to the emergency department with complaints of inability to urinate for the past 8 hours and high blood sugar levels as well as hypertension. Patient reports that she has had hypertension and diabetes for a while now, but not been taking any medication for several weeks (as per per patient she was recently in a rehab-unable to explain why exactly and states Medicaid can not longer provide her with more medication until Nov 2025). She was here yesterday at this facility for high blood sugar levels as well. Patient states that she had UTI 3 months ago, which has not improved, and reports that her urine is foul smelling, heavily concentrated and associated with lower back pain. She denies any burning micturition, dysuria, urinary frequency but does complain of retention and slight leaking of urine. Chief Complaint: High Blood Pressure Time Seen by MD: 22:00 Primary Care Provider: UNKNOWN History of present illness: Medications, Allergies Allergies: Coded Allergies: Penicillins (Verified Allergy, Severe, ANAPHYLAXIS , 06/27/25) Home Meds Active Scripts Nitrofurantoin Monohydrate Mac (Macrobid) 100 Mg Cap, 100 MG PO BID for 3 Days, #6 CAP Prov:JEANETTE SHAIKH MD 10/17/25 Insulin Glargine (Lantus) 100 Unit/Ml Inj, 18 UNIT SC BID, #5 INJ 0 Refills Prov:AXEL CRAWFORD 10/15/25 Albuterol Sulfate (VENTOLIN MDI) 90 Mcg Ih, 90 MCG IN Q4HP PRN for 30 Days, #1 INH Prov:SHAKEEL STONER NP 06/09/25 Insulin Glargine (Basaglar Kwikpen) 100 Unit/Ml Inj, 18 UNIT SC BID for 30 Days, #14 INJ Prov:SHAKEEL STONER NP 06/09/25 Reported Medications Lamotrigine (Lamotrigine) 25 Mg Tab, 2 TAB PO DAILY 05/31/25 Olanzapine (OLANZAPINE ODT) 10 Mg Tab, 1 TAB PO 05/31/25 Duloxetine HCl (Duloxetine HCl) 60 Mg Cap, 1 CAP PO DAILY 05/31/25 Omeprazole (Omeprazole Dr) 20 Mg Cap, 1 CAP PO DAILY 05/31/25 Hydrochlorothiazide (Hydrochlorothiazide) 12.5 Mg Tab, 1 TAB PO DAILY 05/31/25 Losartan Potassium (Losartan Potassium) 25 Mg Tab, 1 TAB PO DAILY 05/31/25 Information Source: Patient Mode of Arrival: Ambulatory Timing: Weeks Duration: Hours Prehospital treatment: None Past Medical History PAST MEDICAL HISTORY: Asthma, Depression, DM, HTN Surgical History: Cholecystectomy [employer] History: No Pertinent [employer] History Family History Family History: Unknown Social History Smoker: Quit Greater Than 1 Year Alcohol: Denies ETOH Use Drugs: Denies Drug Use Lives In: Home Constitutional: denies: chills, diaphoresis, fatigue, fever, malaise, sweats, weakness, others EENTM: denies: blurred vision, double vision, ear bleeding, ear discharge, ear drainage, ear pain, ear ringing, eye pain, eye redness, hearing loss, mouth pain, mouth swelling, nasal discharge, nose bleeding, nose congestion, nose pain, photophobia, tearing, throat pain, throat swelling, voice changes, others Respiratory: denies: cough, hemoptysis, orthopnea, SOB at rest, shortness of breath, SOB with excertion, stridor, wheezing, others Cardiovascular: denies: chest pain, dizzy spells, diaphoresis, Dyspnea on exertion, edema, irregular heart beat, left arm pain, lightheadedness, palp itations, PND, syncope, others Gastrointestinal: denies: abdomen distended, abdominal pain, blood streaked bowels, constipated, diarrhea, dysphagia, difficulty swallowing, hematemesis, melena, nausea, poor appetite, poor fluid intake, rectal bleeding, rectal pain, vomiting, others Genitourinary: reports: incontinence, others (Foul-smelling urine, dark brown); denies: abnormal vagina bleeding, burning, dyspareunia, dysuria, flank pain, frequency, hematuria, pain, , vagina discharge, urgency Neurological: reports: tingling, others (Numbness of bilateral legs); denies: dizziness, fainting, headache, left sided numbness, left sided weakness, numbness, paresthesia, pre-existing deficit, right sided numbness, right sided weakness, seizure, speech problems, tremors, weakness Musculoskeletal: reports: back pain, others (Bilateral stanton pain); denies: gout, joint pain, joint swelling, muscle pain, muscle stiffness, neck pain Integumetry: denies: bruises, change in color, change in hair/nails, dryness, laceration, lesions, lumps, rash, wounds, others Hematologic/Lymphatic: denies: anemia, blood clots, easy bleeding, easy bruising, swollen glands, others Endocrine: denies: excessive hunger, excessive sweating, excessive thirst, excessive urination, flushing, intolerance to cold, intolerance to heat, unexplained weight gain, unexplained weight loss, others Psychiatric: reports: depression; denies: anxiety, bipolar disorder, hopeless, panic disorder, schizophrenia, sleepless, suicidal, others Physical Exam General Appearance: Normal, Other (Anxious) HEENT: None Neck: Normal, Normal Inspection Respiratory: None Cardiovascular: Tachycardia Breast Exam: Deferred Gastrointestinal: none Genitalia: Deferred Pelvic: Deferred Rectal: Deferred Extremities: Normal inspection, Normal range of motion, No pedal edema Neurologic: None Cerebellar Function: Normal Reflexes: Normal Skin: Normal Color Lymphatic: None Was a procedure done? Was a procedure done?: No Differential Diagnosis (DM) Differential Diagnosis: Dehydration, Hyperglycemia, UTI X-Ray, Labs, Meds, VS Vital Signs Date Time Temp Pulse Resp B/P (MAP) Pulse Ox O2 Delivery O2 Flow Rate FiO2 10/17/25 02:38 98.2 108 12 166/109 (128) 100 98.2 10/17/25 01:57 165/109 10/17/25 01:40 98.2 103 12 165/109 (127) 100 98.2 10/16/25 23:49 Room Air* 0 21 10/16/25 23:42 98.3 106 12 169/109 (129) 100 98.3 10/16/25 22:55 89 10/16/25 21:07 98.8 114 16 141/106 99 98.8 Lab Test 10/17/25 02:31 10/16/25 21:56 Range/Units Urine Color Yellow Yellow Urine Clarity Turbid H Clear Urine pH 5.5 5.0-9.0 Urine Specific [place] 1.035 1.001-1.035 Urine Protein 1+ H Negative Urine Ketones 3+ H Negative Urine Blood Negative Negative /uL Urine Nitrite Negative Negative Urine Bilirubin Negative Negative Urine Urobilinogen 2 H Negative mg/dL Urine Leukocyte Esterase 3+ Negative /uL Urine RBC 11 0 - 4 /hpf Urine Microscopic WBC 14 H 0-5 /HPF Urine Squamous Epithelial Cells Few <5 /hpf Urine Bacteria None seen None Seen /hpf Urine Hyaline Casts Few 0 - 2 /lpf Urine Mucus Moderate None Seen Urine Glucose 3+ H Normal mg/dL White Blood Count 8.3 # 4.4-10.8 10^3/uL Red Blood Count 5.56 H 4.0-5.20 10^6/uL Hemoglobin 14.5 12.2-16.2 g/dL Hematocrit 43.2 36.0-46.0 % Mean Corpuscular Volume 77.8 L 80.0-100.0 fL Mean Corpuscular Hemoglobin 26.1 L 28.0-32.0 pg Mean Corpuscular Hemoglobin Concent 33.5 32.0-36.0 g/dL Red Cell Distribution Width 17.4 H 11.8-14.3 % Platelet Count 272 140-450 10^3/uL Mean Platelet Volume 7.8 6.9-10.8 fL Neutrophils (%) (Auto) 69.2 37.0-80.0 % Lymphocytes (%) (Auto) 22.7 10.0-50.0 % Monocytes (%) (Auto) 7.1 0.0-12.0 % Eosinophils (%) (Auto) 0.5 0.0-7.0 % Basophils (%) (Auto) 0.5 0.0-2.0 % Neutrophils # (Auto) 5.7 1.6-8.6 10 ^3/uL Lymphocytes # (Auto) 1.9 0.4-5.4 10 ^3/uL Monocytes # (Auto) 0.6 0-1.3 10 ^3/uL Eosinophils # (Auto) 0 0-0.8 10 ^3/uL Basophils # (Auto) 0 0-0.2 10 ^3/uL Nucleated Red Blood Cells 0.1 % Sodium Level 144 136-145 mmol/L Potassium Level 3.4 L 3.5-5.1 mmol/L Chloride Level 103 98-107 mmol/L Carbon Dioxide Level 25 20-31 mmol/L Anion Gap 16 H 5-15 Blood Urea Nitrogen 15 9-23 mg/dL Creatinine 0.81 0.550-1.02 mg/dL Glomerular Filtration Rate Calc 89 >90 mL/min BUN/Creatinine Ratio 18.5 10.0-20.0 Serum Glucose 183 H 74-106 mg/dL Calcium Level 10.5 H 8.7-10.4 mg/dL Total Bilirubin 0.9 0.2-1.0 mg/dL Aspartate Amino Transferase (AST) 18 13-40 U/L Alanine Aminotransferase (ALT) 19 7-40 U/L Alkaline Phosphatase 83 46-116 U/L Total Protein 7.9 5.7-8.2 g/dL Albumin 5.3 H 3.2-4.8 g/dL Current Medications Medications (Trade) Dose Ordered Sig/Laura Route Start Time Stop Time Status Last Admin Nitrofurantoin Macrocrystals (Macrobid) 100 mg ONCE ONCE PO 10/17/25 03:15 10/17/25 03:16 DC 10/17/25 03:26 Images Reviewed?: Images reviewed and evaluated by me Time of 1ST Reevaluation: 00:00 Reevaluation 1ST: Awaiting urine sample Time of 2ND Reevaluation: 02:40 Reevaluation 2ND: Unchanged Patient Education/Counseling: Diagnosis, Treatment Family Education/Counseling: No Family Present SEPSIS Sepsis Screen Date sepsis recognized/suspect: Oct 16, 2025 Time Sepsis recognized/suspect: 2108 Recent Procedure: No On Antibiotic Therapy: No Respiratory Rate >20: No Heart Rate >90: Yes Temp<36 C (96.8 F) or >38.3 C: No SBP <90 or MAP <65 mmHG: No New Acute Mental Status Change: No Is the patient on CPAP, BIPAP,: No Physician Orders Electrocardigram (10/16/25 21:24) Chest Xray 1 View (10/16/25 21:49) Vital Signs Date Time Temp Pulse Resp B/P (MAP) Pulse Ox O2 Delivery O2 Flow Rate FiO2 10/17/25 02:38 98.2 108 12 166/109 (128) 100 98.2 10/17/25 01:57 165/109 10/17/25 01:40 98.2 103 12 165/109 (127) 100 98.2 10/16/25 23:49 Room Air* 0 21 10/16/25 23:42 98.3 106 12 169/109 (129) 100 98.3 10/16/25 22:55 89 10/16/25 21:07 98.8 114 16 141/106 99 98.8 Laboratory Tests Test 10/16/25 21:56 White Blood Count 8.3 10^3/uL (4.4-10.8) # Departure 1 Departure Time of Disposition: 01:32 Impression: Primary Impression: UTI (urinary tract infection) Additional Impressions: Hyperglycemia Hypertension Disposition: HOME / SELF CARE / HOMELESS Condition: Stable Additional Instructions: ED DISCHARGE INSTRUCTIONS INSTRUCTIONS: PLEASE READ ALL INSTRUCTIONS PROVIDED IN THIS PACKET CAREFULLY. ALTHOUGH YOU HAVE BEEN DISCHARGED FROM THE EMERGENCY DEPARTMENT, THIS DOES NOT MEAN THAT YOU HAVE A "CLEAN BILL OF HEALTH". NO DEFINITIVE DIAGNOSIS FOR YOUR SYMPTOMS HAS BEEN MADE TODAY. IT IS POSSIBLE THAT YOU ARE IN THE PROCESS OF D EVELOPING A SERIOUS ILLNESS. THIS IS WHY YOU MUST RETURN TO THE ED WITHOUT FAIL IF ANY NEW OR WORSENING SYMPTOMS (ESPECIALLY IF YOUR SYMPTOMS INCLUDE CHEST PAIN, TROUBLE BREATHING, ABDOMINAL PAIN, FEVER, HEADACHE, CONFUSION, TROUBLE SEEING, OR TROUBLE WALKING) IT IS ALSO VERY IMPORTANT THAT YOU SEE A PRIMARY CARE PROVIDER (PCP) WITHIN THE NEXT 3-5 DAYS TO FOLLOW UP. IF YOU ARE UNABLE TO GET AN APPOINTMENT, RETURN TO THE ED FOR RE-EVALUATION. IT IS VERY IMPORTANT THAT YOU FOLLOW UP WITH YOUR PRIMARY CARE PHYSICIAN (PCP). YOU CAN CALL YOUR INSURANCE COMPANY OR CHECK YOUR INSURANCE CARD TO FIND OUT WHO YOUR PCP IS. OR CALL [phone] TO SCHEDULE AN APPOINTMENT WITH A NEW PRIMARY CARE PROVIDER. WHY YOU NEED A PCP: ESTABLISHING AND REGULARLY SEEING A PCP AND UNDERGOING ROUTINE SCREENINGS ARE VITAL FOR MAINTAINING GOOD HEALTH. YOUR PCP ACTS YOUR MAIN HEALTHCARE PARTNER, HELPING YOU STAY HEALTHY, MANAGE CHRONIC CONDITIONS, AND DETECT POTENTIAL PROBLEMS EARLY. ROUTINE SCREENINGS, LIKE MAMMOGRAMS OR COLONOSCOPIES, CAN CATCH DISEASES LIKE CANCER EARLY WHEN TREATMENT IS OFTEN MORE EFFECTIVE. A SCREENING TEST IS LIKE A QUICK CHECK-UP YOUR DOCTOR DOES TO SEE IF THERE ARE ANY PROBLEMS STARTING IN YOUR BODY, EVEN WHEN YOU FEEL OKAY, SO THEY CAN FIND THEM EARLY WHEN THEY'RE EASIER TO FIX. WHY ESTABLISH A RELATIONSHIP WITH A PRIMARY CARE PHYSICIAN (PCP)? PREVENTIVE CARE: YOUR PCP FOCUSES ON PREVENTING ILLNESS THROUGH REGULAR CHECKUPS, VACCINATIONS, AND HEALTH ADVICE TAILORED TO YOUR NEEDS. CHRONIC DISEASE MANAGEMENT: IF YOU HAVE A CHRONIC CONDITION, LIKE DIABETES OR HIGH BLOOD PRESSURE, YOUR PCP CAN HELP YOU MANAGE IT EFFECTIVELY THROUGH MONITORING, MEDICATION MANAGEMENT, AND LIFESTYLE RECOMMENDATIONS. EARLY DETECTION: REGULAR VISITS ALLOW YOUR PCP TO TRACK YOUR HEALTH OVER TIME, IDENTIFY SUBTLE CHANGES, AND ORDER NECESSARY SCREENINGS OR TESTS TO CATCH POTENTIAL PROBLEMS EARLY. TRUSTED RESOURCE: YOUR PCP GETS TO KNOW YOU, YOUR MEDICAL HISTORY, AND YOUR CONCERNS, MAKING THEM A TRUSTED RESOURCE FOR ALL YOUR HEALTH-RELATED QUESTIONS. REFERRALS: IF YOU NEED SPECIALIZED CARE, YOUR PCP WILL REFER YOU TO THE APPROPRIATE SPECIALISTS AND HELP COORDINATE YOUR CARE. CONTINUITY OF CARE: YOUR PCP ENSURES THAT YOUR HEALTHCARE IS COORDINATED, ESPECIALLY AFTER HOSPITAL STAYS OR VISITS TO OTHER SPECIALISTS. WHY ARE ROUTINE SCREENINGS IMPORTANT? EARLY DETECTION: MANY SERIOUS ILLNESSES LIKE CANCER, DIABETES AND HEART DISEASE, CAN BE TREATED MORE SUCCESSFULLY WHEN DETECTED EARLY. SCREENINGS LIKE LAB TESTS, BLOOD PRESSURE CHECKS, MAMMOGRAMS, COLONOSCOPIES, AND PAP SMEARS ARE DESIGNED TO CATCH THESE DISEASES EARLY. PREVENTING DISEASE: SOME SCREENINGS CAN ACTUALLY HELP PREVENT DISEASES FROM DEVELOPING. PEACE OF MIND: KNOWING THAT YOU ARE UP-TO-DATE ON YOUR SCREENINGS CAN PROVIDE PEACE OF MIND AND REDUCE ANXIETY ABOUT POTENTIAL HEALTH PROBLEMS. IN SUMMARY, ESTABLISHING A RELATIONSHIP WITH A PRIMARY CARE PHYSICIAN AND FOLLOWING THEIR RECOMMENDATIONS FOR ROUTINE SCREENINGS IS IMPORTANT FOR STAYING HEALTHY AND MANAGING YOUR HEALTH EFFECTIVELY. IT'S AN INVESTMENT IN YOUR WELL- BEING THAT CAN PAY OFF IN THE LONG RUN. e-Prescriptions Nitrofurantoin Monohydrate Mac (Macrobid) 100 Mg Cap 100 MG PO BID for 3 Days, #6 CAP Prov: JEANETTE SHAIKH MD 10/17/25 Discharged With: Self Comments In the emergency room, patient complained she was unable to urinate for the past 8 hours, on inquiry however, she stated that she had not had any water throughout the day. Patient was provided water and Urine sample was collected. She was found to have UTI- UA showed ex. turbid urine, leukocyte esterase 3+, WBC 14, urobilinogen 2+, glucose 3+, ketones 3+, protein 1+. Rest of her labs were normal, except for potassium which was 3.4- we repleted it with oral potassium tablet 40 mEq. For her high blood pressure 1 dose of losartan 25 mg was given in the ER. Patient was given 1 dose of Macrobid as well and has been prescribed Macrobid twice a day for the next 3 days. She has been counseled regarding drinking plenty of water and to complete the antibiotic course. She is also been counseled to meet with PCP regarding blood sugar levels and antihypertensive medication as soon as possible. She is stable and is being discharged. Attestation: I personally saw and evaluated the patient. I agree with the findings and plan of care as documented by the resident note. JEANETTE SHAIKH MD Critical Care Note Critical Care Time?: No Stability Stability form required: No Heart Score Heart Score: Heart Score Response (Comments) Value History N/A 0 EKG N/A 0 Age N/A 0 Risk Factors N/A 0 Troponin N/A 0 Total 0 JUSTYNA STARKEY RESIDENT Oct 16, 2025 22:31 JEANETTE SHAIKH MD Oct 17, 2025 01:33
--- NOTE | 2025-10-16 22:39 | DVH ---
CHEST RADIOGRAPH Indication: SOB Technique: Single frontal view of the chest was obtained. Comparison: XY CHEST PORTABLE on DOS: 06/27/25 Findings: Interval removal right PICC. No focal consolidation. No significant pleural effusion. No pneumothorax. Stable cardiomediastinal silhouette. IMPRESSION: No acute pulmonary process.
--- NOTE | 2025-10-16 22:57 | ECG ---
[facility] Test Date: 2025-10-16 Test Time: 22:55:10 Pat Name: RICHARD NEWMAN Department: ED Room: Gender: F Technical Project Lead: YOVANI : 1975 Requested By: JUSTYNA STARKEY Order Number: [id number] Reading MD: Gerard Vidales Measurements Intervals [place] Rate: 89 P: 62 MS: 119 QRS: 50 QRSD: 85 T: 30 QT: 361 QTc: 440 Interpretive Statements Sinus rhythm Borderline short MS interval Probable left atrial enlargement Anteroseptal infarct, age indeterminate Electronically Signed On 10-17-2025 11:45:56 PST by Gerard Vidales Please click the below link to view image of tracing.
[2025-10-16] MEDS: POTASSIUM CHL 20 Meq TABLET PO ONE (23:46)
[2025-10-17] MEDS ORDERED: NITR-87 PO (01:33)
[2025-10-17] MEDS: LOSARTAN POTASSIUM 25 MG TAB PO ONE (01:57)
[2025-10-17 02:38] VITALS: BP 166/109; PULSE 108; RESP 12; TEMP 98.2; O2SAT 100
[2025-10-17 02:40] LABS: Urine Protein, UAD 1+ (Negative)
== END 2025-10-17 03:09 | disposition home or self-care (01) ==
LOC: ER 20:59
DX: I10 Essential (primary) hypertension (principal); E11.65 Type 2 diabetes mellitus with hyperglycemia; N39.0 Urinary tract infection, site not specified; J45.909 Unspecified asthma, uncomplicated; F32.A Depression, unspecified; Z79.899 Other long term (current) drug therapy; Z88.0 Allergy status to penicillin; Z87.440 Personal history of urinary (tract) infections; Z79.4 Long term (current) use of insulin; Z90.49 Acquired absence of other specified parts of digestive tract
CPT/HCPCS: 36415; 71045; 80053; 81001; 85025; 93005

== ENCOUNTER 2025-11-14 16:47 | Emergency (ER) | payer MEDICARE, OTHER ==
[~2025-11-14] VITALS: Ht 154.9 cm; Wt 68.1 kg
[~2025-11-14 16:47] MED LIST changes: +NITR-87 PO
--- NOTE | 2025-11-14 17:52 | ED.PDOC ---
Eye-HPI HPI Comments A 50 YEAR OLD FEMALE PRESENTS TO THE ED WITH COMPLAINT OF DENTAL PAIN. PATIENT STATES SHE HAS BEEN EXPERIENCING LEFT LOWER DENTAL PAIN FOR THE PAST 2 DAYS. PATIENT REPORTS SHE WENT TO THE DENTIST EARLIER TODAY AND WAS INSTRUCTED TO GO TO THE ED FOR FURTHER EVALUATION. PATIENT DENIES FEVER, CHILLS, SHORTNESS OF BREATH, CHEST PAIN, ABDOMINAL PAIN, NAUSEA, VOMITING, HEADACHE, OR OTHER COMPLAINTS. NO OTHER SYMPTOMS OR MODIFYING FACTORS AT THIS TIME. PATIENT IS ALERT, ORIENTED X 4, AND HAS STEADY GAIT. Chief Complaint: Tooth Pain Time Seen by MD: 17:07 Primary Care Provider: UNKNOWN Reviewed Notes: Nurses Notes, Medications, Allergies Allergies: Coded Allergies: Penicillins (Verified Allergy, Severe, ANAPHYLAXIS , 06/27/25) Home Meds Active Scripts Nitrofurantoin Monohydrate Mac (Macrobid) 100 Mg Cap, 100 MG PO BID for 3 Days, #6 CAP Prov:JEANETTE SHAIKH MD 10/17/25 Insulin Glargine (Lantus) 100 Unit/Ml Inj, 18 UNIT SC BID, #5 INJ 0 Refills Prov:AXEL CRAWFORD 10/15/25 Albuterol Sulfate (VENTOLIN MDI) 90 Mcg Ih, 90 MCG IN Q4HP PRN for 30 Days, #1 INH Prov:SHAKEEL STONER NP 06/09/25 Insulin Glargine (Basaglar Kwikpen) 100 Unit/Ml Inj, 18 UNIT SC BID for 30 Days, #14 INJ Prov:SHAKEEL STONER STREETCAR REPAIRER 06/09/25 Reported Medications Lamotrigine (Lamotrigine) 25 Mg Tab, 2 TAB PO DAILY 05/31/25 Olanzapine (OLANZAPINE ODT) 10 Mg Tab, 1 TAB PO 05/31/25 Duloxetine HCl (Duloxetine HCl) 60 Mg Cap, 1 CAP PO DAILY 05/31/25 Omeprazole (Omeprazole Dr) 20 Mg Cap, 1 CAP PO DAILY 05/31/25 Hydrochlorothiazide (Hydrochlorothiazide) 12.5 Mg Tab, 1 TAB PO DAILY 05/31/25 Losartan Potassium (Losartan Potassium) 25 Mg Tab, 1 TAB PO DAILY 05/31/25 Information Source: Patient Mode of Arrival: Ambulatory Timing: Days Duration: Since onset, Days Prehospital treatment: None Quality: Pain, Red Lids: Normal Conjunctiva: Normal Cornea: Normal Pupils: Normal EOM: Normal Fundus: Normal Slit lamp exam: Normal Anterior chamber: Normal Mouth Location: Left, Lower, Tooth/Teeth, Gums Mouth: Left, Lower, Premolar, Molar, Tender, Carious ENT Ear Exam: Normal, Normal, Normal Nose: Normal Sinuses: Normal Oropharynx: Normal Onset: Spontaneous Throat Exposed to: None History of: None Last Tetanus: Unknown Modifying factors: Nothing Associated signs and symptoms: Tooth Pain Past Medical History PAST MEDICAL HISTORY: Asthma, Depression, DM, HTN Surgical History: Cholecystectomy NUCLEAR SUPERVISING OPERATOR History: No Pertinent NUCLEAR SUPERVISING OPERATOR History Family History Family History: Reviewed,noncontributory to illness Social History Smoker: Quit Greater Than 1 Year Alcohol: Denies ETOH Use Drugs: Denies Drug Use Lives In: Home Constitutional: denies: chills, diaphoresis, fatigue, fever, malaise, sweats, weakness, others EENTM: reports: mouth pain (LEFT LOWER DENTAL PAIN); denies: blurred vision, double vision, ear bleeding, ear discharge, ear drainage, ear pain, ear ringing, eye pain, eye redness, hearing loss, mouth swelling, nasal discharge, nose bleeding, nose congestion, nose pain, photophobia, tearing, throat pain, throat swelling, voice changes, others Respiratory: denies: cough, hemoptysis, orthopnea, SOB at rest, shortness of breath, SOB with excertion, stridor, wheezing, others Cardiovascular: denies: chest pain, dizzy spells, diaphoresis, Dyspnea on exertion, edema, irregular heart beat, left arm pain, lightheadedness, palpitations, PND, syncope, others Gastrointestinal: denies: abdomen distended, abdominal pain, blood streaked bowels, constipated, diarrhea, dysphagia, difficulty swallowing, hematemesis, melena, nausea, poor appetite, poor fluid intake, rectal bleeding, rectal pain, vomiting, others Genitourinary: denies: abnormal vagina bleeding, burning, dyspareunia, dysuria, flank pain, frequency, hematuria, incontinence, pain, , vagina discharge, urgency, others Neurological: denies: dizziness, fainting, headache, left sided numbness, left sided weakness, numbness, paresthesia, pre-existing deficit, right sided numbn ess, right sided weakness, seizure, speech problems, tingling, tremors, weakness, others Musculoskeletal: denies: back pain, gout, joint pain, joint swelling, muscle pain, muscle stiffness, neck pain, others Integumetry: denies: bruises, change in color, change in hair/nails, dryness, laceration, lesions, lumps, rash, wounds, others Allergic/Immunocompromised: denies: Difficulty Healing, Frequent Infections, Hives, Itching, others Hematologic/Lymphatic: denies: anemia, blood clots, easy bleeding, easy bruising, swollen glands, others Endocrine: denies: excessive hunger, excessive sweating, excessive thirst, excessive urination, flushing, intolerance to cold, intolerance to heat, unexplained weight gain, unexplained weight loss, others Psychiatric: denies: anxiety, bipolar disorder, depression, hopeless, panic disorder, schizophrenia, sleepless, suicidal, others All Other Systems: Reviewed and Negative Physical Exam General Appearance: No Apparent Distress, Normal HEENT: Normal ENT Inspection, PERRL/EOMI, Pharynx Normal, TMs Normal, Other (ERYTHEMA AND SWELLING ON ;LEFT LOWER GUM AROUND TOOTH, DENTAL INFECTION, MILD LEFT JAW REGION SWELLING. ) Neck: Full Range of Motion, Non-Tender, Normal, Normal Inspection Respiratory: Chest Non-Tender, Lungs Clear, No Accessory Muscle Use, No Respiratory Distress, Normal Breath Sounds Cardiovascular: No Edema, No JVD, No Murmur, No Gallop, Normal Peripheral Pulses, Regular Rate/Rhythm Breast Exam: Deferred Gastrointestinal: No Organomegaly, Non Tender, No Pulsatile Mass, Normal Bowel Sounds, Soft Genitalia: Deferred Pelvic: Deferred Rectal: Deferred Extremities: No calf tenderness, Normal capillary refill, Normal inspection, Normal range of motion, Non-tender, No pedal edema Musculoskeletal : Apperance: Normal Neurologic: Alert, mix maker II-XII nml as Tested, No Motor Deficits, Normal Affect, Normal Mood, No Sensory Deficits Cerebellar Function: Normal Reflexes: Normal Skin: Dry, Normal Color, Warm Peripheral Pulses: 2+ carotid (R), 2+ carotid (L) Lymphatic: No Adenopathy Was a procedure done? Was a procedure done?: Yes Sedation Sedation?: No Incision and Drainage Incision and Drainage: Abscess (DENTAL ABSCESS) Location LEFT LOWER GUM/TOOTH Incision and Wound: Pus, Blood, Irrigated Informed consent obtained: No Risks/benefits/alt described: Yes Notes 18 GAUGE NEEDLE WAS USED TO POKE A HOLE INTO THE PATIENT'S DENTAL ABSCESS ON HER LEFT LOWER GUMLINE. PUS AND BLOOD WAS DRAINED FROM THE AFFECTED AREA. SWELLING AND PAIN WAS NOTED TO HAVE DECREASED. HER LEFT LOWER GUM WAS THEN IRRIGATED WITH NORMAL SALINE. PATIENT TOLERATED WELL. EENT DIFF Eye: N/A Ear: Otitis Media, Dental, Other (DENTAL ABSCESS ), N/A Nose: N/A Mouth: Other (DENTAL ABSCESS, DENTAL INFECTION, DENTAL CARIES, DENTAL PAIN, GINGIVITIS) Sore Throat: N/A X-Ray, Labs, Meds, VS Vital Signs Date Time Temp Pulse Resp B/P (MAP) Pulse Ox O2 Delivery O2 Flow Rate FiO2 11/14/25 17:31 98.6 99 16 139/78 (98) 99 98.6 11/14/25 17:31 99 16 99 Room Air 11/14/25 16:55 98.5 141 16 100/6 99 98.5 X-Ray, Labs, Meds, VS Comment EXTERNAL MEDICAL RECORDS REVIEWED: [NONE] INDEPENDENT HISTORIANS: [NONE] SOCIAL DETERMINANTS OF HEALTH: [NONE] LABS ORDERED: NONE REVIEWED AND INTERPRETED RESULTS: NONE IMAGING ORDERED: NONE TREATMENTS ORDERED: ROCEPHIN 1G IM AND NORCO 5/325 PO PROCEDURES PERFORMED: NONE CRITICAL CARE TIME: NONE I HAVE DISCUSSED THE PATIENT WITH THE ATTENDING PHYSICIAN DR. GALLEGO AND HE AGREES WITH THE PATIENT'S PLAN OF CARE AND DISPOSITION. BASED ON HISTORY OF PRESENT ILLNESS, AND PHYSICAL EXAM, PATIENT WILL BE DISCHARGED HOME. DISCUSSED PLAN FOR DISCHARGE HOME WITH RX [CLINDAMYCIN AND IBUPROFEN 800 MG]. MEDICATION WARNINGS GIVEN. SHARED DECISION MAKING: PATIENT INSTRUCTED TO FOLLOW UP WITH PRIMARY CARE PROVIDER IN 1-2 DAYS FOR RE-EVALUATION OF SYMPTOMS. PATIENT VERBALIZES UNDERSTANDING TO RETURN TO ED FOR NEW OR WORSENING SYMPTOMS OR IF FOLLOW UP WITH PCP CANNOT BE OBTAINED. PATIENT FEELS COMFORTABLE GOING HOME AT THIS TIME. ALL QUESTIONS ADDRESSED AT TIME OF DISCHARGE. Time of 1ST Reevaluation: 18:20 Reevaluation 1ST: Improved Patient Education/Counseling: Diagnosis, Treatment, Need For Follow Up Family Education/Counseling: Diagnosis, Treatment, Need For Follow Up Medical Screening: No EMC Exist At This Time SEPSIS Sepsis Screen Date sepsis recognized/suspect: Nov 14, 2025 Time Sepsis recognized/suspect: 1656 Recent Procedure: No On Antibiotic Therapy: No Respiratory Rate >20: No Heart Rate >90: No Temp<36 C (96.8 F) or >38.3 C: No SBP <90 or MAP <65 mmHG: No New Acute Mental Status Change: No Is the patient on CPAP, BIPAP,: No Physician Orders Ceftriaxone Sodium (Rocephin) (11/14/25 18:00) Ibuprofen Tablet (Motrin Tablet) (11/14/25 18:00) Vital Signs Date Time Temp Pulse Resp B/P (MAP) Pulse Ox O2 Delivery O2 Flow Rate FiO2 11/14/25 17:31 98.6 99 16 139/78 (98) 99 98.6 11/14/25 17:31 99 16 99 Room Air 11/14/25 16:55 98.5 141 16 100/6 99 98.5 Departure 1 Departure Time of Disposition: 18:20 Impression: Primary Impression: Dental abscess Disposition: HOME / SELF CARE / HOMELESS Condition: Stable Additional Instructions: FOLLOW-UP WITH PCP AND DENTIST IN 1 TO 2 DAYS. TAKE MEDICATIONS PRESCRIBED. RETURN TO ED FOR ANY NEW OR WORSENING SYMPTOMS. e-Prescriptions Ibuprofen (Ibuprofen) 800 Mg Tab 1 TAB PO TID, #30 TAB Prov: ZULEYKA BARNES 11/14/25 Clindamycin Hcl (Clindamycin Hcl) 300 Mg Cap 1 CAP PO TID, #30 CAP Prov: ZULEYKA BARNES 11/14/25 Discharged With: Self, Spouse Critical Care Note Critical Care Time?: No Stability Stability form required: No I personally scribed for ZULEYKA BARNES ([email or web address]) on 11/14/25 at 17:52. Electronically submitted by Sd Laughlin ([email or web address]). ZULEYKA BARNES Nov 14, 2025 17:52
[2025-11-14] MEDS ORDERED: IBUPROFEN 600 MG TAB PO ONE (18:00)
[2025-11-14] MEDS ORDERED: CLIN1CAP70 PO (18:05)
[2025-11-14] MEDS ORDERED: IBUP-1456 PO (18:05)
[2025-11-14] MEDS: cefTRIAXone SOD 1,000 MG VL IM ONE (18:12)
[2025-11-14] MEDS: HYDROcodone-ACET 5/325MG TAB PO ONE (18:12)
[2025-11-14 18:15] VITALS: BP 140/90; PULSE 100; RESP 16; TEMP 98.1; O2SAT 99
== END 2025-11-14 18:20 | disposition home or self-care (01) ==
LOC: ER 16:47
DX: K04.7 Periapical abscess without sinus (principal); E11.9 Type 2 diabetes mellitus without complications; I10 Essential (primary) hypertension; J45.909 Unspecified asthma, uncomplicated; Z79.899 Other long term (current) drug therapy; Z88.0 Allergy status to penicillin; Z90.49 Acquired absence of other specified parts of digestive tract
CPT/HCPCS: 41800; 96372; 99283; J0696